=== PATIENT | female | born 1965 | race Caucasian/White ===

== ENCOUNTER 2018-09-28 19:15 | Observation (INO) | payer OTHER ==
[2018-09-28 20:03] LABS: Absolute Lymphocytes (CBC) 2.7 K/uL (0.7-4.9); Absolute Monocytes 0.6 K/uL (0.1-1.3); Absolute Neutrophil 8.4 K/uL (1.8-8.0); Basophils % 0.6 % (0-1.3); Eosinophils % 2.2 % (0-4.4); Hematocrit 38.1 % (36.0-45.0); Lymphocytes % 22.6 % (15.3-44.8); MCV 85.8 fL (80-100); MPV 9.5 fL (7.6-11.3); Monocytes % 5.2 % (3.3-12.3); RBC Red Blood Cell Count 4.44 M/uL (3.86-4.86)
--- NOTE | 2018-09-28 20:03 | RAD REPORT ---
EXAM DESCRIPTION: CT - Head Brain Wo Cont - 09/28/2018 7:55 pm CLINICAL HISTORY: NUMBNESS Drowsiness COMPARISON: No comparisons TECHNIQUE: All CT scans are performed using dose optimization technique as appropriate and may inclu de automated exposure control or mA/KV adjustment according to patient size. FINDINGS: No intracranial hemorrhage, hydrocephalus or extra-axial fluid collection.No areas of brai n edema or evidence of midline shift. The paranasal sinuses and mastoids are clear. The calvarium is intact. IMPRESSION: No acute intracranial abnormality. If there is continued clinical concern for CVA, MR i maging of the brain would be recommended.
[2018-09-28 20:05] LABS: Protime INR 1.08
--- NOTE | 2018-09-28 20:10 | RAD REPORT ---
EXAM DESCRIPTION: RAD - Chest Single View - 09/28/2018 8:01 pm CLINICAL HISTORY: MALAISE Chest pain. COMPARISON: Chest Single View dated 10/21/2017; Chest Pa And Lat (2 Views) dated 09/27/2017; Chest Pa And Lat (2 Views) dated 09/04/2017; Chest Pa And Lat (2 Views) dated 09/03/2017 FINDINGS: Portable technique limits examination quality. The lungs are mildly emphysematous but grossly clear. The heart is normal in size. No displaced fract ures. IMPRESSION: No acute intrathoracic process suspected.
[2018-09-28 20:14] LABS: BUN Blood Urea Nitrogen 15 mg/dL (7-18); Bicarbonate 28 mmol/L (21-32); Glucose Level 184 mg/dL (74-106); Sodium Level 137 mmol/L (136-145); Troponin (Emerg Dept Use Only) < 0.02 ng/mL (0.0-0.045)
--- NOTE | 2018-09-28 20:34 | EDPHYS ---
Physician Documentation [facility] Name: Smitha Ibarra Age: 53 yrs Sex: Female : 1965 Arrival Date: 09/28/2018 Time: 19:17 Bed 4 Private MD: ED Physician Ryne Hearn HPI: 09/28 20:46 This 53 yrs old Female presents to ER via Wheelchair with complaints of gs Numbness Of Face. 20:46 The patient's problem is reported as a facial droop, on left, paresthesias, in left gs upper extremity, in left side of face, l side of tongue. Onset: The symptoms/episode began/occurred acutely, yesterday, at 14:00. Duration: The episode is continuous. Context: symptoms became apparent. Associated signs and symptoms: Pertinent positives: tingling, Pertinent negatives: chest pain. Severity of symptoms: At their worst the symptoms were moderate in the emergency department the symptoms are unchanged. Patient's baseline: Neuro: alert and fully oriented, Motor: no deficits, Ambulation: walks without assistance, Speech: normal. The patient has not experienced similar symptoms in the past. 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 rr5 Historical: - Allergies: 19:34 Sudafed; fc - Home Meds: 19:34 Dilantin 100 mg Oral 4 cap daily [Active]; atorvastatin 20 mg oral tab 1 tab once daily [Active]; amlodipine 10 mg tab 1 tab once daily [Active]; Magnesium Oxide Oral daily [Active]; Januvia 50 mg oral tab 1 tabs once daily [Active]; lisinopril 40 mg Oral tab 1 tab once daily [Active]; aspirin 81 mg Oral TbEC 1 tab once daily [Active]; ProAir HFA 90 mcg/actuation inhalation HFAA 1 puff every 4-6 hours [Active]; - PMHx: 19:34 Hypertension; High Cholesterol; Seizures; Arthritis; COPD; Diabetes - NIDDM; fc - PSHx: 19:34 Tubal ligation; fc - Immunization history:: Last tetanus immunization: up to date Flu vaccine is up to date. - Social history:: Smoking status: Patient uses tobacco products, smokes one-half pack cigarettes per day, Patient uses alcohol, occasionally. Patient/guardian denies using street drugs. - Ebola Screening: : Patient negative for fever greater than or equal to 101.5 degrees Fahrenheit, and additional compatible Ebola Virus Disease symptoms Patient denies exposure to infectious person Patient denies travel to an Ebola-affected area in the 21 days before illness onset. ROS: 20:46 All other systems are negative. gs Exam: 20:46 Head/Face: Normocephalic, atraumatic. Eyes: Pupils equal round and reactive to light, gs extra-ocular motions intact. Lids and lashes normal. Conjunctiva and sclera are non-icteric and not injected. Cornea within normal limits. Periorbital areas with no swelling, redness, or edema. ENT: Nares patent. No nasal discharge, no septal abnormalities noted. Tympanic membranes are normal and external auditory canals are clear. Oropharynx with no redness, swelling, or masses, exudates, or evidence of obstruction, uvula midline. Mucous membranes moist. Neck: Trachea midline, no thyromegaly or masses palpated, and no cervical lymphadenopathy. Supple, full range of motion without nuchal rigidity, or vertebral point tenderness. No Meningismus. Chest/axilla: Normal chest wall appearance and motion. Nontender with no deformity. No lesions are appreciated. Cardiovascular: Regular rate and rhythm with a normal S1 and S2. No gallops, murmurs, or rubs. Normal PMI, no JVD. No pulse deficits. Respiratory: Lungs have equal breath sounds bilaterally, clear to auscultation and percussion. No rales, rhonchi or wheezes noted. No increased work of breathing, no retractions or nasal flaring. Abdomen/GI: Soft, non-tender, with normal bowel sounds. No distension or tympany. No guarding or rebound. No evidence of tenderness throughout. Back: No spinal tenderness. No costovertebral tenderness. Full range of motion. Skin: Warm, dry with normal turgor. Normal color with no rashes, no lesions, and no evidence of cellulitis. MS/ Extremity: Pulses equal, no cyanosis. Neurovascular intact. Full, normal range of motion. 20:46 Constitutional: The patient appears alert, awake. 20:46 Neuro: Orientation: to person, place, time \T\ situation. Cranial nerves: facial droop noted on left, with forehead spared. Cerebellar function: normal finger to nose testing, Sensation: tingling, that is moderate, of the tongue and left arm. Vital Signs: 19:15 BP 131 / 73; Pulse 99; Resp 18; Temp 98.5(O); Pulse Ox 92% on R/A; Weight 113.4 kg (R); fc Height 5 ft. 7 in. (170.18 cm) (R); Pain 0/10; 20:19 BP 134 / 61; Pulse 81; Resp 19; Pulse Ox 93% on R/A; tl2 21:05 BP 139 / 73; Pulse 72; Resp 18; Pulse Ox 97% on R/A; tl2 22:00 BP 131 / 77; Pulse 66; Resp 16; Pulse Ox 99% on R/A; rr5 22:00 BP 123 / 66; Pulse 60; Resp 17; Pulse Ox 98% on R/A; rr5 19:15 Body Mass Index 39.16 (113.40 kg, 170.18 cm) fc NIH Stroke Scale Scores: 20:46 NIHSS Score: 3 gs MDM: 19:35 Patient medically screened. gs 20:46 Differential diagnosis: CVA, TIA, paralysis, metabolic disorder, drug effects. Data gs reviewed: vital signs, nurses notes. Counseling: I had a detailed discussion with the patient and/or guardian regarding: the historical points, exam findings, and any diagnostic results supporting the discharge/admit diagnosis, lab results, radiology results, the need for further work-up and treatment in the hospital. Response to treatment: the patient's symptoms have mildly improved after treatment. 09/28 19:36 Order name: Basic Metabolic Panel; Complete Time: 20:26 09/28 19:36 Order name: CBC with Diff; Complete Time: 20:26 09/28 19:36 Order name: PT-INR; Complete Time: 20:26 09/28 19:36 Order name: Troponin (emerg Dept Use Only); Complete Time: 20:26 09/28 20:58 Order name: TSH 09/28 20:58 Order name: Urine Drug Screen 09/28 21:24 Order name: Urine Dipstick--Ancillary (enter results) ar5 09/28 21:32 Order name: CBC with Automated Diff EDMS 09/28 21:32 Order name: CBC with Automated Diff EDMS 09/28 21:32 Order name: Comprehensive Metabolic Panel EDMS 09/28 21:32 Order name: Comprehensive Metabolic Panel EDMS 09/28 21:32 Order name: Lipid Profile EDMS 09/28 21:32 Order name: Lipid Profile EDMS 09/28 21:32 Order name: Magnesium EDMS 09/28 19:36 Order name: CT Head Brain wo Cont; Complete Time: 20:26 gs 09/28 19:36 Order name: XRAY Chest (1 view); Complete Time: 20:26 gs 09/28 19:36 Order name: EKG; Complete Time: 20:11 gs 09/28 21:30 Order name: NPO EDMS 09/28 21:30 Order name: NPO EDMS 09/28 21:31 Order name: Physical Therapy Consult EDMS 09/28 21:31 Order name: Speech Therapy Consult EDMS 09/28 21:31 Order name: NPO EDMS 09/28 21:32 Order name: Echo with Doppler EDMS 09/28 21:32 Order name: Magnesium EDMS 09/28 21:32 Order name: Phosphorus EDMS 09/28 21:32 Order name: Phosphorus EDMS 09/28 21:32 Order name: Stroke Protocol EDMS 09/28 21:32 Order name: Carotid Artery Bilateral EDMS 09/28 19:36 Order name: Cardiac monitoring; Complete Time: 19:37 gs 09/28 19:36 Order name: EKG - Nurse/Tech; Complete Time: 19:37 gs 09/28 19:36 Order name: IV Saline Lock; Complete Time: 19:38 gs 09/28 19:36 Order name: Labs collected and sent; Complete Time: 19:38 gs 09/28 19:36 Order name: O2 Per Protocol; Complete Time: 19:38 gs 09/28 19:36 Order name: O2 Sat Monitoring; Complete Time: 19:39 gs 09/28 21:32 Order name: EKG Electrocardiogram EDMS Administered Medications: 21:10 Drug: Aspirin Chewable Tablet 324 mg Route: PO; rr5 23:00 Follow up: Response: No adverse reaction rr5 Disposition: 09/28/18 20:33 Hospitalization ordered by Sarbjit Corley for Inpatient Admission. Preliminary diagnosis is Cerebral infarction. - Bed requested for Telemetry/MedSurg (Inpatient). - Status is Inpatient Admission. rr5 - Condition is Stable. - Problem is new. - Symptoms have improved. UTI on Admission? No Critical care time excluding procedures: 20:46 Critical care time: Bedside Care: 10 minutes, Consultation: 10 minutes, Family gs Intervention: 10 minutes. Total time: 30 minutes NIH Stroke Scale - NIH Stroke Score Date: 09/28/2018 Time: 20:46 Total Score = 3 1a. Level of Consciousness (LOC) - 0(Alert) 1b. Level of Consciousness (LOC) (Year \T\ Age) - 0(Both) 1c. LOC Commands (Open \T\ Closes Eyes/On Line Csr) - 0(Both) 2. Best Gaze (Lateral Gaze Paresis) - 0(Normal) 3. Visual Field Loss - 0(No visual loss) 4. Facial Palsy - 2(Partial paralysis) 5a. Left Arm: Motor (10-second hold) - 0(No drift) 5b. Right Arm: Motor (10-second hold) - 0(No drift) 6a. Left Leg: Motor (5-second hold - always test supine) - 0(No drift) 6b. Right Leg: Motor (5-second hold - always test supine) - 0(No drift) 7. Limb Ataxia (finger/nose \T\ heel/andrade - test with eyes open) - 0(Absent) 8. Sensory Loss (pinprick arms/legs/face) - 1(Mild to moderate loss) 9. Best Language: Aphasia (description/naming/reading) - 0(No aphasia) 10. Dysarthria (speech clarity - read or repeat words) - 0(Normal) 11. Extinction and Inattention (visual/tactile/auditory/spatial/personal) - 0(No abnormality) Initials: Signatures: Dispatcher [employer] EDTX Shala Briceno RN RN mw Chretien, Felicia, RN RN fc Starr, Gregory, MD MD gs Roque, Raymond RN RN rr5 Corrections: (The following items were deleted from the chart) 20:49 20:33 Hospitalization Ordered by Sarbjit Corley MD for Inpatient Admission. flavia Preliminary diagnosis is Cerebral infarction. Bed requested for Telemetry/MedSurg (Inpatient). Status is Inpatient Admission. Condition is Stable. Problem is new. Symptoms have improved. UTI on Admission? No. gs 21:34 21:32 Chest Pa And Lat (2 Views) ordered. [facility] ED[facility] 23:21 20:49 09/28/2018 20:33 Hospitalization Ordered by Sarbjit Corley MD for rr5 Inpatient Admission. Preliminary diagnosis is Cerebral infarction. Bed requested for Telemetry/MedSurg (Inpatient). Status is Inpatient Admission. Condition is Stable. Problem is new. Symptoms have improved. UTI on Admission? No. mw
--- NOTE | 2018-09-28 20:34 | ER ---
Nurse's Notes [facility] Name: Smitha Ibarra Age: 53 yrs Sex: Female : 1965 Arrival Date: 09/28/2018 Time: 19:17 Bed 4 Private MD: Diagnosis: Cerebral infarction Presentation: 09/28 19:15 Presenting complaint: Patient states: that at 1400 yesterday she started to have fc slurred speech, numbness to left tongue, left side of face and left hand. States that all symptoms worsened today. Transition of care: patient was not received from another setting of care. Onset of symptoms was September 27, 2018 at 14:00. Risk Assessment: Do you want to hurt yourself or someone else? Patient reports no desire to harm self or others. Initial Sepsis Screen: Does the patient meet any 2 criteria? HR > 90 bpm. Yes Does the patient have a suspected source of infection? No. Patient's initial sepsis screen is negative. Care prior to arrival: None. 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 05/2018 rr5 Historical: - Allergies: 19:34 Sudafed; fc - Home Meds: 19:34 Dilantin 100 mg Oral 4 cap daily [Active]; atorvastatin 20 mg oral tab 1 tab once daily fc [Active]; amlodipine 10 mg tab 1 tab once daily [Active]; Magnesium Oxide Oral daily [Active]; Januvia 50 mg oral tab 1 tabs once daily [Active]; lisinopril 40 mg Oral tab 1 tab once daily [Active]; aspirin 81 mg Oral TbEC 1 tab once daily [Active]; ProAir HFA 90 mcg/actuation inhalation HFAA 1 puff every 4-6 hours [Active]; - PMHx: 19:34 Hypertension; High Cholesterol; Seizures; Arthritis; COPD; Diabetes - NIDDM; fc - PSHx: 19:34 Tubal ligation; fc - Immunization history:: Last tetanus immunization: up to date Flu vaccine is up to date. - Social history:: Smoking status: Patient uses tobacco products, smokes one-half pack cigarettes per day, Patient uses alcohol, occasionally. Patient/guardian denies using street drugs. - Ebola Screening: : Patient negative for fever greater than or equal to 101.5 degrees Fahrenheit, and additional compatible Ebola Virus Disease symptoms Patient denies exposure to infectious person Patient denies travel to an Ebola-affected area in the 21 days before illness onset. Screenin:15 Abuse screen: Denies threats or abuse. Nutritional screening: No deficits noted. fc Tuberculosis screening: No symptoms or risk factors identified. 20:00 Fall Risk Secondary diagnosis (15 points) IV access (20 points). Total Blunt Fall Scale rr5 indicates Low Risk Score (25-44 pts). Fall prevention measures have been instituted. Side Rails Up X 2 Frequent Obs/Assesments occuring Family Present and informed to notify staff if they need to leave bedside As available Patient and Family Educated on Fall Prevention Program and strategies. 22:20 Patient has been NPO before screening. The patient is alert, able to follow commands. rr5 The patient exhibits slurred or garbled speech. The patient is not exhibiting difficulty speaking. The patient does not exhibit difficulty understanding words. The patient is able to swallow own secretions with no drooling or need for suction. Patient tolerated one teaspoon of water. No drooling, immediate coughing, gurgling, or clearing of the throat was noted. The patient tolerated 90mL of water. No drooling, immediate coughing, gurgling, or clearing of the throat was noted. The patient passed the bedside swallow screening. Oral medications may be given as ordered. Contact Physician for further diet orders. Assessment: 19:30 General: Appears in no apparent distress. Behavior is calm, cooperative, appropriate rr5 for age. Pain: Denies pain. Neuro: Level of Consciousness is awake, alert, obeys commands, Oriented to person, place, time, situation. Neuro: Reports numbness in face, left arm. Cardiovascular: Capillary refill < 3 seconds Patient's skin is warm and dry. Respiratory: Airway is patent Respiratory effort is even, unlabored, Respiratory pattern is regular, symmetrical. GI: No signs and/or symptoms were reported involving the gastrointestinal system. : No signs and/or symptoms were reported regarding the genitourinary system. EENT: No signs and/or symptoms were reported regarding the EENT system. Derm: No signs and/or symptoms reported regarding the dermatologic system. Skin is intact, Skin temperature is warm. Musculoskeletal: Capillary refill < 3 seconds, Range of motion: intact in all extremities, Reports numbness in left arm. 19:30 EENT: Throat is clear with gag reflex present. rr5 20:40 Reassessment: Patient appears in no apparent distress at this time. patient is for rr5 admission patient is informed Patient denies pain at this time. 22:10 Reassessment: Patient appears in no apparent distress at this time. 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 22:20 Reassessment: positive gag reflex no coughing noted. bed side swallow done. rr5 23:14 Reassessment: Patient appears in no apparent distress at this time. Patient is alert, rr5 oriented x 3, equal unlabored respirations, skin warm/dry/pink. no complaints made. vitally stable shifted to floor. Patient denies pain at this time. Patient states feeling better. Patient states symptoms have improved. Vital Signs: 19:15 BP 131 / 73; Pulse 99; Resp 18; Temp 98.5(O); Pulse Ox 92% on R/A; Weight 113.4 kg (R); fc Height 5 ft. 7 in. (170.18 cm) (R); Pain 0/10; 20:19 BP 134 / 61; Pulse 81; Resp 19; Pulse Ox 93% on R/A; tl2 21:05 BP 139 / 73; Pulse 72; Resp 18; Pulse Ox 97% on R/A; tl2 22:00 BP 131 / 77; Pulse 66; Resp 16; Pulse Ox 99% on R/A; rr5 22:00 BP 123 / 66; Pulse 60; Resp 17; Pulse Ox 98% on R/A; rr5 19:15 Body Mass Index 39.16 (113.40 kg, 170.18 cm) NIH Stroke Scale Scores: 20:46 NIHSS Score: 3 gs ED Course: 19:15 Arm band placed on Patient placed in an exam room, on a stretcher. 19:15 Patient has correct armband on for positive identification. Placed in gown. Bed in low fc position. Call light in reach. Side rails up X2. sports announcer on. Pulse ox on. NIBP on. 19:15 No provider procedures requiring assistance completed. fc 19:17 Patient arrived in ED. 19:23 EKG done, by ED staff, reviewed by Ryne Hearn MD. 19:23 Missed attempt(s): 20 gauge in right antecubital area. Bleeding controlled, band aid aa1 applied, catheter tip intact. 19:25 Inserted saline lock: 20 gauge in left upper arm, using aseptic technique. Blood aa1 collected. 19:28 Ryne Hearn MD is Attending Physician. gs 19:30 Triage completed. fc 19:[address] nj 19:53 CT completed. Patient tolerated procedure well. Patient moved back from CT. nj 20:13 CT Head Brain wo Cont In Process Unspecified. EDMS 20:14 XRAY Chest (1 view) In Process Unspecified. EDMS 20:32 Sarbjit Corley MD is Hospitalizing Provider. gs 20:54 Marcus Diana, TACOS is Primary Nurse. rr5 22:54 Patient admitted, IV remains in place. intact. rr5 Administered Medications: 21:10 Drug: Aspirin Chewable Tablet 324 mg Route: PO; rr5 23:00 Follow up: Response: No adverse reaction rr5 Outcome: 20:33 Decision to Hospitalize by Provider. 23:00 Admitted to Tele accompanied by tech, via wheelchair, with chart, Report called to rr5 frantz 23:00 Condition: stable rr5 23:00 Instructed on the need for admit. 23:21 Patient left the ED. rr5 NIH Stroke Scale - NIH Stroke Score Date: 09/28/2018 Time: 20:46 Total Score = 3 1a. Level of Consciousness (LOC) - 0(Alert) 1b. Level of Consciousness (LOC) (Year \T\ Age) - 0(Both) 1c. LOC Commands (Open \T\ Closes Eyes/Javascript Developer) - 0(Both) 2. Best Gaze (Lateral Gaze Paresis) - 0(Normal) 3. Visual Field Loss - 0(No visual loss) 4. Facial Palsy - 2(Partial paralysis) 5a. Left Arm: Motor (10-second hold) - 0(No drift) 5b. Right Arm: Motor (10-second hold) - 0(No drift) 6a. Left Leg: Motor (5-second hold - always test supine) - 0(No drift) 6b. Right Leg: Motor (5-second hold - always test supine) - 0(No drift) 7. Limb Ataxia (finger/nose \T\ heel/andrade - test with eyes open) - 0(Absent) 8. Sensory Loss (pinprick arms/legs/face) - 1(Mild to moderate loss) 9. Best Language: Aphasia (description/naming/reading) - 0(No aphasia) 10. Dysarthria (speech clarity - read or repeat words) - 0(Normal) 11. Extinction and Inattention (visual/tactile/auditory/spatial/personal) - 0(No abnormality) Initials: Signatures: Dispatcher [employer] Humera [place] RN RN aa1 Shania Das RN RN fc Knox, Taylor, RN RN tl2 Bryan Madison Gregory, MD MD gs Roque, Raymond, RN RN rr5
[2018-09-28] MEDS ORDERED: ASPIRIN 81 MG CHEWABLE TABLET ONE (21:11)
[2018-09-28] MEDS ORDERED: ACETAMINOPHEN 500 MG TAB PO PRN (21:27)
[2018-09-28] MEDS ORDERED: ONDANSETRON 4 MG/2 ML VIAL IV PRN (21:27)
[2018-09-28 21:31] LABS: Urine Blood NEGATIVE (NEG); Urine Glucose NEGATIVE (NEG); Urine Protein NEGATIVE (NEG)
[2018-09-28 21:46] LABS: Barbiturates NEGATIVE (NEGATIVE); Benzodiazepines NEGATIVE (NEGATIVE); Cocaine NEGATIVE (NEGATIVE); METHAMPHETAM NEGATIVE (NEGATIVE); Methadone NEGATIVE (NEGATIVE); Opiates NEGATIVE (NEGATIVE); Phencyclidine NEGATIVE (NEGATIVE); THC Cannibis POSITIVE (NEGATIVE)
[2018-09-29] MEDS: NA CHLORIDE 0.9% 1,000 ML IV SCH ×2 (00:16→10:59)
[2018-09-29] MEDS: NICOTINE 14 MG/PAT TD SCH ×2 (02:17→08:45)
[2018-09-29 06:14] LABS: Absolute Lymphocytes (CBC) 2.4 K/uL (0.7-4.9); Absolute Monocytes 0.6 K/uL (0.1-1.3); Absolute Neutrophil 5.8 K/uL (1.8-8.0); Basophils % 0.4 % (0-1.3); Eosinophils % 2.9 % (0-4.4); Hematocrit 37.5 % (36.0-45.0); Lymphocytes % 26.7 % (15.3-44.8); MCH 28.6 pg (27.0-35.0); MCV 86.1 fL (80-100); MPV 9.3 fL (7.6-11.3); Monocytes % 6.5 % (3.3-12.3); RBC Red Blood Cell Count 4.36 M/uL (3.86-4.86)
[2018-09-29 06:33] LABS: ALT/SGPT 20 U/L (12-78); AST/SGOT 13 U/L (15-37); Albumin 3.3 g/dL (3.4-5.0); Alkaline Phosphatase 125 U/L (45-117); BUN Blood Urea Nitrogen 10 mg/dL (7-18); Bicarbonate 26 mmol/L (21-32); Bilirubin Total 0.2 mg/dL (0.2-1.0); Glucose Level 160 mg/dL (74-106); HDL Cholesterol 37 mg/dL (40-60); LDL Cholesterol, Calculated 109 (<130); Phosphorus 4.4 mg/dL (2.5-4.9); Potassium 4.2 mmol/L (3.5-5.1); Protein, Total 7.1 g/dL (6.4-8.2); Sodium Level 142 mmol/L (136-145)
--- NOTE | 2018-09-29 08:29 | EKG ---
Test Date: 2018-09-28 Test Time: 19:23:33 Inorganic Chemical Technician: ROBERT MEASUREMENT RESULTS: Intervals: Rate: 98 LA: 172 QRSD: 86 QT: 350 QTc: 446 [place]: P: 65 LA: 172 QRS: 10 T: 63 INTERPRETIVE STATEMENTS: Normal sinus rhythm Normal ECG Compared to ECG 10/21/2017 11:52:21 Sinus tachycardia no longer present Electronically Signed On 09-29-18 08:28:34 PIERCING ARTIST by Uvaldo Hernandez
--- NOTE | 2018-09-29 08:33 | RAD REPORT ---
EXAM DESCRIPTION: MRI - Brain W/Wo Cont - 09/28/2018 10:28 pm CLINICAL HISTORY: cva CVA/TIA symptomology COMPARISON: MRA Head Wo Cont dated 09/28/2018; Head Brain Wo Cont dated 09/28/2018 TECHNIQUE: Multi-sequence, multiplanar MR imaging of the brain was performed with contrast. FINDINGS: No intracranial hemorrhage, hydrocephalus, or extra-axial fluid collection.Mild T2 and FLA IR hyperintense lesions in the periventricular region are noted likely in minimal chronic microvascul ar ischemic changes. No edema or shift of midline structures. No intracranial mass. DWI is negative f or acute CVA. The midline structures are normally formed. Mastoid air cells and paranasal sinuses are essentially c lear. Post-contrast images show no abnormal enhancement to suggest tumor or infection. IMPRESSION: Negative for acute CVA or other acute intracranial abnormality. No pathologic post-contrast enhancement suspected.
--- NOTE | 2018-09-29 08:35 | RAD REPORT ---
EXAM DESCRIPTION: MRI - MRA Head Wo Cont - 09/28/2018 10:28 pm CLINICAL HISTORY: CVA CVA COMPARISON: Head Brain Wo Cont dated 09/28/2018 FINDINGS: 3D noncontrast [id number] MR angiography of the [place] was performed. No aneurysm, flow-limiting stenosis or vascular malformation is seen. Forward flow seen in codominant vertebral arteries. The visualized dural venous sinuses appear patent. IMPRESSION: No significant flow abnormality of the [place] is identified.
--- NOTE | 2018-09-29 08:38 | RAD REPORT ---
EXAM DESCRIPTION: MRI - MRA Neck W/Wo Cont - 09/28/2018 10:28 pm CLINICAL HISTORY: cva CVA/TIA COMPARISON: No comparisons FINDINGS: Contrast enhance 2D [id number] MR angiography of the neck vessels was performed. A left aortic arch is noted in within normal branching pattern of the great vessels. No significant common carotid artery flow abnormality. No significant internal carotid artery stenosi s. Antegrade flow seen in both vertebral arteries. IMPRESSION: No significant flow abnormality of the neck vessels is identified.
[2018-09-29] MEDS ORDERED: PHENYTOIN ER 100 MG CAP PO SCH (09:00)
[2018-09-29] MEDS ORDERED: predniSONE 10 MG TAB PO SCH (09:00)
[2018-09-29] MEDS ORDERED: CLOPIDOGREL 75 MG TABLET PO SCH (09:00)
[2018-09-29] MEDS ORDERED: ENOXAPARIN 40 MG/0.4 ML SQ SCH (09:00)
[2018-09-29] MEDS ORDERED: ASPIRIN EC 81 MG TAB PO SCH (09:00)
--- NOTE | 2018-09-29 09:39 | RAD REPORT ---
EXAM DESCRIPTION: US - CP - 09/29/2018 9:25 am CLINICAL HISTORY: CVA COMPARISON: MRA Neck W/Wo Cont dated 09/28/2018 TECHNIQUE: Real-time sonographic evaluation of both carotid systems was performed. Doppler interroga tion was performed with waveform tracing bilaterally. FINDINGS: Normal high resistance waveforms are noted in both external carotid arteries. The common c arotid arteries and internal carotid arteries show normal low resistance waveforms. Small amount of hard plaque is seen in the left internal carotid artery. Elsewhere, no significant pl aquing is seen. Peak systolic and end diastolic velocity values and the ICA/CCA ratios are in the non -hemodynamically significant range. Antegrade flow seen in both vertebral arteries. IMPRESSION: Small amount of hard plaque is seen in the left internal carotid artery. No evidence of a hemodynamically significant stenosis.
[2018-09-29] MEDS ORDERED: PANTOPRAZOLE 40MG TABLET PO ONE (10:21)
[2018-09-29] MEDS ORDERED: DEXAMETHASONE 4 MG/ML VIAL IV ONE (10:26)
--- NOTE | 2018-09-29 10:27 | P.HP ---
Certification for Inpatient Patient admitted to: Observation With expected LOS: <2 Midnights Patient will require the following post-hospital care: None Practitioner: I am a practitioner with admitting privileges, knowledge of patient current condition, hospital course, and medical plan of care. Services: Services provided to patient in accordance with Admission requirements found in Title 42 Section 412.3 of the Code of Federal Regulations Patient History Date of Service: 09/28/18 Reason for admission: generalized weakness/ left-sided facial droop/ slurred speech History of Present Illness: Patient is a 53-year-old female who presents to the emergency room with complaints of left-sided facial weakness. She has a left-sided facial droop. She has not been able to hold her liquids as she started drooling. This symptoms started suddenly. There is not really an associated weakness on the left side of her upper and lower extremity. This mainly just occurred on her face. It is not really affecting her eyes either. It is mainly the mouth. 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 Patient was admitted to the hospital for observation. Patient MRI is pending. Patient will probably need to be changed to observation status. Will wait for MRI results and if is negative then we will change her to a observation. Anticipate discharge home in the morning. If this is Dempsey's palsy, then patient may benefit from combination of antiviral and steroids at discharge. At the least, prednisone should be prescribed starting at 60 mg and a slow taper over 10 days. Allergies pseudoephedrine [From Sudafed] Allergy (Verified 09/02/17 10:57) Unknown Home Medications: PHENYTOIN ER Cap [Dilantin ER Cap*] 400 mg PO DAILY 09/02/17 Aspirin [Aspirin EC 81 MG] 81 mg PO DAILY #90 tablet. 09/05/17 Amlodipine [Norvasc*] 10 mg PO BEDTIME 10/21/17 Lovastatin 20 mg PO BEDTIME 10/21/17 Albuterol Sulfate [Proair Hfa] 1 puff IH SEECOM 09/29/18 Lisinopril [Zestril] 40 mg PO BEDTIME 09/29/18 Sitagliptin Phosphate [Januvia] 50 mg PO BID 09/29/18 - Past Medical/Surgical History Has patient received pneumonia vaccine in the past: Yes Diabetic: Yes -: arthritis -: COPD -: NIDDM -: HTN -: seizures -: tubal ligation -: tonsillectomy - Family History Mother Medical History: Heart disease, Lung disease, GI disease, Kidney disease Father Medical History: Other (see notes) Notes: anureseym - Social History Smoking Status: Current every day smoker Alcohol use: Yes CD- Drugs: No Caffeine use: Yes Place of Residence: Home Review of Systems 10-point ROS is otherwise unremarkable Physical Examination - Vital Signs Temperature: 98.2 F Blood Pressure: 118/54 Pulse: 68 Respirations: 20 Pulse Ox (%): 91 - Physical Exam General: Alert, In no apparent distress, Oriented x3 HEENT: Atraumatic, PERRLA, Mucous membr. moist/pink, Other (left sided facial droop), EOMI, Sclerae nonicteric Neck: Supple, 2+ carotid pulse no bruit, No LAD, Without JVD or thyroid abnormality Respiratory: Clear to auscultation bilaterally, Normal air movement Cardiovascular: Regular rate/rhythm, Normal S1 S2, No murmurs Gastrointestinal: Normal bowel sounds, Soft and benign, Non-distended, No tenderness Musculoskeletal: No tenderness Integumentary: No rashes Neurological: Normal gait, Normal speech, Normal strength at 5/5 x4 extr, Normal tone, Normal affect Lymphatics: No axilla or inguinal lymphadenopathy - Studies Laboratory Data (last 24 hrs) 09/28/18 19:25: PT 12.7 H, INR 1.08 09/28/18 19:25: WBC 12.1 H, Hgb 12.9, Hct 38.1, Plt Count 269 09/28/18 19:25: Sodium 137, Potassium 4.0, BUN 15, Creatinine 0.80, Glucose 184 H Assessment & Plan - Problems (Diagnosis) (1) CVA (cerebral vascular accident) Current Visit: Yes Status: Acute (2) Dempsey's palsy Current Visit: Yes Status: Acute - Plan plan: 1. Awaiting MRI results 2. Will start prednisone if MRI is negative 3. Will add antivirals as well 4. Neurology consultation 5. Supportive care 6. DC anti-platelet and statins if MRI is negative 7. GI and DVT prophylaxis Discharge Plan: Home Plan to discharge in: 24 Hours - Advance Directives Does patient have a Living Will: No Does patient have a Durable POA for Healthcare: No - Code Status/Comfort Care Code Status Assessed: Yes Code Status: Full Code Critical Care: No Time Spent Managing PTS Care (In Minutes): 50
[2018-09-29] MEDS ORDERED: VALACYCLOVIR 500 MG TAB PO SCH (14:00)
[2018-09-29] MEDS ORDERED: RIVAROXABAN 15 MG TABLET PO SCH (17:00)
--- NOTE | 2018-09-29 19:47 | CON ---
Reason For Consultation: Consultation called because of possible stroke. History Of Present Illness: Ms. Ibarra is a 53-year-old right-handed patient, who developed left facial weakness on the September 28, in the morning time. She had difficulty keeping food and liquids in. Things would run out the left corner of her mouth. She had difficulty smiling and wrink ling on her forehead. She denied any hand or leg weakness. She was admitted with possible stroke. Dr. Corley, who saw the patient; however, felt strongly that it was more likely Dempsey's palsy; however, the patient was still admitted. Brain MRI with MRA ruled out the possibility of a stroke and/or aneu rysm or other abnormalities in head and neck in the vascular territory. Carotid artery ultrasound sh owed no evidence of hemodynamically significant stenosis. Chest x-ray showed no acute cardiothoracic processes and an electrocardiogram showed normal sinus rhythm with normal study. Once the patient w as ruled out for stroke, she was started on acyclovir 4 times daily along with steroids, 60 mg predni sone to taper down over 10 days. She has not had yet very significant improvement in the left-sided facial weakness,but no worsening. Past Medical History: Positive for epilepsy, hypertension, dyslipidemia, seizures, nme-unylzhe-mngar dent diabetes mellitus, arthritis, COPD. Past Surgical History: Tubal ligation and tonsillectomy. Family History: Positive heart disease, GI, kidney, and lung disease in mother and aneurysm in fathe r. Social History: Smokes on a daily basis and drinks regularly alcohol and caffeine. No illegal drugs . Allergies: PSEUDOEPHEDRINE. Medications: At home; Dilantin 400 mg daily, aspirin 81 mg daily, Norvasc 10 mg at bedtime, lovastat in 10 mg at bedtime, albuterol 1 puff as needed daily, Zestril 40 mg at bedtime, Januvia 50 mg twice daily. Review of Systems: She denies any recent fevers, chills, nausea, vomiting, myalgias, arthralgias, headache, weight hsu e, rash, psychiatric complaints, gastrointestinal issues, genitourinary issues, or other positives on a 10-point systems review other than mentioned above. Physical Examination: Vital Signs: Blood pressure ranged from 118 to 145 systolic over 54 to 67 diastolic, pulse ranged fr om 68 to 75, respiratory rate 16 to 20, temperature 98.2, oxygen saturation 93% on room air. Weight 241 pounds, height 5 feet 7 inches. General: Ms. Ibarra is resting in bed. She is in no acute distress. HEENT: She is normocephalic, atraumatic. Sclerae are anicteric. Oropharynx is moist. Neck: Supple. Chest: Clear. Heart: Regular. Extremities: No edema, cyanosis, or clubbing. Neurological: She has a decreased wrinkling of the left forehead, decreased blink rate of the left e ye, and decreased left nasolabial fold along with the drooping on the left corner of the mouth. She has less excursion on the left face compared to the right face and smiling. Some mild hyperacusis in left ear. Denies any taste difference before or after the event. Otherwise, cranial nerves 2 throu gh 12 are intact. Motor examination, upper extremity proximally and distally 5/5, bilaterally in upp er and lower extremities. Sensory exam intact in upper and lower extremities except for mild stockin g-glove loss to light touch and temperature. Reflexes 1+ at patellae and upper extremities, 0 at the heels. Coordination intact in upper and lower extremities. Gait intact. Laboratory Studies: Complete blood count with differential now is completely normal. White blood ce ll count 9.1, hemoglobin of 12.4. INR 1.08. Chemistries unremarkable. Her glucose had ranged from 143 to 205. Alkaline phosphate is elevated to 125, AST low at 13, ALT normal at 20. TSH 2.240, trig lycerides 140, total cholesterol 174, LDL cholesterol 109, HDL cholesterol 37. Urinalysis negative. Urine drug screen is positive for tetrahydrocannabinol that is marijuana. Assessment: Ms. Ibarra is a 53-year-old patient with left-sided Dempsey palsy. She does have dyslipidem ia; hypertension; possible diabetes mellitus, untreated and uses marijuana. Plan: 1.Patient instructed on the importance of not using illegal drugs. 2.Use the acyclovir as scheduled for 10 days along with the prednisone as scheduled for 10 days. 3.Patient should be on aspirin 81 mg daily for stroke risk reduction. 4.She may be discharged home. Follow up with Dr. Solorzano in clinic in 1 month. DECLAN Voice ID: [id number] Report ID: [id number]
[2018-09-29] MEDS ORDERED: AMLODIPINE 10 MG TAB PO SCH (21:00)
[2018-09-29] MEDS ORDERED: SITAGLIPTIN PHOS 100 MG TAB PO SCH (21:00)
[2018-09-29] MEDS ORDERED: predniSONE 20 MG TAB PO SCH (21:00)
[2018-09-30] MEDS ORDERED: PANTOPRAZOLE 40MG TABLET PO SCH (06:30)
== END 2018-09-29 15:38 | disposition home or self-care (01) ==
LOC: ER 19:15 → INTOOBSV 21:27 → ERHOLD 21:27 → 4TH 23:07
PROVIDERS: ADMIT Hospitalist; ATTEND Hospitalist
DX: G51.0 Bell's palsy (principal); I10 Essential (primary) hypertension; J44.9 Chronic obstructive pulmonary disease, unspecified; F17.210 Nicotine dependence, cigarettes, uncomplicated; R56.9 Unspecified convulsions; E78.5 Hyperlipidemia, unspecified; Z79.82 Long term (current) use of aspirin
CPT/HCPCS: 36415; 70450; 70544; 70549; 70553; 71045; 80048; 80053; 80061; 80307 ×8; 81003; 82962 ×3; 83735; 84100; 84443; 84484; 85025 ×2; 85610; 93005; 93880; 99285; A9577; G0378 ×2; J1650; J7030 ×2

== ENCOUNTER 2018-12-24 17:37 | Emergency (ER) | payer OTHER ==
[2018-12-24] MEDS ORDERED: MORPHINE 4 MG/ML SYR ONE ×2 (18:30→20:49)
[2018-12-24] MEDS ORDERED: ONDANSETRON 4 MG/2 ML VIAL ONE (18:30)
[2018-12-24 19:41] LABS: Absolute Lymphocytes (CBC) 2.6 K/uL (0.7-4.9); Absolute Monocytes 1.1 K/uL (0.1-1.3); Absolute Neutrophil 14.4 K/uL (1.8-8.0); Basophils % 0.4 % (0-1.3); Eosinophils % 1.1 % (0-4.4); Hematocrit 37.6 % (36.0-45.0); MPV 9.4 fL (7.6-11.3); RBC Red Blood Cell Count 4.29 M/uL (3.86-4.86)
[2018-12-24 19:54] LABS: BUN Blood Urea Nitrogen 7 mg/dL (7-18); Bicarbonate 29 mmol/L (21-32); Glucose Level 158 mg/dL (74-106); Potassium 4.1 mmol/L (3.5-5.1); Sodium Level 138 mmol/L (136-145)
--- NOTE | 2018-12-24 22:44 | ER ---
Nurse's Notes [facility] Name: Smitha Ibarra Age: 53 yrs Sex: Female : 1965 Arrival Date: 12/24/2018 Time: 17:39 Bed 8 Private MD: Diagnosis: Contusion of lower back and pelvis-hematoma left gluteal soft tissue Presentation: 12/24 17:40 Presenting complaint: EMS states: She slipped and fell down several steps, hit on her jl7 butt and reported hitting her head, denies LOC, Swelling \T\ bruising noted to right buttocks. Care prior to arrival: None. Mechanism of Injury: Fall down steps. 17:40 Acuity: PRECIOUS 3 jl7 17:40 Method Of Arrival: EMS: [facility] 7 17:51 Transition of care: patient was not received from another setting of care. Onset of jl7 symptoms was December 24, 2018. Risk Assessment: Do you want to hurt yourself or someone else? Patient reports no desire to harm self or others. Initial Sepsis Screen: Does the patient meet any 2 criteria? No. Patient's initial sepsis screen is negative. Does the patient have a suspected source of infection? No. Patient's initial sepsis screen is negative. Triage Assessment: 17:48 General: Appears in no apparent distress. uncomfortable, Behavior is calm, cooperative, jl7 appropriate for age, Pt able to bear weight but unable to lay on back/butt due to the pain. Pain: Complains of pain in left gluteus jaspreet Pain currently is 10 out of 10 on a pain scale. Neuro: Level of Consciousness is awake, alert, obeys commands, Oriented to person, place, time, situation. Cardiovascular: Patient's skin is warm and dry. Respiratory: Airway is patent Respiratory effort is even, unlabored, Respiratory pattern is regular, symmetrical. Derm: Bruising that is bright red, dark purple, on left gluteus jaspreet. Musculoskeletal: Swelling present in left gluteus jaspreet. 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 - Post-menopause jl7 Historical: - Allergies: 17:47 Sudafed; jl7 - Home Meds: 17:47 amlodipine 10 mg tab 1 tab once daily [Active]; aspirin 81 mg Oral TbEC 1 tab once jl7 daily [Active]; atorvastatin 20 mg Oral tab 1 tab once daily [Active]; lisinopril 40 mg Oral tab 1 tab once daily [Active]; Januvia 50 mg Oral tab 1 tabs once daily [Active]; Dilantin 100 mg Oral 4 cap daily [Active]; Magnesium Oxide Oral daily [Active]; ProAir HFA 90 mcg/actuation inhalation HFAA 1 puff every 4-6 hours [Active]; - PMHx: 17:47 Arthritis; COPD; Diabetes - NIDDM; High Cholesterol; Hypertension; Seizures; jl7 - Immunization history: Last tetanus immunization: unknown. - Social history:: Smoking status: Patient uses tobacco products, smokes one-half pack cigarettes per day, smokes one pack cigarettes per day. - Ebola Screening: : No symptoms or risks identified at this time. Screenin:44 Abuse screen: Denies threats or abuse. Denies injuries from another. Tuberculosis jl7 screening: No symptoms or risk factors identified. 17:50 Nutritional screening: No deficits noted. Fall Risk None identified. jl7 Assessment: 17:50 General: See triage assessment. jl7 19:05 Reassessment: Patient appears in no apparent distress at this time. Patient and/or aa1 family updated on plan of care and expected duration. Pain level reassessed. Patient is alert, oriented x 3, equal unlabored respirations, skin warm/dry/pink. Reassessment: Pt amb to restroom with steady gait. Manager Programming notified that staff has had multiple unsuccessful attempts to obtain labs. Rasheeda with lab reports she will come to ED to attempt collection. CT pending lab results. Neuro: Moves all extremities. Full function Gait is steady. Derm: Bruising that is dark purple, on left gluteus jaspreet. Musculoskeletal: Circulation, motion, and sensation intact. Capillary refill < 3 seconds, Range of motion: intact in all extremities, Swelling present in left gluteus jaspreet. 20:30 Reassessment: Patient appears in no apparent distress at this time. Patient and/or aa1 family updated on plan of care and expected duration. Pain level reassessed. Patient is alert, oriented x 3, equal unlabored respirations, skin warm/dry/pink. Pt unable to tolerate CT due to discomfort, will medicate for pain per PA orders and pt states she will reattempt CT after medication has been administered. 20:50 Reassessment: Patient appears in no apparent distress at this time. Pt taken to [facility] at [facility] this time for 2nd attempt. 21:45 Reassessment: Patient appears in no apparent distress at this time. Patient and/or aa1 family updated on plan of care and expected duration. Pain level reassessed. Patient is alert, oriented x 3, equal unlabored respirations, skin warm/dry/pink. Awaiting CT results. 22:50 Reassessment: Patient appears in no apparent distress at this time. Patient is alert, aa1 oriented x 3, equal unlabored respirations, skin warm/dry/pink. Discussed d/c \T\ f/u instructions with pt; denies questions or concerns at this time. Amb to lobby with steady gait Patient states feeling better. Vital Signs: 17:47 BP 128 / 72; Pulse 61; Resp 16 S; Pulse Ox 98% on R/A; Weight 107.95 kg (R); Height 5 jl7 ft. 7 in. (170.18 cm) (R); Pain 10/10; 19:36 BP 95 / 54; Pulse 84; Resp 16; Temp 98.1; Pulse Ox 97% on R/A; Pain 6/10; aa1 20:35 BP 112 / 61; Pulse 81; Resp 16; Pulse Ox 95% on R/A; Pain 8/10; aa1 21:45 BP 103 / 52; Pulse 80; Resp 18; Pulse Ox 95% on R/A; aa1 22:51 BP 121 / 60; Pulse 77; Resp 16; Temp 97.9; Pulse Ox 95% on R/A; Pain 7/10; aa1 17:47 Body Mass Index 37.28 (107.95 kg, 170.18 cm) jl7 [place] Coma Score: 17:44 Eye Response: spontaneous(4). Verbal Response: oriented(5). Motor Response: obeys jl7 commands(6). Total: 15. 19:36 Eye Response: spontaneous(4). Verbal Response: oriented(5). Motor Response: obeys aa1 commands(6). Total: 15. 20:35 Eye Response: spontaneous(4). Verbal Response: oriented(5). Motor Response: obeys aa1 commands(6). Total: 15. 21:45 Eye Response: spontaneous(4). Verbal Response: oriented(5). Motor Response: obeys aa1 commands(6). Total: 15. 22:51 Eye Response: spontaneous(4). Verbal Response: oriented(5). Motor Response: obeys aa1 commands(6). Total: 15. Trauma Score (Adult): 17:44 Eye Response: spontaneous(1); Verbal Response: oriented(1); Motor Response: obeys jl7 commands(2); Systolic BP: > 89 mm Hg(4); Respiratory Rate: 10 to 29 per min(4); [place] Score: 15; Trauma Score: 12 ED Course: 17:39 Patient arrived in ED. iw 17:40 Amisha Bryant RN is Primary Nurse. jl7 17:43 Triage completed. jl7 17:44 Patient has correct armband on for positive identification. Placed in gown. Bed in low jl7 position. Call light in reach. Side rails up X2. 17:44 Patient maintains SpO2 saturation greater than 95% on room air. Thermoregulation: warm jl7 blanket given to patient. 17:47 Arm band placed on right wrist. jl7 18:08 Kemar Coy NP is PHCP. pm1 18:08 Ryne Hearn MD is Attending Physician. pm1 18:23 Radiology exam delayed due to lab results not completed at this time. (BUN/Creatinine). mw3 18:45 Inserted saline lock: 22 gauge in left forearm, using aseptic technique. jl7 19:08 Report given to TACOS Grubbs. jl7 19:18 Radiology exam delayed due to spoke with Sho and she was told that lab is on the way mw3 to the pt to do blood draws now, the ED is having trouble. 19:37 Basic Metabolic Panel Sent. aa1 19:37 CBC with Diff Sent. aa1 19:37 Creatinine for Radiology Sent. aa1 19:37 Type And Screen Sent. aa1 21:22 CT Traumagram (Head C Spine CAP W Con) In Process Unspecified. EDMS 22:50 No provider procedures requiring assistance completed. IV discontinued, intact, aa1 bleeding controlled, No redness/swelling at site. Pressure dressing applied. Administered Medications: 18:48 Drug: Zofran 4 mg Route: IVP; Site: left forearm; jl7 19:12 Follow up: Response: No adverse reaction jl7 18:50 Drug: morphine 4 mg Route: IVP; Site: left forearm; jl7 19:12 Follow up: Response: No adverse reaction; Pain is decreased jl7 20:44 Drug: morphine 4 mg Route: IVP; Site: left forearm; aa1 21:45 Follow up: Response: No adverse reaction; Pain is decreased aa1 22:58 Drug: [place] 5 mg-325 mg 1 tabs Route: PO; aa1 22:58 Follow up: Response: Medication administered at discharge. aa1 Outcome: 22:43 Discharge ordered by MD. pm1 22:50 Discharged to home ambulatory, with family. aa1 22:50 Condition: good 22:50 Discharge instructions given to patient, Instructed on discharge instructions, follow up and referral plans. medication usage, Demonstrated understanding of instructions, follow-up care, medications, Prescriptions given X 1. 22:58 Patient left the ED. aa1 Signatures: Dispatcher [employer] EDMS Humera Christensen RN RN aa1 Jane De Anda RN RN iw Kemar Coy, DRY JANITOR DRY JANITOR pm1 Amisha Bryant RN RN jl7 Nury Juan mw3
--- NOTE | 2018-12-24 22:44 | EDPHYS ---
Physician Documentation [facility] Name: Smitha Ibarra Age: 53 yrs Sex: Female : 1965 Arrival Date: 12/24/2018 Time: 17:39 Bed 8 Private MD: ED Physician Ryne Hearn HPI: 12/24 21:09 This 53 yrs old Female presents to ER via EMS with complaints of Fall Injury. pm1 21:09 Details of fall: The patient fell from an upright position, while walking. Onset: The pm1 symptoms/episode began/occurred 4 hours prior to arrival. Associated injuries: The patient sustained injury to the head, pain, left gluteus jaspreet, contusion, hematoma. Severity of symptoms: in the emergency department the symptoms are actually worse. The patient has not experienced similar symptoms in the past. The patient has not recently seen a physician. Walking down the stairs and slipped. Patient landed on her buttocks and hit her head. No LOC, neck pain, nausea or vomiting. Patient was able to get up and she crawled back upstairs. Patient's main pain complaints is her left buttocks that has bruising. 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-menopause jl7 Historical: - Allergies: 17:47 Sudafed; jl7 - Home Meds: 17:47 amlodipine 10 mg tab 1 tab once daily [Active]; aspirin 81 mg Oral TbEC 1 tab once jl7 daily [Active]; atorvastatin 20 mg Oral tab 1 tab once daily [Active]; lisinopril 40 mg Oral tab 1 tab once daily [Active]; Januvia 50 mg Oral tab 1 tabs once daily [Active]; Dilantin 100 mg Oral 4 cap daily [Active]; Magnesium Oxide Oral daily [Active]; ProAir HFA 90 mcg/actuation inhalation HFAA 1 puff every 4-6 hours [Active]; - PMHx: 17:47 Arthritis; COPD; Diabetes - NIDDM; High Cholesterol; Hypertension; Seizures; jl7 - Immunization history: Last tetanus immunization: unknown. - Social history:: Smoking status: Patient uses tobacco products, smokes one-half pack cigarettes per day, smokes one pack cigarettes per day. - Ebola Screening: : No symptoms or risks identified at this time. ROS: 21:09 Constitutional: Negative for fever, chills, and weight loss, Eyes: Negative for injury, pm1 pain, redness, and discharge, ENT: Negative for injury, pain, and discharge, Neck: Negative for injury, pain, and swelling, Cardiovascular: Negative for chest pain, palpitations, and edema, Respiratory: Negative for shortness of breath, cough, wheezing, and pleuritic chest pain, Abdomen/GI: Negative for abdominal pain, nausea, vomiting, diarrhea, and constipation, Back: Negative for injury and pain, : Negative for injury, bleeding, discharge, and swelling. 21:09 MS/extremity: Positive for ecchymosis, pain, swelling, of the left gluteus jaspreet. 21:09 Skin: Positive for ecchymosis, of the left gluteus jaspreet. 21:09 Neuro: Positive for headache, Negative for altered mental status, dizziness, loss of consciousness, numbness, seizure activity, tingling, weakness. Exam: 21:09 Constitutional: This is a well developed, well nourished patient who is awake, alert, pm1 and in no acute distress. Head/Face: Normocephalic, atraumatic. Eyes: Pupils equal round and reactive to light, extra-ocular motions intact. Lids and lashes normal. Conjunctiva and sclera are non-icteric and not injected. Cornea within normal limits. Periorbital areas with no swelling, redness, or edema. ENT: Nares patent. No nasal discharge, no septal abnormalities noted. Tympanic membranes are normal and external auditory canals are clear. Oropharynx with no redness, swelling, or masses, exudates, or evidence of obstruction, uvula midline. Mucous membranes moist. Neck: Trachea midline, no thyromegaly or masses palpated, and no cervical lymphadenopathy. Supple, full range of motion without nuchal rigidity, or vertebral point tenderness. No Meningismus. Chest/axilla: Normal chest wall appearance and motion. Nontender with no deformity. No lesions are appreciated. Cardiovascular: Regular rate and rhythm with a normal S1 and S2. No gallops, murmurs, or rubs. Normal PMI, no JVD. No pulse deficits. Respiratory: Lungs have equal breath sounds bilaterally, clear to auscultation and percussion. No rales, rhonchi or wheezes noted. No increased work of breathing, no retractions or nasal flaring. Abdomen/GI: Soft, non-tender, with normal bowel sounds. No distension or tympany. No guarding or rebound. No evidence of tenderness throughout. 21:09 Back: normal spinal alignment noted, vertebral tenderness, is appreciated at thoracic spine. 21:09 Skin: Appearance: normal except for affected area, ecchymosis, noted on the, , that are moderate, of the left gluteus jaspreet. 21:09 Neuro: Orientation: is normal, Motor: is normal, moves all fours, Sensation: is normal, no obvious gross deficits. Vital Signs: 17:47 BP 128 / 72; Pulse 61; Resp 16 S; Pulse Ox 98% on R/A; Weight 107.95 kg (R); Height 5 jl7 ft. 7 in. (170.18 cm) (R); Pain 10/10; 19:36 BP 95 / 54; Pulse 84; Resp 16; Temp 98.1; Pulse Ox 97% on R/A; Pain 6/10; aa1 20:35 BP 112 / 61; Pulse 81; Resp 16; Pulse Ox 95% on R/A; Pain 8/10; aa1 21:45 BP 103 / 52; Pulse 80; Resp 18; Pulse Ox 95% on R/A; aa1 22:51 BP 121 / 60; Pulse 77; Resp 16; Temp 97.9; Pulse Ox 95% on R/A; Pain 7/10; aa1 17:47 Body Mass Index 37.28 (107.95 kg, 170.18 cm) jl7 [place] Coma Score: 17:44 Eye Response: spontaneous(4). Verbal Response: oriented(5). Motor Response: obeys jl7 commands(6). Total: 15. 19:36 Eye Response: spontaneous(4). Verbal Response: oriented(5). Motor Response: obeys aa1 commands(6). Total: 15. 20:35 Eye Response: spontaneous(4). Verbal Response: oriented(5). Motor Response: obeys aa1 commands(6). Total: 15. 21:45 Eye Response: spontaneous(4). Verbal Response: oriented(5). Motor Response: obeys aa1 commands(6). Total: 15. 22:51 Eye Response: spontaneous(4). Verbal Response: oriented(5). Motor Response: obeys aa1 commands(6). Total: 15. Trauma Score (Adult): 17:44 Eye Response: spontaneous(1); Verbal Response: oriented(1); Motor Response: obeys jl7 commands(2); Systolic BP: > 89 mm Hg(4); Respiratory Rate: 10 to 29 per min(4); [place] Score: 15; Trauma Score: 12 MDM: 18:12 Patient medically screened. pm1 21:14 Data reviewed: vital signs. Data interpreted: Pulse oximetry: on room air is 95 %. pm1 Interpretation: normal. 22:42 Counseling: I had a detailed discussion with the patient and/or guardian regarding: the pm1 historical points, exam findings, and any diagnostic results supporting the discharge/admit diagnosis, lab results, radiology results, the need for outpatient follow up, to return to the emergency department if symptoms worsen or persist or if there are any questions or concerns that arise at home. 12/24 18:13 Order name: Basic Metabolic Panel; Complete Time: 20:06 pm1 12/24 18:13 Order name: CBC with Diff; Complete Time: 20:06 pm1 12/24 18:13 Order name: CT Traumagram (Head C Spine CAP W Con) pm1 12/24 18:13 Order name: Creatinine for Radiology; Complete Time: 20:06 pm1 12/24 18:13 Order name: Type And Screen; Complete Time: 20:30 pm1 12/24 18:13 Order name: Labs collected and sent; Complete Time: 19:32 pm1 12/24 18:13 Order name: Ice pack; Complete Time: 19:07 pm1 Administered Medications: 18:48 Drug: Zofran 4 mg Route: IVP; Site: left forearm; jl7 19:12 Follow up: Response: No adverse reaction jl7 18:50 Drug: morphine 4 mg Route: IVP; Site: left forearm; jl7 19:12 Follow up: Response: No adverse reaction; Pain is decreased jl7 20:44 Drug: morphine 4 mg Route: IVP; Site: left forearm; aa1 21:45 Follow up: Response: No adverse reaction; Pain is decreased aa1 22:58 Drug: [place] 5 mg-325 mg 1 tabs Route: PO; aa1 22:58 Follow up: Response: Medication administered at discharge. aa1 Disposition: 12/25 12:06 Co-signature as Attending Physician, Ryne Hearn MD. gs Disposition: 12/24/18 22:43 Discharged to Home. Impression: Contusion of lower back and pelvis - hematoma left gluteal soft tissue. - Condition is Stable. - Discharge Instructions: Contusion, Hematoma. - Prescriptions for Tylenol- Codeine #3 300-30 mg Oral Tablet - take 2 tablet by ORAL route every 6 hours As needed; 30 tablet. - Medication Reconciliation Form, Thank You Letter, Antibiotic Education, Prescription Opioid Use form. - Follow up: Emergency Department; When: As needed; Reason: Worsening of condition. Follow up: Private Physician; When: 2 - 3 days; Reason: Recheck today's complaints, Continuance of care, Re-evaluation by your physician. - Problem is new. - Symptoms have improved. Signatures: Dispatcher [employer] EDMS Humera Christensen RN RN aa1 Kemar Coy, JIM MASTER TAX ADVISOR pm1 Amisha Bryant RN RN jl7 Ryne Hearn MD MD Corrections: (The following items were deleted from the chart) 12/24 22:58 22:43 12/24/2018 22:43 Discharged to Home. Impression: Contusion of lower back and aa1 pelvis - hematoma left gluteal soft tissue. Condition is Stable. Discharge Instructions: Contusion. Prescriptions for Tylenol-Codeine #3 300-30 mg Oral Tablet - take 2 tablet by ORAL route every 6 hours As needed; 30 tablet. and Forms are Medication Reconciliation Form, Thank You Letter, Antibiotic Education, Prescription Opioid Use. Follow up: Emergency Department; When: As needed; Reason: Worsening of condition. Follow up: Private Physician; When: 2 - 3 days; Reason: Recheck today's complaints, Continuance of care, Re-evaluation by your physician. Problem is new. Symptoms have improved. pm1
[2018-12-24] MEDS ORDERED: HYDROCODONE/APAP 5/325 MG TAB ONE (23:04)
[2018-12-24] MEDS ORDERED: NA CHLORIDE 0.9% 1,000 ML ONE (23:57)
[2018-12-25] MEDS ORDERED: FAMOTIDINE 20 MG/2 ML VIAL IV ONE (00:11)
--- NOTE | 2018-12-25 13:18 | RAD REPORT ---
EXAM DESCRIPTION: CT - Head C Spine Cap Dalia Andres - 12/24/2018 9:22 pm CLINICAL HISTORY: Trauma. COMPARISON: None. TECHNIQUE: 1. CT scan of the brain and cervical spine without IV contrast. 2. CT scan of the chest, abdomen, and pelvis with IV contrast. This exam was performed according to our departmental dose-optimization program, which includes autom ated exposure control, adjustment of the mA and/or kV according to patient size and/or use of iterati ve reconstruction technique. FINDINGS: BRAIN: The ventricles, cisterns, and sulci are age-appropriate. No acute intracranial hemorrhage or extra-ax ial fluid collection. No midline shift or mass effect. The paranasal sinuses and mastoid air cells ar e clear. No depressed skull fracture. CERVICAL SPINE: No acute cervical fracture or prevertebral soft tissue swelling. There is straightening of the normal cervical lordosis, which may be due to cervical collar, muscle spasm, or patient positioning. Multil evel degenerative disc disease along with facet arthropathy is present. No advanced canal stenosis is seen. CHEST: The heart size is normal without pericardial effusion. No mediastinal hematoma is seen. No pulmonary contusion, pleural effusion, or pneumothorax. ABDOMEN/PELVIS: The liver, gallbladder, spleen, pancreas, adrenal glands, and kidneys are unremarkable. The pelvic or rangel are also unremarkable. No small bowel obstruction. No free fluid or free air is seen. OTHER: No aortic dissection or pseudoaneurysm is identified. No acute fracture is seen. There is a soft tiss ue contusion along the left posterior gluteal subcutaneous tissues with an approximately 9 cm hematom a. IMPRESSION: 1. Left gluteal soft tissue contusion with hematoma. 2. No acute intracranial hemorrhage or cervical fracture. 3. No evidence of solid or hollow viscus injury. 4. No acute fracture. Electronically signed by: Marquise Rodriguez MD 12/24/2018 10:37 PM PUBLIC SCHOOL TEACHER Due to temporary technical issues with the PACS/Fluency reporting system, reports are being signed by the in house radiologist as a courtesy to ensure prompt reporting. The interpreting radiologist is f ully responsible for the content of the report.
== END 2018-12-24 22:58 | disposition home or self-care (01) ==
LOC: ER 17:37
DX: S30.0XXA Contusion of lower back and pelvis, initial encounter (principal); W10.9XXA Fall (on) (from) unspecified stairs and steps, initial encounter; Y93.01 Activity, walking, marching and hiking; Y92.9 Unspecified place or not applicable; Z79.82 Long term (current) use of aspirin; Z88.8 Allergy status to other drugs, medicaments and biological substances; I10 Essential (primary) hypertension; E11.9 Type 2 diabetes mellitus without complications; E78.00 Pure hypercholesterolemia, unspecified; G40.909 Epilepsy, unspecified, not intractable, without status epilepticus; J44.9 Chronic obstructive pulmonary disease, unspecified; F17.210 Nicotine dependence, cigarettes, uncomplicated
CPT/HCPCS: 36415; 70450; 71260; 72125; 74177; 80048; 85025; 86850; 86900; 86901; 96374; 96375; 99284; J2405; J7030; Q9967

== ENCOUNTER 2018-12-24 23:24 | Observation (INO) | payer OTHER ==
--- NOTE | 2018-12-25 00:49 | ER ---
Nurse's Notes [facility] Name: Smitha Ibarar Age: 53 yrs Sex: Female : 1965 Arrival Date: 12/24/2018 Time: 23:25 Bed 17 Private MD: Diagnosis: Syncope and collapse;Fall due to bumping against object;Contusion of lower back and pelvis-LARGE HEMATOMA, 9 CM , NO ACTIVE BLEEDING Presentation: 12/24 23:45 Presenting complaint: Patient states: while in the waiting area I felt dizzy and about rr5 to fall. 23:45 Transition of care: patient was not received from another setting of care. Onset of rr5 symptoms was December 24, 2018. Risk Assessment: Do you want to hurt yourself or someone else? Patient reports no desire to harm self or others. Initial Sepsis Screen: Does the patient meet any 2 criteria? No. Patient's initial sepsis screen is negative. Does the patient have a suspected source of infection? No. Patient's initial sepsis screen is negative. Care prior to arrival: None. 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/A - Post-menopause rr5 Historical: - Allergies: 23:58 Sudafed; rr5 - Home Meds: 23:58 amlodipine 10 mg tab 1 tab once daily [Active]; aspirin 81 mg Oral TbEC 1 tab once rr5 daily [Active]; atorvastatin 20 mg Oral tab 1 tab once daily [Active]; Dilantin 100 mg Oral 4 cap daily [Active]; Januvia 50 mg Oral tab 1 tabs once daily [Active]; lisinopril 40 mg Oral tab 1 tab once daily [Active]; Magnesium Oxide Oral daily [Active]; ProAir HFA 90 mcg/actuation inhalation HFAA 1 puff every 4-6 hours [Active]; - PMHx: 23:58 Arthritis; COPD; Diabetes - NIDDM; High Cholesterol; Hypertension; Seizures; rr5 - Immunization history:: Adult Immunizations unknown. - Social history:: Smoking status: Patient uses tobacco products, smokes one-half pack cigarettes per day, Patient/guardian denies using alcohol, street drugs. - Family history:: not pertinent. - Ebola Screening: : Patient negative for fever greater than or equal to 101.5 degrees Fahrenheit, and additional compatible Ebola Virus Disease symptoms Patient denies exposure to infectious person Patient denies travel to an Ebola-affected area in the 21 days before illness onset. Screenin/04 00:00 Abuse screen: Denies threats or abuse. Denies injuries from another. Nutritional rr5 screening: No deficits noted. Tuberculosis screening: No symptoms or risk factors identified. Fall Risk IV access (20 points). Total Blunt Fall Scale indicates No Risk (0-24 pts). Assessment: 00:00 General: Appears in no apparent distress. uncomfortable, Behavior is calm, cooperative, rr5 appropriate for age. 00:00 Pain: Complains of pain in left gluteus Pain does not radiate. Pain currently is 10 out rr5 of 10 on a pain scale. Quality of pain is described as aching, Pain began gradually, Is intermittent. Neuro: Level of Consciousness is awake, alert, obeys commands, Oriented to person, place, time, situation, Appropriate for age Reports dizziness, was about to pass out.. Cardiovascular: Capillary refill < 3 seconds. Respiratory: Airway is patent Respiratory effort is even, unlabored, Respiratory pattern is regular, symmetrical. GI: No signs and/or symptoms were reported involving the gastrointestinal system. : No signs and/or symptoms were reported regarding the genitourinary system. EENT: No signs and/or symptoms were reported regarding the EENT system. Derm: Skin is intact, Skin temperature is cool. Musculoskeletal: hematoma at left buttocks. Injury Description: Bruise sustained to left buttock. 00:00 Derm: cold clammy, diaphoretic. rr5 00:30 Reassessment: Patient appears in no apparent distress at this time. Patient is alert, rr5 oriented x 3, equal unlabored respirations, skin warm/dry/pink. i feel a lot better now. Patient states feeling better. Patient states symptoms have improved. 00:50 Reassessment: Patient appears in no apparent distress at this time. Patient is alert, rr5 oriented x 3, equal unlabored respirations, skin warm/dry/pink. food given by diamond powder technician with good appetite. 01:55 Reassessment: Patient appears in no apparent distress at this time. Patient is alert, rr5 oriented x 3, equal unlabored respirations, skin warm/dry/pink. asleep on bed comfortably. Patient states feeling better. Patient states symptoms have improved. 03:00 Reassessment: Patient appears in no apparent distress at this time. Patient is alert, rr5 oriented x 3, equal unlabored respirations, skin warm/dry/pink. endorsed to telemetry unit Ida BALDERRAMA accepted the case. 03:20 Reassessment: complaint of left buttock pain. ED provider aware with order made and rr5 carried out. Vital Signs: 12/24 23:45 BP 81 / 40; Pulse 65; Resp 17; Temp 98; Pulse Ox 97% on 2 lpm NC; Weight 108.86 kg; rr5 Height 5 ft. 7 in. (170.18 cm); 12/25 00:00 BP 93 / 62; Pulse 85; Resp 17; Pulse Ox 99% ; rr5 00:15 BP 115 / 52; Pulse 73; Resp 19; Pulse Ox 98% ; rr5 00:30 BP 111 / 70; Pulse 71; Resp 17; Pulse Ox 99% ; rr5 01:00 BP 110 / 65; Pulse 72; Resp 15; Pulse Ox 100% ; rr5 01:25 BP 110 / 65; Pulse 80; Resp 16; Pulse Ox 99% ; rr5 02:25 BP 105 / 61; Pulse 76; Resp 16; Pulse Ox 100% ; rr5 03:06 BP 104 / 60; Pulse 73; Resp 15; Temp 98; Pulse Ox 98% on 2 lpm NC; rr5 03:23 BP 116 / 75; Pulse 77; Resp 17; Pulse Ox 99% 2 lpm ; rr5 12/24 23:45 Body Mass Index 37.59 (108.86 kg, 170.18 cm) rr5 ED Course: 12/24 23:25 Patient arrived in ED. am2 23:45 Neftali Crawford MD is Attending Physician. dinesh 23:45 Inserted saline lock: 20 gauge in right forearm, using aseptic technique. rr5 23:50 Patient has correct armband on for positive identification. Placed in gown. Bed in low rr5 position. Side rails up X2. monitoring manager on. Pulse ox on. NIBP on. 23:50 Arm band placed on. rr5 23:54 Triage completed. rr5 23:56 Marcus Diana RN is Primary Nurse. rr5 12/25 00:15 Inserted saline lock: 22 gauge in left upper arm, using aseptic technique. Blood rr5 collected. 00:18 XRAY Chest (1 view) In Process Unspecified. EDMS 00:45 Sarbjit Corley MD is Hospitalizing Provider. dinesh 03:04 No provider procedures requiring assistance completed. Patient admitted, IV remains in rr5 place. intact, No redness/swelling at site. Administered Medications: 12/24 23:45 Drug: NS 0.9% 1000 ml Route: IV; Rate: 1 bolus; Site: right forearm; rr5 12/25 01:15 Follow up: Response: No adverse reaction; IV Status: Completed infusion; IV Intake: rr5 1000ml 00:20 Drug: Pepcid 20 mg Route: IVP; Site: right forearm; rr5 03:10 Follow up: Response: No adverse reaction rr5 01:16 Drug: NS 0.9% 1000 ml {Note: left arm.} Route: IV; Rate: 125 ml/hr; Site: Other; rr5 03:10 Follow up: Response: No adverse reaction; IV Status: Completed infusion; Infusion rr5 continued upon admission; IV Intake: 125ml 02:05 Dru grams of (Fosphenytoin 1 grams, NS 0.9% 100 ml) {Note: left arm.} Route: IVPB; rr5 Site: Other; 02:20 Follow up: Response: No adverse reaction; IV Status: Completed infusion; IV Intake: rr5 100ml 03:23 Drug: Zofran 4 mg {Note: LEFT upper arm.} Route: IVP; Site: Other; rr5 04:30 Follow up: Response: Other; administered prior admission to telemetry rr5 03:25 Drug: fentaNYL (PF) 25 mcg {Note: left upper arm.} Route: IVP; Site: Other; rr5 03:30 Follow up: Response: Other; administered prior admission to telemetry rr5 Intake: 01:15 IV: 1000ml; Total: 1000ml. rr5 02:20 IV: 100ml; Total: 1100ml. rr5 03:10 IV: 125ml; Total: 1225ml. rr5 Outcome: 00:48 Decision to Hospitalize by Provider. dinesh 03:04 Admitted to Tele accompanied by nurse, via wheelchair, room 405, with chart, Report rr5 called to [place] 03:04 Condition: stable 03:04 Instructed on the need for admit. 03:43 Patient left the ED. rr5 Signatures: Dispatcher [employer] Neftali Manjarrez MD MD cha Moreno, Amanda am2 Roque, Raymond, RN RN rr5
--- NOTE | 2018-12-25 00:49 | EDPHYS ---
Physician Documentation [facility] Name: Smitha Ibarra Age: 53 yrs Sex: Female : 1965 Arrival Date: 12/24/2018 Time: 23:25 Bed 17 Private MD: ED Physician Neftali Crawford HPI: 12/25 00:43 This 53 yrs old Female presents to ER via Wheelchair with complaints of Near dinesh Syncope. 00:43 The patient has experienced near-syncope, almost passed out, felt dizzy, felt faint, dinesh felt generally weak. Onset: The symptoms/episode began/occurred just prior to arrival. Duration: The patient has had multiple episodes, that last 20 second(s). Context: the episode(s) was witnessed, by family. Associated injury: Left lower extremity: pain, swelling, tenderness, decreased range of motion. Associated signs and symptoms: The patient has no apparent associated signs or symptoms. Current symptoms: Currently, the patient is not experiencing any symptoms. The patient has not experienced similar symptoms in the past. 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 N/A - Post-menopause rr5 Historical: - Allergies: 23:58 Sudafed; rr5 - Home Meds: 23:58 amlodipine 10 mg tab 1 tab once daily [Active]; aspirin 81 mg Oral TbEC 1 tab once rr5 daily [Active]; atorvastatin 20 mg Oral tab 1 tab once daily [Active]; Dilantin 100 mg Oral 4 cap daily [Active]; Januvia 50 mg Oral tab 1 tabs once daily [Active]; lisinopril 40 mg Oral tab 1 tab once daily [Active]; Magnesium Oxide Oral daily [Active]; ProAir HFA 90 mcg/actuation inhalation HFAA 1 puff every 4-6 hours [Active]; - PMHx: 23:58 Arthritis; COPD; Diabetes - NIDDM; High Cholesterol; Hypertension; Seizures; rr5 - Immunization history:: Adult Immunizations unknown. - Social history:: Smoking status: Patient uses tobacco products, smokes one-half pack cigarettes per day, Patient/guardian denies using alcohol, street drugs. - Family history:: not pertinent. - Ebola Screening: : Patient negative for fever greater than or equal to 101.5 degrees Fahrenheit, and additional compatible Ebola Virus Disease symptoms Patient denies exposure to infectious person Patient denies travel to an Ebola-affected area in the 21 days before illness onset. ROS: 12/25 00:43 Constitutional: Negative for fever, chills, and weight loss, Eyes: Negative for injury, dniesh pain, redness, and discharge, ENT: Negative for injury, pain, and discharge, Neck: Negative for injury, pain, and swelling, Cardiovascular: Negative for chest pain, palpitations, and edema, Respiratory: Negative for shortness of breath, cough, wheezing, and pleuritic chest pain, Abdomen/GI: Negative for abdominal pain, nausea, vomiting, diarrhea, and constipation, Back: Negative for injury and pain, : Negative for injury, bleeding, discharge, and swelling, Skin: Negative for injury, rash, and discoloration, Neuro: Negative for headache, weakness, numbness, tingling, and seizure, Psych: Negative for depression, anxiety, suicide ideation, homicidal ideation, and hallucinations, Allergy/Immunology: Negative for hives, rash, and allergies, Endocrine: Negative for neck swelling, polydipsia, polyuria, polyphagia, and marked weight changes, Hematologic/Lymphatic: Negative for swollen nodes, abnormal bleeding, and unusual bruising. MS/extremity: Positive for decreased range of motion, ecchymosis, pain, swelling, tenderness, of the coccyx, left lower back and left gluteus jaspreet. Exam: 00:43 Constitutional: This is a well developed, well nourished patient who is awake, alert, dinesh and in no acute distress. Head/Face: Normocephalic, atraumatic. Eyes: Pupils equal round and reactive to light, extra-ocular motions intact. Lids and lashes normal. Conjunctiva and sclera are non-icteric and not injected. Cornea within normal limits. Periorbital areas with no swelling, redness, or edema. ENT: Nares patent. No nasal discharge, no septal abnormalities noted. Tympanic membranes are normal and external auditory canals are clear. Oropharynx with no redness, swelling, or masses, exudates, or evidence of obstruction, uvula midline. Mucous membranes moist. Neck: Trachea midline, no thyromegaly or masses palpated, and no cervical lymphadenopathy. Supple, full range of motion without nuchal rigidity, or vertebral point tenderness. No Meningismus. Chest/axilla: Normal chest wall appearance and motion. Nontender with no deformity. No lesions are appreciated. Cardiovascular: Regular rate and rhythm with a normal S1 and S2. No gallops, murmurs, or rubs. Normal PMI, no JVD. No pulse deficits. Respiratory: Lungs have equal breath sounds bilaterally, clear to auscultation and percussion. No rales, rhonchi or wheezes noted. No increased work of breathing, no retractions or nasal flaring. Abdomen/GI: Soft, non-tender, with normal bowel sounds. No distension or tympany. No guarding or rebound. No evidence of tenderness throughout. Back: No spinal tenderness. No costovertebral tenderness. Full range of motion. Skin: Warm, dry with normal turgor. Normal color with no rashes, no lesions, and no evidence of cellulitis. Neuro: Awake and alert, GCS 15, oriented to person, place, time, and situation. Cranial nerves II-XII grossly intact. Motor strength 5/5 in all extremities. Sensory grossly intact. Cerebellar exam normal. Normal gait. Psych: Awake, alert, with orientation to person, place and time. Behavior, mood, and affect are within normal limits. 00:43 Musculoskeletal/extremity: Extremities: noted in the coccyx, left lower back and left gluteus jaspreet: decreased ROM, ecchymosis, swelling, tenderness. Vital Signs: 12/24 23:45 BP 81 / 40; Pulse 65; Resp 17; Temp 98; Pulse Ox 97% on 2 lpm NC; Weight 108.86 kg; rr5 Height 5 ft. 7 in. (170.18 cm); 12/25 00:00 BP 93 / 62; Pulse 85; Resp 17; Pulse Ox 99% ; rr5 00:15 BP 115 / 52; Pulse 73; Resp 19; Pulse Ox 98% ; rr5 00:30 BP 111 / 70; Pulse 71; Resp 17; Pulse Ox 99% ; rr5 01:00 BP 110 / 65; Pulse 72; Resp 15; Pulse Ox 100% ; rr5 01:25 BP 110 / 65; Pulse 80; Resp 16; Pulse Ox 99% ; rr5 02:25 BP 105 / 61; Pulse 76; Resp 16; Pulse Ox 100% ; rr5 03:06 BP 104 / 60; Pulse 73; Resp 15; Temp 98; Pulse Ox 98% on 2 lpm NC; rr5 03:23 BP 116 / 75; Pulse 77; Resp 17; Pulse Ox 99% 2 lpm ; rr5 12/24 23:45 Body Mass Index 37.59 (108.86 kg, 170.18 cm) rr5 MDM: 12/24 23:45 Patient medically screened. [facility] 12/25 00:49 Data reviewed: vital signs, nurses notes, lab test result(s), EKG, radiologic studies, dinesh CT scan, plain films. 12/24 23:46 Order name: Basic Metabolic Panel; Complete Time: 01:48 [facility] 12/24 23:46 Order name: CBC with Diff; Complete Time: 01:48 [facility] 12/24 23:46 Order name: LFT's; Complete Time: 01:48 [facility] 12/24 23:46 Order name: Magnesium; Complete Time: 01:48 [facility] 12/24 23:46 Order name: NT PRO-BNP; Complete Time: 01:48 [facility] 12/24 23:46 Order name: PT-INR; Complete Time: 01:48 [facility] 12/24 23:46 Order name: Troponin (emerg Dept Use Only); Complete Time: 01:48 [facility] 12/24 23:47 Order name: Dilantin; Complete Time: 01:48 [facility] 12/24 23:47 Order name: UDS [facility] 12/24 23:47 Order name: Urine Culture [facility] 12/24 23:47 Order name: Lipase; Complete Time: 01:48 [facility] 12/24 23:47 Order name: Asprin; Complete Time: 01:48 [facility] 12/24 23:47 Order name: Tylenol Level; Complete Time: 01:48 [facility] 12/25 00:39 Order name: Type And Screen; Complete Time: 03:18 [facility] 12/24 23:46 Order name: XRAY Chest (1 view) [facility] 12/25 02:19 Order name: CBC with Automated Diff EDMS 12/25 02:19 Order name: CBC with Automated Diff EDMS 12/25 02:19 Order name: Comprehensive Metabolic Panel EDMS 12/25 02:19 Order name: Comprehensive Metabolic Panel EDMS 12/25 02:19 Order name: Lipase EDMS 12/25 02:19 Order name: Lipase EDMS 12/25 02:19 Order name: Lipid Profile EDMS 12/25 02:19 Order name: Lipid Profile EDMS 12/25 02:19 Order name: Protime (+INR) EDMS 12/25 02:19 Order name: Protime (+INR) EDMO 12/25 02:19 Order name: PTT, Activated Partial Thromb EDMO 12/25 02:19 Order name: PTT, Activated Partial Thromb EDMO 12/24 23:46 Order name: EKG; Complete Time: 23:47 [facility] 12/24 23:46 Order name: Cardiac monitoring; Complete Time: 00:54 [facility] 12/24 23:46 Order name: EKG - Nurse/Tech; Complete Time: 00:54 [facility] 12/24 23:46 Order name: IV Saline Lock; Complete Time: 00:54 [facility] 12/24 23:46 Order name: Labs collected and sent; Complete Time: 00:54 [facility] 12/24 23:46 Order name: O2 Per Protocol; Complete Time: 00:54 [facility] 12/24 23:46 Order name: O2 Sat Monitoring; Complete Time: 00:54 [facility] 12/25 02:19 Order name: CONS Pharmacy Consult EDMO 12/25 02:19 Order name: CONS Physician Consult EDMO 12/25 02:19 Order name: NPO EDMO Administered Medications: 12/24 23:45 Drug: NS 0.9% 1000 ml Route: IV; Rate: 1 bolus; Site: right forearm; rr5 12/25 01:15 Follow up: Response: No adverse reaction; IV Status: Completed infusion; IV Intake: rr5 1000ml 00:20 Drug: Pepcid 20 mg Route: IVP; Site: right forearm; rr5 03:10 Follow up: Response: No adverse reaction rr5 01:16 Drug: NS 0.9% 1000 ml {Note: left arm.} Route: IV; Rate: 125 ml/hr; Site: Other; rr5 03:10 Follow up: Response: No adverse reaction; IV Status: Completed infusion; Infusion rr5 continued upon admission; IV Intake: 125ml 02:05 Dru grams of (Fosphenytoin 1 grams, NS 0.9% 100 ml) {Note: left arm.} Route: IVPB; rr5 Site: Other; 02:20 Follow up: Response: No adverse reaction; IV Status: Completed infusion; IV Intake: rr5 100ml 03:23 Drug: Zofran 4 mg {Note: LEFT upper arm.} Route: IVP; Site: Other; rr5 04:30 Follow up: Response: Other; administered prior admission to telemetry rr5 03:25 Drug: fentaNYL (PF) 25 mcg {Note: left upper arm.} Route: IVP; Site: Other; rr5 03:30 Follow up: Response: Other; administered prior admission to telemetry rr5 Disposition: 12/25/18 00:48 Hospitalization ordered by Sarbjit Corley for Inpatient Admission. Preliminary diagnosis are Syncope and collapse, Fall due to bumping against object, Contusion of lower back and pelvis - LARGE HEMATOMA, 9 CM , NO ACTIVE BLEEDING. - Bed requested for Telemetry/MedSurg (Inpatient). - Status is Inpatient Admission. rr5 - Condition is Fair. - Problem is new. - Symptoms have improved. UTI on Admission? No Signatures: Dispatcher [employer] EDMO Neftali Crawford MD MD cha Thompson, Crockett Marcus Gallardo RN RN rr5 Corrections: (The following items were deleted from the chart) 00:57 00:40 Head C Spine CAP W Con+CT.RAD.BRZ ordered. [facility] EDMO 02:08 12/24 23:47 Head Brain Wo Cont+CT.RAD.BRZ ordered. [facility] 12/25 02:18 00:48 Hospitalization Ordered by Sarbjit Corley MD for Inpatient Admission. Preliminary mt diagnosis is Syncope and collapse; Fall due to bumping against object; Contusion of lower back and pelvis - LARGE HEMATOMA, 9 CM , NO ACTIVE BLEEDING. Bed requested for Telemetry/MedSurg (Inpatient). Status is Inpatient Admission. Condition is Fair. Problem is new. Symptoms have improved. UTI on Admission? No. dinesh 03:43 02:18 12/25/2018 00:48 Hospitalization Ordered by Sarbjit Corley MD for Inpatient rr5 Admission. Preliminary diagnosis is Syncope and collapse; Fall due to bumping against object; Contusion of lower back and pelvis - LARGE HEMATOMA, 9 CM , NO ACTIVE BLEEDING. Bed requested for Telemetry/MedSurg (Inpatient). Status is Inpatient Admission. Condition is Fair. Problem is new. Symptoms have improved. UTI on Admission? No. mt
[2018-12-25 01:23] LABS: Absolute Lymphocytes (CBC) 2.7 K/uL (0.7-4.9); Absolute Monocytes 0.8 K/uL (0.1-1.3); Absolute Neutrophil 7.7 K/uL (1.8-8.0); Basophils % 0.8 % (0-1.3); Eosinophils % 1.4 % (0-4.4); Hematocrit 34.5 % (36.0-45.0); Lymphocytes % 23.3 % (15.3-44.8); MPV 9.9 fL (7.6-11.3); RBC Red Blood Cell Count 3.94 M/uL (3.86-4.86)
[2018-12-25 01:24] LABS: Protime INR 1.13
[2018-12-25] MEDS ORDERED: NA CHLORIDE 0.9% 1,000 ML ONE (01:31)
[2018-12-25 01:39] LABS: ALT/SGPT 18 U/L (12-78); AST/SGOT 13 U/L (15-37); Albumin 3.3 g/dL (3.4-5.0); Alkaline Phosphatase 119 U/L (45-117); BUN Blood Urea Nitrogen 6 mg/dL (7-18); Bicarbonate 30 mmol/L (21-32); Bilirubin Direct 0.1 mg/dL (0-0.2); Bilirubin Total 0.3 mg/dL (0.2-1.0); Glucose Level 164 mg/dL (74-106); Lipase 94 U/L (73-393); Magnesium 1.9 mg/dL (1.8-2.4); NT PRO-BNP 5 pg/mL (<125); Phenytoin (Dilantin) Level 5.3 ug/mL (10.0-20.0); Potassium 3.9 mmol/L (3.5-5.1); Protein, Total 6.6 g/dL (6.4-8.2); Sodium Level 139 mmol/L (136-145); Troponin (Emerg Dept Use Only) < 0.02 ng/mL (0.0-0.045)
[2018-12-25] MEDS ORDERED: NA CHLORIDE 0.9% 100 ML IV ONE (02:12)
[2018-12-25] MEDS ORDERED: FOSPHENYTOIN PE 500 MG/10 ML VIAL ONE (02:13)
[2018-12-25] MEDS ORDERED: ONDANSETRON 4 MG/2 ML VIAL IV PRN (02:15)
[2018-12-25] MEDS ORDERED: ACETAMINOPHEN 500 MG TAB PO PRN (02:15)
[2018-12-25] MEDS ORDERED: MORPHINE 2 MG/ML SYR IV PRN (02:15)
[2018-12-25] MEDS: NA CHLORIDE 0.9% 1,000 ML IV SCH ×2 (03:00→09:12)
[2018-12-25] MEDS ORDERED: FENTANYL CITR 100 MCG/2 ML ONE (03:29)
[2018-12-25] MEDS ORDERED: ONDANSETRON 4 MG/2 ML VIAL ONE (03:29)
[2018-12-25 05:47] LABS: Barbiturates NEGATIVE (NEGATIVE); Benzodiazepines NEGATIVE (NEGATIVE); Cocaine NEGATIVE (NEGATIVE); METHAMPHETAM NEGATIVE (NEGATIVE); Methadone NEGATIVE (NEGATIVE); Opiates POSITIVE (NEGATIVE); Phencyclidine NEGATIVE (NEGATIVE); THC Cannibis POSITIVE (NEGATIVE)
[2018-12-25 05:53] LABS: Absolute Lymphocytes (CBC) 3.1 K/uL (0.7-4.9); Absolute Monocytes 0.7 K/uL (0.1-1.3); Absolute Neutrophil 6.3 K/uL (1.8-8.0); Eosinophils % 1.1 % (0-4.4); Hematocrit 32.3 % (36.0-45.0); MPV 9.8 fL (7.6-11.3); Monocytes % 6.5 % (3.3-12.3); RBC Red Blood Cell Count 3.69 M/uL (3.86-4.86)
[2018-12-25 05:56] LABS: Protime INR 1.11
[2018-12-25 06:07] LABS: ALT/SGPT 15 U/L (12-78); AST/SGOT 12 U/L (15-37); Alkaline Phosphatase 109 U/L (45-117); BUN Blood Urea Nitrogen 6 mg/dL (7-18); Bicarbonate 27 mmol/L (21-32); Bilirubin Total 0.2 mg/dL (0.2-1.0); Glucose Level 142 mg/dL (74-106); HDL Cholesterol 39 mg/dL (40-60); LDL Cholesterol, Calculated 59 (<130); Lipase 75 U/L (73-393); Protein, Total 6.1 g/dL (6.4-8.2); Sodium Level 139 mmol/L (136-145)
--- NOTE | 2018-12-25 07:55 | RAD REPORT ---
EXAM DESCRIPTION: Mitchell Single View12/25/2018 12:18 am CLINICAL HISTORY: Cough COMPARISON: September 2018 FINDINGS: The lungs appear clear of acute infiltrate. The heart is normal size the patient is rotat ed which results in the left hemithorax being hazy secondary to overlying soft tissue IMPRESSION: No acute abnormalities displayed
[2018-12-25] MEDS ORDERED: IPRATROPIUM BROM 0.5MG/2.5ML NEB PRN (08:42)
[2018-12-25] MEDS ORDERED: ALBUTEROL 2.5 MG/3 ML NEB SOL NEB PRN (08:42)
[2018-12-25] MEDS ORDERED: D50W 25 GM/50 ML SYRINGE IV PRN (08:44)
[2018-12-25] MEDS ORDERED: GLUCAGON 1 MG/VIAL IM PRN (08:44)
[2018-12-25] MEDS ORDERED: CODEINE 30MG/APAP 300MG TAB PO PRN (08:44)
[2018-12-25] MEDS ORDERED: SITAGLIPTIN PHOS 100 MG TAB PO SCH (09:00)
[2018-12-25] MEDS ORDERED: AMPICILLIN/SULBACT 1.5GM VIAL IVPB SCH (09:00)
[2018-12-25] MEDS ORDERED: PHENYTOIN ER 100 MG CAP PO SCH (09:00)
[2018-12-25] MEDS ORDERED: LIDOCAINE 5% PATCH TOP SCH (09:00)
[2018-12-25] MEDS ORDERED: NICOTINE 21 MG/PAT TD SCH (09:00)
[2018-12-25] MEDS ORDERED: AMPICILLIN/SULBACT 1.5 GM in NA CHLORIDE 0.9% 100 ML IVPB SCH (09:00)
--- NOTE | 2018-12-25 09:09 | EKG ---
Test Date: 2018-12-25 Test Time: 00:28:40 Rail Flaw Detector Operator: RR MEASUREMENT RESULTS: Intervals: Rate: 75 TX: 174 QRSD: 90 QT: 418 QTc: 466 [place]: P: 66 TX: 174 QRS: 18 T: 30 INTERPRETIVE STATEMENTS: Normal sinus rhythm Normal ECG Compared to ECG 09/28/2018 19:23:33 No significant changes Electronically Signed On 12-25-18 09:08:33 PROPERTY DISPOSAL OFFICER by Uvaldo Hernadnez
--- NOTE | 2018-12-25 10:43 | P.HP ---
Certification for Inpatient Patient admitted to: Inpatient With expected LOS: >2 Midnights Patient will require the following post-hospital care: None Practitioner: I am a practitioner with admitting privileges, knowledge of patient current condition, hospital course, and medical plan of care. Services: Services provided to patient in accordance with Admission requirements found in Title 42 Section 412.3 of the Code of Federal Regulations Patient History Date of Service: 12/25/18 Reason for admission: Large hematoma status post fall History of Present Illness: Patient is a 53-year-old female who fell at home. She fell around her tailbone and has suprapubic pain. She came into the ER and had a large hematoma. She was discharged from the ER for conservative care but she had a syncopal event. She was brought into the emergency room and decision was made to observe her. She has the large hematoma about 9 inches long. This is exquisitely tender. Patient be admitted with surgical consultation for evaluation. Allergies pseudoephedrine [From Sudafed] Allergy (Verified 09/02/17 10:57) Unknown Home Medications: PHENYTOIN ER Cap [Dilantin ER Cap*] 400 mg PO DAILY 09/02/17 Amlodipine [Norvasc*] 10 mg PO BEDTIME 10/21/17 Lovastatin 20 mg PO BEDTIME 10/21/17 Albuterol Sulfate [Proair Hfa] 1 puff IH SEECOM 09/29/18 Lisinopril [Zestril] 40 mg PO BEDTIME 09/29/18 Sitagliptin Phosphate [Januvia*] 100 mg PO DAILY 09/29/18 Aspirin [Aspirin EC 81 MG] 81 mg PO BEDTIME 12/25/18 - Past Medical/Surgical History Has patient received pneumonia vaccine in the past: Yes Diabetic: Yes -: arthritis -: COPD -: NIDDM -: HTN -: seizures -: hyperlipidemia -: tubal ligation -: tonsillectomy - Family History Mother Medical History: Heart disease, Lung disease, GI disease, Kidney disease Father Medical History: Other (see notes) Notes: anureseym - Social History Smoking Status: Current every day smoker Alcohol use: Yes CD- Drugs: No Caffeine use: Yes Place of Residence: Home Review of Systems 10-point ROS is otherwise unremarkable Physical Examination - Vital Signs Temperature: 97.6 F Blood Pressure: 108/56 Pulse: 69 Respirations: 18 Pulse Ox (%): 99 - Physical Exam General: Alert, In no apparent distress, Oriented x3 HEENT: Atraumatic, PERRLA, Mucous membr. moist/pink, EOMI, Sclerae nonicteric Neck: Supple, 2+ carotid pulse no bruit, No LAD, Without JVD or thyroid abnormality Respiratory: Clear to auscultation bilaterally, Normal air movement Cardiovascular: Regular rate/rhythm, Normal S1 S2, No murmurs Gastrointestinal: Normal bowel sounds, Soft and benign, Non-distended, No tenderness Musculoskeletal: No clubbing, No swelling, No tenderness Integumentary: No rashes, Tenderness/swelling, Erythema, Other (Patient large hematoma) Neurological: Normal gait, Normal speech, Normal strength at 5/5 x4 extr, Normal tone, Sensation intact, Cranial nerves 3-12 intact, Normal affect Lymphatics: No axilla or inguinal lymphadenopathy - Studies Laboratory Data (last 24 hrs) 12/25/18 00:45: PT 13.3 H, INR 1.13 12/25/18 00:45: WBC 11.4 H D, Hgb 11.3 L, Hct 34.5 L, Plt Count 292 12/25/18 00:45: Sodium 139, Potassium 3.9, BUN 6 L, Creatinine 0.69, Glucose 164 H, Magnesium 1.9, Total Bilirubin 0.3, AST 13 L, ALT 18, Alkaline Phosphatase 119 H, Lipase 94 Assessment & Plan - Problems (Diagnosis) (1) Traumatic hematoma of buttock Current Visit: Yes Status: Acute (2) Syncope Current Visit: Yes Status: Acute - Plan Plan: 1. Monitor H&H 2. Pain control 3. IV hydration 4. Monitor on telemetry 5. Monitor hemodynamics closely 6. Surgery consultation 7. Prophylactic antibiotic 8. GI and DVT prophylaxis Discharge Plan: Home Plan to discharge in: Greater than 2 days - Advance Directives Does patient have a Living Will: No Does patient have a Durable POA for Healthcare: No - Code Status/Comfort Care Code Status Assessed: Yes Code Status: Full Code Time Spent Managing PTS Care (In Minutes): 45
[2018-12-25] MEDS ORDERED: INSULIN -REGULAR HUMAN 50 UNIT/0.5 ML ML SQ SCH (11:30)
--- NOTE | 2018-12-25 13:59 | CON ---
Date of Consultation: 12/25/2018 Brief History Of Present Illness: The patient is a 53-year-old female, who fell while at [facility]. She fell around her tailbone area and had suprapubic pain. She came to the ER and had a large hematoma on her left buttock region. She was discharged from the ER for conservative care, but she h ad a syncopal event and brought to the emergency room and the decision was made to observe her. The area of tenderness is along the left buttock area. Past Medical History: Significant for arthritis, COPD, diabetes, hypertension, seizures, and hyperli pidemia. Past Surgical History: Includes tubal ligation and tonsillectomy. Allergies: TO SUDAFED. Medications: Her home medications include Dilantin, Norvasc, lovastatin, ProAir, Zestril, Januvia an d aspirin. Family History: Her mother had heart disease, lung disease, GI disease, and kidney disease. Her fat her had an aneurysm. Social History: She smokes every day. She continues to use alcohol recreationally. She denies recr eational drug use. Review of Systems: A 10-point review of systems other than HPI denies. Physical Examination: Vital Signs: At the time of my examination, her BMI is 37.6. Her blood pressure 108/56, pulse of 69 , respiratory rate 18, and temperature 97.6. General: She is awake, alert, and oriented. Psychiatric: She is appropriate and conversive. HEENT: She is normocephalic. There is no evidence of traumatic injuries to the skull. Her orophary nx is clear. Neck: Her neck is supple with no JVD. Chest: Normal expansion and excursion. Cardiovascular: Regular rate and rhythm. Pulmonary: Clear to auscultation bilaterally. Abdomen: Soft, nontender, and nondistended. Left buttock area has a large, bruised, ecchymotic yadi david in the left gluteus area. She is tender to palpation, but there is no evidence of significant w orsening of symptoms since her admission as she states that the pain is getting improved. On physica l examination, it does not violate the anus, it abuts and is up to the cleft and covers the renee lbone. Extremities: No clubbing, cyanosis, or edema. Skin: Warm and dry. Laboratory Data: Reveals a white blood cell count of 10.2, hemoglobin is 10.6, and hematocrit of 32. 3. She has had a previous hemoglobin count of 11.3. Her platelet count is normal at 257. Her PT is 13.0, INR 1.11, and PTT is 28.7. Chemistry shows a sodium 139, potassium 4.0, chloride 108, carbon dioxide 27, BUN 6, creatinine 0.6, glucose is 142. Hemoglobin A1c is 7.3. Calcium 7.7. AST is 12, ALT 15, and alkaline phosphatase is 109. Her lipase is 75. She was positive for THC, positive for o pioids as well on her toxicology screen. She had a chest x-ray performed which is officially read as no acute abnormalities displayed. She had a trauma CT on 12/24 as well which was officially read by the [facility] radiologist once again as brain, the ventricles, cisterns and sulci are age appropriat e. No acute intracranial hemorrhage or extra-axial fluid collection. No midline shift or mass effec t. The paranasal sinuses and mastoid air cells are clear. No depressed skull fracture. C-spine, no cervical fracture, paravertebral soft tissue swelling. There is straightening of the normal cervica l lordosis, which may be due to cervical collar, muscle spasm or patient positioning. Multilevel deg enerative disease along the facet arthropathy is present. No advanced canal stenosis. Chest, the he art is normal without pericardial effusion. Official impression, left gluteal soft tissue contusion with hematoma, which is approximately 9 cm in size. No acute intracranial hemorrhage or cervical fra cture. No evidence of solid or hollow viscus injury and there are no acute fractures. Assessment And Plan: This is a 53-year-old woman who comes in with a large hematoma after a fall. W ith respect to the hematoma, I recommend, 1.Holding all anticoagulation including aspirin for at least 5 days. 2.Snug fitting garments such to help reduce the hematoma. 3.Ice packs also for comfort and serial hemoglobin exams. Once stable over 12 to 24 hours, she can be discharged from a surgical standpoint. I have explained the risks, benefits and alternatives to the patient. She agrees to proceed as indic ated. Thank you for this interesting consult. OHANG/LUIS Voice ID: [id number] Report ID: [id number]
--- NOTE | 2018-12-25 14:43 | P.DS ---
Admission Date: 12/25/18 Discharge Date: 12/25/18 Primary Care Provider: Dr. Rangel Disposition: ROUTINE DISCHARGE Discharge Condition: GOOD Reason for Admission: Large hematoma status post fall Consultations: Surgery-Dr. Crenshaw Procedures: CT scan: COMPARISON: None. TECHNIQUE: 1. CT scan of the brain and cervical spine without IV contrast. 2. CT scan of the chest, abdomen, and pelvis with IV contrast. This exam was performed according to our departmental dose-optimization program , which includes automated exposure control, adjustment of the mA and/or kV according to patient size and/or use of iterative reconstruction technique. FINDINGS: BRAIN: The ventricles, cisterns, and sulci are age-appropriate. No acute intracranial hemorrhage or extra-axial fluid collection. No midline shift or mass effect. The paranasal sinuses and mastoid air cells are clear. No depressed skull fracture. CERVICAL SPINE: No acute cervical fracture or prevertebral soft tissue swelling. There is straightening of the normal cervical lordosis, which may be due to cervical collar, muscle spasm, or patient positioning. Multilevel degenerative disc disease along with facet arthropathy is present. No advanced canal stenosis is seen. CHEST: The heart size is normal without pericardial effusion. No mediastinal hematoma is seen. No pulmonary contusion, pleural effusion, or pneumothorax. ABDOMEN/PELVIS:The liver, gallbladder, spleen, pancreas, adrenal glands, and kidneys are unremarkable. The pelvic organs are also unremarkable. No small bowel obstruction. No free fluid or free air is seen. OTHER: No aortic dissection or pseudoaneurysm is identified. No acute fracture is seen. There is a soft tissue contusion along the left posterior gluteal subcutaneous tissues with an approximately 9 cm hematoma. IMPRESSION: 1. Left gluteal soft tissue contusion with hematoma. 2. No acute intracranial hemorrhage or cervical fracture. 3. No evidence of solid or hollow viscus injury. 4. No acute fracture. Medical problem List: Fall leading to left gluteal soft tissue contusion with hematoma measuring 9 cm Presyncope likely related to blood pressure medication Hypertension Seizure disorder Diabetes mellitus type 2 COPD Hyperlipidemia Obesity, BMI 37.6 Tobacco abuse Brief History of Present Illness: 53-year-old female presented to the emergency room after a fall. She is found to have a large hematoma to the buttocks. She was admitted for observation. Hospital Course: Patient had a mechanical fall. She suffered a contusion to the left gluteal region with hematoma measuring 9 cm. Patient was observed overnight. Hemoglobin remained stable. Patient was seen and evaluated by surgery. No surgical intervention required. Patient may continue with Tylenol as needed for pain. She may use a doughnut pillow to help with pain as well. Patient was able to ambulate with physical therapy. Continue with physical therapy recommendation. Fall precaution in place. Recommend no further use of nonsteroidal anti-inflammatories. She is to monitor for erythema, fever to the hematoma. Patient will be provided Tylenol #3 1 pill 3 times a day as needed for pain along with lidocaine patch to be applied to the area daily. A limited supply of medication will be provided. Patient is to monitor for fever, infection to the hematoma. Patient had presyncope related to blood pressure medication. Patient with hypertension. She is to monitor her blood pressures closely. She is to hold her blood pressure medication-lisinopril 40 mg daily and amlodipine 10 mg daily , if blood pressure less than 120 systolic. Further adjustment in medication may be required. This can be further addressed by her PCP. Patient with seizure disorder. Patient will continue with her medication. Patient with diabetes mellitus type 2. She will continue with her medication. Recommendation is to maintain blood sugars less 140 fasting and less than 200 after meals. Further adjustment can be done by her PCP. Lifestyle modification education will be provided. Patient has hyperlipidemia. She will continue with her medication. Patient with COPD. She will continue with her inhaler therapy. Recommend to follow up with pulmonology as an outpatient. Patient with tobacco abuse. Tobacco cessation addressed in detail. Vital Signs/Physical Exam: Temp Pulse Resp BP Pulse Ox 97.9 F 79 20 121/57 L 94 12/25/18 12:12/25/18 12:12/25/18 12:12/25/18 12:12/25/18 12:00 General: Alert, In no apparent distress, Oriented x3, Cooperative HEENT: Atraumatic Neck: Supple Respiratory: Clear to auscultation bilaterally, Normal air movement Cardiovascular: Normal pulses, Regular rate/rhythm Gastrointestinal: Normal bowel sounds, Soft and benign, Non-distended, No masses , No rebound, No guarding Musculoskeletal: No warmth, Tenderness (Mild tenderness to the left buttock region. Hematoma noted.) Integumentary: No erythema, No warmth, No cyanosis Neurological: Normal speech, Normal strength at 5/5 x4 extr, Normal tone, Normal affect Laboratory Data at Discharge: WBC 10.2 K/uL (4.3-10.9) 12/25/18 05:20 Hgb 10.6 g/dL (12.0-15.0) L 12/25/18 05:20 Hct 32.3 % (36.0-45.0) L 12/25/18 05:20 Plt Count 257 K/uL (152-406) 12/25/18 05:20 PT 13.0 SECONDS (9.5-12.5) H 12/25/18 05:20 INR 1.11 12/25/18 05:20 APTT 28.7 SECONDS (24.3-36.9) 12/25/18 05:20 Sodium 139 mmol/L (136-145) 12/25/18 05:20 Potassium 4.0 mmol/L (3.5-5.1) 12/25/18 05:20 BUN 6 mg/dL (7-18) L 12/25/18 05:20 Creatinine 0.60 mg/dL (0.55-1.3) 12/25/18 05:20 Glucose 142 mg/dL (74-106) H 12/25/18 05:20 Magnesium 1.9 mg/dL (1.8-2.4) 12/25/18 00:45 Total Bilirubin 0.2 mg/dL (0.2-1.0) 12/25/18 05:20 AST 12 U/L (15-37) L 12/25/18 05:20 ALT 15 U/L (12-78) 12/25/18 05:20 Alkaline Phosphatase 109 U/L (45-117) 12/25/18 05:20 Triglycerides 113 mg/dL (<150) 12/25/18 05:20 Cholesterol 121 mg/dL (<200) 12/25/18 05:20 HDL Cholesterol 39 mg/dL (40-60) L 12/25/18 05:20 Cholesterol/HDL Ratio 3.10 12/25/18 05:20 Lipase 75 U/L (73-393) 12/25/18 05:20 Home Medications: PHENYTOIN ER Cap [Dilantin ER Cap*] 400 mg PO DAILY 09/02/17 Amlodipine [Norvasc*] 10 mg PO BEDTIME 10/21/17 Lovastatin 20 mg PO BEDTIME 10/21/17 Albuterol Sulfate [Proair Hfa] 1 puff IH SEECOM 09/29/18 Lisinopril [Zestril] 40 mg PO BEDTIME 09/29/18 Sitagliptin Phosphate [Januvia*] 100 mg PO DAILY 09/29/18 Aspirin [Aspirin EC 81 MG] 81 mg PO BEDTIME 12/25/18 Codeine/APAP [Tylenol #3*] 1 tab PO TID PRN #15 tab 12/25/18 Lidocaine 5% Patch [Lidoderm 5% Patch*] 1 patch TOP DAILY #30 patch 12/25/18 New Medications: Codeine/APAP [Tylenol #3*] 1 tab PO TID PRN #15 tab PRN Reason: Pain Scale 5-7 (Moderate) Lidocaine 5% Patch [Lidoderm 5% Patch*] 1 patch TOP DAILY #30 patch Patient Discharge Instructions: 1. Recommend to follow up with her PCP within 1 week. 2. Patient had a mechanical fall. She suffered a contusion to the left gluteal region with hematoma measuring 9 cm. Patient was observed overnight. Hemoglobin remained stable. Patient was seen and evaluated by surgery. No surgical intervention required. Patient may continue with Tylenol as needed for pain. She may use a doughnut pillow to help with pain as well. Patient was able to ambulate with physical therapy. Continue with physical therapy recommendation. Fall precaution in place. Recommend no further use of nonsteroidal anti-inflammatories. She is to monitor for erythema, fever to the hematoma. Patient will be provided Tylenol #3 1 pill 3 times a day as needed for pain along with lidocaine patch to be applied to the area daily. A limited supply of medication will be provided. Patient is to monitor for fever, infection to the hematoma. 3. Patient had presyncope related to blood pressure medication. Patient with hypertension. She is to monitor her blood pressures closely. She is to hold her blood pressure medication-lisinopril 40 mg daily and amlodipine 10 mg daily, if blood pressure less than 120 systolic. Further adjustment in medication may be required. This can be further addressed by her PCP. 4. Patient with seizure disorder. Patient will continue with her medication. 5. Patient with diabetes mellitus type 2. She will continue with her medication. Recommendation is to maintain blood sugars less 140 fasting and less than 200 after meals. Further adjustment can be done by her PCP. 6. Lifestyle modification education will be provided. 7. Patient has hyperlipidemia. She will continue with her medication. 8. Patient with COPD. She will continue with her inhaler therapy. Recommend to follow up with pulmonology as an outpatient. 9. Patient with tobacco abuse. Tobacco cessation addressed in detail. Diet: ADA Activity: Fall precautions Time spent managing pt's care (in minutes): 55
[2018-12-25] MEDS ORDERED: ARFORMOTEROL TARTRATE 15 MCG/2 ML VIAL.NEB NEB SCH (20:00)
[2018-12-25] MEDS ORDERED: ASPIRIN EC 81 MG TAB PO SCH (21:00)
[2018-12-25] MEDS ORDERED: AMLODIPINE 10 MG TAB PO SCH (21:00)
[2018-12-25] MEDS ORDERED: ATORVASTATIN 10 MG TAB PO SCH (21:00)
[2018-12-25] MEDS ORDERED: HOME MED 1 EA UNK (Lisinopril [Zestril] 40 MG) PO SCH (21:00)
== END 2018-12-25 15:29 | disposition home or self-care (01) ==
LOC: ER 23:24 → INTOOBSV 12-25 02:31 → ERHOLD 12-25 02:31 → 4TH 12-25 03:04
PROVIDERS: ADMIT Hospitalist; ATTEND Hospitalist
DX: S30.0XXA Contusion of lower back and pelvis, initial encounter (principal); R55 Syncope and collapse; I10 Essential (primary) hypertension; E78.5 Hyperlipidemia, unspecified; E11.9 Type 2 diabetes mellitus without complications; E66.9 Obesity, unspecified; Z68.37 Body mass index [BMI] 37.0-37.9, adult; G40.909 Epilepsy, unspecified, not intractable, without status epilepticus; J44.9 Chronic obstructive pulmonary disease, unspecified; W01.0XXA Fall on same level from slipping, tripping and stumbling without subsequent striking against object, initial encounter; Y92.009 Unspecified place in unspecified non-institutional (private) residence as the place of occurrence of the external cause; F17.210 Nicotine dependence, cigarettes, uncomplicated
CPT/HCPCS: 93005; 87088; 85025 ×3; 87086; 80048 ×2; 36415 ×2; 86900 ×2; 83735; 86850 ×2; 80329 ×2; 85610 ×2; 80061; 86901 ×2; 82962 ×2; 80076; 80307 ×8; 85730; 80185; 83036; 84484; 83690 ×2; 80053; 83880; 70450; 72125; 71260; 74177; 71045; 97163; 99285; Q9967; J3010; Q2009; J2270; J7030 ×3; J0295; J2405 ×2; G0378 ×2

== ENCOUNTER 2019-02-20 14:44 | Emergency (ER) | payer OTHER ==
[2019-02-20] MEDS ORDERED: MORPHINE 4 MG/ML SYR ONE ×2 (15:29→18:08)
[2019-02-20] MEDS ORDERED: NA CHLORIDE 0.9% 1,000 ML ONE (15:29)
[2019-02-20] MEDS ORDERED: ONDANSETRON 4 MG/2 ML VIAL ONE (15:29)
[2019-02-20 15:31] LABS: Absolute Monocytes 0.8 K/uL (0.1-1.3); Absolute Neutrophil 8.4 K/uL (1.8-8.0); Eosinophils % 1.8 % (0-4.4); Hematocrit 41.7 % (36.0-45.0); Lymphocytes % 23.7 % (15.3-44.8); Monocytes % 6.1 % (3.3-12.3); RBC Red Blood Cell Count 4.87 M/uL (3.86-4.86)
[2019-02-20 16:20] LABS: ALT/SGPT 20 U/L (12-78); AST/SGOT 11 U/L (15-37); Alkaline Phosphatase 142 U/L (45-117); BUN Blood Urea Nitrogen 8 mg/dL (7-18); Bicarbonate 27 mmol/L (21-32); Bilirubin Direct < 0.1 mg/dL (0-0.2); Bilirubin Total 0.2 mg/dL (0.2-1.0); Glucose Level 127 mg/dL (74-106); Lipase 100 U/L (73-393); Potassium 3.9 mmol/L (3.5-5.1); Protein, Total 8.3 g/dL (6.4-8.2); Sodium Level 138 mmol/L (136-145)
[2019-02-20 17:00] LABS: Urine Blood NEGATIVE (NEG); Urine Glucose NEGATIVE (NEG); Urine Protein NEGATIVE (NEG)
--- NOTE | 2019-02-20 17:16 | RAD REPORT ---
EXAM DESCRIPTION: CT - Abdomen Pelvis W Contrast - 02/20/2019 4:51 pm CLINICAL HISTORY: Abdominal pain . COMPARISON: December 2018 TECHNIQUE: Computed axial tomography of the abdomen pelvis was obtained. 100 cc Isovue-300 was admin istered intravenously. Oral contrast was not requested which limits evaluation of bowel. All CT scans are performed using dose optimization technique as appropriate and may include automated exposure control or mA/KV adjustment according to patient size. FINDINGS: The liver, spleen, pancreas, and adrenals appear unremarkable. 1 millimeter nonobstructing right renal calculus. Left kidney is unremarkable There is no evidence of diverticulitis. 3.2 centimeter left ovarian cyst without significant free fluid IMPRESSION: 3.2 centimeter left ovarian cyst without significant free fluid A 1 millimeter nonobstructing right renal calculus
--- NOTE | 2019-02-20 17:59 | RAD REPORT ---
EXAM DESCRIPTION: US - Transvaginal Study Probe - 02/20/2019 5:44 pm CLINICAL HISTORY: Pelvic pain COMPARISON: February 20, 2019 cat scan FINDINGS: The uterus measures 9 x 5 x 6cm. A fibroid is not seen. The endometrial stripe measures 18 millimeters. The ovaries are normal in size and echotexture. A 3 centimeter left ovarian cyst. Blood flow is prese nt to the left ovary. No significant free fluid is seen. IMPRESSION: 3 centimeter left ovarian cyst without significant free fluid
[2019-02-20] MEDS ORDERED: KETOROLAC 30 MG/ML INJ ONE (18:08)
--- NOTE | 2019-02-20 18:19 | ER ---
Nurse's Notes [facility] Name: Smitha Ibarra Age: 54 yrs Sex: Female : 1965 Arrival Date: 02/20/2019 Time: 14:45 Bed 14 Private MD: Cherri Erazo Diagnosis: Other ovarian cysts;Lower abdominal pain, unspecified Presentation: 02/20 14:50 Presenting complaint: Patient states: since 8 am this morning my stomach started tw2 hurting like a menstrual cramp and it radiates through to my back and radiates steady. Transition of care: patient was not received from another setting of care. Onset of symptoms was February 20, 2019. Risk Assessment: Do you want to hurt yourself or someone else? Patient reports no desire to harm self or others. Initial Sepsis Screen: Does the patient meet any 2 criteria? No. Patient's initial sepsis screen is negative. Does the patient have a suspected source of infection? No. Patient's initial sepsis screen is negative. Care prior to arrival: None. 14:50 Method Of Arrival: Ambulatory tw2 14:50 Acuity: PRECIOUS 2 tw2 Triage Assessment: 14:51 General: Appears uncomfortable, obese, Behavior is appropriate for age, Smells of tw2 cigarette smoke. Pain: Complains of pain in abdomen Pain radiates to back. GI: Reports lower abdominal pain, upper abdominal pain, nausea, Patient currently denies diarrhea, vomiting. 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/2019 tw2 Historical: - Allergies: 14:53 Sudafed; tw2 - Home Meds: 14:53 ProAir HFA 90 mcg/actuation inhalation HFAA 1 puff every 4-6 hours [Active]; Januvia 50 tw2 mg Oral tab 1 tabs once daily [Active]; Dilantin 100 mg Oral 4 cap daily [Active]; lisinopril 40 mg Oral tab 1 tab once daily [Active]; atorvastatin 20 mg Oral tab 1 tab once daily [Active]; Magnesium Oxide Oral daily [Active]; amlodipine 10 mg tab 1 tab once daily [Active]; aspirin 81 mg Oral TbEC 1 tab once daily [Active]; - PMHx: 14:53 COPD; High Cholesterol; Hypertension; Arthritis; Seizures; Diabetes - NIDDM; tw2 - Immunization history:: Adult Immunizations. - Social history:: Smoking status: Patient uses tobacco products, smokes one pack cigarettes per day. - Ebola Screening: : Patient denies travel to an Ebola-affected area in the 21 days before illness onset. Screenin:55 Abuse screen: Denies threats or abuse. Nutritional screening: No deficits noted. rb1 Tuberculosis screening: No symptoms or risk factors identified. Fall Risk None identified. Assessment: 14:55 General: Appears uncomfortable, Behavior is calm, cooperative, Denies fever. Pain: rb1 Complains of pain in left lower quadrant Pain radiates to left flank Pain currently is 10 out of 10 on a pain scale. Quality of pain is described as Feels like menstrual cramps, but more intense. Pain began 0800 this morning. Neuro: Level of Consciousness is awake, alert, obeys commands, Oriented to person, place, time, situation. Cardiovascular: Capillary refill < 3 seconds is brisk in bilateral fingers. Respiratory: Airway is patent Respiratory effort is even, unlabored, Respiratory pattern is regular, symmetrical. : No signs and/or symptoms were reported regarding the genitourinary system. Derm: Skin is dry, Skin is normal, Skin temperature is warm. 14:55 GI: Bowel sounds present X 4 quads. Abd is soft Abdomen is tender to palpation in left rb1 lower quadrant. 15:40 Reassessment: Patient appears in no apparent distress at this time. Patient and/or rb1 family updated on plan of care and expected duration. Pain level reassessed. Patient is alert, oriented x 3, equal unlabored respirations, skin warm/dry/pink. 16:41 Reassessment: Pt. went to CT. rb1 17:00 Reassessment: Patient appears in no apparent distress at this time. No changes from rb1 previously documented assessment. 18:00 Reassessment: Patient appears in no apparent distress at this time. Patient and/or rb1 family updated on plan of care and expected duration. Pain level reassessed. Patient is alert, oriented x 3, equal unlabored respirations, skin warm/dry/pink. 18:47 Reassessment: Patient appears in no apparent distress at this time. Patient and/or rb1 family updated on plan of care and expected duration. Pain level reassessed. Patient states feeling better. Vital Signs: 14:52 BP 162 / 75; Pulse 81; Resp 19; Temp 96.7(TE); Pulse Ox 95% on R/A; Weight 108.86 kg tw2 (R); Height 5 ft. 7 in. (170.18 cm) (R); Pain 10/10; 15:50 BP 135 / 72; Pulse 71; Resp 17; Pulse Ox 95% on R/A; Pain 8/10; rb1 17:00 BP 133 / 66; Pulse 75; Resp 17; Pulse Ox 95% on R/A; rb1 18:05 BP 154 / 91; Pulse 85; Resp 18; Pulse Ox 93% on R/A; Pain 10/10; mh5 14:52 Body Mass Index 37.59 (108.86 kg, 170.18 cm) tw2 ED Course: 14:45 Patient arrived in ED. mr 14:45 Cherri Erazo MD is Private Physician. mr 14:51 Triage completed. tw2 14:51 Arm band placed on. tw2 14:53 Patient placed in an exam room. tw2 14:55 Patient has correct armband on for positive identification. Placed in gown. Bed in low rb1 position. Call light in reach. Side rails up X 1. Pulse ox on. NIBP on. Warm blanket given. 14:58 Joycelyn Avelar, RN is Primary Nurse. rb1 15:12 Jaylen Holt PA is PHCP. jmm 15:12 Ryne Hearn MD is Attending Physician. jmm 15:57 Initial lab(s) drawn, by ri, sent to lab. Inserted saline lock: 20 gauge in left upper mh5 arm, using aseptic technique. Blood collected. 16:51 CT Abd/Pelvis - W/Contrast In Process Unspecified. EDMS 17:45 US Transvaginal Study (Probe) In Process Unspecified. EDMS 18:18 Cherri Erazo MD is Referral Physician. jmm 18:48 No provider procedures requiring assistance completed. IV discontinued, intact, rb1 bleeding controlled, No redness/swelling at site. Pressure dressing applied. Administered Medications: 15:21 Drug: Zofran 4 mg Route: IVP; Site: left antecubital; rb1 15:38 Follow up: Response: No adverse reaction; Nausea is decreased rb1 15:21 Drug: NS 0.9% 1000 ml Route: IV; Rate: 1 bolus; Site: left antecubital; rb1 16:50 Follow up: IV Status: Completed infusion rb1 15:22 Drug: morphine 4 mg Route: IVP; Site: left antecubital; rb1 15:38 Follow up: Response: No adverse reaction; Pain is decreased rb1 17:57 Drug: morphine 4 mg Route: IVP; Site: left antecubital; rb1 18:11 Follow up: Response: No adverse reaction; Pain is decreased rb1 17:57 Drug: Ketorolac 30 mg Route: IVP; Site: left antecubital; rb1 18:11 Follow up: Response: No adverse reaction; Pain is decreased rb1 Outcome: 18:18 Discharge ordered by . chuck 18:48 Discharged to home ambulatory. rb1 18:48 Condition: stable 18:48 Discharge instructions given to patient, Instructed on discharge instructions, follow up and referral plans. medication usage, Demonstrated understanding of instructions, follow-up care, medications, Prescriptions given X 1. 18:49 Patient left the ED. rb1 Signatures: Dispatcher [employer] EDMS Jaylen Holt PA PA jmm Rivera, Mary mr Joycelyn Avelar, RN RN rb1 Sabi Sepulveda RN RN [facility] Kathryn Santos [facility]
--- NOTE | 2019-02-20 18:20 | EDPHYS ---
Physician Documentation [facility] Name: Smitha Ibarra Age: 54 yrs Sex: Female : 1965 Arrival Date: 02/20/2019 Time: 14:45 Bed 14 Private MD: Cherri Erazo ED Physician Ryne Hearn HPI: 02/20 15:28 This 54 yrs old Female presents to ER via Ambulatory with complaints of jmm Abdominal Pain, Back Pain. 15:28 The patient presents with abdominal pain in the left lower quadrant. Onset: The jmm symptoms/episode began/occurred gradually, at 08:00. The symptoms radiate to left back, the left flank. Associated signs and symptoms: Pertinent negatives: nausea and vomiting, diarrhea, fever. This is a 54 year old female with a history of htn, copd, dm that presents to the ED with complaints of left flank pain, left lower abdominal pain gradually worsening since 0800. Patient describes the pain as cramping. . [employer]: 14:52 LMP 01/21/2019 tw2 Historical: - Allergies: 14:53 Sudafed; tw2 - Home Meds: 14:53 ProAir HFA 90 mcg/actuation inhalation HFAA 1 puff every 4-6 hours [Active]; Januvia 50 tw2 mg Oral tab 1 tabs once daily [Active]; Dilantin 100 mg Oral 4 cap daily [Active]; lisinopril 40 mg Oral tab 1 tab once daily [Active]; atorvastatin 20 mg Oral tab 1 tab once daily [Active]; Magnesium Oxide Oral daily [Active]; amlodipine 10 mg tab 1 tab once daily [Active]; aspirin 81 mg Oral TbEC 1 tab once daily [Active]; - PMHx: 14:53 COPD; High Cholesterol; Hypertension; Arthritis; Seizures; Diabetes - NIDDM; tw2 - Immunization history:: Adult Immunizations. - Social history:: Smoking status: Patient uses tobacco products, smokes one pack cigarettes per day. - Ebola Screening: : Patient denies travel to an Ebola-affected area in the 21 days before illness onset. ROS: 15:28 Constitutional: Negative for fever, chills, and weight loss, Cardiovascular: Negative jmm for chest pain, palpitations, and edema, Respiratory: Negative for shortness of breath, cough, wheezing, and pleuritic chest pain. 15:28 Abdomen/GI: Positive for abdominal pain. 15:28 Back: Positive for flank pain, on the left. 15:28 All other systems are negative. Exam: 15:28 Head/Face: atraumatic. Eyes: EOMI, no conjunctival erythema appreciated ENT: Moist jmm Mucus Membranes Neck: Trachea midline, Supple Chest/axilla: Normal chest wall appearance and motion. Cardiovascular: Regular rate and rhythm. No edema appreciated Respiratory: Normal respirations, no respiratory distress appreciated 15:28 Constitutional: The patient appears alert, awake, uncomfortable. 15:28 Abdomen/GI: Inspection: abdomen appears normal, Bowel sounds: normal, Palpation: soft, moderate abdominal tenderness, in the suprapubic area and left lower quadrant. 15:28 Back: CVA tenderness, that is moderate, is noted on the left. 15:28 Musculoskeletal/extremity: ROM: intact in all extremities. 15:28 Skin: Appearance: Color: normal in color. 15:28 Neuro: Orientation: is normal, Mentation: is normal, Memory: is normal. 15:28 Psych: Behavior/mood is pleasant, cooperative. Vital Signs: 14:52 BP 162 / 75; Pulse 81; Resp 19; Temp 96.7(TE); Pulse Ox 95% on R/A; Weight 108.86 kg tw2 (R); Height 5 ft. 7 in. (170.18 cm) (R); Pain 10/10; 15:50 BP 135 / 72; Pulse 71; Resp 17; Pulse Ox 95% on R/A; Pain 8/10; rb1 17:00 BP 133 / 66; Pulse 75; Resp 17; Pulse Ox 95% on R/A; rb1 18:05 BP 154 / 91; Pulse 85; Resp 18; Pulse Ox 93% on R/A; Pain 10/10; mh5 14:52 Body Mass Index 37.59 (108.86 kg, 170.18 cm) tw2 MDM: 15:19 Patient medically screened. chuck 18:17 Data reviewed: vital signs, nurses notes. Counseling: I had a detailed discussion with chuck the patient and/or guardian regarding: the historical points, exam findings, and any diagnostic results supporting the discharge/admit diagnosis, lab results, radiology results, the need for outpatient follow up, to return to the emergency department if symptoms worsen or persist or if there are any questions or concerns that arise at home. ED course: Imaging studies are negative for an acute process. Patient is advised to follow up with PCP tomorrow for reevaluation and otherwise given strict return precautions. Pain is currently relieved in the ED. . 02/20 15:19 Order name: Basic Metabolic Panel; Complete Time: 16:31 [facility] 02/20 15:19 Order name: CBC with Diff; Complete Time: 16:17 [facility] 02/20 15:19 Order name: Creatinine for Radiology; Complete Time: 16:41 [facility] 02/20 15:19 Order name: Hepatic Function; Complete Time: 16:31 [facility] 02/20 15:19 Order name: Lipase; Complete Time: 16:31 [facility] 02/20 16:47 Order name: Urine Dipstick--Ancillary (enter results); Complete Time: 17:00 02/20 16:17 Order name: CT Abd/Pelvis - W/Contrast; Complete Time: 17:17 [facility] 02/20 16:47 Order name: Urine --Ancillary (enter results); Complete Time: 17:00 02/20 17:18 Order name: US Transvaginal Study (Probe); Complete Time: 18:06 [facility] 02/20 15:19 Order name: IV Saline Lock; Complete Time: 15:22 [facility] 02/20 15:19 Order name: Labs collected and sent; Complete Time: 15:22 [facility] 02/20 15:20 Order name: Urine Dipstick-Ancillary (obtain specimen); Complete Time: 20:00 [facility] 02/20 15:20 Order name: Urine Test (obtain specimen); Complete Time: 20:00 [facility] Administered Medications: 15:21 Drug: Zofran 4 mg Route: IVP; Site: left antecubital; rb1 15:38 Follow up: Response: No adverse reaction; Nausea is decreased rb1 15:21 Drug: NS 0.9% 1000 ml Route: IV; Rate: 1 bolus; Site: left antecubital; rb1 16:50 Follow up: IV Status: Completed infusion rb1 15:22 Drug: morphine 4 mg Route: IVP; Site: left antecubital; rb1 15:38 Follow up: Response: No adverse reaction; Pain is decreased rb1 17:57 Drug: morphine 4 mg Route: IVP; Site: left antecubital; rb1 18:11 Follow up: Response: No adverse reaction; Pain is decreased rb1 17:57 Drug: Ketorolac 30 mg Route: IVP; Site: left antecubital; rb1 18:11 Follow up: Response: No adverse reaction; Pain is decreased rb1 Disposition: 21:49 Co-signature as Attending Physician, Ryne Hearn MD. Disposition: 02/20/19 18:18 Discharged to Home. Impression: Other ovarian cysts, Lower abdominal pain, unspecified. - Condition is Stable. - Discharge Instructions: Abdominal Pain, Adult, Ovarian Cyst. - Prescriptions for Tylenol- Codeine #3 300-30 mg Oral Tablet - take 1 tablet by ORAL route every 6 hours As needed; 12 tablet. - Medication Reconciliation Form, Thank You Letter, Antibiotic Education, Prescription Opioid Use form. - Follow up: Cherri Erazo MD; When: 1 - 2 days; Reason: Recheck today's complaints, Continuance of care, Re-evaluation by your physician. Signatures: Dispatcher [employer] EDMS Jaylen Holt PA PA jmm Barber, Rebecca, RN RN rb1 Sabi Sepulveda RN RN 2 Ryne Hearn MD MD Corrections: (The following items were deleted from the chart) 18:49 18:18 02/20/2019 18:18 Discharged to Home. Impression: Other ovarian cysts; Lower rb1 abdominal pain, unspecified. Condition is Stable. Forms are Medication Reconciliation Form, Thank You Letter, Antibiotic Education, Prescription Opioid Use. Follow up: Cherri Erazo; When: 1 - 2 days; Reason: Recheck today's complaints, Continuance of care, Re-evaluation by your physician. chuck
== END 2019-02-20 18:49 | disposition home or self-care (01) ==
LOC: ER 14:44
DX: N83.299 Other ovarian cyst, unspecified side (principal); F17.210 Nicotine dependence, cigarettes, uncomplicated; I10 Essential (primary) hypertension; E11.9 Type 2 diabetes mellitus without complications; G40.909 Epilepsy, unspecified, not intractable, without status epilepticus; E78.00 Pure hypercholesterolemia, unspecified; J44.9 Chronic obstructive pulmonary disease, unspecified; Z79.82 Long term (current) use of aspirin; Z88.8 Allergy status to other drugs, medicaments and biological substances
CPT/HCPCS: 85025; 80048; 36415; 81025; 80076; 81003; 83690; 74177; 76830; Q9967; J7030; J2405

== ENCOUNTER 2019-02-21 05:24 | Emergency (ER) | payer OTHER ==
[2019-02-21 06:09] LABS: Absolute Lymphocytes (CBC) 1.4 K/uL (0.7-4.9); Absolute Monocytes 0.4 K/uL (0.1-1.3); Absolute Neutrophil 6.9 K/uL (1.8-8.0); Basophils % 0.7 % (0-1.3); Eosinophils % 1.4 % (0-4.4); Hematocrit 40.8 % (36.0-45.0); Lymphocytes % 16.1 % (15.3-44.8); MPV 9.1 fL (7.6-11.3); Monocytes % 4.6 % (3.3-12.3)
[2019-02-21 06:29] LABS: ALT/SGPT 15 U/L (12-78); AST/SGOT 12 U/L (15-37); Albumin 3.7 g/dL (3.4-5.0); Alkaline Phosphatase 132 U/L (45-117); BUN Blood Urea Nitrogen 7 mg/dL (7-18); Bicarbonate 25 mmol/L (21-32); Bilirubin Direct 0.1 mg/dL (0-0.2); Bilirubin Total 0.5 mg/dL (0.2-1.0); Glucose Level 177 mg/dL (74-106); Lipase 71 U/L (73-393); Potassium 4.1 mmol/L (3.5-5.1); Sodium Level 138 mmol/L (136-145)
[2019-02-21] MEDS ORDERED: KETOROLAC 30 MG/ML INJ ONE (06:33)
[2019-02-21] MEDS ORDERED: ALBUTEROL 2.5 MG/3 ML NEB SOL ONE (06:33)
--- NOTE | 2019-02-21 07:55 | RAD REPORT ---
EXAM DESCRIPTION: US - Transvaginal Study Probe - 02/21/2019 7:27 am CLINICAL HISTORY: Pelvic pain, possible torsion COMPARISON: Pelvic ultrasound February 20 TECHNIQUE: Endovaginal sonography was performed. FINDINGS: No change to the uterus since prior day study. The approximately 3 centimeter left ovarian cyst is still present. No hemorrhagic change or new finding. Doppler evaluation shows blood flow wit hin the ovarian stroma draped along the margin of this dominant cyst. No adnexal mass. No new or enla rging free fluid collection. Right ovary and right adnexa of remain unremarkable. Normal blood flow s een in the right ovarian stroma. IMPRESSION: No change to the 3 centimeter left ovarian cyst since prior day study. Blood flow is identifiable in the ovarian stroma on the left.
--- NOTE | 2019-02-21 07:57 | ER ---
Nurse's Notes [facility] Name: Smitha Ibarra Age: 54 yrs Sex: Female : 1965 Arrival Date: 02/21/2019 Time: 05:25 Bed 5 Private MD: Diagnosis: Lower abdominal pain, unspecified Presentation: 02/21 05:34 Presenting complaint: Patient states: she was here yesterday and diagnosed with a bb kidney stone and an ovarian cyst and she is unable to take the pain she was up all night unable to sleep the medication she was sent home with is not helping. Transition of care: patient was not received from another setting of care. Onset of symptoms was February 20, 2019. Risk Assessment: Do you want to hurt yourself or someone else? Patient reports no desire to harm self or others. Initial Sepsis Screen: Does the patient meet any 2 criteria? No. Patient's initial sepsis screen is negative. Does the patient have a suspected source of infection? No. Patient's initial sepsis screen is negative. Care prior to arrival: None. 05:34 Method Of Arrival: Ambulatory bb 05:34 Acuity: PRECIOUS 3 bb [employer]: 05:37 LMP 01/29/2019 bb Historical: - Allergies: 05:37 Sudafed; bb - Home Meds: 05:37 amlodipine 10 mg tab 1 tab once daily [Active]; aspirin 81 mg Oral TbEC 1 tab once bb daily [Active]; atorvastatin 20 mg Oral tab 1 tab once daily [Active]; Dilantin 100 mg Oral 4 cap daily [Active]; Januvia 50 mg Oral tab 1 tabs once daily [Active]; lisinopril 40 mg Oral tab 1 tab once daily [Active]; Magnesium Oxide Oral daily [Active]; ProAir HFA 90 mcg/actuation inhalation HFAA 1 puff every 4-6 hours [Active]; - PMHx: 05:37 Arthritis; COPD; Diabetes - NIDDM; High Cholesterol; Hypertension; Seizures; bb - Immunization history:: Adult Immunizations up to date. - Social history:: Smoking status: Patient uses tobacco products, smokes one pack cigarettes per day. - Ebola Screening: : No symptoms or risks identified at this time. Screenin:50 Abuse screen: Denies threats or abuse. Nutritional screening: No deficits noted. tl2 Tuberculosis screening: No symptoms or risk factors identified. Fall Risk None identified. Assessment: 05:51 General: Appears in no apparent distress. uncomfortable, Behavior is anxious, restless. tl2 General: Pt was seen here 12 hours ago and diagnosed with kidney stone. Pain: Complains of pain in abdomen. Neuro: Level of Consciousness is awake, alert, obeys commands, Oriented to person, place, time, situation. Cardiovascular: Denies chest pain. Respiratory: Airway is patent Respiratory effort is even, unlabored, Respiratory pattern is regular, symmetrical. GI: Abdomen is non-distended, Reports lower abdominal pain, nausea. : No signs and/or symptoms were reported regarding the genitourinary system. Derm: Skin is pink, warm \T\ dry. 07:25 General: Appears in no apparent distress. uncomfortable, Behavior is calm, cooperative, hj appropriate for age. Pain: Complains of pain in left lower quadrant and abdomen. Neuro: Level of Consciousness is awake, alert, obeys commands, Oriented to person, place, time, situation, Appropriate for age. Cardiovascular: Denies chest pain. Respiratory: Airway is patent Respiratory effort is even, unlabored, Respiratory pattern is regular, symmetrical. GI: Bowel sounds present X 4 quads. Abd is soft and non tender. GI: Abdomen is non-distended, Bowel sounds present X 4 quads. Abd is soft and non tender Reports lower abdominal pain. : No signs and/or symptoms were reported regarding the genitourinary system. EENT: No signs and/or symptoms were reported regarding the EENT system. Derm: Skin is intact, Skin is pink, warm \T\ dry. Musculoskeletal: No signs and/or symptoms reported regarding the musculoskeletal system. Vital Signs: 05:34 BP 182 / 84; Pulse 94; Resp 22; Temp 97.6; Pulse Ox 96% ; Weight 99.79 kg; Height 5 ft. tl2 8 in. (172.72 cm); Pain 10/10; 06:15 BP 166 / 60; Pulse 89; Resp 20; Pulse Ox 96% on R/A; tl2 06:47 BP 175 / 70; Pulse 78; Resp 20; Pulse Ox 100% on Nebulizer Mask; tl2 07:26 BP 165 / 72; Pulse 75; Resp 18; Temp 97.5(TE); Pulse Ox 96% on R/A; hj 07:42 BP 145 / 65; Pulse 70; Resp 18; Temp 97.6(TE); Pulse Ox 96% on R/A; hj 08:33 BP 168 / 72; Pulse 72; Resp 18; Pulse Ox 98% on R/A; hj 05:34 Body Mass Index 33.45 (99.79 kg, 172.72 cm) tl2 ED Course: 05:25 Patient arrived in ED. ds1 05:34 Patient has correct armband on for positive identification. Bed in low position. Call tl2 light in reach. Side rails up X 1. 05:37 Triage completed. bb 05:37 Arm band placed on Patient placed in an exam room, on a stretcher, on pulse oximetry. bb 05:50 Inserted saline lock: 22 gauge in right hand, using aseptic technique. Blood collected. tl2 06:00 Iliana [facility]C [facility]. snw 06:00 Jorge Scott MD is Attending Physician. snw 07:10 Hill Merida, RN is Primary Nurse. hj 07:27 US Transvaginal Study (Probe) In Process Unspecified. EDMS 08:32 No provider procedures requiring assistance completed. IV discontinued, intact, hj bleeding controlled, No redness/swelling at site. Pressure dressing applied. Administered Medications: 06:24 Drug: TORadol - Ketorolac 15 mg Route: IVP; Site: right hand; tl2 07:11 Follow up: Response: No adverse reaction hj 06:25 Drug: Albuterol 2.5 mg Route: Inhalation; tl2 Outcome: 07:56 Discharge ordered by . snw 08:32 Discharged to home ambulatory. hj 08:32 Condition: stable 08:32 Discharge instructions given to patient, Instructed on discharge instructions, follow up and referral plans. medication usage, Demonstrated understanding of instructions, follow-up care, medications, Prescriptions given X 1. 08:36 Patient left the ED. hj Signatures: Dispatcher [employer] EDMS Iliana Cruz FNP-C LOG CLERK-CsnChantal Mariscal ds1 Suni Chapin RN RN bb Hill Merida RN RN hj Knox, Taylor, RN RN tl2 Corrections: (The following items were deleted from the chart) 05:52 05:34 BP 182 / 84; Pulse 94bpm; Resp 22bpm; Pulse Ox 96%; Temp 97.6F; tl2 tl2 07:43 07:26 BP 165 / 72; Pulse 75bpm; Resp 18bpm; Pulse Ox 100% RA; Temp 97.5F Temporal; hj hj
--- NOTE | 2019-02-21 07:57 | EDPHYS ---
Physician Documentation [facility] Name: Smitha Ibarra Age: 54 yrs Sex: Female : 1965 Arrival Date: 02/21/2019 Time: 05:25 Bed 5 Private MD: ED Physician Jorge Scott HPI: 02/21 06:24 This 54 yrs old Female presents to ER via Ambulatory with complaints of snw Abdominal Pain. 06:24 The patient presents with abdominal pain in the left lower quadrant. Onset: The snw symptoms/episode began/occurred gradually, and became worse last night. The symptoms do not radiate. Associated signs and symptoms: none. The symptoms are described as constant, steady. Severity of pain: At its worst the pain was moderate severe. It is unknown whether or not the patient has had similar symptoms in the past. The patient has been recently seen by a physician: with similar presenting complaints, The patient has been recently seen at the [facility] Emergency Department, for similar complaints labs were performed, an ultrasound was performed, CT scan was performed, was given IV fluids, was given a prescription for pain medications. 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 bb Historical: - Allergies: 05:37 Sudafed; bb - Home Meds: 05:37 amlodipine 10 mg tab 1 tab once daily [Active]; aspirin 81 mg Oral TbEC 1 tab once bb daily [Active]; atorvastatin 20 mg Oral tab 1 tab once daily [Active]; Dilantin 100 mg Oral 4 cap daily [Active]; Januvia 50 mg Oral tab 1 tabs once daily [Active]; lisinopril 40 mg Oral tab 1 tab once daily [Active]; Magnesium Oxide Oral daily [Active]; ProAir HFA 90 mcg/actuation inhalation HFAA 1 puff every 4-6 hours [Active]; - PMHx: 05:37 Arthritis; COPD; Diabetes - NIDDM; High Cholesterol; Hypertension; Seizures; bb - Immunization history:: Adult Immunizations up to date. - Social history:: Smoking status: Patient uses tobacco products, smokes one pack cigarettes per day. - Ebola Screening: : No symptoms or risks identified at this time. ROS: 06:27 Constitutional: Negative for fever, chills, and weight loss, Eyes: Negative for injury, snw pain, redness, and discharge, ENT: Negative for injury, pain, and discharge, Neck: Negative for injury, pain, and swelling, Cardiovascular: Negative for chest pain, palpitations, and edema, Respiratory: Negative for shortness of breath, cough, wheezing, and pleuritic chest pain, Back: Negative for injury and pain, : Negative for injury, bleeding, discharge, and swelling, MS/Extremity: Negative for injury and deformity, Skin: Negative for injury, rash, and discoloration, Neuro: Negative for headache, weakness, numbness, tingling, and seizure. 06:27 Abdomen/GI: Positive for abdominal pain, of the left lower quadrant. Exam: 06:27 Constitutional: This is a well developed, well nourished patient who is awake, alert, snw and in no acute distress. Head/Face: Normocephalic, atraumatic. Eyes: Pupils equal round and reactive to light, extra-ocular motions intact. Lids and lashes normal. Conjunctiva and sclera are non-icteric and not injected. Cornea within normal limits. Periorbital areas with no swelling, redness, or edema. ENT: Nares patent. No nasal discharge, no septal abnormalities noted. Tympanic membranes are normal and external auditory canals are clear. Oropharynx with no redness, swelling, or masses, exudates, or evidence of obstruction, uvula midline. Mucous membranes moist. Neck: Trachea midline, no thyromegaly or masses palpated, and no cervical lymphadenopathy. Supple, full range of motion without nuchal rigidity, or vertebral point tenderness. No Meningismus. Chest/axilla: Normal chest wall appearance and motion. Nontender with no deformity. No lesions are appreciated. Cardiovascular: Regular rate and rhythm with a normal S1 and S2. No gallops, murmurs, or rubs. Normal PMI, no JVD. No pulse deficits. Respiratory: Lungs have equal breath sounds bilaterally, scattered wheezing. No rales, rhonchi but wheezes noted. No increased work of breathing, no retractions or nasal flaring. Back: No spinal tenderness. No costovertebral tenderness. Full range of motion. Skin: Warm, dry with normal turgor. Normal color with no rashes, no lesions, and no evidence of cellulitis. MS/ Extremity: Pulses equal, no cyanosis. Neurovascular intact. Full, normal range of motion. Neuro: Awake and alert, GCS 15, oriented to person, place, time, and situation. Cranial nerves II-XII grossly intact. Motor strength 5/5 in all extremities. Sensory grossly intact. Cerebellar exam normal. Normal gait. Psych: Awake, alert, with orientation to person, place and time. Behavior, mood, and affect are within normal limits. 06:27 Abdomen/GI: Inspection: obese Bowel sounds: normal, Palpation: moderate abdominal tenderness, in the left lower quadrant. Vital Signs: 05:34 BP 182 / 84; Pulse 94; Resp 22; Temp 97.6; Pulse Ox 96% ; Weight 99.79 kg; Height 5 ft. tl2 8 in. (172.72 cm); Pain 10/10; 06:15 BP 166 / 60; Pulse 89; Resp 20; Pulse Ox 96% on R/A; tl2 06:47 BP 175 / 70; Pulse 78; Resp 20; Pulse Ox 100% on Nebulizer Mask; tl2 07:26 BP 165 / 72; Pulse 75; Resp 18; Temp 97.5(TE); Pulse Ox 96% on R/A; hj 07:42 BP 145 / 65; Pulse 70; Resp 18; Temp 97.6(TE); Pulse Ox 96% on R/A; hj 08:33 BP 168 / 72; Pulse 72; Resp 18; Pulse Ox 98% on R/A; hj 05:34 Body Mass Index 33.45 (99.79 kg, 172.72 cm) tl2 MDM: 06:00 Patient medically screened. snw 07:57 Data reviewed: vital signs, nurses notes. Data interpreted: Pulse oximetry: on room air snw is 96 %. Interpretation: acceptable, Plan: will initiate a nebulizer treatment. Counseling: I had a detailed discussion with the patient and/or guardian regarding: the historical points, exam findings, and any diagnostic results supporting the discharge/admit diagnosis, the presence of at least one elevated blood pressure reading (>120/80) during this emergency department visit, lab results, radiology results, the need for outpatient follow up, to return to the emergency department if symptoms worsen or persist or if there are any questions or concerns that arise at home. Special discussion: Based on the patient's Hx, exam, and Dx evaluation, there is no indication for emergent surgery or inpatient Tx. It is understood by the patient/guardian that if the Sx's persist or worsen they need to return immediately for re-evaluation. Based on the history and exam findings, there is no indication for further emergent testing or inpatient evaluation. I discussed with the patient/guardian the need to see the primary care provider for further evaluation of the symptoms. 02/21 05:29 Order name: Basic Metabolic Panel; Complete Time: 06:31 tw4 02/21 05:29 Order name: CBC with Diff; Complete Time: 06:11 tw4 02/21 05:29 Order name: Creatinine for Radiology; Complete Time: 06:31 tw4 02/21 05:29 Order name: Hepatic Function; Complete Time: 06:31 tw4 02/21 05:29 Order name: Lipase; Complete Time: 06:31 tw4 02/21 06:06 Order name: US Transvaginal Study (Probe); Complete Time: 07:58 snw 02/21 05:29 Order name: IV Saline Lock; Complete Time: 05:52 tw4 02/21 05:29 Order name: Labs collected and sent; Complete Time: 05:52 tw4 Administered Medications: 06:24 Drug: TORadol - Ketorolac 15 mg Route: IVP; Site: right hand; tl2 07:11 Follow up: Response: No adverse reaction hj 06:25 Drug: Albuterol 2.5 mg Route: Inhalation; tl2 Disposition: 02/21/19 07:56 Discharged to Home. Impression: Lower abdominal pain, unspecified. - Condition is Stable. - Discharge Instructions: Abdominal Pain, Adult, Hypertension. - Prescriptions for Mobic 7.5 mg Oral Tablet - take 1 tablet by ORAL route once daily take with food; 20 tablet. - Medication Reconciliation Form, Thank You Letter, Antibiotic Education, Prescription Opioid Use form. - Follow up: Private Physician; When: 1 - 2 days; Reason: Recheck today's complaints, Continuance of care, Re-evaluation by your physician. Follow up: Emergency Department; When: As needed; Reason: Worsening of condition. Signatures: Dispatcher [employer] EDMS Iliana Cruz FNP-C TECHNICAL SOLUTIONS CONSULTANT-Csnw Suni Chapin RN RN Hill Fung RN RN hj Knox, Taylor, RN RN tl2 Jorge Scott MD MD tw4 Corrections: (The following items were deleted from the chart) 06:30 06:27 Constitutional: This is a well developed, well nourished patient who is awake, snw alert, and in no acute distress. Head/Face: Normocephalic, atraumatic. Eyes: Pupils equal round and reactive to light, extra-ocular motions intact. Lids and lashes normal. Conjunctiva and sclera are non-icteric and not injected. Cornea within normal limits. Periorbital areas with no swelling, redness, or edema. ENT: Nares patent. No nasal discharge, no septal abnormalities noted. Tympanic membranes are normal and external auditory canals are clear. Oropharynx with no redness, swelling, or masses, exudates, or evidence of obstruction, uvula midline. Mucous membranes moist. Neck: Trachea midline, no thyromegaly or masses palpated, and no cervical lymphadenopathy. Supple, full range of motion without nuchal rigidity, or vertebral point tenderness. No Meningismus. Chest/axilla: Normal chest wall appearance and motion. Nontender with no deformity. No lesions are appreciated. Cardiovascular: Regular rate and rhythm with a normal S1 and S2. No gallops, murmurs, or rubs. Normal PMI, no JVD. No pulse deficits. Respiratory: Lungs have equal breath sounds bilaterally, clear to auscultation and percussion. No rales, rhonchi or wheezes noted. No increased work of breathing, no retractions or nasal flaring. Back: No spinal tenderness. No costovertebral tenderness. Full range of motion. Skin: Warm, dry with normal turgor. Normal color with no rashes, no lesions, and no evidence of cellulitis. MS/ Extremity: Pulses equal, no cyanosis. Neurovascular intact. Full, normal range of motion. Neuro: Awake and alert, GCS 15, oriented to person, place, time, and situation. Cranial nerves II-XII grossly intact. Motor strength 5/5 in all extremities. Sensory grossly intact. Cerebellar exam normal. Normal gait. Psych: Awake, alert, with orientation to person, place and time. Behavior, mood, and affect are within normal limits. snw 08:36 07:56 02/21/2019 07:56 Discharged to Home. Impression: Lower abdominal pain, hj unspecified. Condition is Stable. Forms are Medication Reconciliation Form, Thank You Letter, Antibiotic Education, Prescription Opioid Use. Follow up: Private Physician; When: 1 - 2 days; Reason: Recheck today's complaints, Continuance of care, Re-evaluation by your physician. Follow up: Emergency Department; When: As needed; Reason: Worsening of condition. snagustin
== END 2019-02-21 08:36 | disposition home or self-care (01) ==
LOC: ER 05:24
DX: R10.32 Left lower quadrant pain (principal); I10 Essential (primary) hypertension; E11.9 Type 2 diabetes mellitus without complications; G40.909 Epilepsy, unspecified, not intractable, without status epilepticus; E78.00 Pure hypercholesterolemia, unspecified; J44.9 Chronic obstructive pulmonary disease, unspecified; F17.210 Nicotine dependence, cigarettes, uncomplicated; Z79.82 Long term (current) use of aspirin; Z88.8 Allergy status to other drugs, medicaments and biological substances
CPT/HCPCS: 36415; 76830; 80048; 80076; 83690; 85025; 96374; 99284

== ENCOUNTER 2019-02-22 06:28 | Emergency (ER) | payer OTHER ==
[2019-02-22] MEDS ORDERED: KETOROLAC 30 MG/ML INJ ONE (06:51)
[2019-02-22] MEDS ORDERED: HYDROCODONE/APAP 10/325 TAB ONE (07:28)
[2019-02-22 08:12] LABS: Absolute Lymphocytes (CBC) 1.3 K/uL (0.7-4.9); Absolute Monocytes 0.4 K/uL (0.1-1.3); Absolute Neutrophil 9.8 K/uL (1.8-8.0); Basophils % 0.3 % (0-1.3); Eosinophils % 0.4 % (0-4.4); Hematocrit 43.8 % (36.0-45.0); Lymphocytes % 11.3 % (15.3-44.8); Monocytes % 3.6 % (3.3-12.3); RBC Red Blood Cell Count 5.13 M/uL (3.86-4.86)
[2019-02-22 08:34] LABS: BUN Blood Urea Nitrogen 8 mg/dL (7-18); Bicarbonate 25 mmol/L (21-32); Glucose Level 175 mg/dL (74-106); Potassium 3.7 mmol/L (3.5-5.1); Sodium Level 137 mmol/L (136-145)
[2019-02-22] MEDS ORDERED: MORPHINE 4 MG/ML SYR ONE (08:40)
[2019-02-22] MEDS ORDERED: NA CHLORIDE 0.9% 1,000 ML ONE (08:40)
[2019-02-22] MEDS ORDERED: ONDANSETRON 4 MG/2 ML VIAL ONE ×2 (08:40→09:59)
--- NOTE | 2019-02-22 10:37 | RAD REPORT ---
EXAM DESCRIPTION: CTAbdomen Pelvis W Contrast - 02/22/2019 10:23 am CLINICAL HISTORY: Abdominal pain. ABD PAIN COMPARISON: Abdomen Pelvis W Contrast dated 02/20/2019; Transvaginal Study Probe dated 02/21/2019 TECHNIQUE: Biphasic CT imaging of the abdomen and pelvis was performed with 100 ml non-ionic IV cont rast. All CT scans are performed using dose optimization technique as appropriate and may include automated exposure control or mA/KV adjustment according to patient size. FINDINGS: The lung bases are clear. The liver, spleen, pancreas, adrenal glands and kidneys are within normal limits. Tiny 2 mm nonobstru cting inferior right renal calculus. No bowel obstruction, free air, free fluid or abscess. The appendix is normal. No evidence of signi ficant lymphadenopathy. Moderate lumbar degenerative changes. IMPRESSION: No acute intra-abdominal or pelvic finding. Small nonobstructing right renal calculus.
--- NOTE | 2019-02-22 10:54 | ER ---
Nurse's Notes [facility] Name: Smitha Ibarra Age: 54 yrs Sex: Female : 1965 Arrival Date: 02/22/2019 Time: 06:29 Bed 15 Private MD: Diagnosis: Lower abdominal pain, unspecified Presentation: 02/22 06:20 Presenting complaint: EMS states: Reports pt has had left flank pain in the past three ea days, reports pt has been seen at the ED for the past three days and was prescribed Tylenol #3 and Meloxicam. Pt reports she has not had any pain relief. Transition of care: patient was not received from another setting of care. Onset of symptoms was February 22, 2019. Risk Assessment: Do you want to hurt yourself or someone else? Patient reports no desire to harm self or others. Initial Sepsis Screen: Does the patient meet any 2 criteria? No. Patient's initial sepsis screen is negative. Does the patient have a suspected source of infection? No. Patient's initial sepsis screen is negative. Care prior to arrival: None. 06:20 Method Of Arrival: EMS: [facility] ea 06:20 Acuity: PRECIOUS 3 ea Triage Assessment: 06:20 General: Appears uncomfortable, Behavior is restless. Pain: Complains of pain in left ea lower quadrant. Neuro: Level of Consciousness is awake, alert, obeys commands, Oriented to person, place, time, situation. Cardiovascular: Patient's skin is warm and dry. Respiratory: Airway is patent Respiratory effort is even, unlabored, Respiratory pattern is regular, symmetrical. GI: Abdomen is obese, Reports lower abdominal pain, upper abdominal pain. Derm: Skin is pink, warm \T\ dry. 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 - Hysterectomy ea Historical: - Allergies: 06:34 Sudafed; ea - Home Meds: 06:34 amlodipine 10 mg tab 1 tab once daily [Active]; aspirin 81 mg Oral TbEC 1 tab once ea daily [Active]; atorvastatin 20 mg Oral tab 1 tab once daily [Active]; Dilantin 100 mg Oral 4 cap daily [Active]; Januvia 50 mg Oral tab 1 tabs once daily [Active]; lisinopril 40 mg Oral tab 1 tab once daily [Active]; Magnesium Oxide Oral daily [Active]; ProAir HFA 90 mcg/actuation inhalation HFAA 1 puff every 4-6 hours [Active]; - PMHx: 06:34 Seizures; Hypertension; High Cholesterol; Diabetes - NIDDM; COPD; Arthritis; ea - Immunization history:: Adult Immunizations up to date. - Social history:: Smoking status: Patient/guardian denies using tobacco. - Ebola Screening: : No symptoms or risks identified at this time. Screenin:36 Abuse screen: Denies threats or abuse. Nutritional screening: No deficits noted. ea Tuberculosis screening: No symptoms or risk factors identified. Fall Risk None identified. Assessment: 07:00 Reassessment: RECD REPORT FROM ALTAGRACIA BALDERRAMA. 54YO WF P/W ABDOMINAL PAIN, ALL CURRENT ORDERS bp COMPLETED, DISPO PENDING. 07:00 GI: Bowel sounds present X 4 quads. Abd is soft X 4 quads. bp 08:00 Reassessment: IVF INFUSING, PT DRINKING PO CONTRAST. bp 08:57 Reassessment: PT COMPLETED PO CONTRAST, CT NOTIFIED. bp 10:00 Reassessment: CT PENDING, PT C/O NAUSEA. MED ORDERED AND GIVEN. bp 10:13 Reassessment: PT TO CT WITH LASER BEAM CUTTER. bp 11:10 Reassessment: PT D/C HOME VIA W/C WITH FAMILY, DX WITH UNSPECIFIC LOWER ABDOMINAL PAIN. bp Vital Signs: 06:35 BP 181 / 74; Pulse 103; Resp 20; Temp 97.7; Pulse Ox 99% on R/A; Weight 108.86 kg; ea Height 5 ft. 7 in. (170.18 cm); Pain 10/10; 07:30 BP 164 / 77; Pulse 88; Resp 18; Pulse Ox 96% ; bp 08:30 BP 154 / 66; Pulse 69; Resp 16; Temp 97.9; Pulse Ox 98% ; bp 10:00 BP 152 / 64; Pulse 66; Resp 18; Temp 97.9; Pulse Ox 95% ; bp 06:35 Body Mass Index 37.59 (108.86 kg, 170.18 cm) ea ED Course: 06:29 Patient arrived in ED. bb 06:29 [facility] Colin [facility]C [facility] kb 06:29 Neftali Crawford MD is Attending Physician. kb 06:32 Triage completed. ea 06:36 Patient has correct armband on for positive identification. Bed in low position. Call ea light in reach. Side rails up X2. 06:36 Arm band placed on right wrist. Patient placed in an exam room, on a stretcher, on ea pulse oximetry. 07:11 Reji Marquez, RN is Primary Nurse. bp 07:12 No provider procedures requiring assistance completed. Patient did not have IV access bp during this emergency room visit. 07:30 Inserted saline lock: 22 gauge in right wrist, using aseptic technique. bp 10:22 CT completed. Patient tolerated procedure well. Patient moved back from CT. ls3 10:23 CT Abd/Pelvis - W/Contrast In Process Unspecified. EDMS 11:09 IV discontinued, intact, bleeding controlled, No redness/swelling at site. Pressure bp dressing applied. Administered Medications: 06:34 CANCELLED (Physician Discretion): TORadol 30 mg IVP once kb 06:42 Drug: TORadol 60 mg Route: IM; Site: left gluteus; ea 07:00 Follow up: Response: Pain is unchanged, physician notified bp 07:17 Drug: Seale 10 mg-325 mg 1 tabs Route: PO; bp 08:22 Follow up: Response: Pain is unchanged, physician notified bp 08:25 Drug: NS 0.9% 1000 ml Route: IV; Rate: 1000 ml; Site: right wrist; bp 11:09 Follow up: IV Status: Completed infusion; IV Intake: 1000ml bp 08:25 Drug: morphine 4 mg Route: IVP; Site: right wrist; bp 11:09 Follow up: Response: Pain is decreased bp 08:25 Drug: Zofran 4 mg Route: IVP; Site: right wrist; bp 11:09 Follow up: Response: Nausea is decreased bp 10:12 Drug: Zofran 4 mg Route: IVP; Site: right wrist; bp 11:08 Follow up: Response: Nausea is decreased bp Intake: 11:09 IV: 1000ml; Total: 1000ml. bp Outcome: 10:53 Discharge ordered by MD. kb 11:10 Discharged to home via wheelchair, with family. bp 11:10 Condition: stable 11:10 Discharge instructions given to patient, Instructed on discharge instructions, follow up and referral plans. Demonstrated understanding of instructions, follow-up care. 11:11 Patient left the ED. bp Signatures: Dispatcher [employer] EDMS Juanita Colin, REFRIGERATION SUPERVISOR-C REFRIGERATION SUPERVISOR-Ckb Suni Chapin, RN RN bb Altagracia Avalos, RN RN Reji Malone, RN RN Cody Gill ls3
--- NOTE | 2019-02-22 10:54 | EDPHYS ---
Physician Documentation [facility] Name: Smitha Ibarra Age: 54 yrs Sex: Female : 1965 Arrival Date: 02/22/2019 Time: 06:29 Bed 15 Private MD: ED Physician Neftali Crawford HPI: 02/22 06:35 This 54 yrs old Female presents to ER via EMS with complaints of Abdominal kb Pain. 06:35 The patient presents with abdominal pain in the left lower quadrant. Onset: The kb symptoms/episode began/occurred 3 day(s) ago. The symptoms do not radiate. Associated signs and symptoms: none. The symptoms are described as constant. Modifying factors: The symptoms are alleviated by nothing, the symptoms are aggravated by nothing. Severity of pain: At its worst the pain was moderate in the emergency department the pain is unchanged. The patient has not experienced similar symptoms in the past. The patient has been recently seen at the [facility] Emergency Department, yesterday, for similar complaints labs were performed, an ultrasound was performed, was given a prescription for pain medications. Pt reports LLQ pain that started 3 days ago. This is the third time pt has come to the ER for same complaint. On 02/20/19, pt had labs, CT and US. Pt had repeat labs and US on 02/21/19. Finding of 3cm left ovarian cyst found at both visits. Pt reports she has a follow up with her MEDICAL PARASITOLOGIST tomorrow, but wants something else for pain. Pt has been given prescriptions for mobic and tylenol #3 for pain control. . 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 - Hysterectomy ea Historical: - Allergies: 06:34 Sudafed; ea - Home Meds: 06:34 amlodipine 10 mg tab 1 tab once daily [Active]; aspirin 81 mg Oral TbEC 1 tab once ea daily [Active]; atorvastatin 20 mg Oral tab 1 tab once daily [Active]; Dilantin 100 mg Oral 4 cap daily [Active]; Januvia 50 mg Oral tab 1 tabs once daily [Active]; lisinopril 40 mg Oral tab 1 tab once daily [Active]; Magnesium Oxide Oral daily [Active]; ProAir HFA 90 mcg/actuation inhalation HFAA 1 puff every 4-6 hours [Active]; - PMHx: 06:34 Seizures; Hypertension; High Cholesterol; Diabetes - NIDDM; COPD; Arthritis; ea - Immunization history:: Adult Immunizations up to date. - Social history:: Smoking status: Patient/guardian denies using tobacco. - Ebola Screening: : No symptoms or risks identified at this time. ROS: 06:34 Constitutional: Negative for fever, chills, and weight loss, Neck: Negative for injury, kb pain, and swelling, Cardiovascular: Negative for chest pain, palpitations, and edema, Respiratory: Negative for shortness of breath, cough, wheezing, and pleuritic chest pain, Back: Negative for injury and pain, MS/Extremity: Negative for injury and deformity, Skin: Negative for injury, rash, and discoloration, Neuro: Negative for headache, weakness, numbness, tingling, and seizure. 06:34 Abdomen/GI: Positive for abdominal pain, Negative for nausea, vomiting, and diarrhea, constipation, abdominal cramps, abdominal distension, anorexia. Exam: 06:34 Constitutional: This is a well developed, well nourished patient who is awake, alert, kb and in no acute distress. Head/Face: Normocephalic, atraumatic. Chest/axilla: Normal chest wall appearance and motion. Nontender with no deformity. No lesions are appreciated. Cardiovascular: Regular rate and rhythm with a normal S1 and S2. No gallops, murmurs, or rubs. Normal PMI, no JVD. No pulse deficits. Back: No spinal tenderness. No costovertebral tenderness. Full range of motion. Skin: Warm, dry with normal turgor. Normal color with no rashes, no lesions, and no evidence of cellulitis. MS/ Extremity: Pulses equal, no cyanosis. Neurovascular intact. Full, normal range of motion. Neuro: Awake and alert, GCS 15, oriented to person, place, time, and situation. Cranial nerves II-XII grossly intact. Motor strength 5/5 in all extremities. Sensory grossly intact. Cerebellar exam normal. Normal gait. 06:34 Abdomen/GI: Inspection: obese Bowel sounds: normal, in all quadrants, Palpation: soft, in all quadrants, moderate abdominal tenderness, in the left lower quadrant. 06:42 Respiratory: the patient does not display signs of respiratory distress, Respirations: kb normal, Breath sounds: wheezing: expiratory that is mild, is scattered, pt smokes cigarettes and has history of COPD. Pt has no respiratory complaints. Vital Signs: 06:35 BP 181 / 74; Pulse 103; Resp 20; Temp 97.7; Pulse Ox 99% on R/A; Weight 108.86 kg; ea Height 5 ft. 7 in. (170.18 cm); Pain 10/10; 07:30 BP 164 / 77; Pulse 88; Resp 18; Pulse Ox 96% ; bp 08:30 BP 154 / 66; Pulse 69; Resp 16; Temp 97.9; Pulse Ox 98% ; bp 10:00 BP 152 / 64; Pulse 66; Resp 18; Temp 97.9; Pulse Ox 95% ; bp 06:35 Body Mass Index 37.59 (108.86 kg, 170.18 cm) ea MDM: 06:29 Patient medically screened. kb 06:34 Data reviewed: vital signs, nurses notes. kb 06:42 Data interpreted: Pulse oximetry: on room air is 99 %. Interpretation: normal. kb 10:52 Counseling: I had a detailed discussion with the patient and/or guardian regarding: the kb historical points, exam findings, and any diagnostic results supporting the discharge/admit diagnosis, lab results, radiology results, the need for outpatient follow up, a family practitioner, to return to the emergency department if symptoms worsen or persist or if there are any questions or concerns that arise at home. ED course: CT does not show previous ovarian cyst. No acute findings on CT. Will discharge home for pt to keep follow up appt tomorrow. 02/22 07:17 Order name: Basic Metabolic Panel; Complete Time: 08:42 kb 02/22 07:17 Order name: CBC with Diff; Complete Time: 08:14 kb 02/22 08:15 Order name: CT Abd/Pelvis - W/Contrast; Complete Time: 10:51 kb 02/22 07:17 Order name: IV Saline Lock; Complete Time: 07:44 kb 02/22 07:17 Order name: Labs collected and sent; Complete Time: 07:44 kb Administered Medications: 06:34 CANCELLED (Physician Discretion): TORadol 30 mg IVP once kb 06:42 Drug: TORadol 60 mg Route: IM; Site: left gluteus; ea 07:00 Follow up: Response: Pain is unchanged, physician notified bp 07:17 Drug: [place] 10 mg-325 mg 1 tabs Route: PO; bp 08:22 Follow up: Response: Pain is unchanged, physician notified bp 08:25 Drug: NS 0.9% 1000 ml Route: IV; Rate: 1000 ml; Site: right wrist; bp 11:09 Follow up: IV Status: Completed infusion; IV Intake: 1000ml bp 08:25 Drug: morphine 4 mg Route: IVP; Site: right wrist; bp 11:09 Follow up: Response: Pain is decreased bp 08:25 Drug: Zofran 4 mg Route: IVP; Site: right wrist; bp 11:09 Follow up: Response: Nausea is decreased bp 10:12 Drug: Zofran 4 mg Route: IVP; Site: right wrist; bp 11:08 Follow up: Response: Nausea is decreased bp Disposition: 14:46 Co-signature as Attending Physician, Neftali Crawford MD I agree with the assessment and dinesh plan of care. Disposition: 02/22/19 10:53 Discharged to Home. Impression: Lower abdominal pain, unspecified. - Condition is Stable. - Discharge Instructions: Abdominal Pain, Adult, [id number], Ovarian Cyst, [id number]. - Medication Reconciliation Form, Thank You Letter, Antibiotic Education, Prescription Opioid Use form. - Follow up: Emergency Department; When: As needed; Reason: Worsening of condition. Follow up: Private Physician; When: 2 - 3 days; Reason: Recheck today's complaints, Continuance of care, Re-evaluation by your physician. Signatures: Dispatcher [employer] EDKY Juanita Colin, EGN TIRADO-Neftali Carpenter MD MD cha Antunez, Elena, Reji Lee RN, ea, RN RN bp Corrections: (The following items were deleted from the chart) 06:34 06:30 TORadol 30 mg IVP once ordered. kb kb 06:42 06:34 Constitutional: This is a well developed, well nourished patient who is awake, kb alert, and in no acute distress. Head/Face: Normocephalic, atraumatic. Chest/axilla: Normal chest wall appearance and motion. Nontender with no deformity. No lesions are appreciated. Cardiovascular: Regular rate and rhythm with a normal S1 and S2. No gallops, murmurs, or rubs. Normal PMI, no JVD. No pulse deficits. Respiratory: Lungs have equal breath sounds bilaterally, clear to auscultation and percussion. No rales, rhonchi or wheezes noted. No increased work of breathing, no retractions or nasal flaring. Back: No spinal tenderness. No costovertebral tenderness. Full range of motion. Skin: Warm, dry with normal turgor. Normal color with no rashes, no lesions, and no evidence of cellulitis. MS/ Extremity: Pulses equal, no cyanosis. Neurovascular intact. Full, normal range of motion. Neuro: Awake and alert, GCS 15, oriented to person, place, time, and situation. Cranial nerves II-XII grossly intact. Motor strength 5/5 in all extremities. Sensory grossly intact. Cerebellar exam normal. Normal gait. kb 10:21 07:05 Counseling: I had a detailed discussion with the patient and/or guardian kb regarding: the historical points, exam findings, and any diagnostic results supporting the discharge/admit diagnosis, the need for outpatient follow up, an OB/Gyne specialist, to return to the emergency department if symptoms worsen or persist or if there are any questions or concerns that arise at home, kb 11:11 10:53 02/22/2019 10:53 Discharged to Home. Impression: Lower abdominal pain, bp unspecified. Condition is Stable. Forms are Medication Reconciliation Form, Thank You Letter, Antibiotic Education, Prescription Opioid Use. Follow up: Emergency Department; When: As needed; Reason: Worsening of condition. Follow up: Private Physician; When: 2 - 3 days; Reason: Recheck today's complaints, Continuance of care, Re-evaluation by your physician. kb
== END 2019-02-22 11:11 | disposition home or self-care (01) ==
LOC: ER 06:28
DX: R10.32 Left lower quadrant pain (principal); I10 Essential (primary) hypertension; E11.9 Type 2 diabetes mellitus without complications; J44.9 Chronic obstructive pulmonary disease, unspecified; E78.00 Pure hypercholesterolemia, unspecified
CPT/HCPCS: 96361; 85025; 80048; 36415; 74177; 96375; 96372; 96374; 99284; Q9967; J7030; J2405 ×2

== ENCOUNTER 2019-02-25 21:20 | Emergency (ER) | payer OTHER ==
[2019-02-25 21:47] LABS: Absolute Lymphocytes (CBC) 2.9 K/uL (0.7-4.9); Absolute Monocytes 0.9 K/uL (0.1-1.3); Absolute Neutrophil 8.7 K/uL (1.8-8.0); Basophils % 0.8 % (0-1.3); Eosinophils % 1.2 % (0-4.4); Hematocrit 41.4 % (36.0-45.0); Lymphocytes % 22.6 % (15.3-44.8); MPV 8.9 fL (7.6-11.3); Monocytes % 6.9 % (3.3-12.3); RBC Red Blood Cell Count 4.83 M/uL (3.86-4.86)
[2019-02-25] MEDS ORDERED: HYDROCODONE/APAP 5/325 MG TAB ONE (21:54)
[2019-02-25] MEDS ORDERED: KETOROLAC 30 MG/ML INJ ONE (21:55)
[2019-02-25 22:03] LABS: Albumin 3.7 g/dL (3.4-5.0); Bilirubin Total 0.3 mg/dL (0.2-1.0); Potassium 3.4 mmol/L (3.5-5.1); Protein, Total 7.4 g/dL (6.4-8.2)
--- NOTE | 2019-02-25 22:25 | ER ---
Nurse's Notes [facility] Name: Smitha Ibarra Age: 54 yrs Sex: Female : 1965 Arrival Date: 02/25/2019 Time: 21:21 Bed 19 Private MD: Cherri Erazo Diagnosis: Abnormal uterine and vaginal bleeding, unspecified Presentation: 02/25 21:20 Presenting complaint: EMS states: "vaginal cyst ruptured and bled on Tuesday was seen cc3 in the clinic, then moderate amount of bleeding on and Tuesday, on Tuesday it stopped bleeding but today evening started again to bleed heavily". Transition of care: patient was not received from another setting of care. Onset of symptoms was February 25, 2019. Risk Assessment: Do you want to hurt yourself or someone else? Patient reports no desire to harm self or others. Initial Sepsis Screen: Does the patient meet any 2 criteria? No. Patient's initial sepsis screen is negative. Does the patient have a suspected source of infection? No. Patient's initial sepsis screen is negative. Care prior to arrival: None. 21:20 Method Of Arrival: EMS: [facility] cc3 21:20 Acuity: PRECIOUS 3 cc3 Triage Assessment: 21:20 General: Appears in no apparent distress. uncomfortable, Behavior is cooperative, cc3 appropriate for age. Pain: Complains of pain in lower back, vagina Pain currently is 10 out of 10 on a pain scale. Quality of pain is described as aching. EENT: No signs and/or symptoms were reported regarding the EENT system. Neuro: Level of Consciousness is awake, alert, obeys commands, Oriented to person, place, time, situation, Appropriate for age. Cardiovascular: Denies chest pain, Patient's skin is warm and dry. Respiratory: Airway is patent Respiratory effort is even, unlabored, Respiratory pattern is regular, symmetrical. GI: Abdomen is round obese. : Reports vaginal bleeding that is heavy flow currently no active bleeding. Derm: Skin is intact, is healthy with good turgor, Skin is pink, warm \\T\\ dry. Musculoskeletal: Circulation, motion, and sensation intact. Range of motion: intact in all extremities. 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 cc3 Historical: - Allergies: 21:20 Sudafed; cc3 - Home Meds: 21:20 amlodipine 10 mg tab 1 tab once daily [Active]; aspirin 81 mg Oral TbEC 1 tab once cc3 daily [Active]; atorvastatin 20 mg Oral tab 1 tab once daily [Active]; Dilantin 100 mg Oral 4 cap daily [Active]; Januvia 50 mg Oral tab 1 tabs once daily [Active]; lisinopril 40 mg Oral tab 1 tab once daily [Active]; Magnesium Oxide Oral daily [Active]; ProAir HFA 90 mcg/actuation inhalation HFAA 1 puff every 4-6 hours [Active]; - PMHx: 21:20 Arthritis; COPD; Diabetes - NIDDM; High Cholesterol; Hypertension; Seizures; cc3 - PSHx: 21:20 None; cc3 - Immunization history:: Adult Immunizations up to date. - Social history:: Smoking status: Patient uses tobacco products, smokes one pack cigarettes per day. - Ebola Screening: : No symptoms or risks identified at this time. Screenin:20 Abuse screen: Denies threats or abuse. Denies injuries from another. Nutritional cc3 screening: No deficits noted. Tuberculosis screening: No symptoms or risk factors identified. Fall Risk Ambulatory Aid- None/Bed Rest/Nurse Assist (0 pts). Gait- Normal/Bed Rest/Wheelchair (0 pts) Mental Status- Oriented to own ability (0 pts). Assessment: 21:20 General: see triage assessment. cc3 22:15 Reassessment: Patient appears in no apparent distress at this time. Patient and/or cc3 family updated on plan of care and expected duration. Pain level reassessed. Patient is alert, oriented x 3, equal unlabored respirations, skin warm/dry/pink. 23:30 Reassessment: Patient appears in no apparent distress at this time. Patient and/or cc3 family updated on plan of care and expected duration. Pain level reassessed. Patient is alert, oriented x 3, equal unlabored respirations, skin warm/dry/pink. JIM Coy discharged the patient home, no prescription given. IV cannula removed and patient left ER vitally stable by wheelchair escorted by me to her daughter's car waiting outside. Patient denies pain at this time. Patient states feeling better. Patient states symptoms have improved. Vital Signs: 21:20 BP 115 / 59; Pulse 107; Resp 20 S; Temp 98.2(O); Pulse Ox 94% on 2 lpm NC; Weight cc3 108.86 kg (R); Height 5 ft. 7 in. (170.18 cm) (R); Pain 10/10; 22:30 BP 112 / 43; Pulse 77; Resp 18 S; Pulse Ox 94% on 2 lpm NC; cc3 23:00 BP 107 / 57; Pulse 86; Resp 19 S; Pulse Ox 95% on 2 lpm NC; cc3 23:10 BP 107 / 60; Pulse 83; Resp 18 S; Pulse Ox 95% on 2 lpm NC; cc3 21:20 Body Mass Index 37.59 (108.86 kg, 170.18 cm) cc3 21:20 room air saturation is 91% cc3 ED Course: 21:20 Arm band placed on right wrist. cc3 21:20 Patient has correct armband on for positive identification. Placed in gown. Bed in low cc3 position. Call light in reach. Side rails up X 1. quality assurance monitor on. Pulse ox on. NIBP on. 21:21 Patient arrived in ED. am2 21:21 Cherri Erazo MD is Private Physician. am2 21:23 Keamr Coy NP is PHCP. pm1 21:23 Rey Martin MD is Attending Physician. pm1 21:24 Savita Roth is Primary Nurse. cc3 21:30 Inserted saline lock: 18 gauge in right forearm, using aseptic technique. Blood cc3 collected. inserted by TACOS Frias. 21:31 Triage completed. cc3 23:30 No provider procedures requiring assistance completed. IV discontinued, intact, cc3 bleeding controlled, No redness/swelling at site. Pressure dressing applied. Administered Medications: 21:45 Drug: [place] 5 mg-325 mg 1 tabs Route: PO; cc3 22:15 Follow up: Response: No adverse reaction; Pain is decreased cc3 21:46 Drug: TORadol 30 mg Route: IVP; Site: right forearm; cc3 22:15 Follow up: Response: No adverse reaction; Pain is decreased cc3 Outcome: 22:25 Discharge ordered by . pm1 23:30 Discharged to home via wheelchair. cc3 23:30 Condition: stable 23:30 Discharge instructions given to patient, Instructed on discharge instructions, follow up and referral plans. Demonstrated understanding of instructions, follow-up care. 23:37 Patient left the ED. cc3 Signatures: Kemar Coy NP TOLL BOOTH OPERATOR pm1 July Beal am2 Savita Roth cc3 Corrections: (The following items were deleted from the chart) 21:49 21:20 BP 115 / 59; Pulse 107bpm; Resp 20bpm; Spontaneous; Pulse Ox 94% 2 lpm Nasal cc3 Cannula; 108.86 kg Reported; Height 5 ft. 7 in. Reported; BMI: 37.5; room air saturation is 91%; cc3 21:50 21:20 Pain: Denies pain. cc3 cc3 21:50 21:20 : Reports vaginal bleeding that is heavy flow currently the bleeding stopped cc3cc3
--- NOTE | 2019-02-25 22:25 | EDPHYS ---
Physician Documentation [facility] Name: Smitha Ibarra Age: 54 yrs Sex: Female : 1965 Arrival Date: 02/25/2019 Time: 21:21 Bed 19 Private MD: Cherri Erazo ED Physician Rey Martin HPI: 02/25 22:05 This 54 yrs old Female presents to ER via EMS with complaints of Vaginal pm1 Bleeding. 22:05 The patient presents with vaginal bleeding that is light. Onset: The symptoms/episode pm1 began/occurred 4 day(s) ago, and improved. Modifying factors: The symptoms are alleviated by nothing, the symptoms are aggravated by nothing. Associated signs and symptoms: Pertinent negatives: dysuria, fever. Severity of symptoms: in the emergency department the symptoms have improved. The patient has not experienced similar symptoms in the past. The patient has been recently seen at the [facility], for similar complaints labs were performed, an ultrasound was performed, CT scan was performed, Patient seen here in the ER on 3 previous visits since 02/20 with complaints of abdominal pain. Diagnosed with ovarian cyst. Patient presenting today with vaginal bleeding that started on Tuesday, resolved on Tuesday then started again today. Patient believes that vaginal bleeding attributed to ovarian cyst.. 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 cc3 Historical: - Allergies: 21:20 Sudafed; cc3 - Home Meds: 21:20 amlodipine 10 mg tab 1 tab once daily [Active]; aspirin 81 mg Oral TbEC 1 tab once cc3 daily [Active]; atorvastatin 20 mg Oral tab 1 tab once daily [Active]; Dilantin 100 mg Oral 4 cap daily [Active]; Januvia 50 mg Oral tab 1 tabs once daily [Active]; lisinopril 40 mg Oral tab 1 tab once daily [Active]; Magnesium Oxide Oral daily [Active]; ProAir HFA 90 mcg/actuation inhalation HFAA 1 puff every 4-6 hours [Active]; - PMHx: 21:20 Arthritis; COPD; Diabetes - NIDDM; High Cholesterol; Hypertension; Seizures; cc3 - PSHx: 21:20 None; cc3 - Immunization history:: Adult Immunizations up to date. - Social history:: Smoking status: Patient uses tobacco products, smokes one pack cigarettes per day. - Ebola Screening: : No symptoms or risks identified at this time. ROS: 22:05 Positive for vaginal bleeding, Negative for urinary symptoms. pm1 22:05 Constitutional: Negative for fever, chills, and weight loss, Eyes: Negative for injury, pain, redness, and discharge, ENT: Negative for injury, pain, and discharge, Neck: Negative for injury, pain, and swelling, Cardiovascular: Negative for chest pain, palpitations, and edema, Respiratory: Negative for shortness of breath, cough, wheezing, and pleuritic chest pain. 22:05 Back: Negative for injury and pain, MS/Extremity: Negative for injury and deformity, Skin: Negative for injury, rash, and discoloration, Neuro: Negative for headache, weakness, numbness, tingling, and seizure. 22:05 Abdomen/GI: Positive for abdominal pain, of the left lower quadrant, Negative for nausea, vomiting, and diarrhea. Exam: 22:05 Constitutional: This is a well developed, well nourished patient who is awake, alert, pm1 and in no acute distress. Head/Face: Normocephalic, atraumatic. Eyes: Pupils equal round and reactive to light, extra-ocular motions intact. Lids and lashes normal. Conjunctiva and sclera are non-icteric and not injected. Cornea within normal limits. Periorbital areas with no swelling, redness, or edema. ENT: Nares patent. No nasal discharge, no septal abnormalities noted. Tympanic membranes are normal and external auditory canals are clear. Oropharynx with no redness, swelling, or masses, exudates, or evidence of obstruction, uvula midline. Mucous membranes moist. Neck: Trachea midline, no thyromegaly or masses palpated, and no cervical lymphadenopathy. Supple, full range of motion without nuchal rigidity, or vertebral point tenderness. No Meningismus. Chest/axilla: Normal chest wall appearance and motion. Nontender with no deformity. No lesions are appreciated. Cardiovascular: Regular rate and rhythm with a normal S1 and S2. No gallops, murmurs, or rubs. Normal PMI, no JVD. No pulse deficits. Respiratory: Lungs have equal breath sounds bilaterally, clear to auscultation and percussion. No rales, rhonchi or wheezes noted. No increased work of breathing, no retractions or nasal flaring. Abdomen/GI: Soft, non-tender, with normal bowel sounds. No distension or tympany. No guarding or rebound. No evidence of tenderness throughout. Back: No spinal tenderness. No costovertebral tenderness. Full range of motion. Skin: Warm, dry with normal turgor. Normal color with no rashes, no lesions, and no evidence of cellulitis. MS/ Extremity: Pulses equal, no cyanosis. Neurovascular intact. Full, normal range of motion. 22:05 Neuro: Orientation: is normal, Motor: is normal, moves all fours, Sensation: is normal, no obvious gross deficits. Vital Signs: 21:20 BP 115 / 59; Pulse 107; Resp 20 S; Temp 98.2(O); Pulse Ox 94% on 2 lpm NC; Weight cc3 108.86 kg (R); Height 5 ft. 7 in. (170.18 cm) (R); Pain 10/10; 22:30 BP 112 / 43; Pulse 77; Resp 18 S; Pulse Ox 94% on 2 lpm NC; cc3 23:00 BP 107 / 57; Pulse 86; Resp 19 S; Pulse Ox 95% on 2 lpm NC; cc3 23:10 BP 107 / 60; Pulse 83; Resp 18 S; Pulse Ox 95% on 2 lpm NC; cc3 21:20 Body Mass Index 37.59 (108.86 kg, 170.18 cm) cc3 21:20 room air saturation is 91% cc3 MDM: 21:29 Patient medically screened. pm1 22:23 Data reviewed: vital signs. Counseling: I had a detailed discussion with the patient pm1 and/or guardian regarding: the historical points, exam findings, and any diagnostic results supporting the discharge/admit diagnosis, lab results, the need for outpatient follow up, to return to the emergency department if symptoms worsen or persist or if there are any questions or concerns that arise at home. 02/25 21:31 Order name: CBC with Diff pm1 02/25 21:31 Order name: CMP pm1 02/25 21:55 Order name: CBC with Automated Diff; Complete Time: 22:17 EDMS 02/25 22:03 Order name: Comprehensive Metabolic Panel; Complete Time: 22:17 EDMS 02/25 21:31 Order name: IV Saline Lock; Complete Time: 21:39 pm1 Administered Medications: 21:45 Drug: [place] 5 mg-325 mg 1 tabs Route: PO; cc3 22:15 Follow up: Response: No adverse reaction; Pain is decreased cc3 21:46 Drug: TORadol 30 mg Route: IVP; Site: right forearm; cc3 22:15 Follow up: Response: No adverse reaction; Pain is decreased cc3 Disposition: 02/26 02:15 Co-signature as Attending Physician, Rey Martin MD. rn Disposition: 02/25/19 22:25 Discharged to Home. Impression: Abnormal uterine and vaginal bleeding, unspecified. - Condition is Stable. - Discharge Instructions: Abnormal Uterine Bleeding. - Medication Reconciliation Form, Thank You Letter, Antibiotic Education, Prescription Opioid Use form. - Follow up: Emergency Department; When: As needed; Reason: Worsening of condition. Follow up: Private Physician; When: 2 - 3 days; Reason: Recheck today's complaints, Continuance of care, Re-evaluation by your physician. - Problem is new. - Symptoms have improved. Signatures: Dispatcher [employer] EDMS Rey Mratin MD MD rn Kemar Coy, CELL OPERATION SUPERVISOR CELL OPERATION SUPERVISOR pm1 Savita Roth cc3 Corrections: (The following items were deleted from the chart) 02/25 23:37 22:25 02/25/2019 22:25 Discharged to Home. Impression: Abnormal uterine and vaginal cc3 bleeding, unspecified. Condition is Stable. Forms are Medication Reconciliation Form, Thank You Letter, Antibiotic Education, Prescription Opioid Use. Follow up: Emergency Department; When: As needed; Reason: Worsening of condition. Follow up: Private Physician; When: 2 - 3 days; Reason: Recheck today's complaints, Continuance of care, Re-evaluation by your physician. Problem is new. Symptoms have improved. pm1
== END 2019-02-25 23:37 | disposition home or self-care (01) ==
LOC: ER 21:20
DX: N93.9 Abnormal uterine and vaginal bleeding, unspecified (principal); E11.9 Type 2 diabetes mellitus without complications; I10 Essential (primary) hypertension; J44.9 Chronic obstructive pulmonary disease, unspecified; F17.210 Nicotine dependence, cigarettes, uncomplicated; E78.00 Pure hypercholesterolemia, unspecified
CPT/HCPCS: 36415; 80053; 85025; 96374; 99284

== ENCOUNTER 2019-05-07 04:12 | Emergency (ER) | payer OTHER ==
[2019-05-07] MEDS ORDERED: MORPHINE 4 MG/ML SYR ONE (05:10)
[2019-05-07 05:24] LABS: Absolute Lymphocytes (CBC) 1.7 K/uL (0.7-4.9); Basophils % 0.6 % (0-1.3); Eosinophils % 1.8 % (0-4.4); Hematocrit 40.2 % (36.0-45.0); Lymphocytes % 15.5 % (15.3-44.8); MPV 9.4 fL (7.6-11.3); Monocytes % 4.1 % (3.3-12.3); RBC Red Blood Cell Count 4.74 M/uL (3.86-4.86)
[2019-05-07 05:44] LABS: Albumin 3.8 g/dL (3.4-5.0); Bilirubin Total 0.3 mg/dL (0.2-1.0); Potassium 3.6 mmol/L (3.5-5.1); Protein, Total 7.7 g/dL (6.4-8.2)
[2019-05-07 05:53] LABS: Urine Blood TRACE (NEG); Urine Glucose TRACE (NEG); Urine Protein NEGATIVE (NEG)
--- NOTE | 2019-05-07 06:29 | EDPHYS ---
Physician Documentation [facility] Name: Smitha Ibarra Age: 54 yrs Sex: Female : 1965 Arrival Date: 05/07/2019 Time: 04:13 Bed 13 Private MD: ED Physician Rudolph Jung HPI: 05/07 04:52 This 54 yrs old Female presents to ER via Ambulatory with complaints of ps1 Ovarian Pain. 04:52 patient has a history of ovarian cysts. States she was evaluated in February for same. ps1 States that she is having excruciating LLQ abdominal pain that started at 6 pm. Thinks that it is the same source of pain. Pt of Dr. Olivares. No fever. Hx of T3 pain meds per [employer]. . Historical: - Allergies: 04:22 Sudafed; aa1 - Home Meds: 04:22 amlodipine 10 mg tab 1 tab once daily [Active]; aspirin 81 mg Oral TbEC 1 tab once aa1 daily [Active]; atorvastatin 20 mg Oral tab 1 tab once daily [Active]; Dilantin 100 mg Oral 4 cap daily [Active]; Januvia 50 mg Oral tab 1 tabs once daily [Active]; lisinopril 40 mg Oral tab 1 tab once daily [Active]; Magnesium Oxide Oral daily [Active]; ProAir HFA 90 mcg/actuation inhalation HFAA 1 puff every 4-6 hours [Active]; - PMHx: 04:22 Arthritis; COPD; Diabetes - NIDDM; High Cholesterol; Hypertension; Seizures; aa1 - PSHx: 04:22 None; aa1 - Immunization history:: Adult Immunizations unknown. - Social history:: Smoking status: Patient uses tobacco products, smokes one pack cigarettes per day. - Ebola Screening: : No symptoms or risks identified at this time. ROS: 04:52 Constitutional: Negative for fever, chills, and weight loss, Eyes: Negative for injury, ps1 pain, redness, and discharge, Cardiovascular: Negative for chest pain, palpitations, and edema, Respiratory: Negative for shortness of breath, cough, wheezing, and pleuritic chest pain, MS/Extremity: Negative for injury and deformity, Skin: Negative for injury, rash, and discoloration, Neuro: Negative for headache, weakness, numbness, tingling, and seizure. 04:52 Abdomen/GI: Positive for abdominal pain, adenexal pain. Exam: 04:52 Constitutional: This is a well developed, well nourished patient who is awake, alert, ps1 and in no acute distress. Head/Face: Normocephalic, atraumatic. Cardiovascular: Regular rate and rhythm. No gallops, murmurs, or rubs. Normal PMI, no JVD. No pulse deficits. Respiratory: Lungs have equal breath sounds bilaterally, clear to auscultation and percussion. No rales, rhonchi or wheezes noted. No increased work of breathing, no retractions or nasal flaring. Skin: Warm, dry with normal turgor. Normal color with no rashes, no lesions, and no evidence of cellulitis. MS/ Extremity: Pulses equal, no cyanosis. Neurovascular intact. Full, normal range of motion. Neuro: Awake and alert, GCS 15, oriented to person, place, time, and situation. Cranial nerves II-XII grossly intact. Sensory grossly intact. 04:52 Abdomen/GI: Inspection: abdomen appears normal, Palpation: moderate abdominal tenderness, in the left lower quadrant. Vital Signs: 04:22 BP 173 / 83; Pulse 90; Resp 20; Temp 97.0; Pulse Ox 97% on R/A; Weight 108.86 kg; aa1 Height 5 ft. 7 in. (170.18 cm); Pain 10/10; 05:33 BP 149 / 73; Pulse 89; Resp 20; Pulse Ox 98% on R/A; jb4 06:40 BP 135 / 81; Pulse 88; Resp 16; Pulse Ox 99% on R/A; jb4 04:22 Body Mass Index 37.59 (108.86 kg, 170.18 cm) aa1 MDM: 04:51 Patient medically screened. ps1 06:29 Data reviewed: vital signs, nurses notes, lab test result(s), radiologic studies, CT ps1 scan, and as a result, I will discharge patient. Counseling: I had a detailed discussion with the patient and/or guardian regarding: the historical points, exam findings, and any diagnostic results supporting the discharge/admit diagnosis, lab results, radiology results, the need for outpatient follow up, to return to the emergency department if symptoms worsen or persist or if there are any questions or concerns that arise at home. 05/07 04:50 Order name: CBC with Diff; Complete Time: 05:56 ps1 05/07 04:50 Order name: CMP; Complete Time: 05:56 ps1 05/07 04:50 Order name: CT Abd/Pelvis - IV Contrast Only ps1 05/07 04:50 Order name: Urine Dipstick-Ancillary (obtain specimen); Complete Time: 05:47 ps1 05/07 05:42 Order name: Urine Dipstick--Ancillary (enter results) mt Administered Medications: 05:00 Drug: morphine 4 mg Route: IVP; Site: left wrist; jb4 05:30 Follow up: Response: No adverse reaction; Pain is decreased jb4 Disposition: 05/07/19 06:28 Discharged to Home. Impression: Abdominal and pelvic pain. - Condition is Stable. - Discharge Instructions: Abdominal Pain, Adult. - Prescriptions for Anaprox DS 550 mg Oral Tablet - take 1 tablet by ORAL route every 12 hours As needed; 20 tablet. Ultram 50 mg Oral Tablet - take 1 tablet by ORAL route every 6 hours As needed; 12 tablet. - Medication Reconciliation Form, Thank You Letter, Antibiotic Education, Prescription Opioid Use form. - Follow up: Kody Olivares MD; When: 48 Hours; Reason: Further diagnostic work-up, Recheck today's complaints, Re-evaluation by your physician. - Problem is an ongoing problem. - Symptoms are unchanged. Signatures: Dispatcher [employer] EDMS Humera Felder RN RN aa1 Jose Enrique Hughes RN RN jb4 Rudolph Jung MD MD ps1 Corrections: (The following items were deleted from the chart) 06:47 06:28 05/07/2019 06:28 Discharged to Home. Impression: Abdominal and pelvic pain. jb4 Condition is Stable. Forms are Medication Reconciliation Form, Thank You Letter, Antibiotic Education, Prescription Opioid Use. Follow up: Kody Olivares; When: 48 Hours; Reason: Further diagnostic work-up, Recheck today's complaints, Re-evaluation by your physician. Problem is an ongoing problem. Symptoms are unchanged. ps1
--- NOTE | 2019-05-07 06:29 | ER ---
Nurse's Notes [facility] Name: Smitha Ibarra Age: 54 yrs Sex: Female : 1965 Arrival Date: 05/07/2019 Time: 04:13 Bed 13 Private MD: Diagnosis: Abdominal and pelvic pain Presentation: 05/07 04:20 Presenting complaint: Patient states: LLQ pain since 1800 last. States, "I have ovarian aa1 cysts and this is the same pain. Hopefully they can just give me a shot for pain and send me home so I can sleep.". Transition of care: patient was not received from another setting of care. Onset of symptoms was May 06, 2019 at 18:00. Risk Assessment: Do you want to hurt yourself or someone else? Patient reports no desire to harm self or others. Initial Sepsis Screen: Does the patient meet any 2 criteria? No. Patient's initial sepsis screen is negative. Does the patient have a suspected source of infection? Yes: Acute abdominal pain. Care prior to arrival: None. 04:20 Method Of Arrival: Ambulatory aa1 04:20 Acuity: PRECIOUS 3 aa1 Triage Assessment: 04:22 General: Appears in no apparent distress. uncomfortable, Behavior is cooperative, aa1 appropriate for age, restless. Historical: - Allergies: 04:22 Sudafed; aa1 - Home Meds: 04:22 amlodipine 10 mg tab 1 tab once daily [Active]; aspirin 81 mg Oral TbEC 1 tab once aa1 daily [Active]; atorvastatin 20 mg Oral tab 1 tab once daily [Active]; Dilantin 100 mg Oral 4 cap daily [Active]; Januvia 50 mg Oral tab 1 tabs once daily [Active]; lisinopril 40 mg Oral tab 1 tab once daily [Active]; Magnesium Oxide Oral daily [Active]; ProAir HFA 90 mcg/actuation inhalation HFAA 1 puff every 4-6 hours [Active]; - PMHx: 04:22 Arthritis; COPD; Diabetes - NIDDM; High Cholesterol; Hypertension; Seizures; aa1 - PSHx: 04:22 None; aa1 - Immunization history:: Adult Immunizations unknown. - Social history:: Smoking status: Patient uses tobacco products, smokes one pack cigarettes per day. - Ebola Screening: : No symptoms or risks identified at this time. Screenin:43 Abuse screen: Denies threats or abuse. Nutritional screening: No deficits noted. jb4 Tuberculosis screening: No symptoms or risk factors identified. Fall Risk None identified. Assessment: 04:43 General: Appears in no apparent distress. uncomfortable, Behavior is calm, cooperative, jb4 appropriate for age, Pt reports taking 2g of Tylenol at 0200 for pain.. Pain: Complains of pain in left lower quadrant Pain does not radiate. Pain currently is 10 out of 10 on a pain scale. Quality of pain is described as stabbing, Pain began 1 day ago. Neuro: Level of Consciousness is awake, alert, obeys commands, Oriented to person, place, time, situation. Cardiovascular: Patient's skin is warm and dry. Respiratory: Airway is patent Respiratory effort is even, unlabored, Respiratory pattern is regular, symmetrical. GI: No signs and/or symptoms were reported involving the gastrointestinal system. : No signs and/or symptoms were reported regarding the genitourinary system. EENT: No signs and/or symptoms were reported regarding the EENT system. Derm: Skin is intact, Skin is pink, warm \\T\\ dry. Musculoskeletal: Circulation, motion, and sensation intact. Range of motion: intact in all extremities. 05:45 Reassessment: Patient appears in no apparent distress at this time. Patient and/or jb4 family updated on plan of care and expected duration. Pain level reassessed. Patient is alert, oriented x 3, equal unlabored respirations, skin warm/dry/pink. Patient states feeling better. 06:40 Reassessment: Patient appears in no apparent distress at this time. Patient and/or jb4 family updated on plan of care and expected duration. Pain level reassessed. Patient is alert, oriented x 3, equal unlabored respirations, skin warm/dry/pink. Pt discharged to lobby to wait for her ride. Patient states feeling better. Vital Signs: 04:22 BP 173 / 83; Pulse 90; Resp 20; Temp 97.0; Pulse Ox 97% on R/A; Weight 108.86 kg; aa1 Height 5 ft. 7 in. (170.18 cm); Pain 10/10; 05:33 BP 149 / 73; Pulse 89; Resp 20; Pulse Ox 98% on R/A; jb4 06:40 BP 135 / 81; Pulse 88; Resp 16; Pulse Ox 99% on R/A; jb4 04:22 Body Mass Index 37.59 (108.86 kg, 170.18 cm) aa1 ED Course: 04:13 Patient arrived in ED. ds1 04:21 Triage completed. aa1 04:22 Arm band placed on right wrist. aa1 04:27 Rudolph Jung MD is Attending Physician. ps1 04:30 Jose Enrique Hughes, RN is Primary Nurse. jb4 04:43 Patient has correct armband on for positive identification. Bed in low position. Call jb4 light in reach. Side rails up X 1. Pulse ox on. NIBP on. 04:45 Inserted saline lock: 20 gauge in left forearm, using aseptic technique. Blood oe collected. 05:03 CMP Sent. jb4 05:03 CBC with Diff Sent. jb4 05:21 Radiology exam delayed due to lab results not completed at this time. (BUN/Creatinine). kw1 06:09 CT Abd/Pelvis - IV Contrast Only In Process Unspecified. EDMS 06:27 Kody Olivares MD is Referral Physician. ps1 06:40 No provider procedures requiring assistance completed. IV discontinued, intact, jb4 bleeding controlled, No redness/swelling at site. Pressure dressing applied. Administered Medications: 05:00 Drug: morphine 4 mg Route: IVP; Site: left wrist; jb4 05:30 Follow up: Response: No adverse reaction; Pain is decreased jb4 Outcome: 06:28 Discharge ordered by . ps1 06:40 Discharged to home ambulatory. jb4 06:40 Condition: stable 06:40 Discharge instructions given to patient, Instructed on discharge instructions, follow up and referral plans. medication usage, Demonstrated understanding of instructions, follow-up care, medications, Prescriptions given X 2. 06:47 Patient left the ED. jb4 Signatures: Dispatcher [employer] EDMS Humera Felder RN RN aa1 Chantal Hoyos ds1 Jose Enrique Hughes RN RN jb4 Michelet Melendez oe Rudolph Jung MD MD ps1 Dinorah Pryor kw1
--- NOTE | 2019-05-07 10:12 | RAD REPORT ---
EXAM DESCRIPTION: Abdomen Pelvis W Contrast CLINICAL HISTORY: LLQ abd pain, hx of ovarian cyst COMPARISON: None. TECHNIQUE: CT ABDOMEN PELVIS WITH IV CONTRAST on 05/07/2019 4:50 AM CDT This exam was performed according to our departmental dose-optimization program, which includes autom ated exposure control, adjustment of the mA and/or kV according to patient size and/or use of iterati ve reconstruction technique. FINDINGS: There is minimal bibasilar airspace disease gallbladder is normal in appearance. Abdomen: The liver is normal in appearance. There is no biliary dilatation. The pancreas and spleen a re normal in appearance. The adrenal glands and kidneys are unremarkable. Abdominal aorta is normal in course and caliber without aneurysm. There is no free air. There is no r etroperitoneal adenopathy. Pelvis: There is no bowel obstruction. Urinary bladder is unremarkable. There is no free fluid. Uteru s is normal in size. Appendix is normal. Skeleton: There are no acute osseous findings. No suspicious bony lesions. IMPRESSION: Possible developing bibasilar pneumonia. Otherwise no definite acute inflammatory proces s. No renal or ureteral calculi Electronically signed by: Ezequiel Rowell MD 05/07/2019 6:21 AM CDT Due to temporary technical issues with the PACS/Fluency reporting system, reports are being signed by the in house radiologist as a courtesy to ensure prompt reporting. The interpreting radiologist is f ully responsible for the content of the report.
== END 2019-05-07 06:47 | disposition home or self-care (01) ==
LOC: ER 04:12
DX: R10.2 Pelvic and perineal pain (principal); I10 Essential (primary) hypertension; E78.00 Pure hypercholesterolemia, unspecified; E11.9 Type 2 diabetes mellitus without complications; J44.9 Chronic obstructive pulmonary disease, unspecified; F17.210 Nicotine dependence, cigarettes, uncomplicated; G40.909 Epilepsy, unspecified, not intractable, without status epilepticus; Z79.82 Long term (current) use of aspirin; Z88.8 Allergy status to other drugs, medicaments and biological substances
CPT/HCPCS: 85025; 36415; 81003; 80053; 74177; 96374; 99284; Q9967

== ENCOUNTER 2019-12-17 12:34 | Emergency (ER) | payer OTHER ==
--- OUTSIDE RECORDS SUMMARY | 2019-12-17 12:36 | XMS REPORT | Summary of Care ---
:1965 Author Organization [facility] - [facility] Address [address] [place] [address] Care Team Providers Name Role Phone Cherri Erazo Primary Care Provider Reason for Referral Radiology Services (Routine) Status Reason Specialty Diagnoses / Referred By Referred To Procedures Contact Contact Closed Diagnostic Diagnoses Screening for breast cancer Z12.31 (ICD-10-CM) - Screening for breast cancer Vazquez, Jazmine, Radiology Procedures BI SCREENING MAMMOGRAM BILATERAL CHG SCREENING MAMMOGRAPHY BI 2-VIEW BREAST INC CAD [id number] - BI SCREENING MAMMOGRAM BILATERAL [id number] - CHG SCREENING MAMMOGRAPHY BI 2-VIEW BREAST INC CAD [address] [place] [phone] Radiology Services (Routine) Status Reason Specialty Diagnoses / Referred By Referred To Procedures Contact Contact Closed Diagnostic Diagnoses Screening for breast cancer Z12.31 (ICD-10-CM) - Screening for breast cancer Vazquez, Jazmine, Radiology Procedures BI SCREENING MAMMOGRAM BILATERAL CHG SCREENING MAMMOGRAPHY BI 2-VIEW BREAST INC CAD [id number] - BI SCREENING MAMMOGRAM BILATERAL [id number] - CHG SCREENING MAMMOGRAPHY BI 2-VIEW BREAST INC CAD [address] [place] [address] Reason for Visit Radiology Services (Routine) Status Reason Specialty Diagnoses / Referred By Referred To Procedures Contact Contact Closed Diagnostic Diagnoses Screening for breast cancer Z12.31 (ICD-10-CM) - Screening for breast cancer Vazquez, Jazmine, Radiology Procedures BI SCREENING MAMMOGRAM BILATERAL CHG SCREENING MAMMOGRAPHY BI 2-VIEW BREAST INC CAD [id number] - BI SCREENING MAMMOGRAM BILATERAL 79407 - CHG SCREENING MAMMOGRAPHY BI 2-VIEW BREAST INC CAD [address] [place] [address] Encounter Details Date Type Department Care Team Description 05/17/2019 Hospital Encounter [facility] Jazmine Geiger MD Arrived [facility] [address] [place] [address] [address] [place] JOAQUIN Nicole [phone] Allergies Active Allergy Reactions Severity Noted Date Comments Pseudoephedrine Hcl Unknown - See comments 05/10/2019 documented as of this encounter (statuses as of 05/18/2019) Medications Medication Sig Dispensed Refills Start Date End Date Status lisinopril 40 mg Take 40 mg by 2 02/23/2019 Active tablet mouth daily. JANUVIA 100 mg tablet Take 100 mg by 2 02/11/2019 Active mouth daily. amLODIPine 10 mg Take 1 tablet 2 02/11/2019 Active tablet by mouth daily. diclofenac 50 mg EC Take 1 tablet 2 02/11/2019 Active tablet by mouth daily. aspirin 81 mg EC Take 81 mg by 0 Active tablet mouth. albuterol (PROVENTIL Inhale. 0 Active HFA) 90 mcg/actuation inhaler PROAIR HFA 90 INHALE 2 PUFFS 2 05/06/2019 Active mcg/actuation inhaler BY MOUTH NEEDED FOR SOB/WHEEZING EVERY 4-6 HRS phenytoin ER 300 mg ER Take 300 mg by 0 Active capsule mouth. atorvastatin 20 mg Take 20 mg by 0 Active tablet mouth at bedtime. Magnesium Oxide 500 mg Take by mouth. 0 Active Cap docusate 100 mg Take 1 capsule 60 capsule 2 05/13/2019 Active capsuleIndications: by mouth 2 Ovarian torsion (two) times daily as needed for Constipation. acetaminophen 325 mg Take 2 tablets 60 tablet 2 05/13/2019 05/12/2020 Active tabletIndications: by mouth every Ovarian torsion 6 (six) hours as needed for Pain (scale 1-3). HYDROcodone-acetaminop Take 1 tablet 30 tablet 0 05/13/2019 Active hen 5-325 mg by mouth every tabletIndications: 4 (four) hours Ovarian torsion as needed for Pain (scale 7-10). documented as of this encounter (statuses as of 05/18/2019) Active Problems Problem Noted Date Tobacco use 05/11/2019 Asthma 05/11/2019 Chronic hypertension 05/11/2019 Obesity (BMI 30-39.9) 05/10/2019 Ovarian torsion 05/10/2019 Torsion of left ovary and ovarian pedicle 05/10/2019 Overview: Added automatically from request for surgery [id number] documented as of this encounter (statuses as of 05/18/2019) Social History Tobacco Use Types Packs/Day Years Used Date Smoker, Current Status Unknown Smokeless Tobacco: Never Used Alcohol Use Drinks/Week oz/Week Comments Not Currently Sex Assigned at Date Recorded Not on file Job Start Date Occupation Industry Not on file Not on file Not on file Travel History Travel Start Travel End No recent travel history available. documented as of this encounter Last Filed Vital Signs Not on filedocumented in this encounter Plan of Treatment Date Type Specialty Care Team Description 05/25/2019 Office Visit Obstetrics & Gynecology Jazmine Vazquez MD [address] [place] [phone] Health Maintenance Due Date Last Done Comments HEPATITIS C (HCV) SCREEN 1965 PNEUMOCOCCAL 0-64 YEARS COMBINED SERIES (1 of 1 - 1971 PPSV23) DTaP,Tdap,and Td Vaccines (1 - Tdap) 01/06/1984 MAMMOGRAM 2005 COLONOSCOPY 2015 Zoster Recombinant Vaccine (SHINGRIX) (1 of 2) 2015 INFLUENZA VACCINE 06/24/2019 PAP SMEAR 05/10/2022 05/10/2019 documented as of this encounter Procedures Procedure Name Priority Date/Time Associated Comments Diagnosis BI SCREENING Routine 05/17/2019 1:17 PM Screening for Results for this MAMMOGRAM BILATERAL CDT breast cancer procedure are in the results section. CONSENT/REFUSAL FOR Routine 05/17/2019 12:45 PM DIAGNOSIS AND CDT TREATMENT ASSIGNMENT OF Routine 05/17/2019 12:44 PM BENEFITS CDT documented in this encounter Results BI SCREENING MAMMOGRAM BILATERAL (05/17/2019 1:17 PM CDT) Specimen Narrative Performed At Examination: PACS BI SCREENING MAMMOGRAM BILATERAL History: Patient is 54 year old and is seen for:Screening for breast cancer. No relevant family history has been documented for this patient. No relevant hormone history has been documented for this patient. Surgical history includes oophorectomy. No relevant medical history has been documented for this patient. Computer-aided detection (CAD) utilized. Comparisons : None available Findings: The breasts have scattered areas of fibroglandular density. Left There is a 6 mm equal density, round mass with obscured margins seen in the upper outer quadrant of the left breast in the middle depth, 8.9 cm from the nipple. Right There are round calcifications seen in the right breast. Impression: Small lesion in upper outer LEFT breast, appears benign but ultrasound study requested since we dont have any prior study available for . Recommendation: Ultrasound - Left Annual mammographic follow-up - Right BI-RADS Category: Left: 0 - Incomplete: Needs Additional Imaging Evaluation Right: 2 - Benign Overall: 0 - Incomplete: Needs Additional Imaging Evaluation Performing Organization Address City/State/Zipcode Phone Number PACS documented in this encounter Visit Diagnoses Diagnosis Screening for breast cancer Breast screening, unspecified documented in this encounter Insurance Payer Benefit Plan / Subscriber ID Effective Phone Address Type Group Dates [facility] [id number] 2017-Prese Medicare Adv HEALTHCARE - HEALTHCARE DUAL nt HMO MANAGED COMPLETE HMO MEDICARE [employer] [place] xxxxxxxxx 2018-Prese Medicaid HEALTHCARE COMM PLUS nt PLAN - MANAGED MEDICAID documented as of this encounter
--- OUTSIDE RECORDS SUMMARY | 2019-12-17 12:36 | XMS REPORT | Summary of Care ---
:1965 [address] [facility] Address [address] [place] [address] Care Team Providers Name Role Phone Cherri Erazo Primary Care Provider Reason for Referral Radiology Services (Routine) Status Reason Specialty Diagnoses / Referred By Referred To Procedures Contact Contact New Request Diagnostic Diagnoses Mammogram abnormal Jazmine Vazquez, Radiology Procedures BI ULTRASOUND BREAST COMPLETE LEFT [address] [place] [phone] Reason for Visit Reason Comments Orders Abnormal Mammogram Encounter Details Date Type Department Care Team Description 05/17/2019 Telephone [facility] Jazmine Vazquez MD Orders (Abnormal Healthcare- [address] Mammogram) [address] [place] [address] [address] [phone] [place], [place] [phone] [phone] Allergies Active Allergy Reactions Severity Noted Date Comments Pseudoephedrine Hcl Unknown - See comments 05/10/2019 documented as of this encounter (statuses as of 05/17/2019) Medications Medication Sig Dispensed Refills Start Date [...] torsion as needed for Pain (scale 7-10). HYDROcodone-acetaminop Take 1 tablet 20 tablet 0 05/17/2019 Active hen 5-325 mg by mouth every tabletIndications: 6 (six) hours Encounter for as needed for postoperative wound Pain (scale check 7-10). documented as of this encounter (statuses as of 05/17/2019) Active Problems Problem Noted Date Tobacco use 05/11/2019 Asthma 05/11/2019 Chronic hypertension 05/11/2019 Obesity (BMI 30-39.9) 05/10/2019 Ovarian torsion 05/10/2019 Torsion of left ovary and ovarian pedicle 05/10/2019 Overview: Added automatically from request for surgery [id number] documented as of this encounter (statuses as of 05/17/2019) Social History Tobacco Use Types Packs/Day Years [...] Visit Obstetrics & Gynecology Jazmine Vazquez MD [address] [place] [phone] Name Type Priority Associated Diagnoses Order Schedule BI ULTRASOUND BREAST IMAGING Routine Mammogram abnormal Expected: 2018, COMPLETE LEFT Expires: 05/17/2020 Health Maintenance Due Date Last Done Comments HEPATITIS C (HCV) SCREEN 1965 PNEUMOCOCCAL 0-64 YEARS COMBINED SERIES (1 of 1 - 1971 PPSV23) DTaP,Tdap,and Td Vaccines (1 - Tdap) 01/06/1984 MAMMOGRAM 2005 COLONOSCOPY 2015 Zoster Recombinant Vaccine (SHINGRIX) (1 of 2) 2015 INFLUENZA VACCINE 06/24/2019 PAP SMEAR 05/10/2022 05/10/2019 documented as of this encounter Results Not on filedocumented in this encounter Visit Diagnoses Diagnosis Mammogram abnormal - Primary Abnormal mammogram, unspecified documented in this encounter Insurance Payer Benefit Plan / Subscriber ID Effective Phone Address Type Group Dates [facility] [id number] 2017-Prese Medicare Adv HEALTHCARE - HEALTHCARE DUAL nt HMO MANAGED COMPLETE HMO MEDICARE [facility] [place] [facility] xxxxxxxxx 2018-Prese Medicaid HEALTHCARE COMM PLUS nt PLAN - MANAGED MEDICAID documented as of this encounter
--- OUTSIDE RECORDS SUMMARY | 2019-12-17 12:36 | XMS REPORT | Summary of Care ---
:1965 Author Organization [facility] - [facility] Address [address] [place] [address] Care Team Providers Name Role Phone Castro Cherri Shade Primary Care Provider Reason for Visit Reason Comments New Medication Encounter Details Date Type Department Care Team Description 05/17/2019 Case Management [facility] Women's Tamela Pan MD New Medication Healthcare- [address], [facility] [address] [facility] [address] [place] [address] [place] [address] [phone] Allergies Active Allergy Reactions Severity Noted Date [...] Overview: Added automatically from request for surgery [id number] documented as of this encounter (statuses as [...] Signs Not on filedocumented in this encounter Progress Notes Tamela Pan MD - 05/17/2019 4:[address] Jazmine Vazquez to give this patient a refill on her [place]. Tamela Pan MD 05/17/2019 4:20 PM documented in this encounter Plan of Treatment Date Type Specialty Care Team Description 05/25/2019 Office Visit Obstetrics & Gynecology Jazmine Vazquez MD [address] [place] [phone] Health Maintenance Due Date Last Done Comments [...] filedocumented in this encounter Visit Diagnoses Diagnosis Encounter for postoperative wound check - Primary Other specified aftercare following surgery documented in this encounter Insurance Payer Benefit Plan / Subscriber ID Effective Phone Address Type Group Dates [facility] [id number] 2017-Prese Medicare Adv HEALTHCARE - HEALTHCARE DUAL nt HMO MANAGED COMPLETE HMO MEDICARE [employer] [place] xxxxxxxxx 2018-Prese Medicaid HEALTHCARE COMM PLUS nt PLAN - MANAGED MEDICAID documented as of this encounter
--- OUTSIDE RECORDS SUMMARY | 2019-12-17 12:36 | XMS REPORT | Summary of Care ---
:1965 Author Organization [facility] - [facility] Address [address] [place] [address] Care Team Providers Name Role Phone Castro Cherri L Primary Care Provider Reason for Visit Reason Comments Hospital F/U Encounter Details Date Type Department Care Team Description 05/17/2019 Office Visit [facility] Women's Vazquez, Jazmine, Post- operative state (Primary Dx); Healthcare- Corey PISANO Encounter for postoperative wound check [address], [address] [facility] [address] [place] [phone] Allergies Active Allergy Reactions Severity Noted Date [...] Overview: Added automatically from request for surgery [id number] documented as of this encounter (statuses as [...] of this encounter Last Filed Vital Signs Vital Sign Reading Time Taken Comments Blood Pressure 157/77 05/17/2019 1:59 PM CDT Pulse 86 05/17/2019 1:59 PM CDT Temperature 36.4 C (97.5 F) 05/17/2019 1:59 PM CDT Respiratory Rate 18 05/17/2019 1:59 PM CDT Oxygen Saturation - - Inhaled Oxygen Concentration - - Weight 109.8 kg (242 lb) 05/17/2019 1:59 PM CDT Height 170.2 cm (5' 7") 05/17/2019 1:59 PM CDT Body Mass Index 37.9 05/17/2019 1:59 PM CDT documented in this encounter Progress Notes Jazmine Vazquez MD - 05/17/2019 2:00 PM CDT Chief complaint: Chief Complaint Patient presents with Hospital F/U HPI Smitha Ibarra is a 54 year old female who is status 1 week s/p laparoscopic LSO due to suspected left ovarian torsion. Her post operative course was complicated with a left trochar site hematoma with surrounding abdominal ecchymosis. She presents today for a wound check. Patient notes no fever, chills, and is ambulating without difficulty. She notes good pain control with her pain meds, but is running out of her prescription, so has been taking sparingly now. 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 Patient reports that she is adhering to her diabetic diet and has not smoked cigarettes for oneweek. Histories OB History Para Term AB Living 6 4 4 2 1 SAB TAB Ectopic Multiple Live Births 1 # Outcome Date GA Lbr Santo/2nd Weight Sex Delivery Anes PTL Lv 6 Term 01/22/87 F VAGINAL 5 Term 03/14/85 F VAGINAL 4 Term 12/19/82 F VAGINAL 3 Term 06/03/80 F VAGINAL RHONDA 2 AB 1 AB Past Medical History: Diagnosis Date Asthma Chronic hypertension 05/11/2019 Depression Diabetes mellitus Seizures No family history on file. No family status information on file. Past Surgical History: Procedure Laterality Date LAPAROSCOPIC SALPINGO-OOPHORECTOMY Left 05/11/2019 Surgeon: Jazmine Vazquez MD; Location: [facility] TUBAL LIGATION Social History Socioeconomic History Marital status: Spouse name: Not on file Number of children: Not on file Years of education: Not on file Highest education level: Not on file Occupational History Not on file Social Needs Financial resource strain: Not on file Food insecurity: Worry: Not on file Inability: Not on file Transportation needs: Medical: Not on file Non-medical: Not on file Tobacco Use Smoking status: Smoker, Current Status Unknown Smokeless tobacco: Never Used Substance and Sexual Activity Alcohol use: Not Currently Drug use: Not Currently Sexual activity: Not Currently Lifestyle Physical activity: Days per week: Not on file Minutes per session: Not on file Stress: Not on file Relationships Social connections: Talks on phone: Not on file Gets together: Not on file Attends buddhist service: Not on file Active member of club or organization: Not on file Attends meetings of clubs or organizations: Not on file Relationship status: Not on file Intimate partner violence: Fear of current or ex partner: Not on file Emotionally abused: Not on file Physically abused: Not on file Forced sexual activity: Not on file Other Topics Concern Not on file Social History Narrative Denies domestic abuse or violence in the home Spiritism Preference: none Social History Substance and Sexual Activity Sexual Activity Not Currently Labs No new labs Radiology No new radiology. Allergies Smitha is allergic to sudafed [pseudoephedrine hcl]. Medications Smitha has a current medication list which includes the following prescription (s): hydrocodone-acetaminophen, acetaminophen, docusate, hydrocodone- acetaminophen, albuterol, amlodipine, aspirin, atorvastatin, diclofenac, januvia , lisinopril, magnesium oxide, phenytoin er, and proair hfa. Review of Systems Constitutional: Negative. HENT: Negative. Eyes: Negative. Respiratory: Negative. Breasts: Negative. Cardiovascular: Negative. Gastrointestinal: Negative. Except tenderness at the left trochar site. Genitourinary: Negative. Musculoskeletal: Negative. Skin: Negative. Neurological: Negative. Psychiatric/Behavioral: Negative. Endocrine: Endocrine negative BP (!) 157/77 (BP Location: Right arm, Patient Position: Sitting, BP CUFF SIZE: Adult Medium) | Pulse 86 | Temp 36.4 C (97.5 F) (Oral) | Resp 18 | Ht 5 ' 7" (1.702 m) | Wt 242 lb (109.8 kg) | BMI 37.90 kg/m Pregravid BMI: Could not be calculated Physical Exam Abdominal: Abdomen is soft, moderately tender over left upper trochar incision site. Ecchymosis extends across her abdomen. Incision sites are without exudate and are healing well. Assessment/Plan Encounter for postoperative wound check (primary encounter diagnosis) Comment: Post operative course complicated with left trochar site hematoma and surrounding ecchymosis. Plan: Continue to monitor incision. May move to warm packs to assist with healing as the week progresses. -Will refill Supply #20 with no refills Return to clinic in 1 week or prn. This visit did not involve counseling and coordination that comprised more than 50% of the visit time. Jazmine Vazquez MD documented in this encounter Plan of Treatment Date Type Specialty Care Team Description 05/25/2019 Office Visit Obstetrics & Gynecology Jazmine Vazquez MD [address] [place] [phone] Health Maintenance Due Date Last Done [...] filedocumented in this encounter Visit Diagnoses Diagnosis Post-operative state - Primary Other postprocedural status Encounter for postoperative wound check Other specified aftercare following surgery documented in this encounter Insurance Payer Benefit Plan / Subscriber ID Effective Phone Address Type Group Dates [facility] [id number] 2017-Prese Medicare Adv HEALTHCARE - HEALTHCARE DUAL nt HMO MANAGED COMPLETE HMO MEDICARE [facility] STAR xxxxxxxxx 2018-Prese Medicaid HEALTHCARE COMM PLUS nt PLAN - MANAGED MEDICAID documented as of this encounter
--- OUTSIDE RECORDS SUMMARY | 2019-12-17 12:36 | XMS REPORT | Summary of Care ---
:1965 Author Organization [facility] - [facility] Address [address] [place] [address] Care Team Providers Name Role Phone Castro Cherri L Primary Care Provider Reason for Visit Reason Comments Hospital F/U Encounter Details Date Type Department Care Team Description 05/17/2019 Office Visit [facility] Women's Vazquez, Jazmine, Post- operative state (Primary Dx); Healthcare- Corey PISANO Encounter for postoperative wound check [address], [address] [facility] [address] [place] [phone] Allergies Active Allergy Reactions Severity Noted Date [...] Overview: Added automatically from request for surgery [id number] documented as of this encounter (statuses as [...] Left 05/11/2019 Surgeon: Jazmine Vazquez MD; Location: [facility] TUBAL LIGATION Social History Socioeconomic History Marital [...] file Gets together: Not on file Attends quaker service: Not on file Active member of [...] domestic abuse or violence in the home Judaism Preference: none Social History Substance and Sexual [...] healing as the week progresses. -Will refill [place] #20 with no refills Return to clinic in 1 week or prn. This visit did not involve counseling and coordination that comprised more than 50% of the visit time. Jazmine Vazquez MD documented in this encounter Plan of Treatment Date Type Specialty Care Team Description 05/25/2019 Office Visit Obstetrics & Gynecology Jazmine Vazquez MD [address] [place] [phone] Health Maintenance Due Date Last Done [...] ID Effective Phone Address Type Group Dates [facility] [id number] 2017-Prese Medicare Adv HEALTHCARE - HEALTHCARE DUAL nt HMO MANAGED COMPLETE HMO MEDICARE [facility] ST[facility] xxxxxxxxx 2018-Prese Medicaid HEALTHCARE COMM PLUS nt PLAN - MANAGED MEDICAID documented as of this encounter
--- OUTSIDE RECORDS SUMMARY | 2019-12-17 12:37 | XMS REPORT | Summary of Care ---
:1965 Author Organization [facility] - [facility] Address [address] [place] [address] Care Team Providers Name Role Phone Carlosdwayne Cherri Shade Primary Care Provider Reason for Visit Reason Comments Wound Check Encounter Details Date Type Department Care Team Description 05/23/2019 Nurse Visit [facility] Jazmine Vazquez MD [address] [place] [address] Non-healing surgical Healthcare- [place] Nurse, Rylie [facility] wound, subsequent [address], encounter (Primary [address] Dx) [place] [address] Allergies Active Allergy Reactions Severity Noted Date Comments Pseudoephedrine Hcl Unknown - See comments 05/10/2019 documented as of this encounter (statuses as of 05/24/2019) Medications Medication Sig Dispensed Refills Start Date [...] as of this encounter (statuses as of 05/24/2019) Active Problems Problem Noted Date Tobacco use 05/11/2019 Asthma 05/11/2019 Chronic hypertension 05/11/2019 Obesity (BMI 30-39.9) 05/10/2019 Ovarian torsion 05/10/2019 Torsion of left ovary and ovarian pedicle 05/10/2019 Overview: Added automatically from request for surgery [id number] documented as of this encounter (statuses as of 05/24/2019) Social History Tobacco Use Types Packs/Day Years [...] Sign Reading Time Taken Comments Blood Pressure 122/64 05/23/2019 11:06 AM CDT Pulse 81 05/23/2019 11:06 AM CDT Temperature 37.1 C (98.7 F) 05/23/2019 11:06 AM CDT Respiratory Rate 20 05/23/2019 11:06 AM CDT Oxygen Saturation - - Inhaled Oxygen Concentration - - Weight 109.6 kg (241 lb 9.6 oz) 05/23/2019 11:06 AM CDT Height - - Body Mass Index 37.84 05/17/2019 1:59 PM CDT documented in this encounter Progress Notes Padmini Minaya RN - 05/23/2019 2:00 PM CDTPt here for wound check. She states that wound was oozing blood starting at 6pm last night. She was told to go to ER but patient did not. She decided to follow up here instead. Otherwise patient feels okay. States that she covered abdominal wound with "pads" and has soaked through 2 since last pm. Pt noted to have active oozing of BRB from laparoscopy wound of left side. When standing or with movement, wound bleeds. Pt given sterile 4x4 to cover and instructed to apply pressure. Will send to ER for evaluation. Attempted to contact Dr. Vazquez to see if she preferred patient follow-up in [place] or [place]. Unable to reach physician at this time. Pt willing to go to ER in [place] if able tosecure a ride from family member. She came to clinic on public transportation bus..... Pt unable to get a ride to [place]. Left for [place] ER. Report given to ER nurse. documented in this encounter Plan of Treatment Date Type Specialty Care Team Description 05/24/2019 Office Visit Obstetrics & Gynecology Jazmine Vazquez MD [address] [place] [phone] 05/25/2019 Office Visit Obstetrics & Gynecology Jazmine Vazquez MD [address] [place] [phone] 06/04/2019 Appointment Radiology Jazmine Vazquez MD [address] [place] [phone] 06/07/2019 Office Visit Surgery Brenda Luis MD [address] [facility] [address] [place] [address] [phone] Health Maintenance Due Date Last Done Comments HEPATITIS C (HCV) SCREEN 1965 PNEUMOCOCCAL 0-64 YEARS COMBINED SERIES (1 of 1 - 1971 PPSV23) DTaP,Tdap,and Td Vaccines (1 - Tdap) 01/06/1984 COLONOSCOPY 2015 Zoster Recombinant Vaccine (SHINGRIX) (1 of 2) 2015 INFLUENZA VACCINE 06/24/2019 MAMMOGRAM 05/17/2020 05/17/2019 PAP SMEAR 05/10/2022 05/10/2019 documented as of this encounter Results Not on filedocumented in this encounter Visit Diagnoses Diagnosis Non-healing surgical wound, subsequent encounter - Primary documented in this encounter Insurance Payer Benefit Plan / Subscriber ID Effective Phone Address Type Group [facility] [id number] 2017-Prese Medicare Adv HEALTHCARE - HEALTHCARE DUAL nt HMO MANAGED COMPLETE HMO MEDICARE [facility] xxxxxxxxx 2018-Prese Medicaid HEALTHCARE COMM PLUS nt PLAN - MANAGED MEDICAID documented as of this encounter
--- OUTSIDE RECORDS SUMMARY | 2019-12-17 12:37 | XMS REPORT | Summary of Care ---
:1965 Author Organization [facility] Address [address] [place] [id number] Care Team Providers Name Role Phone Cherri Erazo Primary Care Provider Reason for Visit Reason Comments POST-OP Auth/Cert Status Reason Specialty Diagnoses / Referred By Referred To Procedures Contact Contact Emergency Medicine Diagnoses BLEEDING FROM INCISIN,SENT BY DR [facility] [address] [place] [address] JOAQUIN Alvarez [phone] Encounter Details Date Type Department Care Team Description 05/24/2019 Office Visit [facility] Women's Jazmine Vazquez, Postoperative hematoma Healthcare- Corey PISANO of subcutaneous tissue [address], [address] [place] [address] following [address] [place], [place] [address] procedure (Primary Dx) [phone] Allergies Active Allergy Reactions Severity Noted [...] Overview: Added automatically from request for surgery [id number] documented as of this encounter (statuses as [...] Sign Reading Time Taken Comments Blood Pressure 157/76 05/24/2019 1:15 PM CDT Pulse 81 05/24/2019 1:14 PM CDT Temperature 36.4 C (97.5 F) 05/24/2019 1:14 PM CDT Respiratory Rate 16 05/24/2019 1:14 PM CDT Oxygen Saturation - - Inhaled Oxygen Concentration - - Weight 109.3 kg (241 lb) 05/24/2019 1:14 PM CDT Height 170.2 cm (5' 7") 05/24/2019 1:14 PM CDT Body Mass Index 37.75 05/24/2019 1:14 PM CDT documented in this encounter Progress Notes Jazmine Vazquez MD - 05/24/2019 1:00 PM CDT Chief complaint: Chief Complaint Patient presents with POST-OP HPI Smitha Ibarra is a 54 year old female who presents for f/u of a laparoscopic LSO 2 weeks ago for a suspected right ovarian torsion and pelvic pain. Her post operative course has been complicated with a left trochar site hematoma with surrounding ecchymosis. Patient noted 2 days ago dark thickfluid extruding from the left trochar site followed by a bright red bloody fluid. She was seen in the ED. Bleeding had significantly slowed, and there was no sign of infection. CT revealed a 6.7 cm hematoma in the left lower Abdomen, a 2x1cm hematoma in the right abdomen, as well as a 2mm, non-obstructing renal stone in the right kidney. Currently, she notes minimal serosanguinous fluid from the site, but she does have to cover the area. She denies f/c. Her pain has begun to decrease. The pain shehad before surgery in the left lower quadrant has resolved. She is not taking her diabetic meds presently and is not monitoring her BG. Note also that she has had a recent mammogram with a 6mm nodule in the left outer breast that needs to be evaluated with US. Patient is aware. Histories OB History Para Term AB Living [...] Left 05/11/2019 Surgeon: Jazmine Vazquez MD; Location: [facility] TUBAL LIGATION Social History Socioeconomic History Marital [...] file Gets together: Not on file Attends nondenominational service: Not on file Active member of [...] domestic abuse or violence in the home Gnosticism Preference: none Social History Substance and Sexual Activity Sexual Activity Not Currently Labs No new labs Radiology I have reviewed the patient's radiology. CT from the ED Allergies Smitha is allergic to sudafed [pseudoephedrine hcl]. Medications Smitha has a current medication list which includes the following prescription (s): hydrocodone-acetaminophen, acetaminophen, docusate, hydrocodone- acetaminophen, albuterol, amlodipine, aspirin, atorvastatin, diclofenac, januvia , lisinopril, magnesium oxide, phenytoin er, and proair hfa. Review of Systems Constitutional: Negative. HENT: Negative. Eyes: Negative. Respiratory: Negative. Breasts: Negative. Cardiovascular: Negative. Gastrointestinal: Negative. Genitourinary: Negative. Musculoskeletal: Negative. Skin: Negative. Neurological: Negative. Psychiatric/Behavioral: Negative. Endocrine: Endocrine negative BP (!) 157/76 | Pulse 81 | Temp 36.4 C (97.5 F) (Oral) | Resp 16 | Ht 5 ' 7" (1.702 m) | Wt 241 lb (109.3 kg) | BMI 37.75 kg/m Pregravid BMI: Could not be calculated Physical Exam Abdominal: No tenderness present. There is no guarding. Superficial 5x5 cm hematoma palpated at the trochar site. Skin incision is slightly open, small amount of serosanginous fluid expressed. No erythema or odor. Minimal tenderness. Ecchymosis across abdomen significantly improved. Other trochar sites healing well, without erythema or exudate. Assessment/Plan Post-operative state (primary encounter diagnosis) Comment: Post operative hematoma continues to resolve and patient pain much improved. Plan: Continue to evaluate. Patient to call for any fever, chills, redness, odor , or changes in the incision. Also, she understands to continue her diabetes care so that the incision will heal optimally. Return to clinic in 1 week. This visit did not involve counseling and coordination that comprised more than 50% of the visit time. Jazmine Vazquez MD documented in this encounter Plan of Treatment Date Type Specialty Care Team Description 06/01/2019 Office Visit Obstetrics & Gynecology Jazmine Vazquez MD [address] [place] [phone] 06/04/2019 Appointment Radiology Jazmine Vazquez MD [address] [place] [phone] 06/07/2019 Office Visit Surgery Brenda Luis MD [address] [facility] [address] [place] [address] [phone] Health Maintenance Due Date Last Done Comments [...] filedocumented in this encounter Visit Diagnoses Diagnosis Postoperative hematoma of subcutaneous tissue following non-dermatologic procedure - Primary documented in this encounter Insurance Payer Benefit Plan / Subscriber ID Effective Phone Address Type Group [facility] [id number] 2017-Prese Medicare Adv HEALTHCARE - HEALTHCARE DUAL nt HMO MANAGED COMPLETE HMO MEDICARE [employer] [place] [employer] xxxxxxxxx 2018-Prese Medicaid HEALTHCARE COMM PLUS nt PLAN - MANAGED MEDICAID documented as of this encounter
--- OUTSIDE RECORDS SUMMARY | 2019-12-17 12:37 | XMS REPORT | Summary of Care ---
:1965 Author Organization [facility] Address [address] [place] [address] Care Team Providers Name Role Phone Cherri Erazo Primary Care Provider Reason for Referral MRI/CAT Scan (STAT) Status Reason Specialty Diagnoses / Referred By Referred To Procedures Contact Contact New Request Diagnostic Diagnoses Lower abdominal pain Drerandi Farideh Radiology Procedures CT ABDOMEN PELVIS W CONTRAST G, BREAKER HAND [address] [address] MRI/CAT Scan (STAT) Status Reason Specialty Diagnoses / Referred By Referred To Procedures Contact Contact New Request Diagnostic Diagnoses Lower abdominal pain Drerandi, Farideh Radiology Procedures CT ABDOMEN PELVIS W CONTRAST G, BREAKER HAND [address] [address] Reason for Visit Reason Comments Wound Check s/p surgery 2 weeks ago Auth/Cert Status Reason Specialty Diagnoses / Referred By Referred To Procedures Contact Contact Emergency Medicine Diagnoses BLEEDING FROM INCISIN,SENT BY DR Youngblood Emergency Dept [address] [place] [address] [place] [address] Encounter Details Date Type Department Care Team Description 05/23/2019 Emergency ADC-Emergency Farideh Ramos G, Hematoma of abdominal wall, sequela (Primary Dx); Department BREAKER HAND Lower abdominal pain; [address] [place] [address] Dr Adrianna COOK ILSA Postoperative hematoma of skin following non-dermatologic procedure [place], [place] [id number] [place] [address] [place], [place] [id number] Allergies Active Allergy Reactions Severity Noted Date Comments Pseudoephedrine Hcl Unknown - See comments 05/10/2019 documented as of this encounter (statuses as of 05/23/2019) Medications Medication Sig Dispensed Refills Start Date [...] as of this encounter (statuses as of 05/23/2019) Active Problems Problem Noted Date Tobacco use 05/11/2019 Asthma 05/11/2019 Chronic hypertension 05/11/2019 Obesity (BMI 30-39.9) 05/10/2019 Ovarian torsion 05/10/2019 Torsion of left ovary and ovarian pedicle 05/10/2019 Overview: Added automatically from request for surgery [id number] documented as of this encounter (statuses as of 05/23/2019) Social History Tobacco Use Types Packs/Day Years [...] Sign Reading Time Taken Comments Blood Pressure 147/75 05/23/2019 2:30 PM CDT Pulse 69 05/23/2019 2:30 PM CDT Temperature 36.8 C (98.3 F) 05/23/2019 11:20 AM CDT Respiratory Rate 18 05/23/2019 2:30 PM CDT Oxygen Saturation 96% 05/23/2019 2:30 PM CDT Inhaled Oxygen Concentration - - Weight 100.2 kg (221 lb) 05/23/2019 11:20 AM CDT Height 170.2 cm (5' 7") 05/23/2019 11:20 AM CDT Body Mass Index 34.61 05/23/2019 11:20 AM CDT documented in this encounter Discharge Instructions Farideh Marin NP - 05/23/2019Diagnosis: Post operative hematoma Follow up in clinic tomorrow with Dr Vazquez documented in this encounter Plan of Treatment Date Type Specialty Care Team Description 05/24/2019 Office Visit Obstetrics & Gynecology Jazmine Vazquez MD [address] [place] [phone] 05/25/2019 Office Visit Obstetrics & Gynecology Jazmine Vazquez MD [address] [place] [address] 06/04/2019 Appointment Radiology Jazmine Vazquez MD [address] [place] [phone] 06/07/2019 Office Visit Surgery Brenda Luis MD [address] [facility] [address] [place] [address] [phone] Health Maintenance Due Date Last Done Comments HEPATITIS C (HCV) SCREEN 1965 PNEUMOCOCCAL 0-64 YEARS COMBINED SERIES (1 of 1 - 1971 PPSV23) DTaP,Tdap,and Td Vaccines (1 - Tdap) 01/06/1984 COLONOSCOPY 2015 Zoster Recombinant Vaccine (SHINGRIX) (1 of 2) 2015 INFLUENZA VACCINE 06/24/2019 MAMMOGRAM 05/17/2020 05/17/2019 PAP SMEAR 05/10/2022 05/10/2019 documented as of this encounter Procedures Procedure Name Priority Date/Time Associated Comments Diagnosis CT ABDOMEN PELVIS W STAT 05/23/2019 1:35 Lower abdominal Results for this CONTRAST PM CDT pain procedure are in the results section. COMP. METABOLIC PANEL STAT 05/23/2019 12:13 Lower abdominal Results for this (14662) PM CDT pain procedure are in the results section. CBC WITH DIFFERENTIAL STAT 05/23/2019 12:12 Lower abdominal Results for this PM CDT pain procedure are in the results section. CBC WITH DIFF STAT 05/23/2019 12:12 Lower abdominal Results for this PM CDT pain procedure are in the results section. NOTICE OF PRIVACY Routine 05/23/2019 11:10 PRACTICES AM CDT documented in this encounter Results CT ABDOMEN PELVIS W CONTRAST (05/23/2019 1:35 PM CDT) Specimen Narrative Performed At CT Abdomen and Pelvis with intravenous contrast. PACS/VR/DOSE CLINICAL HISTORY: Acute generalized Abdominal pain. TECHNIQUE: Multidetector helical CT acquisition were obtained with intravenous injection Omnipaque 350 nonionic contrast medium. Sagittal and coronal reformations were generated. FINDINGS: Lower lungs: Minimal congestion/fibrosis noted in the posterior right lower lung. No pleural effusion or pericardial effusion. A small 4 mm nodule in lingula segment on image #21/series #2. Liver, Gallbladder and Spleen: Liver is enlarged, 19.8 cm in length and spleen measures approximately 10.7 x 3.3 cm. No enhancing lesions are seen in the liver or in the spleen. No calcified gallstones. Biliary ducts and the pancreatic duct appeared to be of normal size. Peritoneum:No free air or free fluid. No lymphadenopathy. Pancreas and Adrenals:Unremarkable pancreas and adrenal glands. Kidneys and Ureters: 2 mm stone in the lower pole of the right kidney. No hydroureter or hydronephrosis. No enhancing kidney lesions. Vessels: Mild atherosclerosis. No abdominal aortic aneurysm. Retroperitoneum: No abnormal fluid or lymphadenopathy. Bowel:Mild sigmoid diverticulosis without any acute changes of diverticulitis. No signs of acute appendicitis. Bladder and Reproductive Organs:Unremarkable. Bones:Mild bilateral hip joint arthritis and degenerative changes in the lumbar spines. Soft tissues: Diffuse congestion of left lower anterior abdominal wall with a irregular shaped 6.7 cm size collection with heterogeneous attenuation, consistent with hematoma. CONCLUSION: 1. Diffuse congestion of the abdominal wall fat in lower abdomen with a irregular shaped 6.7 cm size left lower anterior abdominal wall hematoma slightly below the level of umbilicus. 2. Small area of subcutaneous congestion noted in the right anterolateral abdominal wall, less than 2 x 1 cm size. 3. Diverticulosis of the sigmoid colon without any acute changes. 4. 2 mm nonobstructing stone in the lower pole of the right kidney. 5. Hepatomegaly without any focal liver lesions. 6. Congestion and/or minimal fibrosis in the right lower lung. No pneumonia or pleural effusion. Note: Above report is self-edited and computer generated errors may be overlooked. Therefore, if you notice an error, I request you to bring it to my attention KRISTINE. Procedure Note [facility], Radiant Results Inft User - 05/23/2019 1:[address] Abdomen and Pelvis with intravenous contrast. CLINICAL HISTORY: Acute generalized Abdominal pain. TECHNIQUE: Multidetector helical CT acquisition were obtained with intravenous injection Omnipaque 350 nonionic contrast medium. Sagittal and coronal reformations were generated. FINDINGS: Lower lungs: Minimal congestion/fibrosis noted in the posterior right lower lung. No pleural effusion or pericardial effusion. A small 4 mm nodule in lingula segment on image #21/series #2. Liver, Gallbladder and Spleen: Liver is enlarged, 19.8 cm in length and spleen measures approximately 10.7 x 3.3 cm. No enhancing lesions are seen in the liver or in the spleen. No calcified gallstones. Biliary ducts and the pancreatic duct appeared to be of normal size. Peritoneum: No free air or free fluid. No lymphadenopathy. Pancreas and Adrenals: Unremarkable pancreas and adrenal glands. Kidneys and Ureters: 2 mm stone in the lower pole of the right kidney. No hydroureter or hydronephrosis. No enhancing kidney lesions. Vessels: Mild atherosclerosis. No abdominal aortic aneurysm. Retroperitoneum: No abnormal fluid or lymphadenopathy. Bowel: Mild sigmoid diverticulosis without any acute changes of diverticulitis. No signs of acute appendicitis. Bladder and Reproductive Organs: Unremarkable. Bones: Mild bilateral hip joint arthritis and degenerative changes in the lumbar spines. Soft tissues: Diffuse congestion of left lower anterior abdominal wall with a irregular shaped 6.7 cm size collection with heterogeneous attenuation, consistent with hematoma. CONCLUSION: 1. Diffuse congestion of the abdominal wall fat in lower abdomen with a irregular shaped 6.7 cm size left lower anterior abdominal wall hematoma slightly below the level of umbilicus. 2. Small area of subcutaneous congestion noted in the right anterolateral abdominal wall, less than 2 x 1 cm size. 3. Diverticulosis of the sigmoid colon without any acute changes. 4. 2 mm nonobstructing stone in the lower pole of the right kidney. 5. Hepatomegaly without any focal liver lesions. 6. Congestion and/or minimal fibrosis in the right lower lung. No pneumonia or pleural effusion. Note: Above report is self-edited and computer generated errors may be overlooked. Therefore, if you notice an error, I request you to bring it to my attention KRISTINE. Performing Organization Address City/State/Zipcode Phone Number PACS/VR/DOSE COMP. METABOLIC PANEL (15511) (05/23/2019 12:13 PM CDT) NA 143 135 - 145 mmol/L [facility] K 4.5 3.5 - 5.0 mmol/L [facility] CL 107 98 - 108 mmol/L [facility] CO2 TOTAL 28 23 - 31 mmol/L [facility] AGAP 8 2 - 16 [facility] BUN 14 7 - 23 mg/dL [facility] GLUCOSE 103 70 - 110 mg/dL [facility] CREATININE 0.62 0.50 - 1.04 [facility] mg/dL HOSPITAL [facility] TOTAL BILI 0.4 0.1 - 1.1 mg/dL [facility] CALCIUM 9.5 8.6 - 10.6 mg/dL [facility] T PROTEIN 7.3 6.3 - 8.2 g/dL [facility] ALBUMIN 4.3 3.5 - 5.0 g/dL [facility] ALK PHOS 101 34 - 122 U/L [facility] ALT(SGPT) 24 9 - 51 U/L [facility] AST(SGOT) 28 13 - 40 U/L [facility] eGFR Calculation 100.3 mL/min/1.73m2 [facility] (Non-) [facility] eGFR Calculation 121.6 mL/min/1.73m2 [facility] () [facility] Specimen Blood - VENOUS Narrative Performed At Association of Glomerular Filtration Rate (GFR) [facility] and Staging of Kidney Disease* + + +- + | GFR (mL/min/1.73 m2)| With Kidney Damage|Without Kidney Damage + + +- + |>90| Stage one| Normal + + +- + |60-89|S tage two| Decreased GFR + + +- + |30-59|S tage three| Stage three + + +- + |15-29|S tage four | Stage four + + +- + |<15 (or dialysis)|Stage five | Stage five + + +- + *Each stage assumes the associated GFR level has been in effect for at least three months.Stages 1 to 5, with or without kidney disease, indicate chronic kidney disease. Notes: Determination of stages one and two (with eGFR >59mL/min/1.73 m2) requires estimation of kidney damage for at least three months as defined by structural or functional abnormalities of the kidney, manifested by either: Pathological abnormalities or Markers of kidney damage (including abnormalities in the composition of the blood or urine or abnormalities in imaging tests). Performing Organization Address City/State/Zipcode Phone Number [facility] CLIA: [id number], [address] [place] [address] CBC WITH DIFFERENTIAL (05/23/2019 12:12 PM CDT) WBC 8.85 4.30 - 11.10 [facility] 10*3/L [facility] RBC 3.76 (L) 3.93 - 5.25 [facility] 10*6/L [facility] HGB 11.0 (L) 11.6 - 15.0 [facility] g/dL [facility] HCT 33.6 (L) 35.7 - 45.2 % [facility] MCV 89.4 80.6 - 95.5 fL [facility] MCH 29.3 25.9 - 32.8 pg [facility] MCHC 32.7 31.6 - 35.1 [facility] g/dL [facility] RDW-SD 56.9 (H) 39.0 - 49.9 fL [facility] RDW-CV 17.4 (H) 12.0 - 15.5 % [facility] PLT 343 166 - 358 [facility] 10*3/L [facility] MPV 10.0 9.5 - 12.9 fL [facility] NRBC/100 WBC 0.0 0.0 - 10.0 /100 [facility] WBCs [facility] NRBC x10^3 <0.01 10*3/L [facility] GRAN MAT (NEUT) % 64.2 % [facility] IMM GRAN % 0.30 % [facility] LYMPH % 26.1 % [facility] MONO % 5.8 % [facility] EOS % 3.3 % [facility] BASO % 0.3 % [facility] GRAN MAT x10^3(ANC) 5.68 1.88 - 7.09 [facility] 10*3/uL [facility] IMM GRAN x10^3 0.03 0.00 - 0.06 [facility] 10*3/uL [facility] LYMPH x10^3 2.31 1.32 - 3.29 [facility] 10*3/uL [facility] MONO x10^3 0.51 0.33 - 0.92 [facility] 10*3/uL [facility] EOS x10^3 0.29 0.03 - 0.39 [facility] 10*3/uL [facility] BASO x10^3 0.03 0.01 - 0.07 [facility] 10*3/uL [facility] Specimen Blood - VENOUS Performing Organization Address City/State/Zipcode Phone Number [facility] CLIA: [id number], [address] [place] [address] documented in this encounter Visit Diagnoses Diagnosis Hematoma of abdominal wall, sequela - Primary Lower abdominal pain Abdominal pain, other specified site Postoperative hematoma of skin following non-dermatologic procedure documented in this encounter Administered Medications Medication Order MAR Action Action Date Dose Rate Site iohexol (OMNIPAQUE 350 BULK-150 Given 05/23/2019 1:15 PM CDT 106 mL mL) injection 120 mL 120 mL, Intravenous, ONCE, 1 dose, 05/23/19 at 1315, Routine documented in this encounter Insurance Payer Benefit Plan / Subscriber ID Effective Phone Address Type Group [facility] [id number] 2017-Prese Medicare Adv HEALTHCARE - HEALTHCARE DUAL nt HMO MANAGED COMPLETE HMO MEDICARE [place] [place] xxxxxxxxx 2018-Prese Medicaid HEALTHCARE COMM PLUS nt PLAN - MANAGED MEDICAID documented as of this encounter
--- OUTSIDE RECORDS SUMMARY | 2019-12-17 12:37 | XMS REPORT | Summary of Care ---
:1965 Author Organization [facility] Address [address] [place] [address] Care Team Providers Name Role Phone CarlosdwayneCherri Shade Primary Care Provider Reason for Visit Reason Comments POST-OP black drainage from incision site Encounter Details Date Type Department Care Team Description 05/22/2019 Nurse Triage [facility] Kandice Issa RN POST-OP ([address] drainage from [place] incision site) [place] [phone] Allergies Active Allergy Reactions Severity Noted Date [...] Overview: Added automatically from request for surgery [id number] documented as of this encounter (statuses as [...] Obstetrics & Gynecology Jazmine Vazquez MD [address] [place] [phone] 05/25/2019 Office Visit Obstetrics & Gynecology Jazmine Vazquez MD [address] [place] [phone] 06/04/2019 Appointment Radiology Jazmine Vazquez MD [address] [place] [phone] 06/07/2019 Office Visit Surgery Brenda Luis MD [address] [facility] [address] [place] [address] [phone] Health Maintenance Due Date Last Done Comments HEPATITIS C (HCV) SCREEN 1965 PNEUMOCOCCAL 0-64 YEARS COMBINED SERIES (1 of 1 - 1971 PPSV23) DTaP,Tdap,and Td Vaccines (1 - Tdap) 01/06/1984 COLONOSCOPY 2015 Zoster Recombinant Vaccine (SHINGRIX) (1 of 2) 2015 INFLUENZA VACCINE 06/24/2019 MAMMOGRAM 05/17/2020 05/17/2019 PAP SMEAR 05/10/2022 05/10/2019 documented as of this encounter Results Not on filedocumented in this encounter Insurance Payer Benefit Plan / Subscriber ID Effective Phone Address Type Group [facility] [id number] 2017-Prese Medicare Adv HEALTHCARE - HEALTHCARE DUAL nt HMO MANAGED COMPLETE HMO MEDICARE [facility] STAR xxxxxxxxx 2018-Prese Medicaid HEALTHCARE COMM PLUS nt PLAN - MANAGED MEDICAID documented as of this encounter
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
--- OUTSIDE RECORDS SUMMARY | 2019-12-17 12:38 | XMS REPORT | Summary of Care ---
:1965 Author Organization [facility] Address [address] [place] [address] Care Team Providers Name Role Phone Cherri Erazo Primary Care Provider Reason for Referral Radiology Services (Routine) Status Reason Specialty Diagnoses / Referred By Referred To Procedures Contact Contact Closed Diagnostic Diagnoses Left knee pain, unspecified chronicity CastroEricen Radiology Procedures XR KNEE <3 VW LEFT L [address] [place] [address] Radiology Services (Routine) Status Reason Specialty Diagnoses / Referred By Referred To Procedures Contact Contact Closed Diagnostic Diagnoses Left knee pain, unspecified chronicity Milldwayne, Cherri Radiology Procedures XR KNEE <3 VW LEFT L [address] [place] [address] Reason for Visit Radiology Services (Routine) Status Reason Specialty Diagnoses / Referred By Referred To Procedures Contact Contact Closed Diagnostic Diagnoses Left knee pain, unspecified chronicity Castro, Cherri Radiology Procedures XR KNEE <3 VW LEFT L [address] [place] [address] Encounter Details Date Type Department Care Team Description 06/12/2019 Hospital Encounter [facility] Radiology Arrived [place] [facility] [address] [place] [address] [place] [address] [place] [phone] Allergies Active Allergy Reactions Severity Noted Date Comments Pseudoephedrine Hcl Unknown - See comments 05/10/2019 documented as of this encounter (statuses as of 06/13/2019) Medications Medication Sig Dispensed Refills Start Date [...] as of this encounter (statuses as of 06/13/2019) Active Problems Problem Noted Date Tobacco use 05/11/2019 Asthma 05/11/2019 Chronic hypertension 05/11/2019 Obesity (BMI 30-39.9) 05/10/2019 Ovarian torsion 05/10/2019 Torsion of left ovary and ovarian pedicle 05/10/2019 Overview: Added automatically from request for surgery [id number] documented as of this encounter (statuses as of 06/13/2019) Social History Tobacco Use Types Packs/Day Years [...] Treatment Date Type Specialty Care Team Description 06/29/2019 Office Visit Obstetrics & Gynecology Jazmine Vazquez MD [address] [place] [phone] Health Maintenance Due Date Last Done Comments HEPATITIS C (HCV) SCREEN 1965 PNEUMOCOCCAL 0-64 YEARS COMBINED SERIES (1 of 1 - 1971 PPSV23) DTaP,Tdap,and Td Vaccines (1 - Tdap) 01/06/1984 COLONOSCOPY 2015 Zoster Recombinant Vaccine (SHINGRIX) (1 of 2) 2015 INFLUENZA VACCINE (#1) 2019 MAMMOGRAM 05/17/2020 05/17/2019 PAP SMEAR 05/10/2022 05/10/2019 documented as of this encounter Procedures Procedure Name Priority Date/Time Associated Diagnosis Comments XR KNEE <3 VW LEFT Routine 06/12/2019 10:54 AM Left knee pain, Results for this CDT unspecified procedure are in chronicity the results section. documented in this encounter Results XR KNEE <3 VW LEFT (06/12/2019 10:54 AM CDT) Specimen Narrative Performed At HISTORY:Pain. PACS/VR/DOSE FINDINGS: AP and lateral views of left knee showed no acute fracture or dislocation. Moderate knee joint effusion noted. Degenerative arthritis are seen in all 3 compartments of the knee joint in the form of small osteophytes along the articular edges of all the bones and slightly narrowed medial knee joint space. Prominent enthesophytes noted along the upper and lower surfaces of the patella at the attachment of the quadriceps/patellar tendons. CONCLUSIONS: Mild tricompartment degenerative arthritis of left knee with moderate joint effusion. Procedure Note [facility], Radiant Results Inft User - 06/12/2019 11:04 AM CDT HISTORY: Pain. FINDINGS: AP and lateral views of left knee showed no acute fracture or dislocation. Moderate knee joint effusion noted. Degenerative arthritis are seen in all 3 compartments of the knee joint in the form of small osteophytes along the articular edges of all the bones and slightly narrowed medial knee joint space. Prominent enthesophytes noted along the upper and lower surfaces of the patella at the attachment of the quadriceps/patellar tendons. CONCLUSIONS: Mild tricompartment degenerative arthritis of left knee with moderate joint effusion. Performing Organization Address City/State/Zipcode Phone Number PACS/VR/DOSE documented in this encounter Visit Diagnoses Diagnosis Left knee pain, unspecified chronicity documented in this encounter Insurance Payer Benefit Plan / Subscriber ID Effective Phone Address Type Group [facility] [id number] [facility] Adv HEALTHCARE - HEALTHCARE DUAL nt HMO MANAGED COMPLETE HMO MEDICARE [place] [employer] [place] xxxxxxxxx 2018-Prese Medicaid HEALTHCARE COMM PLUS nt PLAN - MANAGED MEDICAID documented as of this encounter
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
--- OUTSIDE RECORDS SUMMARY | 2019-12-17 12:38 | XMS REPORT | Summary of Care ---
:1965 Author Organization [facility] - Health Address [address] [place] [address] Care Team Providers Name Role Phone Cherri Erazo Shade Primary Care Provider Encounter Details Date Type Department Care Team Description 06/12/2019 Orders Only [facility] Doctor Unassigned, No 301 [facility] [place] [address] [address] [place] [address] Allergies Active Allergy Reactions Severity Noted Date Comments Pseudoephedrine Hcl Unknown - See comments 05/10/2019 documented as of this encounter (statuses as of 06/12/2019) Medications Medication Sig Dispensed Refills Start Date [...] as of this encounter (statuses as of 06/12/2019) Active Problems Problem Noted Date Tobacco use 05/11/2019 Asthma 05/11/2019 Chronic hypertension 05/11/2019 Obesity (BMI 30-39.9) 05/10/2019 Ovarian torsion 05/10/2019 Torsion of left ovary and ovarian pedicle 05/10/2019 Overview: Added automatically from request for surgery [id number] documented as of this encounter (statuses as of 06/12/2019) Social History Tobacco Use Types Packs/Day Years [...] Treatment Date Type Specialty Care Team Description 06/12/2019 Appointment Radiology Jazmine Vazquez MD [address] [place] [phone] 06/29/2019 Office Visit Obstetrics & Gynecology Jazmine Vazquez MD [address] [place] [phone] Health Maintenance Due Date Last Done Comments [...] Procedure Name Priority Date/Time Associated Diagnosis Comments ASSIGNMENT OF BENEFITS Routine 06/12/2019 9:45 AM CDT documented in this encounter Results Not on filedocumented in this encounter Insurance Payer Benefit Plan / Subscriber ID Effective Phone Address Type Group Dates [facility] [id number] 2017-Prese Medicare Adv HEALTHCARE - HEALTHCARE DUAL nt HMO MANAGED COMPLETE HMO MEDICARE [facility] [place] xxxxxxxxx 2018-Prese Medicaid HEALTHCARE COMM PLUS nt PLAN - MANAGED MEDICAID documented as of this encounter
--- OUTSIDE RECORDS SUMMARY | 2019-12-17 12:39 | XMS REPORT | Summary of Care ---
:1965 Author Organization [facility] [employer] Address [address] [place] [address] Care Team Providers Name Role Phone Julito Mena MD Primary Care Provider Reason for Visit Reason Comments LAB Encounter Details Date Type Department Care Team Description 07/09/2019 Non Licensed [facility] Jul[facility] Mena MD [address] [place] [address] [address] [place] [address] Bronchitis, not specified as acute or chronic; Professional Office 2, Adc Lab Moderate persistent asthma without complication; Building Phlebotomy Puncture wound of right hand, foreign body presence unspecified, initial encounter; Lab Nonintractable epilepsy with status epilepticus, unspecified epilepsy type; Professional Office Osteoarthritis of left knee, unspecified osteoarthritis type; Building Screening examination for poliomyelitis; [address] [place] [address] Tobacco abuse; , [address] Need for vaccination; [place], [place] Special screening for malignant neoplasms, colon [phone] Allergies Active Allergy Reactions Severity Noted Date Comments Pseudoephedrine Hcl Unknown - See comments 05/10/2019 documented as of this encounter (statuses as of 07/09/2019) Medications Medication Sig Dispensed Refills Start Date End Date Status lisinopril 40 mg Take 40 mg by 2 02/23/2019 Active tablet mouth daily. JANUVIA 100 mg tablet Take 100 mg by 2 02/11/2019 Active mouth daily. amLODIPine 10 mg Take 1 tablet by 2 02/11/2019 Active tablet mouth daily. diclofenac 50 mg EC Take 1 tablet by 2 02/11/2019 Active tablet mouth daily. aspirin 81 mg EC Take 81 mg by 0 Active tablet mouth. atorvastatin 20 mg Take 20 mg by 0 Active tablet mouth at bedtime. Magnesium Oxide 500 Take by mouth. 0 Active mg Cap docusate 100 mg Take 1 capsule 60 capsule 2 05/13/2019 Active capsuleIndications: by mouth 2 (two) Ovarian torsion times daily as needed for Constipation. acetaminophen 325 mg Take 2 tablets 60 tablet 2 05/13/2019 05/12/2020 Active tabletIndications: by mouth every 6 Ovarian torsion (six) hours as needed for Pain (scale 1-3). HYDROcodone-acetamino Take 1 tablet by 30 tablet 0 05/13/2019 Active phen 5-325 mg mouth every 4 tabletIndications: (four) hours as Ovarian torsion needed for Pain (scale 7-10). HYDROcodone-acetamino Take 1 tablet by 20 tablet 0 05/17/2019 Active phen 5-325 mg mouth every 6 tabletIndications: (six) hours as Encounter for needed for Pain postoperative wound (scale 7-10). check ipratropium-albuterol Inhale 3 mL 1 Box 5 07/09/2019 Active 0.5 mg-3 mg(2.5 mg every 6 (six) base)/3 mL nebulizer hours as needed solutionIndications: for Wheezing or Bronchitis, Moderate Bronchospasm. persistent asthma without complication doxycycline 100 mg Take 1 tablet by 20 tablet 0 07/09/2019 07/19/2019 Active tabletIndications: mouth 2 (two) Bronchitis, Moderate times daily for persistent asthma 10 days. without complication prednisoLONE 5 mg Take 1 tablet by 5 tablet 0 07/09/2019 07/14/2019 Active tabletIndications: mouth daily for Bronchitis, Moderate 5 days. persistent asthma without complication albuterol (PROAIR INHALE 2 PUFFS 8.5 g 3 07/09/2019 Active HFA) 90 mcg/actuation BY MOUTH inhalerIndications: NEEDED FOR Bronchitis, Moderate SOB/WHEEZING persistent asthma EVERY 4-6 HRS without complication phenytoin ER 300 mg Take 1 capsule 90 capsule 0 07/09/2019 Active ER by mouth daily. capsuleIndications: Seizure disorder documented as of this encounter (statuses as of 07/09/2019) Active Problems Problem Noted Date Bronchitis 07/09/2019 Puncture wound of right hand without foreign body, initial encounter 2018 Encounter for screening colonoscopy 07/09/2019 Need for 23-polyvalent pneumococcal polysaccharide vaccine 07/09/2019 Primary osteoarthritis of left knee 07/09/2019 Seizure disorder 07/09/2019 Tobacco use 05/11/2019 Asthma 05/11/2019 Chronic hypertension 05/11/2019 Obesity (BMI 30-39.9) 05/10/2019 Ovarian torsion 05/10/2019 Torsion of left ovary and ovarian pedicle 05/10/2019 Overview: Added automatically from request for surgery [id number] documented as of this encounter (statuses as of 07/09/2019) Immunizations Name Administration Dates Next Due Pneumococcal Polysaccharide, PPSV23 (PNEUMOVAX) 07/09/2019 Tdap 07/09/2019 documented as of this encounter Social History Tobacco Use Types Packs/Day Years [...] Treatment Date Type Specialty Care Team Description 07/23/2019 Office Visit Family Medicine Julito Mena MD [address] [place] [address] [address] [phone] 07/03/2020 Office Visit Obstetrics & Gynecology Jazmine Vazquez MD [address] [place] [phone] Health Maintenance Due Date Last Done [...] filedocumented in this encounter Visit Diagnoses Diagnosis Bronchitis, not specified as acute or chronic Moderate persistent asthma without complication Unspecified asthma Puncture wound of right hand, foreign body presence unspecified, initial encounter Nonintractable epilepsy with status epilepticus, unspecified epilepsy type Osteoarthritis of left knee, unspecified osteoarthritis type Screening examination for poliomyelitis Tobacco abuse Tobacco use disorder Need for vaccination Need for prophylactic vaccination and inoculation against unspecified single disease Special screening for malignant neoplasms, colon documented in this encounter Insurance Payer Benefit Plan / Subscriber ID Effective Phone Address Type Group Dates [facility] [id number] 2017-[facility] Medicare Adv HEALTHCARE - HEALTHCARE DUAL nt HMO MANAGED COMPLETE O MEDICARE [employer] [place] xxxxxxxxx 2018-[facility] Medicaid HEALTHCARE COMM PLUS nt PLAN - MANAGED MEDICAID documented as of this encounter
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
--- OUTSIDE RECORDS SUMMARY | 2019-12-17 12:39 | XMS REPORT | Summary of Care ---
:1965 Author Organization [facility] - Health Address [address] [place] [address] Care Team Providers Name Role Phone Cherri Erazo Shade Primary Care Provider Encounter Details Date Type Department Care Team Description 06/29/2019 Orders Only [facility] Doctor Unassigned, No 301 [facility] [place] [address] [address] [place] [address] Allergies Active Allergy Reactions Severity Noted Date [...] Overview: Added automatically from request for surgery [id number] documented as of this encounter (statuses as [...] Office Visit Family Medicine Julito Mena MD [address] [place] [address] Dr [address] [place] [address] [phone] Health Maintenance Due Date Last Done Comments [...] Procedure Name Priority Date/Time Associated Diagnosis Comments NOTICE OF BILLING Routine 06/29/2019 10:03 AM CDT [facility] MEDICARE PATIENTS documented in this encounter Results Not on filedocumented in this encounter Insurance Payer Benefit Plan / Subscriber ID Effective Phone Address Type Group Dates [facility] [id number] 2017-Prese Medicare Adv HEALTHCARE - HEALTHCARE DUAL nt HMO MANAGED COMPLETE HMO MEDICARE [place] [employer] [place] xxxxxxxxx 2018-Prese Medicaid HEALTHCARE COMM PLUS nt PLAN - MANAGED MEDICAID documented as of this encounter
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
--- OUTSIDE RECORDS SUMMARY | 2019-12-17 12:39 | XMS REPORT | Summary of Care ---
:1965 Author Organization [facility] Address [address] [place] [id number] Care Team Providers Name Role Phone Cherri Erazo Primary Care Provider Reason for Visit Radiology Services (Routine) Status Reason Specialty Diagnoses / Referred By Referred To Procedures Contact Contact New Request Diagnostic Diagnoses Mammogram abnormal R92.8 (ICD-10-CM) - Mammogram abnormal Jazmine Vazquez, Radiology Procedures BI ULTRASOUND BREAST LIMITED LEFT BI ULTRASOUND BREAST COMPLETE LEFT CHG US BREAST UNI REAL TIME WITH IMAGE COMPLETE [id number] - BI ULTRASOUND BREAST COMPLETE LEFT [id number] - CHG US BREAST UNI REAL TIME WITH IMAGE COMPLETE [address] [place] [phone] Encounter Details Date Type Department Care Team Description 06/12/2019 Hospital Encounter Critical access hospital Jazmine Vazquez MD Arrived [facility] [address] [place] [address] [address] [facility] [place] [phone] Allergies Active Allergy Reactions Severity Noted Date [...] Overview: Added automatically from request for surgery [id number] documented as of this encounter (statuses as [...] Visit Obstetrics & Gynecology Jazmine Vazquez MD [address] [place] [phone] Health Maintenance Due Date Last Done [...] Name Priority Date/Time Associated Comments Diagnosis BI ULTRASOUND BREAST Routine 06/12/2019 10:44 AM Mammogram abnormal Results for this LIMITED LEFT CDT procedure are in the results section. documented in this encounter Results BI ULTRASOUND BREAST LIMITED LEFT (06/12/2019 10:44 AM CDT) Specimen Narrative Performed At Examination: PACS BI ULTRASOUND BREAST LIMITED LEFT History: Patient is 54 year old and is seen for:Abnormal screening mammogram.No relevant hormone history has been documented for this patient. Surgical history includes oophorectomy. No relevant medical history has been documented for this patient. Comparisons: 05/17/2019 BI SCREENING MAMMOGRAM BILATERAL HISTORY:Abnormal mammogram. Rule out mass in the left breast. TECHNIQUE: Upper-outer quadrant of the left breast was evaluated in radial/antiradial/sagittal/coronal planes both by the technologist and by me. Female technologist was present in the room during all imaging evaluations. FINDINGS: Dense fibroglandular breast tissue is detected throughout. A bilobed shaped approximately 3 mm size lesion suspected at 3:00 with benign sonographic features. CONCLUSIONS: No worrisome solid masses detected. Annual bilateral mammography evaluation is appropriate. ACR classification: Category II. Recommendation: Annual mammographic follow-up - Left Annual mammographic follow-up - Bilateral BI-RADS Category: Left 2 - Benign Performing Organization Address City/State/Zipcode Phone Number PACS documented in this encounter Visit Diagnoses Diagnosis Mammogram abnormal Abnormal mammogram, unspecified documented in this encounter Insurance Payer Benefit Plan / Subscriber ID Effective Phone Address Type Group [facility] [id number] 2017-[facility] Medicare Adv HEALTHCARE - HEALTHCARE DUAL nt HMO MANAGED COMPLETE HMO MEDICARE [employer] [place] [employer] xxxxxxxxx 2018-[employer] Medicaid HEALTHCARE COMM PLUS nt PLAN - MANAGED MEDICAID documented as of this encounter
--- OUTSIDE RECORDS SUMMARY | 2019-12-17 12:40 | XMS REPORT | Summary of Care ---
:1965 Author Organization [facility] Address [address] [place] [id number] Care Team Providers Name Role Phone Julito Mena MD Primary Care Provider Reason for Referral (Routine) Status Reason Specialty Diagnoses / Referred By Referred To Procedures Contact Contact New Request Physical Therapy Diagnoses Primary osteoarthritis of left knee Rajesh, Procedures CONSULT/REFERRAL PHYSICAL THERAPY MD Julito [address] [place] [address] Dr [address] [place] [address] (Routine) Status Reason Specialty Diagnoses / Referred By Referred To Procedures Contact Contact New Request Endoscopy Diagnoses Encounter for screening colonoscopy Julito Mena, Procedures COLONOSCOPY,SCREENING Preferred Location: [facility] PISANO [address] [place] [address] Dr [address] [place] [address] Reason for Visit Reason Comments New Patient Knee Pain left 8/10 Shortness of Breath Congestion Cough Encounter Details Date Type Department Care Team Description 07/09/2019 Office Visit [facility] Julito Mena, Bronchitis (Primary Dx); Pediatric and Adult Moderate persistent asthma without complication; Primary Care- [address] [place] [address] Puncture wound of right hand without foreign body, initial encounter; [facility]y [address] Seizure disorder; [address] [place] [address] , [place] [address] Primary osteoarthritis of left knee; [address] Need for hepatitis C screening test; [place] Tobacco use; [id number] Need for Tdap vaccination; [phone] Need for 23-polyvalent pneumococcal polysaccharide vaccine; Encounter for screening colonoscopy Allergies Active Allergy Reactions Severity Noted Date Comments Pseudoephedrine Hcl Unknown - See comments 05/10/2019 documented as of this encounter (statuses as of 07/09/2019) Medications Medication Sig Dispensed Refills Start Date End Date Status lisinopril 40 mg Take 40 mg by 2 02/23/2019 Active tablet mouth daily. JANUVIA 100 mg Take 100 mg by 2 02/11/2019 Active tablet mouth daily. amLODIPine 10 mg Take 1 tablet 2 02/11/2019 Active tablet by mouth daily. diclofenac 50 mg EC Take 1 tablet 2 02/11/2019 Active tablet by mouth daily. aspirin 81 mg EC Take 81 mg by 0 Active tablet mouth. atorvastatin 20 mg Take 20 mg by 0 Active tablet mouth at bedtime. Magnesium Oxide 500 Take by 0 Active mg Cap mouth. docusate 100 mg Take 1 capsule 60 capsule 2 05/13/2019 Active capsuleIndications: by mouth 2 Ovarian torsion (two) times daily as needed for Constipation. acetaminophen 325 Take 2 tablets 60 tablet 2 05/13/2019 Active mg by mouth every 0 tabletIndications: 6 (six) hours Ovarian torsion as needed for Pain (scale 1-3). HYDROcodone-acetami Take 1 tablet 30 tablet 0 05/13/2019 Active nophen 5-325 mg by mouth every tabletIndications: 4 (four) hours Ovarian torsion as needed for Pain (scale 7-10). HYDROcodone-acetami Take 1 tablet 20 tablet 0 05/17/2019 Active nophen 5-325 mg by mouth every tabletIndications: 6 (six) hours Encounter for as needed for postoperative wound Pain (scale check 7-10). ipratropium-albuter Inhale 3 mL 1 Box 5 07/09/2019 Active ol 0.5 mg-3 mg(2.5 every 6 (six) mg base)/3 mL hours as nebulizer needed for solutionIndications Wheezing or : Bronchitis, Bronchospasm. Moderate persistent asthma without complication doxycycline 100 mg Take 1 tablet 20 tablet 0 07/09/2019 Active tabletIndications: by mouth 2 9 Bronchitis, (two) times Moderate persistent daily for 10 asthma without days. complication prednisoLONE 5 mg Take 1 tablet 5 tablet 0 07/09/2019 Active tabletIndications: by mouth daily 9 Bronchitis, for 5 days. Moderate persistent asthma without complication albuterol (PROAIR INHALE 2 PUFFS 8.5 g 3 07/09/2019 Active HFA) 90 BY MOUTH mcg/actuation NEEDED FOR inhalerIndications: SOB/WHEEZING Bronchitis, EVERY 4-6 HRS Moderate persistent asthma without complication phenytoin ER 300 mg Take 1 capsule 90 capsule 0 07/09/2019 Active ER by mouth capsuleIndications: daily. Seizure disorder albuterol Inhale. 0 Discontinued (PROVENTIL HFA) 90 9 mcg/actuation inhaler PROAIR HFA 90 INHALE 2 PUFFS 2 05/06/2019 Discontinued mcg/actuation BY MOUTH 9 inhaler NEEDED FOR SOB/WHEEZING EVERY 4-6 HRS phenytoin ER 300 mg Take 300 mg by 0 Discontinued ER capsule mouth. 9 Hospital, Clinic, or Other Ordered Dose Route Frequency Start Date End Date Status Facility Administered Medication ipratropium-albuterol 3 mL Inhale ONCE 07/09/2019 07/09/2019 Ended (DUONEB) 0.5 mg-3 mg(2.5 mg base)/3 mL nebulizer solution 3 mLIndications: Bronchitis, Moderate persistent asthma without complication documented as of this encounter (statuses as [...] Overview: Added automatically from request for surgery [id number] documented as of this encounter (statuses as [...] Sign Reading Time Taken Comments Blood Pressure 135/69 07/09/2019 9:46 AM CDT Pulse 61 07/09/2019 9:46 AM CDT Temperature 36.6 C (97.9 F) 07/09/2019 9:46 AM CDT Respiratory Rate 18 07/09/2019 9:46 AM CDT Oxygen Saturation 96% 07/09/2019 9:46 AM CDT Inhaled Oxygen Concentration - - Weight 104.8 kg (231 lb 1.6 oz) 07/09/2019 9:46 AM CDT Height 172.5 cm (5' 7.91") 07/09/2019 9:46 AM CDT Body Mass Index 35.23 07/09/2019 9:46 AM CDT documented in this encounter Patient Instructions Patient InstructionsEdJulito silver MD - 07/09/2019 9:30 AM CDT Prevention Guidelines, Women Ages 50 to 64 Screening tests and vaccines are an important part of managing your health. A screening test is doneto find possible disorders or diseases in people who don' t have any symptoms. The goal is to find a disease early so lifestyle changes can be made and you can be watched more closely to reduce the riskof disease, or to detect it early enough to treat it most effectively. Screening tests are not considered diagnostic, but are used to determine if more testing is needed. Health counseling is essential, too. Below are guidelines for these, for women ages 50 to 64. Talk with your healthcare provider to make sure youre up to date on what you need. Screening Who needs it How often Type 2 diabetes or prediabetes All women beginning at age 45 and women without symptoms at any age who are overweight or obese and have 1 or more additional risk factors for diabetes. At least every 3 years Type 2 diabetes or prediabetes All women diagnosed with gestational diabetes Lifelong testing every 3 years Type 2 diabetes All women with prediabetes Every year Alcohol misuse All women in this age group At routine exams Blood pressure All women in this age group Yearly checkup if your blood pressure is normal Normal blood pressure is less than 120/80 mm Hg If your blood pressure reading is higher than normal, follow the advice of your healthcare provider Breast cancer All women at average risk in this age group Yearly mammogram should be done until age 54. At age 55, switch to mammograms every other year or choose to continue yearly mammograms. All women should be familiar with the potential benefits and risks of breast cancer screening with mammograms. Cervical cancer All women in this age group, except women who have had a complete hysterectomy Pap test every 3 years or Pap test with human papillomavirus (HPV) test every 5 years Chlamydia Women at increased risk for infection At routine exams Colorectal cancer All women in this age group Flexible sigmoidoscopy every 5 years, or colonoscopy every 10 years, or double-contrast barium enema every 5 years; yearly fecal occult blood test or fecalimmunochemical test; or a stool DNA test as often as your health care provider advises; talk with your health care provider about which tests are best for you Depression All women in this age group At routine exams Gonorrhea Sexually active women at increased risk for infection At routine exams Hepatitis C Anyone at increased risk; 1 time for those born between 1945 and 1964 At routine exams High cholesterol or triglycerides All women in this age group who are at risk for coronary artery disease At least every 5 years HIV All women At routine exams Lung cancer Adults age 55 to 80 who have smoked Yearly screening in smokers with 30 pack-year history of smoking or who quit within 15 years Obesity All women in this age group At routine exams Osteoporosis Women who are postmenopausal Ask your healthcare provider Syphilis Women at increased risk for infection talk with your healthcare provider At routine exams Tuberculosis Women at increased risk for infection talk with your healthcare provider Ask your healthcare provider Vision All women in this age group Ask your healthcare provider Vaccine Who needs it How often Chickenpox (varicella) All women in this age group who have no record of this infection or vaccine 2doses; the second dose should be given at least 4 weeks after the first dose Hepatitis A Women at increased risk for infection talk with your healthcare provider 2 doses given at least 6 months apart Hepatitis B Women at increased risk for infection talk with your healthcare provider 3 doses over 6 months; second dose should be given 1 month after the first dose; the third dose should be given at least 2 months after the second dose and at least 4 months after the first dose Haemophilus influenzaeType B (HIB) Women at increased risk for infection talk with your healthcare provider 1 to 3 doses Influenza (flu) All women in this age group Once a year Measles, mumps, rubella (MMR) Women in this age group through their late 50s who have no record of these infections or vaccines 1 dose Meningococcal Women at increased risk for infection talk with your healthcare provider 1 or moredoses Pneumococcal conjugate vaccine (PCV13) and pneumococcal polysaccharide vaccine ( PPSV23) Women at increased risk for infection talk with your healthcare provider PCV13: 1 dose ages 19 to 65 (protects against 13 types of pneumococcal bacteria) PPSV23: 1 to 2 doses through age 64, or 1 dose at 65 or older (protects against 23 types of pneumococcal bacteria) Tetanus/diphtheria/pertussis (Td/Tdap) booster All women in this age group Td every 10 years, or a one-time dose of Tdap instead of a Td booster after age 18 , then Td every 10 years Zoster All women ages 60 and older 1 dose Counseling Who needs it How often BRCA gene mutation testing for breast and ovarian cancer susceptibility Women with increased risk for having gene mutation When your risk is known Breast cancer and chemoprevention Women at high risk for breast cancer When your risk is known Diet and exercise Women who are overweight or obese When diagnosed, and then at routine exams Sexually transmitted infection prevention Women at increased risk for infection talk with your healthcare provider At routine exams Use of daily aspirin Women ages 55 and up in this age group who are at risk for cardiovascular health problems such as stroke When your risk is known Use of tobacco and the health effects it can cause All women in this age group Every exam 1American Cancer Society Date Last Reviewed: 11/18/201519993188-6991 [employer]. [address] [place] [address]. All rights reserved. This information is not intended as a substitute for professional medical care. Always follow your healthcare professional's instructions. documented in this encounter Progress Notes Julito Mena MD - 07/09/2019 9:30 AM CDT Cc: Chief Complaint Patient presents with New Patient Knee Pain left 8/10 Shortness of Breath Congestion Cough Smitha Ibarra is a 54 year old female with PMHx Asthma, Depression, HTN, DM-II , Seizure present to clinic to establish care. Today, patient reports she has been coughing up greenish phlegm for the last two week. She experiences SOB with cough. Denies fainting Patient smokes 1PPD for the 30 yrs. She cut down on smoking about 2 months ago.Patient notes that she does not currently smoke since her cough started. She requests medication refills for her seizure Denies F/C/N/V chest pain or SOB. Allergies Smitha is allergic to sudafed [pseudoephedrine hcl]. Medications Outpatient Medications Prior to Visit Medication Sig Dispense Refill HYDROcodone-acetaminophen 5-325 mg tablet Take 1 tablet by mouth every 6 ( six) hours as needed for Pain (scale 7-10). 20 tablet 0 acetaminophen 325 mg tablet Take 2 tablets by mouth every 6 (six) hours as needed for Pain (scale 1-3). 60 tablet 2 docusate 100 mg capsule Take 1 capsule by mouth 2 (two) times daily as needed for Constipation. 60 capsule 2 HYDROcodone-acetaminophen 5-325 mg tablet Take 1 tablet by mouth every 4 ( four) hours as needed for Pain (scale 7-10). 30 tablet 0 albuterol (PROVENTIL HFA) 90 mcg/actuation inhaler Inhale. amLODIPine 10 mg tablet Take 1 tablet by mouth daily. 2 aspirin 81 mg EC tablet Take 81 mg by mouth. atorvastatin 20 mg tablet Take 20 mg by mouth at bedtime. diclofenac 50 mg EC tablet Take 1 tablet by mouth daily. 2 JANUVIA 100 mg tablet Take 100 mg by mouth daily. 2 lisinopril 40 mg tablet Take 40 mg by mouth daily. 2 Magnesium Oxide 500 mg Cap Take by mouth. phenytoin ER 300 mg ER capsule Take 300 mg by mouth. PROAIR HFA 90 mcg/actuation inhaler INHALE 2 PUFFS BY MOUTH NEEDED FOR SOB/WHEEZING EVERY 4-6HRS 2 No facility-administered medications prior to visit. Histories Past Medical History: Diagnosis Date Asthma Chronic hypertension 05/11/2019 Depression Diabetes mellitus Seizures Past Surgical History: Procedure Laterality Date LAPAROSCOPIC SALPINGO-OOPHORECTOMY Left 05/11/2019 Surgeon: Jazmine Vazquez MD; Location: [facility] TUBAL LIGATION Social History Socioeconomic History Marital [...] file Gets together: Not on file Attends lutheran service: Not on file Active member of [...] domestic abuse or violence in the home Confucianist Preference: none No family history on file. Review of Systems Constitutional: Negative for chills and fever. HENT: Negative for trouble swallowing. Eyes: Negative for visual disturbance. Respiratory: Positive for shortness of breath and wheezing. Negative for chest tightness. Cardiovascular: Negative for chest pain and palpitations. Gastrointestinal: Negative for blood in stool and constipation. Musculoskeletal: Positive for gait problem. Negative for arthralgias. Skin: Negative for rash. Neurological: Negative for syncope and weakness. Psychiatric/Behavioral: Negative for agitation and decreased concentration. Hematological: Negative for cold intolerance and heat intolerance. Endocrine: Negative for cold intolerance and heat intolerance. Vital Signs BP 135/69 (BP Location: Left arm, Patient Position: Sitting, BP CUFF SIZE: Adult Large) | Pulse 61| Temp 36.6 C (97.9 F) (Temporal Artery) | Resp 18 | Ht 67.91" (172.5 cm) | Wt 104.8 kg (231 lb 1.6 oz) | SpO2 96% | BMI 35.23 kg/m Physical Exam Constitutional: She is oriented to person, place, and time. No distress. HENT: Head: Normocephalic and atraumatic. Eyes: Pupils are equal, round, and reactive to light. EOM are normal. Neck: Normal range of motion. Neck supple. Cardiovascular: Normal rate and regular rhythm. Pulmonary/Chest: Effort normal. She has wheezes. She has rales. Abdominal: She exhibits distension. Central obesity Musculoskeletal: She exhibits tenderness. Left Knee: tenderness on palpation, no swelling Neurological: She is alert and oriented to person, place, and time. Skin: Skin is warm. Capillary refill takes less than 2 seconds. Right Hand: puncture wounds noted, in healing process Psychiatric: She has a normal mood and affect. Assessment/Plan Bronchitis - Complication by hx asthma and chronic smoking - ipratropium-albuterol (DUONEB) 0.5 mg-3 mg(2.5 mg base)/3 mL nebulizer solution 3 mL - ipratropium-albuterol 0.5 mg-3 mg(2.5 mg base)/3 mL nebulizer solution; Inhale 3 mL every 6 (six) hours as needed for Wheezing or Bronchospasm. Dispense: 1 Box; Refill: 5 - doxycycline 100 mg tablet; Take 1 tablet by mouth 2 (two) times daily for 10 days. Dispense: 20 tablet; Refill: 0 - prednisoLONE 5 mg tablet; Take 1 tablet by mouth daily for 5 days. Dispense: 5 tablet; Refill: 0 - albuterol (PROAIR HFA) 90 mcg/actuation inhaler; INHALE 2 PUFFS BY MOUTH NEEDED FOR SOB/WHEEZING EVERY 4-6 HRS Dispense: 8.5 g; Refill: 3 Moderate persistent asthma without complication - Complicated by recent URI - s/p breathing treatment in clinic - ipratropium-albuterol 0.5 mg-3 mg(2.5 mg base)/3 mL nebulizer solution; Inhale 3 mL every 6 (six) hours as needed for Wheezing or Bronchospasm. Dispense: 1 Box; Refill: 5 - doxycycline 100 mg tablet; Take 1 tablet by mouth 2 (two) times daily for 10 days. Dispense: 20 tablet; Refill: 0 - prednisoLONE 5 mg tablet; Take 1 tablet by mouth daily for 5 days. Dispense: 5 tablet; Refill: 0 - albuterol (PROAIR HFA) 90 mcg/actuation inhaler; INHALE 2 PUFFS BY MOUTH NEEDED FOR SOB/WHEEZING EVERY 4-6 HRS Dispense: 8.5 g; Refill: 3 Puncture wound of right hand without foreign body, initial encounter - Stable, healing in progress - TDAP administered Seizure disorder - Stable - Refilled: phenytoin ER 300 mg ER capsule; Take 1 capsule by mouth daily. Dispense: 90 capsule; Refill: 0 Hx Primary osteoarthritis of left knee - Stable. - Xray left knee reviewed - Continue concervative pain management - CONSULT/REFERRAL PHYSICAL THERAPY Health Maintenance/Preventive Care - Need for hepatitis C screening test: HCV ANTIBODY/HCV BY PCR - Hx Tobacco use: patient education completed. Benefit of smoking cessation reinforced - Need for Tdap vaccination: TDAP VACCINE, >11 YRS, IM - Need for 23-polyvalent pneumococcal polysaccharide vaccine: PNEUMOCOCCAL VACCINE, 23-VALENT (PNEUMOVAX) - Encounter for screening colonoscopy: COLONOSCOPY,SCREENING Preferred Location : [place] Follow-up: 2 weeks Preventive Care: Medication reconciliation, patient education and anticipatory guidance completed. All questions and concerns addressed. >50% of visit was for counseling and coordination of care with patient as documented under plans above. Total visit time 44 Minutes. Julito Mena MD 07/09/2019 4:55 PM documented in this encounter Plan of Treatment Date Type Specialty Care Team Description 07/23/2019 Office Visit Family Medicine Julito Mena MD [address] [place] [address] [address] 07/03/2020 Office Visit Obstetrics & Gynecology Jazmine Vazquez MD [address] [place] [phone] Name Type Priority Associated Diagnoses Date/Time HCV BY PCR LAB Routine Need for hepatitis C screening test 07/09/2019 11: 31 AM CDT Name Type Priority Associated Diagnoses Order Schedule COLONOSCOPY,SCREENING PROCEDURES Routine Encounter for screening Ordered: 07/09/2019 Preferred Location: colonoscopy [facility] Due Date Last Done Comments HEPATITIS C (HCV) SCREEN 1965 PNEUMOCOCCAL 0-64 YEARS COMBINED SERIES (1 of 1 - 1971 PPSV23) DTaP,Tdap,and Td Vaccines (1 - Tdap) 01/06/1984 COLONOSCOPY 2015 Zoster Recombinant Vaccine (SHINGRIX) (1 of 2) 2015 INFLUENZA VACCINE (#1) 2019 MAMMOGRAM 05/17/2020 05/17/2019 PAP SMEAR 05/10/2022 05/10/2019 documented as of this encounter Procedures Procedure Name Priority Date/Time Associated Diagnosis Comments HCV ANTIBODY Routine 07/09/2019 11:31 Need for hepatitis C Results for this AM CDT screening test procedure are in the results section. TDAP VACCINE, >11 Routine 07/09/2019 10:47 Need for Tdap YRS, IM AM CDT vaccination Puncture wound of right hand without foreign body, initial encounter PNEUMOCOCCAL Routine 07/09/2019 10:47 Need for 23-polyvalent VACCINE, 23-VALENT AM CDT pneumococcal (PNEUMOVAX) polysaccharide vaccine documented in this encounter Results HCV ANTIBODY (07/09/2019 11:31 AM CDT) HCV Ab NEGATIVE [facility] HCV Semi-Quantitative 0.01 [facility] Specimen Blood Performing Organization Address City/State/Zipcode Phone Number [facility] CLIA: [id number], [address] [place] [phone] [facility] documented in this encounter Visit Diagnoses Diagnosis Bronchitis - Primary Bronchitis, not specified as acute or chronic Moderate persistent asthma without complication Unspecified asthma Puncture wound of right hand without foreign body, initial encounter Seizure disorder Unspecified epilepsy without mention of intractable epilepsy Primary osteoarthritis of left knee Primary localized osteoarthrosis, lower leg Need for hepatitis C screening test Special screening examination for other specified viral diseases Tobacco use Tobacco use disorder Need for Tdap vaccination Need for prophylactic vaccination with combined gujwperyas-xlgzebd-zwbbfzipz ( DTP) vaccine Need for 23-polyvalent pneumococcal polysaccharide vaccine Encounter for screening colonoscopy Special screening for malignant neoplasms, colon documented in this encounter Administered Medications Medication Order MAR Action Action Date Dose Rate Site ipratropium-albuterol (DUONEB) 0.5 Given 07/09/2019 11:11 AM CDT 3 mL mg-3 mg(2.5 mg base)/3 mL nebulizer solution 3 mL 3 mL, Inhalation, ONCE, 1 dose, 07/09/19 at 1145, Routine documented in this encounter Insurance Payer Benefit Plan / Subscriber ID Effective Phone Address Type Group Dates [facility] [id number] 2017-Prese Medicare Adv HEALTHCARE - HEALTHCARE DUAL nt HMO MANAGED COMPLETE O MEDICARE [place] xxxxxxxxx 2018-Prese Medicaid HEALTHCARE COMM PLUS nt PLAN - MANAGED MEDICAID documented as of this encounter
--- OUTSIDE RECORDS SUMMARY | 2019-12-17 12:40 | XMS REPORT | Summary of Care ---
:1965 Author Organization [facility] - Health Address [address] [place] [address] Care Team Providers Name Role Phone Julito Mena MD Primary Care Provider Encounter Details Date Type Department Care Team Description 07/09/2019 Orders Only [facility] Doctor Unassigned, No [address] [facility] [place] [address] [address] [place] [address] Allergies Active Allergy Reactions Severity Noted Date Comments Pseudoephedrine Hcl Unknown - See comments 05/10/2019 documented as of this encounter (statuses as of 07/12/2019) Medications Medication Sig Dispensed Refills Start Date [...] as of this encounter (statuses as of 07/12/2019) Active Problems Problem Noted Date Bronchitis 07/09/2019 [...] Overview: Added automatically from request for surgery [id number] documented as of this encounter (statuses as of 07/12/2019) Immunizations Name Administration Dates Next Due Pneumococcal [...] Treatment Date Type Specialty Care Team Description 07/19/2019 Ancillary Visit Physical Therapy Pedro Hurd MD [facility] [place] [address] Anabela Osei, PT [address] [place] [address] 07/23/2019 Office Visit Family Medicine Julito Mena MD [address] [place] [address] Dr Fry [address] [place] [address] [phone] 07/03/2020 Office Visit Obstetrics & Gynecology Jazmine Vazquez MD [address] [place] [phone] Health Maintenance Due Date Last Done Comments COLONOSCOPY 2015 Zoster Recombinant Vaccine (SHINGRIX) (1 of 2) 2015 INFLUENZA VACCINE (#1) 2019 MAMMOGRAM 05/17/2020 05/17/2019 PAP SMEAR 05/10/2022 05/10/2019 DTaP,Tdap,and Td Vaccines (2 - Td) 07/09/2029 07/09/2019 HEPATITIS C (HCV) SCREEN Completed 07/09/2019 PNEUMOCOCCAL 0-64 YEARS COMBINED SERIES Completed 07/09/2019 documented as of this encounter Procedures Procedure Name Priority Date/Time Associated Diagnosis Comments AGREEMENTS AUTHORIZATIONS Routine 07/09/2019 12:01 AM AND IRREVOCABLE CDT ASSIGNMENTS (FORM 2000) documented in this encounter Results Not on filedocumented in this encounter Insurance Payer Benefit Plan / Subscriber ID Effective Phone Address Type Group [facility] [id number] 2017-Prese Medicare Adv HEALTHCARE - HEALTHCARE DUAL nt HMO MANAGED COMPLETE O MEDICARE [place] xxxxxxxxx 2018-Prese Medicaid HEALTHCARE COMM PLUS nt PLAN - MANAGED MEDICAID documented as of this encounter
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
--- OUTSIDE RECORDS SUMMARY | 2019-12-17 12:41 | XMS REPORT | Summary of Care ---
:1965 Author Organization [facility] Address [address] [place] [id number] Care Team Providers Name Role Phone Julito Mena MD Primary Care Provider Reason for Referral MRI/CAT Scan (STAT) Status Reason Specialty Diagnoses / Referred By Referred To Procedures Contact Contact New Request Diagnostic Diagnoses Flank pain Linda Perez Radiology Procedures CT ABDOMEN PELVIS WO CONTRAST J, DO [address] [place] [address] Reason for Visit Reason Comments Flank Pain right Auth/Cert Status Reason Specialty Diagnoses / Referred By Referred To Procedures Contact Contact [facility] [address] [place] [address] [place] [address] Encounter Details Date Type Department Care Team Description 11/26/2019 Emergency [facility] Linda Perez, Flank pain (Primary Department DO Dx) [address] [place] [address] [place] [address] [place], [place] [id number] Allergies Active Allergy Reactions Severity Noted Date Comments Pseudoephedrine Hcl Unknown - See comments 05/10/2019 documented as of this encounter (statuses as of 11/26/2019) Medications Medication Sig Dispensed Refills Start Date [...] for postoperative wound Pain (scale check 7-10). ipratropium-albuterol Inhale 3 mL 1 Box 5 07/09/2019 Active 0.5 mg-3 mg(2.5 mg every 6 (six) base)/3 mL nebulizer hours as needed solutionIndications: for Wheezing or Bronchitis, Moderate Bronchospasm. persistent asthma without complication albuterol (PROAIR HFA) INHALE 2 PUFFS 8.5 g 3 07/09/2019 Active 90 mcg/actuation BY MOUTH inhalerIndications: NEEDED FOR Bronchitis, Moderate SOB/WHEEZING persistent asthma EVERY 4-6 HRS without complication phenytoin ER 300 mg ER Take 1 capsule 90 capsule 0 07/09/2019 Active capsuleIndications: by mouth daily. Seizure disorder cyclobenzaprine 10 mg Take 1 tablet 12 tablet 0 11/26/2019 Active tabletIndications: by mouth 3 Flank pain (three) times daily as needed for Muscle Spasms. acetaminophen-codeine Take 1 tablet 30 tablet 0 11/26/2019 Active (TYLENOL-CODEINE #3) by mouth every 300-30 mg 4 (four) hours tabletIndications: as needed for Flank pain Pain (scale 1-3). documented as of this encounter (statuses as of 11/26/2019) Active Problems Problem Noted Date Bronchitis 07/09/2019 [...] Overview: Added automatically from request for surgery [id number] documented as of this encounter (statuses as of 11/26/2019) Immunizations Name Administration Dates Next Due Pneumococcal [...] Sign Reading Time Taken Comments Blood Pressure 146/81 11/26/2019 12:30 PM DISTRIBUTION SALES REPRESENTATIVE Pulse 67 11/26/2019 12:30 PM DISTRIBUTION SALES REPRESENTATIVE Temperature 36.4 C (97.6 F) 11/26/2019 9:33 AM DISTRIBUTION SALES REPRESENTATIVE Respiratory Rate 18 11/26/2019 12:30 PM DISTRIBUTION SALES REPRESENTATIVE Oxygen Saturation 95% 11/26/2019 12:30 PM DISTRIBUTION SALES REPRESENTATIVE Inhaled Oxygen Concentration - - Weight 97.5 kg (215 lb) 11/26/2019 9:33 AM DISTRIBUTION SALES REPRESENTATIVE Height 170.2 cm (5' 7") 11/26/2019 9:33 AM DISTRIBUTION SALES REPRESENTATIVE Body Mass Index 33.67 11/26/2019 9:33 AM DISTRIBUTION SALES REPRESENTATIVE documented in this encounter Discharge Instructions Linda Paul DO - 11/26/2019DIAGNOSIS 1. Back Pain NO LIFE-THREATENING FINDINGS ON TODAY'S EXAM. PROCEDURES IN THE ER TODAY: Blood work Urine test CT abdomen/pelvis MEDICATIONS ADMINISTERED IN THE ER TODAY: Morphine Valium Toradol Zofran YOUR PRESCRIPTIONS AND [id number] MEDICATION RECOMMENDATIONS: Flexeril by mouth every 8 hours as needed for muscle pain. Do not drive while taking this medication. Tylenol with codeine by mouth every 4 hours as needed for pain. Do not drive while taking this medication. You may use over the counter anti-inflammatories such as Advil or Motrin three times a day with foodas needed for pain. You may use warm compresses, icy hot/yessica bruner and massage for your pain. SPECIAL CARE INSTRUCTIONS: None FOLLOW-UP RECOMMENDATIONS: RECOMMEND FOLLOW-UP WITH A PRIMARY CARE PROVIDER OR SPECIALIST IN 2-5 DAYS, ESPECIALLY IF NO IMPROVEMENT IN SYMPTOMS. TO FOLLOW-UP WITHIN THE [facility], TRY THESE OPTIONS (CLINIC APPOINTMENTS AVAILABLE ON ARKI-PA-AYER BASIS): 1. SCHEDULE AN APPOINTMENT ONLINE AT [email or web address] 2. OR CALL THE [facility] AT OR 3. OR CALL YOUR [facility] PHYSICIAN'S OFFICE DIRECTLY IF YOU ARE ALREADY AN ESTABLISHED [facility] PATIENT. OR, YOU MAY FOLLOW-UP WITH A PROVIDER OF YOUR CHOICE, SUCH : 1. A PHYSICIAN OF YOUR CHOICE 2. [facility], . LOCATIONS IN [facility] 3. [facility], [address] [place] [address]; RETURN TO ER FOR WORSENING OF SYMPTOMS. AttachmentsThe following attachments cannot be sent through Care Everywhere.Back Pain (Acute or Chronic) ([place])documented in this encounter Plan of Treatment Date Type Specialty Care Team Description 07/03/2020 Office Visit Obstetrics & Gynecology Jazmine Vazquez MD [address] [place] [phone] Health Maintenance Due Date Last Done Comments COLONOSCOPY 2015 Zoster Recombinant Vaccine (SHINGRIX) (1 of 2) 2015 INFLUENZA VACCINE (#1) 2019 Breast Cancer Screening (MAMMOGRAM) 05/17/2020 05/17/2019 PAP SMEAR 05/10/2022 05/10/2019 DTaP,Tdap,and Td Vaccines (2 - Td) 07/09/2029 07/09/2019 HEPATITIS C (HCV) SCREEN Completed 07/09/2019 PNEUMOCOCCAL 0-64 YEARS COMBINED SERIES Completed 07/09/2019 documented as of this encounter Procedures Procedure Name Priority Date/Time Associated Comments Diagnosis CT ABDOMEN PELVIS WO STAT 11/26/2019 10:44 Flank pain Results for this CONTRAST AM DISTRIBUTION SALES REPRESENTATIVE procedure are in the results section. CBC WITH DIFFERENTIAL STAT 11/26/2019 9:50 Flank pain Results for this AM DISTRIBUTION SALES REPRESENTATIVE procedure are in the results section. URINALYSIS STAT 11/26/2019 9:50 Flank pain Results for this AM DISTRIBUTION SALES REPRESENTATIVE procedure are in the results section. CBC WITH DIFFERENTIAL Routine 11/26/2019 9:50 Flank pain Results for this AM DISTRIBUTION SALES REPRESENTATIVE procedure are in the results section. COMP. METABOLIC PANEL STAT 11/26/2019 9:50 Flank pain Results for this (31173) AM DISTRIBUTION SALES REPRESENTATIVE procedure are in the results section. LIPASE STAT 11/26/2019 9:50 Flank pain Results for this AM DISTRIBUTION SALES REPRESENTATIVE procedure are in the results section. NOTICE OF PRIVACY Routine 11/26/2019 9:23 PRACTICES AM DISTRIBUTION SALES REPRESENTATIVE documented in this encounter Results CT ABDOMEN PELVIS WO CONTRAST (11/26/2019 10:44 AM DISTRIBUTION SALES REPRESENTATIVE) Specimen Impressions Performed At PACS/VR/DOSE 1. No hydronephrosis. No obstructive urolithiasis. 2. Bilateral nonobstructing renal calculi. 3. Small well-defined ovoid lesion in the region of the pancreatic tail is stable since comparison study from April 2019. Nonspecific and differential considerations include an intrapancreatic accessory spleen or a small neuroendocrine tumor. 4. Chronic bronchial wall thickening with subtle tree-in-bud opacities in the periphery of the right lobe. Transplant opacities are nonspecific and may be seen with atypical endobronchial infection. Preliminary Report Dictated by Resident: Arnaldo Domingo I, Ashley Johnson MD., have reviewed this study and agree with the above report. Narrative Performed At EXAM: CT ABDOMEN/PELVIS WITHOUT CONTRAST PACS/VR/DOSE HISTORY: 54 years-old Female presenting with Flank pain, stone disease suspected COMPARISON: 05/23/2019 DOSE: 462 mGycm TECHNIQUE AND FINDINGS: Contiguous axial imaging from the level of the lung bases through the pubic symphysis was performed without the administration of intravenous contrast with patient in prone position per renal stone protocol. Coronal and sagittal reconstructions were obtained. Auto mA and/or iterative reconstructions were used to reduce radiation dose. FINDINGS: LOWER THORAX: Mild atelectatic changes in the right middle lobe and lingula. Chronic colonic wall thickening is noted bilaterally. Some subtle tree-in-bud opacities are present in the periphery of the right lobe. Small lymph nodes suggested adjacent to vessels on series 4 image 1 and 2. Hilar calcifications bilaterally likely related to a very small calcified nodes. No cardiomegaly. LIVER: No focal hepatic lesions. GALLBLADDER AND BILIARY TREE: No biliary ductal dilation. No gallbladder wall thickening. Gallbladder largely collapsed. SPLEEN: No splenomegaly. See below "pancreas" regarding possible accessory spleen PANCREAS: Small 0.5 cm cm nodular structure within the pancreatic tail (series 4 image 40) was mildly hyperenhancing to have pancreatic parenchyma on comparison CT examination from April 2019. Considerations include either a small intrahepatic radicles accessory spleen or small neuroendocrine tumor. No pancreatic ductal dilatation. ADRENAL GLANDS: No adrenal nodules. KIDNEYS: Few nonobstructing bilateral renal calculi, for example, right 2 mm (4:56) and 3 mm (4:64). No hydronephrosis or masses. PERITONEUM AND RETROPERITONEUM: No free air or fluid. LYMPH NODES: No lymphadenopathy. GI TRACT: No dilation or wall thickening. Normal appendix. PELVIS/BLADDER: The urinary bladder and uterus are unremarkable. No adnexal mass. Left ovary not definitely identified. VESSELS: Mild scattered aortoiliac atherosclerotic calcifications. BONES AND SOFT TISSUES: Multilevel degenerative changes of the thoracolumbar spine. No suspicious lytic or sclerotic bony lesions. Procedure Note [facility], Radiant Results Inft User - 11/26/2019 12:44 PM DISTRIBUTION SALES REPRESENTATIVE EXAM: CT ABDOMEN/PELVIS WITHOUT CONTRAST HISTORY: 54 years-old Female presenting with Flank pain, stone disease suspected COMPARISON: 05/23/2019 DOSE: 462 mGycm TECHNIQUE AND FINDINGS: Contiguous axial imaging from the level of the lung bases through the pubic symphysis was performed without the administration of intravenous contrast with patient in prone position per renal stone protocol. Coronal and sagittal reconstructions were obtained. Auto mA and/or iterative reconstructions were used to reduce radiation dose. FINDINGS: LOWER THORAX: Mild atelectatic changes in the right middle lobe and lingula. Chronic colonic wall thickening is noted bilaterally. Some subtle tree-in-bud opacities are present in the periphery of the right lobe. Small lymph nodes suggested adjacent to vessels on series 4 image 1 and 2. Hilar calcifications bilaterally likely related to a very small calcified nodes. No cardiomegaly. LIVER: No focal hepatic lesions. GALLBLADDER AND BILIARY TREE: No biliary ductal dilation. No gallbladder wall thickening. Gallbladder largely collapsed. SPLEEN: No splenomegaly. See below "pancreas" regarding possible accessory spleen PANCREAS: Small 0.5 cm cm nodular structure within the pancreatic tail (series 4 image 40) was mildly hyperenhancing to have pancreatic parenchyma on comparison CT examination from April 2019. Considerations include either a small intrahepatic radicles accessory spleen or small neuroendocrine tumor. No pancreatic ductal dilatation. ADRENAL GLANDS: No adrenal nodules. KIDNEYS: Few nonobstructing bilateral renal calculi, for example, right 2 mm (4:56) and 3 mm (4:64). No hydronephrosis or masses. PERITONEUM AND RETROPERITONEUM: No free air or fluid. LYMPH NODES: No lymphadenopathy. GI TRACT: No dilation or wall thickening. Normal appendix. PELVIS/BLADDER: The urinary bladder and uterus are unremarkable. No adnexal mass. Left ovary not definitely identified. VESSELS: Mild scattered aortoiliac atherosclerotic calcifications. BONES AND SOFT TISSUES: Multilevel degenerative changes of the thoracolumbar spine. No suspicious lytic or sclerotic bony lesions. IMPRESSION 1. No hydronephrosis. No obstructive urolithiasis. 2. Bilateral nonobstructing renal calculi. 3. Small well-defined ovoid lesion in the region of the pancreatic tail is stable since comparison study from April 2019. Nonspecific and differential considerations include an intrapancreatic accessory spleen or a small neuroendocrine tumor. 4. Chronic bronchial wall thickening with subtle tree-in-bud opacities in the periphery of the right lobe. Transplant opacities are nonspecific and may be seen with atypical endobronchial infection. Preliminary Report Dictated by Resident: Arnaldo Domingo I, Ashley Johnson MD., have reviewed this study and agree with the above report. Performing Organization Address City/State/Zipcode Phone Number PACS/VR/DOSE CBC WITH DIFFERENTIAL (11/26/2019 9:50 AM DISTRIBUTION SALES REPRESENTATIVE) WBC 11.19 (H) 4.30 - 11.10 [facility] 10*3/L [facility] RBC 4.55 3.93 - 5.25 [facility] 10*6/L [facility] HGB 13.7 11.6 - 15.0 [facility] g/dL [facility] HCT 42.7 35.7 - 45.2 % [facility] MCV 93.8 80.6 - 95.5 fL [facility] MCH 30.1 25.9 - 32.8 pg [facility] MCHC 32.1 31.6 - 35.1 [facility] g/dL [facility] RDW-SD 46.9 39.0 - 49.9 fL [facility] RDW-CV 13.7 12.0 - 15.5 % [facility] PLT 297 166 - 358 [facility] 10*3/L [facility] MPV 10.5 9.5 - 12.9 fL [facility] NRBC/100 WBC 0.0 0.0 - 10.0 /100 [facility] WBCs [facility] NRBC x10^3 <0.01 10*3/L [facility] GRAN MAT (NEUT) % 68.5 % [facility] IMM GRAN % 0.40 % [facility] LYMPH % 23.0 % [facility] MONO % 5.5 % [facility] EOS % 2.1 % [facility] BASO % 0.5 % [facility] GRAN MAT x10^3(ANC) 7.67 (H) 1.88 - 7.09 [facility] 10*3/uL [facility] IMM GRAN x10^3 0.04 0.00 - 0.06 [facility] 10*3/uL [facility] LYMPH x10^3 2.57 1.32 - 3.29 [facility] 10*3/uL [facility] MONO x10^3 0.61 0.33 - 0.92 [facility] 10*3/uL [facility] EOS x10^3 0.24 0.03 - 0.39 [facility] 10*3/uL [facility] BASO x10^3 0.06 0.01 - 0.07 [facility] 10*3/uL [facility] Specimen Blood - VENOUS Performing Organization Address City/State/Zipcode Phone Number [facility] CLIA: [id number], [address] [place] [address] Urinalysis (11/26/2019 9:50 AM DISTRIBUTION SALES REPRESENTATIVE) APPEARANCE Hazy (A) Clear [facility] COLOR Yellow Yellow [facility] PH 7.0 4.8 - 8.0 [facility] SP GRAVITY 1.016 1.003 - 1.030 [facility] GLU U QUAL Normal Normal [facility] BLOOD Negative Negative [facility] KETONES Negative Negative [facility] PROTEIN Negative Negative [facility] UROBILIN Normal Normal [facility] BILIRUBIN Negative Negative [facility] NITRITE Negative Negative [facility] LEUK OLGA Negative Negative [facility] RBC/HPF 2 0 - 3 HPF [facility] WBC/HPF <1 0 - 5 HPF [facility] BACTERIA Few (A) Negative [facility] SQ EPITH 3 HPF [facility] Specimen Urine - URINE, CLEAN CATCH Performing Organization Address City/[facility] Cent[facility] Phone Number [facility] CLIA: [id number], [address] [place] [address] Lipase, Serum (11/26/2019 9:50 AM DISTRIBUTION SALES REPRESENTATIVE) Pathologist [facility] LIPASE 51 0 - 220 U/L [facility] Specimen Blood - VENOUS Performing Organization Address City/[facility] Centercodc Phone Number [facility] CLIA: [id number], [address] [place] [address] Complete Metabolic Panel (11/26/2019 9:50 AM DISTRIBUTION SALES REPRESENTATIVE) [facility] Signature NA 140 135 - 145 [facility] mmol/L [facility] K 4.6 3.5 - 5.0 [facility] mmol/L [facility] CL 103 98 - 108 mmol/L [facility] CO2 TOTAL 33 (H) 23 - 31 mmol/L [facility] AGAP 4 2 - 16 [facility] BUN 14 7 - 23 mg/dL [facility] GLUCOSE 143 (H) 70 - 110 mg/dL [facility] CREATININE 0.52 0.50 - 1.04 [facility] mg/dL [facility] TOTAL BILI 0.3 0.1 - 1.1 mg/dL [facility] CALCIUM 9.9 8.6 - 10.6 [facility] mg/[facility]ORATORY T PROTEIN 8.0 6.3 - 8.2 g/dL [facility] ALBUMIN 4.7 3.5 - 5.0 g/dL [facility] ALK PHOS 101 34 - 122 U/L [facility] ALTv 28 5 - 35 U/L [facility] AST(SGOT) 31 13 - 40 U/L [facility] eGFR Calculation 122.9 mL/min/1.73m2 [facility] Finnish) eGFR Calculation 148.9 mL/min/1.73m2 [facility] () [facility] Specimen Blood - VENOUS Narrative Performed At Association of Glomerular Filtration Rate (GFR) [facility] and Staging of Kidney Disease* + + +- + | GFR (mL/min/1.73 m2) | With Kidney Damage | Without Kidney Damage + + +- + | >90 | Stage one | Normal + + +- + | 60-89 | Stage two | Decreased GFR + + +- + | 30-59 | Stage three | Stage three + + +- + | 15-29 | Stage four | Stage four + + +- + | <15 (or dialysis) | Stage five | Stage five + + +- + *Each stage assumes the associated GFR level has been in effect for at least three months. Stages 1 to 5, with or without kidney [...] tests). Performing Organization Address City/State/Zipcode Phone Number [facility] CLIA: [id number], [address] [place] [address] documented in this encounter Visit Diagnoses Diagnosis Flank pain - Primary Abdominal pain, unspecified site documented in this encounter Administered Medications Medication Order MAR Action Action Date Dose Rate Site diazePAM (VALIUM) injection 5 mg Given 11/26/2019 1:30 PM DISTRIBUTION SALES REPRESENTATIVE 5 mg 5 mg, Slow IV Push, ONCE, 1 dose, Tue11/26/19 at 1330, STAT ketorolac (TORADOL) injection 30 mg Given 11/26/2019 12:22 PM DISTRIBUTION SALES REPRESENTATIVE 30 mg 30 mg, Slow IV Push, ONCE, 1 dose, Tue11/26/19 at 1230, KRISTINE, human geography faculty member approving Restricted medication: LINDA PERZE morpHINE injection 4 mg Given 11/26/2019 10:08 AM DISTRIBUTION SALES REPRESENTATIVE 4 mg 4 mg, Slow IV Push, ONCE, 1 dose, Tue11/26/19 at 1100, STAT morpHINE injection 4 mg Given 11/26/2019 11:57 AM DISTRIBUTION SALES REPRESENTATIVE 4 mg 4 mg, Slow IV Push, ONCE, 1 dose, Tue11/26/19 at 1300, STAT ondansetron (ZOFRAN (PF)) injection 4 mg Given 11/26/2019 10:07 AM DISTRIBUTION SALES REPRESENTATIVE 4 mg 4 mg, Slow IV Push, ONCE, 1 dose, Tue11/26/19 at 1100, KRISTINE documented in this encounter Insurance Payer Benefit Plan / Subscriber ID Effective Phone Address Type Group [facility] [id number] 2017-Prese Medicare Adv HEALTHCARE HEALTHCARE DUAL nt PPO MEDICARE COMPLETE CHOICE ADVANTAGE [facility] STAR xxxxxxxxx 2018-Prese Medicaid HEALTHCARE COMM PLUS nt PLAN - MANAGED MEDICAID documented as of this encounter
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
--- OUTSIDE RECORDS SUMMARY | 2019-12-17 12:41 | XMS REPORT | Summary of Care ---
:1965 Author Organization [facility] - Health Address [address] [place] [address] Care Team Providers Name Role Phone Julito Mena MD Primary Care Provider Encounter Details Date Type Department Care Team Description 11/26/2019 Orders Only [facility] Doctor Unassigned, No [address] [facility] [place] [address] [address] [place] [address] Allergies Active Allergy Reactions Severity Noted Date [...] Bronchospasm. 

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
[2019-12-17] MEDS ORDERED: DIAZEPAM 5 MG TABLET ONE (13:48)
[2019-12-17] MEDS ORDERED: ONDANSETRON 4 MG (ODT) TAB ONE (13:49)
[2019-12-17] MEDS ORDERED: MORPHINE 4 MG/ML SYR ONE (13:49)
--- NOTE | 2019-12-17 14:10 | RAD REPORT ---
EXAM DESCRIPTION: RAD - Lumbar Spine 3 Views - 12/17/2019 2:02 pm CLINICAL HISTORY: Back pain FINDINGS: Four lumbar vertebra No fracture or dislocation Moderate disc space narrowing L4-S1 Mild spondylosis involves remainder lumbar spine. Osteoarthritis involves the facet joints of lower l umbar spine
--- NOTE | 2019-12-17 14:26 | EDPHYS ---
Physician Documentation [facility] Name: Smitha Ibarra Age: 54 yrs Sex: Female : 1965 Arrival Date: 12/17/2019 Time: 12:35 Bed 16 Private MD: ED Physician Sarbjit Nichols HPI: 12/17 14:19 This 54 yrs old Female presents to ER via Wheelchair with complaints of Flank ma2 Pain, Back Pain. 14:19 The pain does not radiate. Onset: The symptoms/episode began/occurred gradually, 1 ma2 week(s) ago. Associated signs and symptoms: Pertinent negatives: dysuria, hematuria, nausea. Severity of pain: At its worst the pain was moderate in the emergency department the pain is unchanged. The patient has experienced similar episodes in the past. Historical: - Allergies: 12:51 Sudafed; hb - Home Meds: 13:54 amlodipine 10 mg tab 1 tab once daily [Active]; aspirin 81 mg Oral TbEC 1 tab once bp daily [Active]; atorvastatin 20 mg Oral tab 1 tab once daily [Active]; Dilantin 100 mg Oral 4 cap daily [Active]; Januvia 50 mg Oral tab 1 tabs once daily [Active]; lisinopril 40 mg Oral tab 1 tab once daily [Active]; ProAir HFA 90 mcg/actuation inhalation HFAA 1 puff every 4-6 hours [Active]; Magnesium Oxide Oral daily [Active]; - PMHx: 13:54 Arthritis; COPD; Diabetes - NIDDM; High Cholesterol; Hypertension; Seizures; bp - Immunization history:: Adult Immunizations up to date. - Coronavirus screen:: The patient has NOT traveled to [place] in the past 14 days. The patient has NOT had contact with known/suspected case of Coronavirus? Proceed with normal triage procedures. - Social history:: Patient/guardian denies using alcohol, street drugs, The patient lives with family, Smoking status: Patient reports the use of cigarette tobacco products, smokes one-half pack cigarettes per day. - Family history:: not pertinent. - Ebola Screening: : No symptoms or risks identified at this time. ROS: 14:19 Constitutional: Negative for fever, chills, and weight loss. ma2 14:19 All other systems are negative. Exam: 14:19 Constitutional: This is a well developed, well nourished patient who is awake, alert, ma2 and in no acute distress. Chest/axilla: Normal chest wall appearance and motion. Nontender with no deformity. No lesions are appreciated. Cardiovascular: Regular rate and rhythm with a normal S1 and S2. No gallops, murmurs, or rubs. Normal PMI, no JVD. No pulse deficits. Respiratory: Lungs have equal breath sounds bilaterally, clear to auscultation and percussion. No rales, rhonchi or wheezes noted. No increased work of breathing, no retractions or nasal flaring. Abdomen/GI: Soft, non-tender, with normal bowel sounds. No distension or tympany. No guarding or rebound. No evidence of tenderness throughout. Back: No spinal tenderness. No costovertebral tenderness. Full range of motion. MS/ Extremity: Pulses equal, no cyanosis. Neurovascular intact. Full, normal range of motion. Neuro: Awake and alert, GCS 15, oriented to person, place, time, and situation. Cranial nerves II-XII grossly intact. Motor strength 5/5 in all extremities. Sensory grossly intact. Cerebellar exam normal. Normal gait. Vital Signs: 12:51 BP 147 / 96; Pulse 89; Resp 16; Temp 98.1; Pulse Ox 100% on R/A; Weight 92.99 kg; hb Height 5 ft. 7 in. (170.18 cm); Pain 10/10; 14:30 BP 148 / 89; Pulse 79; Resp 17; Pulse Ox 100% ; bp 15:29 BP 138 / 85; Pulse 81; Resp 16; Temp 98; Pulse Ox 99% ; bp 12:51 Body Mass Index 32.11 (92.99 kg, 170.18 cm) hb MDM: 13:10 Patient medically screened. ma2 14:19 Differential diagnosis: low back pain. Data reviewed: vital signs, nurses notes. ma2 Counseling: I had a detailed discussion with the patient and/or guardian regarding: the historical points, exam findings, and any diagnostic results supporting the discharge/admit diagnosis, the presence of at least one elevated blood pressure reading (>120/80) during this emergency department visit, the need for outpatient follow up. Response to treatment: the patient's symptoms have markedly improved after treatment. 12/17 13:36 Order name: Lumbar Spine (3 Views) XRAY ma2 Administered Medications: 13:45 Drug: morphine 4 mg Route: IM; Site: right gluteus; bp 15:33 Follow up: Response: Pain is decreased bp 13:45 Drug: Zofran 4 mg Route: PO; bp 15:33 Follow up: Response: No adverse reaction bp 13:45 Drug: Valium 5 mg Route: PO; bp 15:33 Follow up: Response: No adverse reaction bp Disposition: 12/17/19 14:21 Discharged to Home. Impression: Low back pain. - Condition is Stable. - Discharge Instructions: Back Pain, Adult. - Prescriptions for Tylenol- Codeine #3 300-30 mg Oral Tablet - take 2 tablet by ORAL route every 6 hours As needed; 30 tablet. Valium 10 mg Oral Tablet - take 1 tablet by ORAL route every 8 hours As needed; 20 tablet. Medrol (Kwame) 4 mg Oral Tablets, Dose Pack - take 1 tablet by ORAL route as directed - follow package instructions; 1 packet. - Medication Reconciliation Form, Thank You Letter, Antibiotic Education, Prescription Opioid Use form. - Follow up: Private Physician; When: Tomorrow; Reason: If symptoms return, Continuance of care. Signatures: Dispatcher [employer] EDAditi Fernandez RN RN Reji Cabral RN RN bp Sarbjit Nichols MD MD ma2 Corrections: (The following items were deleted from the chart) 15:34 14:21 12/17/2019 14:21 Discharged to Home. Impression: Low back pain. Condition is bp Stable. Prescriptions for Tylenol-Codeine #3 300-30 mg Oral Tablet - take 2 tablet by ORAL route every 6 hours As needed; 30 tablet, Valium 10 mg Oral Tablet - take 1 tablet by ORAL route every 8 hours As needed; 20 tablet, Medrol (Kwame) 4 mg Oral Tablets, Dose Pack - take 1 tablet by ORAL route as directed - follow package instructions; 1 packet. and Forms are Medication Reconciliation Form, Thank You Letter, Antibiotic Education, Prescription Opioid Use. Follow up: Private Physician; When: Tomorrow; Reason: If symptoms return, Continuance of care. ma2
--- NOTE | 2019-12-17 14:26 | ER ---
Nurse's Notes [facility] Name: Smitha Ibarra Age: 54 yrs Sex: Female : 1965 Arrival Date: 12/17/2019 Time: 12:35 Bed 16 Private MD: Diagnosis: Low back pain Presentation: 12/17 12:49 Presenting complaint: Severe right low back pain that radiates to right leg and right hb leg numbness + tingling after picking up box 30 mins ago. Transition of care: patient was not received from another setting of care. Onset of symptoms was December 17, 2019. Risk Assessment: Do you want to hurt yourself or someone else? Patient reports no desire to harm self or others. Care prior to arrival: None. 12:49 Method Of Arrival: Wheelchair 12:49 Acuity: PRECIOUS 3 hb 12:50 Initial Sepsis Screen: Does the patient meet any 2 criteria? No. Patient's initial bp sepsis screen is negative. Does the patient have a suspected source of infection? No. Patient's initial sepsis screen is negative. Triage Assessment: 12:50 General: Appears in no apparent distress. comfortable, Behavior is cooperative, bp appropriate for age, agitated, anxious. Pain: Complains of pain in right lower back, right gluteus jaspreet and right leg. EENT: No deficits noted. Neuro: No deficits noted. Cardiovascular: No deficits noted. Respiratory: No deficits noted. GI: No signs and/or symptoms were reported involving the gastrointestinal system. : No signs and/or symptoms were reported regarding the genitourinary system. Derm: No deficits noted. Musculoskeletal: Circulation, motion, and sensation intact. Range of motion: intact in all extremities. Historical: - Allergies: 12:51 Sudafed; hb - Home Meds: 13:54 amlodipine 10 mg tab 1 tab once daily [Active]; aspirin 81 mg Oral TbEC 1 tab once bp daily [Active]; atorvastatin 20 mg Oral tab 1 tab once daily [Active]; Dilantin 100 mg Oral 4 cap daily [Active]; Januvia 50 mg Oral tab 1 tabs once daily [Active]; lisinopril 40 mg Oral tab 1 tab once daily [Active]; ProAir HFA 90 mcg/actuation inhalation HFAA 1 puff every 4-6 hours [Active]; Magnesium Oxide Oral daily [Active]; - PMHx: 13:54 Arthritis; COPD; Diabetes - NIDDM; High Cholesterol; Hypertension; Seizures; bp - Immunization history:: Adult Immunizations up to date. - Coronavirus screen:: The patient has NOT traveled to [place] in the past 14 days. The patient has NOT had contact with known/suspected case of Coronavirus? Proceed with normal triage procedures. - Social history:: Patient/guardian denies using alcohol, street drugs, The patient lives with family, Smoking status: Patient reports the use of cigarette tobacco products, smokes one-half pack cigarettes per day. - Family history:: not pertinent. - Ebola Screening: : No symptoms or risks identified at this time. Screenin:52 Abuse screen: Denies threats or abuse. Denies injuries from another. Nutritional bp screening: No deficits noted. Tuberculosis screening: No symptoms or risk factors identified. Fall Risk None identified. Assessment: 12:50 General: SEE TRIAGE NOTE. Pain: Complains of pain in right leg and buttocks and right bp gluteus jaspreet and right lower back. Neuro: Level of Consciousness is awake, alert, obeys commands, Oriented to person, place, time, situation, Appropriate for age Moves all extremities. Full function. 13:50 Reassessment: PT TO RADIOLOGY WITH GREEN MEAT PACKER. bp 14:18 Reassessment: PT RETURNED FROM CT. ALL CURRENT ORDERS COMPLETED. bp 15:29 Reassessment: PT D/C HOME VIA W/C WITH FAMILY, DX WITH BACK PAIN. bp Vital Signs: 12:51 BP 147 / 96; Pulse 89; Resp 16; Temp 98.1; Pulse Ox 100% on R/A; Weight 92.99 kg; hb Height 5 ft. 7 in. (170.18 cm); Pain 10/10; 14:30 BP 148 / 89; Pulse 79; Resp 17; Pulse Ox 100% ; bp 15:29 BP 138 / 85; Pulse 81; Resp 16; Temp 98; Pulse Ox 99% ; bp 12:51 Body Mass Index 32.11 (92.99 kg, 170.18 cm) hb ED Course: 12:35 Patient arrived in ED. rg4 12:50 Triage completed. hb 12:51 Arm band placed on. hb 13:10 Sarbjit Nichols MD is Attending Physician. ma2 13:16 Reji Marquez, RN is Primary Nurse. bp 13:52 Patient has correct armband on for positive identification. Bed in low position. Call bp light in reach. Side rails up X2. Adult w/ patient. 14:20 Lumbar Spine (3 Views) XRAY In Process Unspecified. EDMS 14:30 No provider procedures requiring assistance completed. Patient did not have IV access bp during this emergency room visit. Administered Medications: 13:45 Drug: morphine 4 mg Route: IM; Site: right gluteus; bp 15:33 Follow up: Response: Pain is decreased bp 13:45 Drug: Zofran 4 mg Route: PO; bp 15:33 Follow up: Response: No adverse reaction bp 13:45 Drug: Valium 5 mg Route: PO; bp 15:33 Follow up: Response: No adverse reaction bp Outcome: 14:21 Discharge ordered by MD. johnson 14:30 Discharged to home via wheelchair, with family. bp 14:30 Condition: stable 14:30 Discharge instructions given to patient, Instructed on discharge instructions, follow up and referral plans. medication usage, Demonstrated understanding of instructions, follow-up care, medications, Prescriptions given X 3. 15:34 Patient left the ED. bp Signatures: Dispatcher [employer] EDMS Aditi Thompson RN RN hb Garcia, Rubi rg4 Reji Marquez, RN RN bp Sarbjit Nichols MD MD ma2 Corrections: (The following items were deleted from the chart) 12:55 12:49 Presenting complaint: Severe right low back pain that radiates to right leg after hb picking up box 30 mins ago. hb
[2019-12-17 17:02] VITALS: BP 138/85; TEMP 98; O2SAT 99
== END 2019-12-17 15:34 | disposition home or self-care (01) ==
LOC: ER 12:34
DX: M54.5 Low back pain (principal); F17.210 Nicotine dependence, cigarettes, uncomplicated; I10 Essential (primary) hypertension; E11.9 Type 2 diabetes mellitus without complications; E78.00 Pure hypercholesterolemia, unspecified; J44.9 Chronic obstructive pulmonary disease, unspecified; Z79.4 Long term (current) use of insulin; Z79.82 Long term (current) use of aspirin; Z88.8 Allergy status to other drugs, medicaments and biological substances
CPT/HCPCS: 72100; 96372; 99283

== ENCOUNTER 2020-07-08 10:12 | Emergency (ER) | payer OTHER ==
--- OUTSIDE RECORDS SUMMARY | 2020-07-08 10:34 | XMS REPORT | Summary of Care ---
:1965 Author Organization 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 Visit [facility] Trung Mena MD [address] [place] [address] [address] [place] [address] Essential hypertension; Professional Office 2, Adc Lab Diabetes mellitus type II, non insulin d ependent; Building Phlebotomy Mixed hy perlipidemia Lab Professional Office Building [address] [place] [address] , [address] [place] [address] Allergies Active Allergy Reactions Severity Noted Date Comments Pseudoephedrine Hcl Unknown - See comments 05/10/2019 documented as of this encounter (statuses as of 07/03/2020) Medications Medication Sig Dispensed Refills Start Date End Date Status Magnesium Oxide 500 mg Take by mouth. 0 Active Cap docusate 100 mg Take 1 capsule 60 capsule 2 05/13/2019 Active capsuleIndications: by mouth 2 (two) Ovarian torsion times daily as needed for Constipation. Fluticasone-Salmeterol Inhale 1 Puff. 0 Active 100-50 mcg/dose inhalation disk metFORMIN 1,000 mg Take 1,000 mg by 0 Active tablet mouth. umeclidinium 62.5 Inhale 62.5 mcg. 0 Active mcg/actuation DsDv diclofenac 50 mg Take 1 tablet by 60 tablet 1 02/11/2020 Active tabletIndications: mouth 3 (three) Lumbar radiculopathy, times daily as Lumbosacral needed for Pain spondylosis without (scale 4-6). myelopathy ipratropium-albuteroL Inhale 3 mL 1 Box 5 07/03/2020 Active 0.5 mg-3 mg(2.5 mg every 6 (six) base)/3 mL nebulizer hours as needed solutionIndications: for Wheezing or Bronchitis, Moderate Bronchospasm. persistent asthma without complication albuterol (PROAIR HFA) INHALE 2 PUFFS 8.5 g 3 07/03/2020 Active 90 mcg/actuation BY MOUTH inhalerIndications: NEEDED FOR Bronchitis, Moderate SOB/WHEEZING persistent asthma EVERY 4-6 HRS without complication lisinopriL 40 mg Take 1 tablet by 90 tablet 1 07/03/2020 Active tabletIndications: mouth daily. Essential hypertension SITagliptin (JANUVIA) Take 1 tablet by 90 tablet 1 07/03/2020 Active 100 mg mouth daily. tabletIndications: Diabetes mellitus type II, non insulin dependent atorvastatin 20 mg Take 1 tablet by 90 tablet 1 07/03/2020 Active tabletIndications: mouth at Mixed hyperlipidemia bedtime. amLODIPine 10 mg Take 1 tablet by 90 tablet 1 07/03/2020 Active tabletIndications: mouth daily. Essential hypertension aspirin 81 mg EC Take 1 tablet by 90 tablet 1 07/03/2020 Active tabletIndications: mouth daily. Essential hypertension, Diabetes mellitus type II, non insulin dependent diclofenac 50 mg EC Take 1 tablet by 30 tablet 0 07/03/2020 Active tabletIndications: mouth daily. Chronic left shoulder pain omeprazole 20 mg Take 1 capsule 90 capsule 0 07/03/2020 Active capsuleIndications: by mouth daily. Gastroesophageal reflux disease without esophagitis tiZANidine 2 mg Take 1 tablet by 30 tablet 1 07/03/2020 Active tabletIndications: mouth every 8 Chronic left shoulder (eight) hours as pain needed (muscle spasms). phenytoin ER 200 mg ER Take 2 capsules 180 capsule 3 0 Active capsuleIndications: by mouth daily. Seizure disorder Diclofenac Sodium Apply to 100 g 1 07/03/2020 A ctive (VOLTAREN) 1 % area(s) 4 (four) gelIndications: times daily. Chronic left shoulder Apply 4 g qid pain nicotine 7 mg/24 hr Apply 1 Patch to 14 Patch 0 07/03/2020 Active patchIndications: area(s) every 24 Cigarette nicotine (twenty-four) dependence without hours. Apply complication 21mg patch daily x 6 weeks; then apply 14mg patch daily x 2 weeks; then apply 7mg patch daily x 2 weeks; stop Smoking on initiation of therapy. nicotine 21 mg/24 hr Apply 1 Patch to 42 Patch 0 07/03/2020 Active patchIndications: area(s) every 24 Cigarette nicotine (twenty-four) dependence without hours. Apply complication 21mg patch daily x 6 weeks; then apply 14mg patch daily x 2 weeks; then apply 7mg patch daily x 2 weeks; stop Smoking on initiation of therapy. nicotine 14 mg/24 hr Apply 1 Patch to 14 Patch 0 07/03/2020 Active patchIndications: area(s) every 24 Cigarette nicotine (twenty-four) dependence without hours. Apply complication 21mg patch daily x 6 weeks; then apply 14mg patch daily x 2 weeks; then apply 7mg patch daily x 2 weeks; stop Smoking on initiation of therapy. documented as of this encounter (statuses as of 07/03/2020) Active Problems Problem Noted Date Diabetes mellitus type II, non insulin dependent 07/03 Mixed hyperlipidemia 07/03/2020 Gastroesophageal reflux disease without esophagitis Chronic left shoulder pain 07/03/2020 Cataract of left eye, unspecified cataract type 2019 S/P right cataract extraction 07/03/2020 Cigarette nicotine dependence without complication 07/2020 Bronchitis 07/09/2019 Puncture wound of right hand without foreign body, ini tial encounter 07/09/2019 Encounter for screening colonoscopy 07/09/2019 Need for 23-polyvalent pneumococcal polysaccharide vac cine 07/09/2019 Primary osteoarthritis of left knee 07/09/2019 Seizure disorder 07/09/2019 Tobacco use 05/11/2019 Asthma 05/11/2019 Essential hypertension 05/11/2019 Obesity (BMI 30-39.9) 05/10/2019 Ovarian torsion 05/10/2019 Torsion of left ovary and ovarian pedicle 05/10/2019 Overview: Added automatically from request for valente young [id number] Localized enlarged lymph nodes 11/23/2017 Lung mass 11/23/2017 Other nonspecific abnormal finding of lung field 11/23 Overview: Added automatically from request for surgery [id number] Last Assessment & Plan: RLL consolidation seen on 10/21/[address] Refractory to multiple rounds of antibiotics. 11/24/[address] biopsy negative for met astatic carcinoma. BAL significant for Haemophilus parainfluenza and moderate Actinomyces naeslundii. Appears to have resolved on today's CXR. We would like to continue follow up with repeat CT chest in March 2018. She was given the option to have this done locally through her local sight mounter and bring imaging with her in March 2018. documented as of this encounter (statuses as of 07/03/2020) Immunizations Name Administration Dates Next Due Pneumococcal Polysaccharide, PPSV23 (PNEUMOVAX) 07/09/2019 TDAP 07/09/2019 documented as of this encounter Social History Tobacco Use Types Packs/Day Years Used Date Current Every Day Smoker Smokeless Tobacco: Never Used Alcohol Use Drinks/Week oz/Week Comments Not Currently Sex Assigned at Date Recorded Not on file COVID-19 Exposure Response Date Recorded In the last month, have you been in contact with No / Unsure 07/03/2020 1:46 PM CDT someone who was confirmed or suspected to have Coronavirus / COVID-19? documented as of this encounter Last Filed Vital Signs Not on filedocumented in this encounter Nursing Notes Padmini Juarez - 07/03/2020 4:15 PM CDT Venipuncture collection performed by clean technique on the left anticubitus. Total of 1 attempts were made. Slight pressure and a bandage/dressing were applied to the site(s). The patient experienced no complications. The following specimens were processed according to instructions and sent to [facility] laboratories per lab order on 07/03/20: LT BLUE SST 1 RED LAV 2 PPT DK GREEN (LiHep) DK GREEN (SodH) DAVISON DK BLUE (K2) DK BLUE (S) ACD Blood Culture NIPT/NTD documented in this encounter Plan of Treatment Date Type Specialty Care Team Description 10/02/2020 Office Visit Family Medicine Julito Mena MD [address] [place] [address] Dr [address] [place] [address] 15 [phone] Health Maintenance Due Date Last Done Comments LDL-C 1975 URINE MICROALBUMIN 1975 COLON CANCER SCREENING ANNUAL 2015 FIT/FOBT COLON CANCER SCREENING FIT DNA EVERY 2015 3 YEARS COLON CANCER SCREENING SIGMOIDOSCOPY 2015 EVERY 5 YEARS COLONOSCOPY 2015 Colorectal Cancer Screening 2015 Zoster Recombinant Vaccine (SHINGRIX) 2015 (1 of 2) HgA1C 11/10/2019 05/10/2019 LUNG CANCER SCREEN: Recommended for 01/06/2020 age 55-80 with 30 + pack year history Breast Cancer Screening (MAMMOGRAM) 05/17/2020 05/17/2019 INFLUENZA VACCINE (#1) 2020 CREATININE (SERUM) 11/26/2020 11/26/2019, 05/23/2019, 05/10/2019 Depression Screening 12/30/2020 12/31/2019 EYE EXAM 04/22/2021 04/22/2020 FOOT EXAM 07/03/2021 07/03/2020 PAP SMEAR 05/10/2022 05/10/2019 DTaP,Tdap,and Td Vaccines (2 - Td) 07/09/2029 07/09/2019 HEPATITIS C (HCV) SCREEN Completed 07/09/2019 PNEUMOCOCCAL 0-64 YEARS COMBINED Completed 07/09/2019 SERIES documented as of this encounter Results Not on filedocumented in this encounter Visit Diagnoses Diagnosis Essential hypertension Unspecified essential hypertension Diabetes mellitus type II, non insulin d ependent Type II or unspecified type diabetes annie litus without mention of complication, not stated as uncontrolled Mixed hyperlipidemia documented in this encounter Insurance Payer Benefit Plan / Subscriber ID Effective Dates Phone Addre ss Type Group [facility] [id number] 2018-Present Medicaid COMM PLAN - PLUS MANAGED MEDICAID documented as of this encounter
--- OUTSIDE RECORDS SUMMARY | 2020-07-08 10:34 | XMS REPORT | Summary of Care ---
:1965 Author Organization [facility] - Health Address [address] [place] [address] Care Team Providers Name Role Phone Julito Mena MD Primary Care Provider Encounter Details Date Type Department Care Team Description 07/03/2020 Orders Only [facility] Doctor Unassigned, No [address] [facility] [place] [address] [address] [place] [address] Allergies Active Allergy Reactions Severity Noted Date Comments Pseudoephedrine Hcl Unknown - See comments 05/10/2019 documented as of this encounter (statuses as of 07/03/2020) Medications Medication Sig Dispensed Refills Start Date End Date Status lisinopril 40 mg tablet Take 40 mg by 2 02/23/2019 Active mouth daily. JANUVIA 100 mg tablet Take 100 mg by 2 02/11/2019 Active mouth daily. amLODIPine 10 mg tablet Take 1 tablet 2 02/11/2019 Active by mouth daily. diclofenac 50 mg EC Take 1 tablet 2 02/11/2019 Active tablet by mouth daily. aspirin 81 mg EC tablet Take 81 mg by 0 Active mouth. atorvastatin 20 mg tablet Take 20 mg by 0 Active mouth at bedtime. Magnesium Oxide 500 mg Take by 0 Active Cap mouth. docusate 100 mg Take 1 capsule 60 capsule 2 05/13/2019 Active capsuleIndications: by mouth 2 Ovarian torsion (two) times daily as needed for Constipation. HYDROcodone-acetaminophen Take 1 tablet 30 tablet 0 05/13/2019 Active 5-325 mg by mouth every tabletIndications: 4 (four) hours Ovarian torsion as needed for Pain (scale 7-10). HYDROcodone-acetaminophen Take 1 tablet 20 tablet 0 05/17/2019 Active 5-325 mg by mouth every tabletIndications: 6 (six) hours Encounter for as needed for postoperative wound check Pain (scale 7-10). ipratropium-albuterol 0.5 Inhale 3 mL 1 Box 5 07/09/2019 Active mg-3 mg(2.5 mg base)/3 mL every 6 (six) nebulizer hours as solutionIndications: needed for Bronchitis, Moderate Wheezing or persistent asthma without Bronchospasm. complication albuterol (PROAIR HFA) 90 INHALE 2 PUFFS 8.5 g 3 9 Active mcg/actuation BY MOUTH inhalerIndications: NEEDED FOR Bronchitis, Moderate SOB/WHEEZING persistent asthma without EVERY 4-6 HRS complication phenytoin ER 300 mg ER Take 1 capsule 90 capsule 0 07/09/2019 Active capsuleIndications: by mouth Seizure disorder daily. cyclobenzaprine 10 mg Take 1 tablet 12 tablet 0 11/26/2019 Active tabletIndications: Flank by mouth 3 pain (three) times daily as needed for Muscle Spasms. acetaminophen-codeine Take 1 tablet 30 tablet 0 11/26/2019 Active (TYLENOL-CODEINE #3) by mouth every 300-30 mg 4 (four) hours tabletIndications: Flank as needed for pain Pain (scale 1-3). diazePAM 10 mg tablet TAKE 1 TABLET 0 12/17/2019 Active BY MOUTH EVERY 8 HOURS NEEDED Fluticasone-Salmeterol Inhale 1 Puff. 0 Active 100-50 mcg/dose inhalation disk metFORMIN 1,000 mg tablet Take 1,000 mg 0 Active by mouth. methylPREDNISolone 4 mg TAKE 0 12/17/2019 Active tablets DIRECTED ON BACK OF PILL PACKAGE omeprazole 20 mg capsule Take 20 mg by 0 11/26/2019 Active mouth daily. umeclidinium 62.5 Inhale 62.5 0 Active mcg/actuation DsDv mcg. diclofenac 50 mg Take 1 tablet 60 tablet 1 02/11/2020 Active tabletIndications: Lumbar by mouth 3 radiculopathy, (three) times Lumbosacral spondylosis daily as without myelopathy needed for Pain (scale 4-6). documented as of this encounter (statuses as of 07/03/2020) Active Problems Problem Noted Date Bronchitis 07/09/2019 [...] Overview: Added automatically from request for valente hector [id number] Localized enlarged lymph nodes 11/23/2017 Lung mass 11/23/2017 Other nonspecific abnormal finding of lung field 11/23 Overview: Added automatically from request for surgery [id number] Last Assessment & Plan: RLL consolidation seen [...] have this done locally through her local outreach liaison and bring imaging with her in March [...] filedocumented in this encounter Plan of Treatment Health Maintenance Due Date Last Done Comments EYE EXAM 1975 LDL-C 1975 URINE MICROALBUMIN 1975 FOOT EXAM 1983 COLON CANCER SCREENING ANNUAL 2015 FIT/FOBT COLON [...] 11/26/2019, 05/23/2019, 05/10/2019 Depression Screening 12/30/2020 12/31/2019 PAP SMEAR 05/10/2022 05/10/2019 DTaP,Tdap,and Td Vaccines (2 - Td) 07/09/2029 07/09/2019 HEPATITIS C (HCV) SCREEN Completed 07/09/2019 PNEUMOCOCCAL 0-64 YEARS COMBINED Completed 07/09/2019 SERIES documented as of this encounter Procedures Procedure Name Priority Date/Time Associated Diagnosis Comme nts ASSIGNMENT OF BENEFITS Routine 07/03/2020 1:49 PM CDT documented in this encounter Results Not on filedocumented in this encounter Insurance Payer Benefit Plan / Subscriber ID Effective Dates Phone Addre ss Type Group [facility] [id number] 2018-Present Medicaid COMM PLAN - PLUS MANAGED MEDICAID documented as of this encounter
[2020-07-08] MEDS ORDERED: ONDANSETRON 4 MG/2 ML VIAL ONE (11:10)
[2020-07-08] MEDS ORDERED: MORPHINE 4 MG/ML SYR ONE (11:10)
[2020-07-08] MEDS ORDERED: dexAMETHasone 10 MG/ML VIAL ONE (11:10)
[2020-07-08] MEDS ORDERED: DIAZEPAM 5 MG TABLET ONE (11:10)
[2020-07-08] MEDS ORDERED: NA CHLORIDE 0.9% 1,000 ML ONE (11:11)
[2020-07-08] MEDS ORDERED: KETOROLAC 30 MG/ML INJ ONE (11:11)
[2020-07-08 11:29] LABS: Absolute Lymphocytes (CBC) 2.3 K/uL (0.7-4.9); Basophils % 0.8 % (0-1.3); Hematocrit 40.5 % (36.0-45.0); Lymphocytes % 27.5 % (15.3-44.8); MPV 9.5 fL (7.6-11.3); RBC Red Blood Cell Count 4.32 M/uL (3.86-4.86)
[2020-07-08 11:46] LABS: Bilirubin Total 0.6 mg/dL (0.2-1.0); Potassium 3.4 mmol/L (3.5-5.1); Protein, Total 7.3 g/dL (6.4-8.2)
--- NOTE | 2020-07-08 12:00 | ER ---
Nurse's Notes [facility] Name: Smitha Ibarra Age: 55 yrs Sex: Female : 1965 Arrival Date: 07/08/2020 Time: 10:14 Bed 15 Private MD: Diagnosis: Pain in left shoulder;Radiculopathy, cervical region;Tobacco abuse counseling;Tobacco use;Chronic obstructive pulmonary disease, unspecified;Hypokalemia Presentation: 07/08 10:23 Chief complaint: Patient states: Left shoulder pain for over 1 month, chronic. Saw PCP ll1 last week. See's a specialist 07/18/20. Coronavirus screen: Client denies travel out of the [place] in the last 14 days. At this time, the client does not indicate any symptoms associated with coronavirus-19. Ebola Screen: Patient denies travel to an Ebola-affected area in the 21 days before illness onset. Initial Sepsis Screen: Does the patient meet any 2 criteria? RR > 20 per min. Risk Assessment: Do you want to hurt yourself or someone else? Patient reports no desire to harm self or others. Onset of symptoms was June 07, 2020. 10:23 Method Of Arrival: Ambulatory ll1 10:23 Acuity: PRECIOUS 4 ll1 Historical: - Allergies: 10:25 Sudafed; ll1 - PMHx: 10:25 Arthritis; High Cholesterol; Hypertension; Diabetes - NIDDM; COPD; Seizures; ll1 - PSHx: 10:25 Hysterectomy; ll1 - Immunization history:: Flu vaccine is up to date. - Social history:: Smoking status: Patient reports the use of cigarette tobacco products, smokes one-half pack cigarettes per day, Patient uses alcohol, only on a social basis. Patient/guardian denies using IV drugs. - Family history:: not pertinent. Screenin:34 Abuse screen: Denies threats or abuse. Denies injuries from another. Nutritional jl7 screening: No deficits noted. Tuberculosis screening: No symptoms or risk factors identified. Fall Risk IV access (20 points). Total Blunt Fall Scale indicates No Risk (0-24 pts). Assessment: 10:45 General: Appears in no apparent distress. uncomfortable, Behavior is cooperative, jl7 anxious, crying. Pain: Complains of pain in left shoulder Pain currently is 10 out of 10 on a pain scale. Pain began years ago. Is continuous. Neuro: Level of Consciousness is awake, alert, obeys commands, Oriented to person, place, time, situation. Cardiovascular: Patient's skin is warm and dry. Respiratory: Airway is patent Respiratory effort is even, unlabored, Respiratory pattern is regular, symmetrical. Derm: Skin is pink, warm \T\ dry. Musculoskeletal: Range of motion: intact in all extremities. 12:00 Reassessment: Patient appears in no apparent distress at this time. Patient and/or jl7 family updated on plan of care and expected duration. Pain level reassessed. Patient is alert, oriented x 3, equal unlabored respirations, skin warm/dry/pink. Patient states symptoms have improved. Vital Signs: 10:23 BP 140 / 73; Pulse 95; Resp 20; Temp 97.0; Pulse Ox 98% ; Pain 10/10; ll1 11:00 BP 141 / 68; Pulse 88; Resp 15; Pulse Ox 96% ; Pain 10/10; jl7 12:00 BP 133 / 83; Pulse 85; Resp 16; Pulse Ox 100% ; jl7 ED Course: 10:14 Patient arrived in ED. as 10:25 Triage completed. ll1 10:25 Arm band placed on Patient placed in an exam room, on a stretcher. ll1 10:30 Neftali Crawford MD is Attending Physician. dinesh 10:34 Amisha Bryant, TACOS is Primary Nurse. jl7 11:34 Patient has correct armband on for positive identification. Placed in gown. Bed in low jl7 position. Call light in reach. Side rails up X 1. Pulse ox on. NIBP on. Warm blanket given. 11:34 Initial lab(s) drawn, by wv, sent to lab. Inserted saline lock: 20 gauge in right jl7 antecubital area, using aseptic technique. Blood collected. 11:45 EKG done, by ED staff, reviewed by Neftali Crawford MD. em1 12:00 Nilesh Gan MD is Referral Physician. dinesh 12:06 Shoulder Left (2 View) XRAY In Process Unspecified. EDMS 12:06 C Spine Ap/Lat XRAY In Process Unspecified. EDMS 12:12 No provider procedures requiring assistance completed. IV discontinued, intact, jl7 bleeding controlled, No redness/swelling at site. Pressure dressing applied. Administered Medications: 10:15 Drug: Valium 5 mg Route: PO; jl7 12:11 Follow up: Response: No adverse reaction; Pain is decreased jl7 10:18 Drug: Zofran (Ondansetron) 4 mg Route: IVP; Site: right antecubital; jl7 12:10 Follow up: Response: No adverse reaction jl7 10:20 Drug: NS 0.9% 1000 ml Route: IV; Rate: 1 bolus; Site: right antecubital; jl7 12:11 Follow up: Response: No adverse reaction; IV Status: Completed infusion jl7 10:20 Drug: Decadron - Dexamethasone 10 mg Route: IVP; Site: right antecubital; jl7 12:11 Follow up: Response: No adverse reaction; Pain is decreased jl7 10:21 Drug: TORadol 30 mg Route: IVP; Site: right antecubital; jl7 12:11 Follow up: Response: No adverse reaction; Pain is decreased jl7 11:32 Drug: morphine 4 mg Route: IVP; Site: right antecubital; jl7 11:50 Follow up: Response: Pain is decreased jl7 12:10 Follow up: Response: No adverse reaction jl7 Outcome: 12:00 Discharge ordered by MD. montiel 12:12 Discharged to home ambulatory. jl7 12:12 Condition: stable 12:12 Discharge instructions given to patient, Instructed on discharge instructions, follow up and referral plans. medication usage, Demonstrated understanding of instructions, follow-up care, medications, Prescriptions given X 4. 12:16 Patient left the ED. jl7 Signatures: Dispatcher [employer] EDME Neftali Crawford MD MD cha Martinez, Amelia as Martinez, Eric em1 Amisha Bryant RN RN jl7 Tommy Powell RN RN ll1
--- NOTE | 2020-07-08 12:00 | EDPHYS ---
Physician Documentation [facility] Name: Smitha Ibarra Age: 55 yrs Sex: Female : 1965 Arrival Date: 07/08/2020 Time: 10:14 Bed 15 Private MD: Neftali Gonzalez HPI: 07/08 10:53 This 55 yrs old Female presents to ER via Ambulatory with complaints of dinesh Shoulder Pain. 10:53 The patient or guardian complains of decreased range of motion, pain. left shoulder, dinesh left trapezius and left sternocleidomastoid. Context: The problem was sustained at an unknown site. Onset: The symptoms/episode began/occurred 3 day(s) ago. Modifying factors: the symptoms are alleviated by nothing. remaining still, The symptoms are aggravated by movement, rotation of arm. Associated signs and symptoms: The patient has no apparent associated signs or symptoms. Severity of symptoms: At their worst the symptoms were moderate, severe. Treatment prior to arrival includes: no previous treatment. The patient has experienced similar episodes in the past, a few times. Historical: - Allergies: 10:25 Sudafed; ll1 - PMHx: 10:25 Arthritis; High Cholesterol; Hypertension; Diabetes - NIDDM; COPD; Seizures; ll1 - PSHx: 10:25 Hysterectomy; ll1 - Immunization history:: Flu vaccine is up to date. - Social history:: Smoking status: Patient reports the use of cigarette tobacco products, smokes one-half pack cigarettes per day, Patient uses alcohol, only on a social basis. Patient/guardian denies using IV drugs. - Family history:: not pertinent. ROS: 10:53 Constitutional: Negative for fever, chills, and weight loss, Eyes: Negative for injury, dinesh pain, redness, and discharge, ENT: Negative for injury, pain, and discharge, Neck: Negative for injury, pain, and swelling, Cardiovascular: Negative for chest pain, palpitations, and edema, Respiratory: Negative for shortness of breath, cough, wheezing, and pleuritic chest pain, Abdomen/GI: Negative for abdominal pain, nausea, vomiting, diarrhea, and constipation, Back: Negative for injury and pain, : Negative for injury, bleeding, discharge, and swelling, Skin: Negative for injury, rash, and discoloration, Neuro: Negative for headache, weakness, numbness, tingling, and seizure, Psych: Negative for depression, anxiety, suicide ideation, homicidal ideation, and hallucinations, Allergy/Immunology: Negative for hives, rash, and allergies, Endocrine: Negative for neck swelling, polydipsia, polyuria, polyphagia, and marked weight changes, Hematologic/Lymphatic: Negative for swollen nodes, abnormal bleeding, and unusual bruising. 10:53 MS/extremity: Positive for decreased range of motion, pain, tenderness, of the anterior aspect of left shoulder and posterior aspect of left shoulder. Exam: 10:53 Constitutional: This is a well developed, well nourished patient who is awake, alert, dinesh and in no acute distress. Head/Face: Normocephalic, atraumatic. Eyes: Pupils equal round and reactive to light, extra-ocular motions intact. Lids and lashes normal. Conjunctiva and sclera are non-icteric and not injected. Cornea within normal limits. Periorbital areas with no swelling, redness, or edema. ENT: Nares patent. No nasal discharge, no septal abnormalities noted. Tympanic membranes are normal and external auditory canals are clear. Oropharynx with no redness, swelling, or masses, exudates, or evidence of obstruction, uvula midline. Mucous membranes moist. Neck: Trachea midline, no thyromegaly or masses palpated, and no cervical lymphadenopathy. Supple, full range of motion without nuchal rigidity, or vertebral point tenderness. No Meningismus. Chest/axilla: Normal chest wall appearance and motion. Nontender with no deformity. No lesions are appreciated. Cardiovascular: Regular rate and rhythm with a normal S1 and S2. No gallops, murmurs, or rubs. Normal PMI, no JVD. No pulse deficits. Respiratory: Lungs have equal breath sounds bilaterally, clear to auscultation and percussion. No rales, rhonchi or wheezes noted. No increased work of breathing, no retractions or nasal flaring. Abdomen/GI: Soft, non-tender, with normal bowel sounds. No distension or tympany. No guarding or rebound. No evidence of tenderness throughout. Back: No spinal tenderness. No costovertebral tenderness. Full range of motion. Skin: Warm, dry with normal turgor. Normal color with no rashes, no lesions, and no evidence of cellulitis. Neuro: Awake and alert, GCS 15, oriented to person, place, time, and situation. Cranial nerves II-XII grossly intact. Motor strength 5/5 in all extremities. Sensory grossly intact. Cerebellar exam normal. Normal gait. Psych: Awake, alert, with orientation to person, place and time. Behavior, mood, and affect are within normal limits. 10:53 Musculoskeletal/extremity: Extremities: grossly normal except: noted in the anterior aspect of left shoulder and posterior aspect of left shoulder: decreased ROM, pain, tenderness, DVT Exam: No signs of deep vein thrombosis. no pain, no swelling, no tenderness, negative Homans' sign noted on exam, no appreciated bluish discoloration, no erythema, no increased warmth. 11:59 ECG was reviewed by the Attending Physician. [facility] Vital Signs: 10:23 BP 140 / 73; Pulse 95; Resp 20; Temp 97.0; Pulse Ox 98% ; Pain 10/10; ll1 11:00 BP 141 / 68; Pulse 88; Resp 15; Pulse Ox 96% ; Pain 10/10; jl7 12:00 BP 133 / 83; Pulse 85; Resp 16; Pulse Ox 100% ; jl7 MDM: 10:30 Patient medically screened. dinesh 10:56 Differential diagnosis: Anterior dislocation with fracture, Anterior dislocation dinesh without fracture, DJD, tendonitis. Data reviewed: vital signs, nurses notes. Data interpreted: drop hammer setter up: rate is 95 beats/min, rhythm is regular, Pulse oximetry: on room air is 98 %. Test interpretation: by ED physician or midlevel provider: ECG, plain radiologic studies. Counseling: I had a detailed discussion with the patient and/or guardian regarding: the historical points, exam findings, and any diagnostic results supporting the discharge/admit diagnosis, lab results, radiology results, the need for outpatient follow up, for definitive care, a orthopedic surgeon. 10:57 Medication response: Zofran partially relieved the patient's nausea. [facility] 07/08 10:52 Order name: CBC with Diff; Complete Time: 11:57 [facility] 07/08 10:52 Order name: Comprehensive Metabolic Panel; Complete Time: 11:57 [facility] 07/08 10:52 Order name: Shoulder Left (2 View) XRAY [facility] 07/08 10:52 Order name: Sed Rate; Complete Time: 11:57 [facility] 07/08 10:52 Order name: C Spine Ap/Lat XRAY [facility] 07/08 10:52 Order name: EKG; Complete Time: 10:52 [facility] 07/08 10:52 Order name: EKG - Nurse/Tech; Complete Time: 11:45 [facility] 07/08 10:52 Order name: Sling; Complete Time: 12:10 [facility] 07/08 11:59 Order name: PO challenge: juice x 1; Complete Time: 12:10 [facility] EC:59 Rate is 82 beats/min. Rhythm is regular. QRS [place] is Normal. MA interval is normal. QRS dinesh interval is normal. QT interval is normal. No Q waves. T waves are Normal. No ST changes noted. Clinical impression: Normal ECG and No evidence of ischemia. Interpreted by me. Reviewed by me. Administered Medications: 10:15 Drug: Valium 5 mg Route: PO; jl7 12:11 Follow up: Response: No adverse reaction; Pain is decreased jl7 10:18 Drug: Zofran (Ondansetron) 4 mg Route: IVP; Site: right antecubital; jl7 12:10 Follow up: Response: No adverse reaction jl7 10:20 Drug: NS 0.9% 1000 ml Route: IV; Rate: 1 bolus; Site: right antecubital; jl7 12:11 Follow up: Response: No adverse reaction; IV Status: Completed infusion jl7 10:20 Drug: Decadron - Dexamethasone 10 mg Route: IVP; Site: right antecubital; jl7 12:11 Follow up: Response: No adverse reaction; Pain is decreased jl7 10:21 Drug: TORadol 30 mg Route: IVP; Site: right antecubital; jl7 12:11 Follow up: Response: No adverse reaction; Pain is decreased jl7 11:32 Drug: morphine 4 mg Route: IVP; Site: right antecubital; jl7 11:50 Follow up: Response: Pain is decreased jl7 12:10 Follow up: Response: No adverse reaction jl7 Disposition: 07/08/20 12:00 Discharged to Home. Impression: Pain in left shoulder, Radiculopathy, cervical region, Tobacco abuse counseling, Tobacco use, Chronic obstructive pulmonary disease, unspecified, Hypokalemia. - Condition is Stable. - Discharge Instructions: Cervical Radiculopathy, Chronic Bronchitis, Potassium Content of Foods, Musculoskeletal Pain, Shoulder Pain, Steps to Quit Smoking, Smoking Hazards, Cryotherapy, [id number]-Imps, Shoulder Pain, [id number]-Deku, Aspirin and Your Heart, Cryotherapy, Cervical Radiculopathy, [id number], Radicular Pain. - Prescriptions for Tylenol- Codeine #3 300-30 mg Oral Tablet - take 2 tablets by ORAL route every 6 hours As needed; 26 tablet. Valium 2 mg Oral Tablet - take 1 tablet by ORAL route every 8 hours As needed; 20 tablet. Medrol (Kwame) 4 mg Oral Tablets, Dose Pack - take 1 tablet by ORAL route as directed - follow package instructions; 1 packet. Motrin IB 200 mg Oral Tablet - take 2 tablet by ORAL route every 6 hours As needed as needed with food; 30 tablet. - Medication Reconciliation Form, Thank You Letter, Antibiotic Education, Prescription Opioid Use form. - Follow up: Private Physician; When: 2 - 3 days; Reason: Recheck today's complaints, Continuance of care, Re-evaluation by your physician. Follow up: Dr. Nilesh Gan; When: 2 - 3 days; Reason: Recheck today's complaints, Continuance of care, Re-evaluation by your physician. - Problem is new. - Symptoms have improved. Signatures: Dispatcher [employer] EDNeftali Melo MD MD cha Leal, Jahala, RN RN jl7 Tommy Powell RN RN ll1 Corrections: (The following items were deleted from the chart) 12:16 12:00 07/08/2020 12:00 Discharged to Home. Impression: Pain in left shoulder; jl7 Radiculopathy, cervical region; Tobacco abuse counseling; Tobacco use; Chronic obstructive pulmonary disease, unspecified; Hypokalemia. Condition is Stable. Discharge Instructions: Cervical Radiculopathy, Chronic Bronchitis, Musculoskeletal Pain, Shoulder Pain, Steps to Quit Smoking, Smoking Hazards, Shoulder Pain, [id number], Cervical Radiculopathy, [id number], Radicular Pain. Prescriptions for Tylenol-Codeine #3 300-30 mg Oral Tablet - take 2 tablets by ORAL route every 6 hours As needed; 26 tablet, Valium 2 mg Oral Tablet - take 1 tablet by ORAL route every 8 hours As needed; 20 tablet, Medrol (Kwame) 4 mg Oral Tablets, Dose Pack - take 1 tablet by ORAL route as directed - follow package instructions; 1 packet, Motrin IB 200 mg Oral Tablet - take 2 tablet by ORAL route every 6 hours As needed as needed with food; 30 tablet. and Forms are Medication Reconciliation Form, Thank You Letter, Antibiotic Education, Prescription Opioid Use. Follow up: Private Physician; When: 2 - 3 days; Reason: Recheck today's complaints, Continuance of care, Re-evaluation by your physician. Follow up: Dr. Nilesh Gan; When: 2 - 3 days; Reason: Recheck today's complaints, Continuance of care, Re-evaluation by your physician. Problem is new. Symptoms have improved. dinesh
--- NOTE | 2020-07-08 12:22 | RAD REPORT ---
EXAM DESCRIPTION: RAD - C Spine Ap/Lat - 07/08/2020 12:05 pm CLINICAL HISTORY: Neck pain FINDINGS: The bones are osteoporotic Suboptimal evaluation the dens on the open-mouth odontoid view Posterior elements of C7 are not included in the field of view and are not evaluated. No gross fracture or dislocation visualized. Moderate spondylosis involves the cervical spine. If this exam was performed for trauma to the neck then a CT cervical spine would be recommended for b gee evaluation.
[2020-07-08 12:23] VITALS: TEMP 97
--- NOTE | 2020-07-08 12:23 | RAD REPORT ---
EXAM DESCRIPTION: RAD - Shoulder Left 2 View - 07/08/2020 12:05 pm CLINICAL HISTORY: Left shoulder pain FINDINGS: No fracture or dislocation is seen. Moderate osteoarthritis involves the AC joint consisting of osteophytes and joint space narrowing. The bones are osteoporotic. Osteoarthritis involves the glenohumeral joint
[2020-07-08 12:25] VITALS: BP 133/83; O2SAT 100
--- NOTE | 2020-07-09 05:52 | EKG ---
Test Date: 2020-07-08 Test Time: 11:40:25 Promotional Marketing Analyst: KYLE MEASUREMENT RESULTS: Intervals: Rate: 82 [place]: 148 QRSD: 88 QT: 406 QTc: 474 [place]: P: -5 [place]: 148 QRS: 13 T: 58 INTERPRETIVE STATEMENTS: Normal sinus rhythm Normal ECG Compared to ECG 12/25/2018 00:28:40 No significant changes Electronically Signed On 07-09-20 05:50:14 CDT by Boone Yang
== END 2020-07-08 12:16 | disposition home or self-care (01) ==
LOC: ER 10:12
DX: M54.12 Radiculopathy, cervical region (principal); E87.6 Hypokalemia; J44.9 Chronic obstructive pulmonary disease, unspecified; Z71.6 Tobacco abuse counseling; Z72.0 Tobacco use; I10 Essential (primary) hypertension; Z88.8 Allergy status to other drugs, medicaments and biological substances
CPT/HCPCS: 96361; 93005; 85025; 36415; 85652; 80053; 72040; 73030; 96375; 96374; 99284; J1100; J7030; J2405

== ENCOUNTER 2020-11-18 12:26 | Observation (INO) | payer OTHER ==
[2020-11-18] MEDS ORDERED: FENTANYL CITR 100 MCG/2 ML ONE (14:11)
[2020-11-18 14:31] LABS: Absolute Lymphocytes (CBC) 2.1 K/uL (0.7-4.9); Basophils % 0.5 % (0-1.3); Hematocrit 43.6 % (36.0-45.0); Lymphocytes % 22.5 % (15.3-44.8); MPV 8.5 fL (7.6-11.3); RBC Red Blood Cell Count 4.64 M/uL (3.86-4.86)
[2020-11-18 14:34] LABS: Protime INR 1.02
--- NOTE | 2020-11-18 14:45 | RAD REPORT ---
EXAM DESCRIPTION: [place] Single View11/18/2020 2:20 pm CLINICAL HISTORY: Cough COMPARISON: 2018 FINDINGS: The lungs appear clear of acute infiltrate. The heart is normal size IMPRESSION: No acute abnormalities displayed
[2020-11-18 15:00] LABS: ALT/SGPT 33 U/L (12-78); AST/SGOT 18 U/L (15-37); Albumin 3.3 g/dL (3.4-5.0); Alkaline Phosphatase 158 U/L (45-117); BUN Blood Urea Nitrogen 9 mg/dL (7-18); Bicarbonate 32 mmol/L (21-32); Bilirubin Direct < 0.1 mg/dL (0-0.2); Bilirubin Total 0.2 mg/dL (0.2-1.0); Glucose Level 88 mg/dL (74-106); Magnesium 2.1 mg/dL (1.8-2.4); NT PRO-BNP 15 pg/mL (<125); Potassium 3.8 mmol/L (3.5-5.1); Protein, Total 7.7 g/dL (6.4-8.2); Sodium Level 139 mmol/L (136-145); Troponin (Emerg Dept Use Only) < 0.02 ng/mL (0.0-0.045)
[2020-11-18 15:36] LABS: SARS-COV-2 RT PCR NEGATIVE (NEGATIVE)
--- NOTE | 2020-11-18 16:12 | RAD REPORT ---
EXAM DESCRIPTION: CT - Chest Abdomen Pelvis W Cont - 11/18/2020 3:47 pm CLINICAL HISTORY: Chest and abdominal pain status post fall COMPARISON: 2018 TECHNIQUE: Computed axial tomography of the chest, abdomen and pelvis was obtained. 100 cc Isovue-30 0 was administered intravenously. Oral contrast was not requested. This limits evaluation of bowel. All CT scans are performed using dose optimization technique as appropriate and may include automated exposure control or mA/KV adjustment according to patient size. FINDINGS: Small left pleural effusion A pulmonary contusion is not seen. A mediastinal hematoma is not present. The visualized portions of the thyroid gland appear enlarged The liver, spleen, pancreas, adrenals and kidneys do not demonstrate a traumatic injury. A 1 millimet er nonobstructing right renal calculus The bladder appears grossly normal. Rectum is mildly distended with stool. No evidence diverticulitis IMPRESSION: Small left pleural effusion. 1 millimeter nonobstructing right renal calculus
[2020-11-18] MEDS ORDERED: METHYLPREDNISOLONE 40 MG INJ ONE (16:34)
--- NOTE | 2020-11-18 17:04 | EDPHYS ---
Physician Documentation [facility] Name: Smitha Ibarra Age: 55 yrs Sex: Female : 1965 Arrival Date: 11/18/2020 Time: 12:34 Bed 24 Private MD: ED Physician Neftali Crawford HPI: 11/18 13:00 This 55 yrs old Female presents to ER via EMS with complaints of Breathing cp Difficulty. Historical: - Allergies: 12:38 Sudafed; vg1 - Home Meds: 12:38 Dilantin 100 mg Oral 4 cap daily [Active]; vg1 - PMHx: 12:38 Arthritis; COPD; Diabetes - NIDDM; Hypertension; High Cholesterol; Seizures; vg1 - Immunization history:: Adult Immunizations up to date, Flu vaccine is not up to date. - Social history:: Smoking status: Patient reports the use of cigarette tobacco products, smokes one-half pack cigarettes per day. ROS: 13:05 Constitutional: Negative for fever. cp 13:05 Eyes: Negative for injury, pain, redness, and discharge. cp 13:05 Cardiovascular: Positive for chest pain. 13:05 Respiratory: Positive for cough, shortness of breath, at rest. 13:05 Abdomen/GI: Negative for abdominal pain, nausea, vomiting, and diarrhea. 13:05 Neuro: Negative for altered mental status, headache, weakness. 13:05 All other systems are negative. Exam: 13:10 Constitutional: The patient appears in no acute distress, alert, awake, cp non-diaphoretic, non-toxic, well developed, well nourished, obese. 13:10 Head/Face: Normocephalic, atraumatic. cp 13:10 Eyes: Periorbital structures: appear normal, Conjunctiva: normal, no exudate, no injection, Sclera: no appreciated abnormality, Lids and lashes: appear normal, bilaterally. 13:10 ENT: External ear(s): are unremarkable, Nose: is normal, Mouth: Lips: moist, Oral mucosa: moist, Posterior pharynx: Airway: no evidence of obstruction, patent. 13:10 Chest/axilla: Inspection: normal, Palpation: crepitus, is not appreciated, tenderness, that is moderate, of the below left breast. 13:10 Cardiovascular: Rate: normal, Rhythm: regular, Edema: is not appreciated, JVD: is not appreciated. 13:10 Respiratory: the patient does not display signs of respiratory distress, Respirations: labored breathing, that is mild, shallow respirations, that is mild, Breath sounds: bronchial sounds, that are mild, are heard diffusely. 13:10 Abdomen/GI: Inspection: abdomen appears normal, Palpation: abdomen is soft and non-tender, in all quadrants. 13:10 Back: vertebral tenderness, is not appreciated. 13:10 Neuro: Orientation: to person, place \T\ time. Mentation: is normal, Motor: moves all fours, strength is normal. 11/19 11:08 ECG was reviewed by the Attending Physician. cp Vital Signs: 11/18 12:35 BP 164 / 75; Pulse 93; Resp 22; Temp 98.2; Pulse Ox 93% on 3 lpm NC; Weight 83.91 kg; vg1 Height 5 ft. 7 in. (170.18 cm); Pain 10/10; 14:00 BP 168 / 84; Pulse 95; Resp 18; Pulse Ox 93% on R/A; vg1 16:00 BP 148 / 83; Pulse 84; Resp 20; Pulse Ox 94% on R/A; vg1 17:00 BP 149 / 89; Pulse 109; Resp 20; Pulse Ox 90% on R/A; vg1 12:35 Body Mass Index 28.97 (83.91 kg, 170.18 cm) vg1 MDM: 12:51 Patient medically screened. [facility] 16:50 Data reviewed: vital signs, nurses notes, lab test result(s), EKG, radiologic studies, cp and as a result, I will admit patient. 11/18 13:34 Order name: Basic Metabolic Panel; Complete Time: 15:04 11/18 13:34 Order name: CBC with Diff; Complete Time: 15:04 11/18 13:34 Order name: LFT's; Complete Time: 15:04 11/18 15:05 Interpretation: Normal except: ALK 158; ALB 3.3; GLOB 4.4; A/G 0.8. 11/18 13:34 Order name: Magnesium; Complete Time: 15:04 11/18 13:34 Order name: NT PRO-BNP; Complete Time: 15:04 11/18 16:48 Interpretation: Reviewed. 11/18 13:34 Order name: PT-INR; Complete Time: 15:04 cp 11/18 13:34 Order name: Troponin (emerg Dept Use Only); Complete Time: 15:04 11/18 15:37 Order name: COVID-19/FLU A+B; Complete Time: 15:45 EDMS 11/18 21:18 Order name: Troponin I EDOR 11/19 06:25 Order name: Basic Metabolic Panel EDOR 11/19 06:25 Order name: Troponin I EDOR 11/19 06:25 Order name: Lipid Profile EDOR 11/18 13:05 Order name: EKG; Complete Time: 13:05 cp 11/18 13:05 Order name: EKG - Nurse/Tech; Complete Time: 13:10 11/18 13:34 Order name: XRAY Chest (1 view); Complete Time: 15:04 cp 11/18 13:34 Order name: Cardiac monitoring; Complete Time: 13:37 11/18 13:34 Order name: IV Saline Lock; Complete Time: 14:25 11/18 13:34 Order name: Labs collected and sent; Complete Time: 14:25 cp 11/18 13:34 Order name: O2 Per Protocol; Complete Time: 13:37 cp 11/18 13:34 Order name: O2 Sat Monitoring; Complete Time: 13:37 11/18 15:09 Order name: CT Chest, Abdomen, Pelvis - W/Contrast; Complete Time: 16:16 cp 11/19 06:41 Order name: CBC with Automated Diff EDMS 11/19 08:38 Order name: CBC Smear Scan EDMS EC/27 11:08 Rate is 65 beats/min. Rhythm is regular. SD interval is normal. QRS interval is normal. cp QT interval is normal. T waves are Inverted in leads aVL, aVR. Interpreted by me. Reviewed by me. Administered Medications: 11/18 14:35 Drug: fentaNYL (PF) 25 mcg {Note: rass0.} Route: IVP; Site: right antecubital; vg1 16:03 Follow up: Response: No adverse reaction; Pain is decreased vg1 16:37 Drug: SOLU-Medrol 80 mg Route: IVP; Site: right antecubital; vg1 17:41 Follow up: Response: No adverse reaction vg1 16:38 Not Given (Medication unavailable.): Albuterol HFA Inhaler 2 puffs Inhalation once vg1 17:40 Drug: Aspirin Chewable Tablet 324 mg Route: PO; vg1 Disposition: 11/20 05:41 Co-signature as Attending Physician, Neftali Crawford MD I agree with the assessment and dinesh plan of care. Disposition: 11/18/20 17:02 Hospitalization ordered by Sarbjit Corley for Observation. Preliminary diagnosis are Chest pain, unspecified, Pleural effusion, not elsewhere classified - left, Dyspnea. - Bed requested for [facility] ER HOLD. - Status is Observation. iw - Condition is Stable. - Problem is new. - Symptoms have improved. Signatures: Dispatcher [employer] EDMS Margarita Singh Corey, MD MD cha Williams, Irene, RN RN iw Neftali Garcia PA PA cp Garcia, Victoria RN RN vg1 Corrections: (The following items were deleted from the chart) 11/18 14:37 13:36 Influenza Screen (A \T\ B)+BA.LAB.BRZ ordered. EDMS EDMS 14:39 13:36 CORONAVIRUS+MR.LAB.BRZ ordered. EDMS EDMS 18:33 17:02 Hospitalization Ordered by Sarbjit Corley MD for Observation. Preliminary bd diagnosis is Chest pain, unspecified; Pleural effusion, not elsewhere classified - left; Dyspnea. Bed requested for Telemetry/MedSurg (observation). Status is Observation. Condition is Stable. Problem is new. Symptoms have improved. cp 11/19 12:30 11/18 18:33 11/18/2020 17:02 Hospitalization Ordered by Sarbjit Corley MD for iw Observation. Preliminary diagnosis is Chest pain, unspecified; Pleural effusion, not elsewhere classified - left; Dyspnea. Bed requested for [facility] ER HOLD. Status is Observation. Condition is Stable. Problem is new. Symptoms have improved. bd
--- NOTE | 2020-11-18 17:04 | ER ---
Nurse's Notes [facility] Name: Smitha Ibarra Age: 55 yrs Sex: Female : 1965 Arrival Date: 11/18/2020 Time: 12:34 Bed 24 Private MD: Diagnosis: Chest pain, unspecified;Pleural effusion, not elsewhere classified-left;Dyspnea Presentation: 11/18 12:35 Chief complaint: EMS states: Patient fell about five days ago and is having left sided vg1 rib pain and having difficulty breathing. Coronavirus screen: Client denies travel out of the [place] in the last 14 days. Ebola Screen: Patient negative for fever greater than or equal to 101.5 degrees Fahrenheit, and additional compatible Ebola Virus Disease symptoms. Initial Sepsis Screen: Does the patient meet any 2 criteria? No. Patient's initial sepsis screen is negative. Does the patient have a suspected source of infection? No. Patient's initial sepsis screen is negative. Risk Assessment: Do you want to hurt yourself or someone else? Patient reports no desire to harm self or others. Onset of symptoms was November 13, 2020. 12:35 Method Of Arrival: EMS: [facility] vg1 12:35 Acuity: PRECIOUS 3 vg1 Triage Assessment: 12:40 Respiratory: Onset: The symptoms/episode began/occurred the patient has moderate vg1 shortness of breath. Historical: - Allergies: 12:38 Sudafed; vg1 - Home Meds: 12:38 Dilantin 100 mg Oral 4 cap daily [Active]; vg1 - PMHx: 12:38 Arthritis; COPD; Diabetes - NIDDM; Hypertension; High Cholesterol; Seizures; vg1 - Immunization history:: Adult Immunizations up to date, Flu vaccine is not up to date. - Social history:: Smoking status: Patient reports the use of cigarette tobacco products, smokes one-half pack cigarettes per day. Screenin:40 Abuse screen: Denies threats or abuse. Nutritional screening: No deficits noted. vg1 Tuberculosis screening: No symptoms or risk factors identified. Fall Risk Fall in past 12 months (25 points). No secondary diagnosis (0 pts). IV access (20 points). Ambulatory Aid- None/Bed Rest/Nurse Assist (0 pts). Gait- Normal/Bed Rest/Wheelchair (0 pts) Mental Status- Oriented to own ability (0 pts). Total Blunt Fall Scale indicates High Risk Score (45 or more points). Fall prevention measures have been instituted. Side Rails Up X 2 Placed Close to Nursing Station. Assessment: 12:25 General: Appears in no apparent distress. uncomfortable, Behavior is calm, cooperative. vg1 Pain: Complains of pain in left side of ribs Pain currently is 10 out of 10 on a pain scale. Quality of pain is described as sharp. Neuro: Level of Consciousness is awake, alert, obeys commands, Oriented to person, place, time, situation. Respiratory: Airway is patent Respiratory effort is even, labored, Respiratory pattern is regular, symmetrical, Breath sounds with wheezes bilaterally. Respiratory: Reports cough that is productive, labored breathing. GI: No signs and/or symptoms were reported involving the gastrointestinal system. : No signs and/or symptoms were reported regarding the genitourinary system. EENT: No signs and/or symptoms were reported regarding the EENT system. Derm: Skin is intact, is healthy with good turgor. Musculoskeletal: Circulation, motion, and sensation intact. 13:34 Reassessment: Patient's O2 is at 93% w/o NC; states is not feeling any SOB. Provider vg1 notified. 14:40 Reassessment: Patient appears in no apparent distress at this time. Patient and/or vg1 family updated on plan of care and expected duration. Pain level reassessed. Patient is alert, oriented x 3, equal unlabored respirations, skin warm/dry/pink. 16:38 Reassessment: Patient appears in no apparent distress at this time. Patient and/or vg1 family updated on plan of care and expected duration. Pain level reassessed. Patient is alert, oriented x 3, equal unlabored respirations, skin warm/dry/pink. Patient states is hungry. Notified provider. 16:40 Cardiovascular: Rhythm is sinus rhythm. vg1 17:42 Reassessment: Patient appears in no apparent distress at this time. Patient and/or vg1 family updated on plan of care and expected duration. Pain level reassessed. Patient is alert, oriented x 3, equal unlabored respirations, skin warm/dry/pink. Patient states pain is back. Rated pain 10/10. Provider notified. Vital Signs: 12:35 BP 164 / 75; Pulse 93; Resp 22; Temp 98.2; Pulse Ox 93% on 3 lpm NC; Weight 83.91 kg; vg1 Height 5 ft. 7 in. (170.18 cm); Pain 10/10; 14:00 BP 168 / 84; Pulse 95; Resp 18; Pulse Ox 93% on R/A; vg1 16:00 BP 148 / 83; Pulse 84; Resp 20; Pulse Ox 94% on R/A; vg1 17:00 BP 149 / 89; Pulse 109; Resp 20; Pulse Ox 90% on R/A; vg1 12:35 Body Mass Index 28.97 (83.91 kg, 170.18 cm) vg1 ED Course: 12:34 Patient arrived in ED. vg1 12:37 Triage completed. vg1 12:40 Arm band placed on. vg1 12:41 Patient has correct armband on for positive identification. Bed in low position. Call vg1 light in reach. Side rails up X2. 12:50 Neftali Garcia PA is PHCP. cp 12:50 Neftali Crawford MD is Attending Physician. cp 13:10 Keyanna Branham, RN is Primary Nurse. vg1 14:15 COVID swab sent to lab. vg1 14:20 XRAY Chest (1 view) In Process Unspecified. EDMS 14:20 Initial lab(s) drawn, by il, sent to lab. Inserted saline lock: 20 gauge in right dh3 antecubital area, using aseptic technique. Blood collected. 15:47 CT Chest, Abdomen, Pelvis - W/Contrast In Process Unspecified. EDMS 17:01 Sarbjit Corley MD is Hospitalizing Provider. cp 23:53 Primary Nurse role handed off by Keyanna Branham, RN sg 23:53 Marco Ho, RN is Primary Nurse. sg 11/19 07:44 Jane De Anda, RN is Primary Nurse. iw Administered Medications: 11/18 14:35 Drug: fentaNYL (PF) 25 mcg {Note: rass0.} Route: IVP; Site: right antecubital; vg1 16:03 Follow up: Response: No adverse reaction; Pain is decreased vg1 16:37 Drug: SOLU-Medrol 80 mg Route: IVP; Site: right antecubital; vg1 17:41 Follow up: Response: No adverse reaction vg1 16:38 Not Given (Medication unavailable.): Albuterol HFA Inhaler 2 puffs Inhalation once vg1 17:40 Drug: Aspirin Chewable Tablet 324 mg Route: PO; vg1 Outcome: 17:02 Decision to Hospitalize by Provider. jean 11/19 12:30 Patient left the ED. iw Signatures: Dispatcher [employer] EDMS Marco Ho RN Jane Martinez RN RN Neftali Garcia PA PA cp [facility] Keyanna Branham RN RN vg1
[2020-11-18] MEDS ORDERED: IPRATROPIUM BROM 0.5MG/2.5ML NEB PRN (17:24)
[2020-11-18] MEDS ORDERED: ALPRAZOLAM 0.25 MG TABLET PO PRN (17:24)
[2020-11-18] MEDS ORDERED: ALBUTEROL 2.5 MG/3 ML NEB SOL NEB PRN (17:24)
[2020-11-18] MEDS ORDERED: ACETAMINOPHEN 500 MG TAB PO PRN (17:24)
[2020-11-18] MEDS ORDERED: MORPHINE 4 MG/ML SYR IV PRN (17:24)
[2020-11-18] MEDS ORDERED: ASPIRIN 81 MG CHEWABLE TABLET ONE (17:35)
[2020-11-18] MEDS: PIPER/TAZO/NS 3.375gm 3.375 GM/100 ML BAG IVPB SCH (18:00)
[2020-11-18] MEDS ORDERED: METHYLPREDNISOLONE 125 MG INJ IV SCH (18:00)
[2020-11-18] MEDS ORDERED: PIPER/TAZO/NS 3.375gm 3.375 GM/100 ML BAG ONE (18:56)
[2020-11-18 19:25] VITALS: BMI 29.0
[2020-11-18] MEDS: METOPROLOL TAR 25 MG TAB PO SCH (21:00)
[2020-11-18] MEDS ORDERED: METOPROLOL TAR 25 MG TAB ONE (21:27)
[2020-11-19] MEDS: PIPER/TAZO/NS 3.375gm 3.375 GM/100 ML BAG IVPB SCH ×2 (01:47→08:00)
[2020-11-19] MEDS ORDERED: HYDROCORTISONE SUC 100 MG INJ ONE (01:59)
[2020-11-19] MEDS ORDERED: PIPER/TAZO/NS 3.375gm 3.375 GM/100 ML BAG ONE ×2 (01:59→08:28)
[2020-11-19] MEDS ORDERED: METHYLPREDNISOLONE 125 MG INJ ONE ×2 (02:00→07:09)
[2020-11-19] MEDS ORDERED: ACETAMINOPHEN 500 MG TAB ONE (03:59)
[2020-11-19] MEDS: METHYLPREDNISOLONE 125 MG INJ IV SCH ×2 (06:00)
[2020-11-19 06:25] LABS: BUN Blood Urea Nitrogen 14 mg/dL (7-18); Bicarbonate 31 mmol/L (21-32); Glucose Level 154 mg/dL (74-106); HDL Cholesterol 80 mg/dL (40-60); LDL Cholesterol, Calculated 156 (<130); Potassium 4.7 mmol/L (3.5-5.1); Sodium Level 139 mmol/L (136-145); Troponin I < 0.02 ng/mL (0.0-0.045)
--- NOTE | 2020-11-19 06:29 | EKG ---
Test Date: 2020-11-18 Test Time: 13:09:20 Personal Fitness Manager: NAVJOT MEASUREMENT RESULTS: Intervals: Rate: 88 HI: 160 QRSD: 80 QT: 374 QTc: 452 [place]: P: 67 HI: 160 QRS: 21 T: 72 INTERPRETIVE STATEMENTS: Normal sinus rhythm Normal ECG Compared to ECG 07/08/2020 11:40:25 No significant changes Electronically Signed On 11-19-20 06:27:10 SWAT TEAM MEMBER by Boone Yang
[2020-11-19 06:31] LABS: Absolute Lymphocytes (CBC) 1.2 K/uL (0.7-4.9); Basophils % 0.3 % (0-1.3); Hematocrit 42.2 % (36.0-45.0); Lymphocytes % 11.3 % (15.3-44.8); MPV 8.9 fL (7.6-11.3); RBC Red Blood Cell Count 4.51 M/uL (3.86-4.86)
[2020-11-19] MEDS ORDERED: METOPROLOL TAR 25 MG TAB ONE (08:27)
[2020-11-19] MEDS ORDERED: ASPIRIN 81 MG CHEWABLE TABLET ONE (08:27)
[2020-11-19] MEDS ORDERED: ENOXAPARIN 40 MG/0.4 ML SQ ONE (08:28)
[2020-11-19] MEDS: METOPROLOL TAR 25 MG TAB PO SCH (08:30)
[2020-11-19 08:31] VITALS: BP 154/89
[2020-11-19 08:33] VITALS: TEMP 97.8
[2020-11-19 08:38] LABS: Blood Morphology Comment NOT SEEN (NOT SEEN); Platelet Estimate ADEQ; White Blood Cell Scan OK (OK)
[2020-11-19] MEDS ORDERED: ENOXAPARIN 40 MG/0.4 ML SQ SCH (09:00)
[2020-11-19] MEDS ORDERED: ASPIRIN EC 81 MG TAB PO SCH (09:00)
[2020-11-19] MEDS ORDERED: INFLUENZA VACCINE (for 3y+) 0.5 ML DOSE IMVAC ONE (10:00)
[2020-11-19 11:50] VITALS: O2SAT 93
--- NOTE | 2020-11-19 12:40 | EKG ---
Test Date: 2020-11-19 Test Time: 11:00:48 Dry Can Tender: SEE MEASUREMENT RESULTS: Intervals: Rate: 65 ME: 170 QRSD: 92 QT: 436 QTc: 453 [place]: P: 64 ME: 170 QRS: 48 T: 68 INTERPRETIVE STATEMENTS: Normal sinus rhythm Septal infarct, age undetermined Abnormal ECG Compared to ECG 11/18/2020 13:09:20 Myocardial infarct finding now present Electronically Signed On 11-19-20 12:39:36 GLOBAL PROCESS OWNER by Boone Yang
--- NOTE | 2020-11-19 13:03 | ECHO ---
HEIGHT: 5 ft 7 in WEIGHT: 185 lb 0 oz DATE OF STUDY: 11/19/[address]: Sarbjit Corley MD 2-DIMENSIONAL: YES M.MODE: YES DOPPLER: YES COLOR FLOW: YES TDS: PORTABLE: DEFINITY: BUBBLE STUDY: DIAGNOSIS: CHEST PAIN CARDIAC HISTORY: CATHERIZATION: NO SURGERY: NO PROSTHETIC VALVE: NO PACEMAKER: NO MEASUREMENTS (cm) DIASTOLIC (NORMALS) SYSTOLIC (NORMALS) IVSd 1.2 (0.6-1.2) LA Diam 3.7 (1.9-4.0) LVEF 75% LVIDd 4.6 (3.5-5.7) LVIDs 2.5 (2.0-3.5) %FS 44% LVPWd 1.2 (0.6-1.2) Ao Diam 3.1 (2.0-3.7) 2 DIMENSIONAL ASSESSMENT: RIGHT ATRIUM: NORMAL LEFT ATRIUM: NORMAL RIGHT VENTRICLE: NORMAL LEFT VENTRICLE: NORMAL TRICUSPID VALVE: NORMAL MITRAL VALVE: NORMAL PULMONIC VALVE: NORMAL AORTIC VALVE: NORMAL PERICARDIAL EFFUSION: NONE AORTIC ROOT: NORMAL LEFT VENTRICULAR WALL MOTION: NORMAL DOPPLER/COLOR FLOW: NORMAL COMMENTS: NORMAL 2-DIMENSIONAL ECHOCARDIOGRAM WITH DOPPLER. NO WALL MOTION ABNORMALITY. NO EFFUSION. TECHNOLOGIST: TAMIKO GEE
--- NOTE | 2020-11-25 23:10 | P.HP ---
Certification for Inpatient Patient admitted to: Observation With expected LOS: <2 Midnights Patient will require the following post-hospital care: None Practitioner: I am a practitioner with admitting privileges, knowledge of patient current condition, hospital course, and medical plan of care. Services: Services provided to patient in accordance with Admission requirements found in Title 42 Section 412.3 of the Code of Federal Regulations Patient History Date of Service: 11/18/20 Reason for admission: Chest pain rule out acute coronary syndrome History of Present Illness: Patient is a 55-year-old Female who came into the hospital with chest discomfort. Pain was mainly in the sternal region. Patient has some shortness of breath associated with it. Patient was admitted to the hospital for further evaluation. Patient denies any Nausea, vomiting, or lightheadedness. She is scheduled to see a local professional programmer analyst. Patient will be admitted for further evaluation. Allergies pseudoephedrine [From Sudafed] Allergy (Verified 09/02/17 10:57) Unknown Home Medications: PHENYTOIN ER Cap [Dilantin ER Cap*] 400 mg PO DAILY 09/02/17 Amlodipine [Norvasc*] 10 mg PO BEDTIME 10/21/17 Lovastatin 20 mg PO BEDTIME 10/21/17 Albuterol Sulfate [Proair Hfa] 1 puff IH SEECOM 09/29/18 Lisinopril [Zestril] 40 mg PO BEDTIME 09/29/18 Sitagliptin Phosphate [Januvia*] 100 mg PO DAILY 09/29/18 Aspirin [Aspirin EC 81 MG] 81 mg PO BEDTIME 12/25/18 Codeine/APAP [Tylenol #3*] 1 tab PO TID PRN #15 tab 12/25/18 Lidocaine 4% Patch [Lidoderm 5% Patch*] 1 patch TOP DAILY #30 patch 12/25/18 ALPRAZolam [Xanax*] 0.25 mg PO TID PRN #30 tab 11/19/20 Albuterol Neb [Proventil 0.083% Neb Soln] 2.5 mg NEB Q6HP PRN #60 amp 11/19/20 Methylprednisolone [Medrol dosepack] 4 mg PO DIRECTED #1 elias 11/19/20 Metoprolol Tartrate [Lopressor*] 25 mg PO BID #60 tab 11/19/20 - Past Medical/Surgical History Has patient received pneumonia vaccine in the past: No Diabetic: No -: arthritis -: COPD -: NIDDM -: HTN -: seizures -: hyperlipidemia -: tubal ligation -: tonsillectomy - Family History Mother Medical History: Heart disease, Lung disease, GI disease, Kidney disease Father Medical History: Other (see notes) Notes: anureseym - Social History Smoking Status: Current every day smoker Review of Systems 10-point ROS is otherwise unremarkable Physical Examination - Vital Signs Temperature: 97.8 F Blood Pressure: 154/89 Pulse: 77 Respirations: 18 Pulse Ox (%): 95 - Physical Exam General: Alert, In no apparent distress, Oriented x3 HEENT: Atraumatic, PERRLA, Mucous membr. moist/pink, EOMI, Sclerae nonicteric Neck: Supple, 2+ carotid pulse no bruit, No LAD, Without JVD or thyroid abnormality Respiratory: Clear to auscultation bilaterally, Normal air movement Cardiovascular: Regular rate/rhythm, Normal S1 S2, No murmurs Gastrointestinal: Normal bowel sounds, Soft and benign, Non-distended, No tenderness Musculoskeletal: No clubbing, No swelling, No tenderness Integumentary: No rashes Neurological: Normal gait, Normal speech, Normal strength at 5/5 x4 extr, Normal tone, Sensation intact, Cranial nerves 3-12 intact, Normal affect Lymphatics: No axilla or inguinal lymphadenopathy Assessment & Plan - Problems (Diagnosis) (1) Chest pain, rule out acute myocardial infarction Status: Acute (2) Dempsey's palsy Status: Acute (3) COPD (chronic obstructive pulmonary disease) Status: Acute Qualifiers: (4) CVA (cerebral vascular accident) Status: Acute (5) Diabetes Status: Chronic Qualifiers: (6) Seizure disorder Status: Chronic (7) Tobacco abuse Status: Chronic (8) MONA (obstructive sleep apnea) Status: Suspected - Plan Plan: - Serial troponins and EKG - Cardiology consultation - Echocardiogram - Anti-platelet therapy, anti coagulation, beta-cherelle, statin, and O2 as needed - IV morphine for pain - Nitro p.r.n. Discharge Plan: Home Plan to discharge in: 24 Hours - Advance Directives Does patient have a Living Will: No Does patient have a Durable POA for Healthcare: No - Code Status/Comfort Care Code Status Assessed: Yes Code Status: Full Code Critical Care: No Time Spent Managing PTS Care (In Minutes): 45
--- NOTE | 2020-11-25 23:11 | P.DS ---
Discharge Date: 11/19/20 Disposition: ROUTINE DISCHARGE Discharge Condition: GOOD Reason for Admission: Chest pain rule out acute coronary syndrome - Problems (1) Chest pain, rule out acute myocardial infarction Status: Acute (2) Dempsey's palsy Status: Acute (3) COPD (chronic obstructive pulmonary disease) Status: Acute Qualifiers: (4) CVA (cerebral vascular accident) Status: Acute (5) Diabetes Status: Chronic Qualifiers: (6) Seizure disorder Status: Chronic (7) Tobacco abuse Status: Chronic (8) MONA (obstructive sleep apnea) Status: Suspected Brief History of Present Illness: Patient is a 55-year-old Female who came into the hospital with chest discomfort. Pain was mainly in the sternal region. Patient has some shortness of breath associated with it. Patient was admitted to the hospital for further evaluation. Patient denies any Nausea, vomiting, or lightheadedness. She is scheduled to see a local application integration engineer. Patient will be admitted for further evaluation. Hospital Course: Patient has a done well during hospital stay. Cardiac workup was unremarkable. At this time patient is stable for discharge home. Patient will need outpatient follow with application integration engineer in 1-2 weeks. Vital Signs/Physical Exam: Temp Pulse Resp BP Pulse Ox 97.8 F 77 18 154/89 H 95 11/25/20 23:10 11/25/20 23:10 11/25/20 23:10 11/25/20 23:10 11/25/20 23:10 General: Alert, In no apparent distress, Oriented x3 Laboratory Data at Discharge: WBC 10.90 K/uL (4.3-10.9) D 11/19/20 06:00 Hgb 14.0 g/dL (12.0-15.0) 11/19/20 06:00 Hct 42.2 % (36.0-45.0) 11/19/20 06:00 Plt Count 315 K/uL (152-406) 11/19/20 06:00 PT 12.0 SECONDS (9.5-12.5) 11/18/20 14:20 INR 1.02 11/18/20 14:20 Sodium 139 mmol/L (136-145) 11/19/20 06:00 Potassium 4.7 mmol/L (3.5-5.1) 11/19/20 06:00 BUN 14 mg/dL (7-18) 11/19/20 06:00 Creatinine 0.58 mg/dL (0.55-1.3) 11/19/20 06:00 Glucose 154 mg/dL (74-106) H 11/19/20 06:00 Magnesium 2.1 mg/dL (1.8-2.4) 11/18/20 14:20 Total Bilirubin 0.2 mg/dL (0.2-1.0) 11/18/20 14:20 AST 18 U/L (15-37) 11/18/20 14:20 ALT 33 U/L (12-78) 11/18/20 14:20 Alkaline Phosphatase 158 U/L (45-117) H 11/18/20 14:20 Troponin I < 0.02 ng/mL (0.0-0.045) 11/19/20 06:00 Triglycerides 97 mg/dL (<150) 11/19/20 06:00 Cholesterol 255 mg/dL (<200) H 11/19/20 06:00 HDL Cholesterol 80 mg/dL (40-60) H 11/19/20 06:00 Cholesterol/HDL Ratio 3.19 11/19/20 06:00 Home Medications: PHENYTOIN ER Cap [Dilantin ER Cap*] 400 mg PO DAILY 09/02/17 Amlodipine [Norvasc*] 10 mg PO BEDTIME 10/21/17 Lovastatin 20 mg PO BEDTIME 10/21/17 Albuterol Sulfate [Proair Hfa] 1 puff IH SEECOM 09/29/18 Lisinopril [Zestril] 40 mg PO BEDTIME 09/29/18 Sitagliptin Phosphate [Januvia*] 100 mg PO DAILY 09/29/18 Aspirin [Aspirin EC 81 MG] 81 mg PO BEDTIME 12/25/18 Codeine/APAP [Tylenol #3*] 1 tab PO TID PRN #15 tab 12/25/18 Lidocaine 4% Patch [Lidoderm 5% Patch*] 1 patch TOP DAILY #30 patch 12/25/18 ALPRAZolam [Xanax*] 0.25 mg PO TID PRN #30 tab 11/19/20 Albuterol Neb [Proventil 0.083% Neb Soln] 2.5 mg NEB Q6HP PRN #60 amp 11/19/20 Methylprednisolone [Medrol dosepack] 4 mg PO DIRECTED #1 elias 11/19/20 Metoprolol Tartrate [Lopressor*] 25 mg PO BID #60 tab 11/19/20 New Medications: Metoprolol Tartrate [Lopressor*] 25 mg PO BID #60 tab Methylprednisolone [Medrol dosepack] 4 mg PO DIRECTED #1 elias Albuterol Neb [Proventil 0.083% Neb Soln] 2.5 mg NEB Q6HP PRN #60 amp PRN Reason: dyspnea ALPRAZolam [Xanax*] 0.25 mg PO TID PRN #30 tab PRN Reason: Anxiety Physician Discharge Instructions: Diet:AHA Activity:Fall precautions PHYSICIAN'S DISCHARGE INSTRUCTIONS OK TO DC IV AND DC HOME. FOLLOW-UP WITH PRIMARY CARE PROVIDER IN 1-2 WEEKS FOLLOW-UP WITH Product Communications Manager IN 1-2 WEEKS RETURN TO THE ER IF symptoms worsen CALL or TEXT DR. BEST AT [phone] IF ANY QUESTIONS REGARDING HOSPITAL STAY PLEASE CALL THE FLOOR AT [phone] IF ANY MEDICATION OR NURSING QUESTIONS. Diet: AHA Activity: Fall precautions Followup: Unknown,U [Primary Care Provider] - Time spent managing pt's care (in minutes): 30
== END 2020-11-19 12:30 | disposition home or self-care (01) ==
LOC: ER 12:26 → ERHOLD 17:25
PROVIDERS: ADMIT Hospitalist; ATTEND Hospitalist
DX: J90 Pleural effusion, not elsewhere classified (principal); R06.00 Dyspnea, unspecified; R07.9 Chest pain, unspecified; Z20.822 Contact with and (suspected) exposure to COVID-19; R94.31 Abnormal electrocardiogram [ECG] [EKG]; J44.9 Chronic obstructive pulmonary disease, unspecified; M19.90 Unspecified osteoarthritis, unspecified site; E11.9 Type 2 diabetes mellitus without complications; I10 Essential (primary) hypertension; E78.00 Pure hypercholesterolemia, unspecified; F17.210 Nicotine dependence, cigarettes, uncomplicated
CPT/HCPCS: 0240U; 36415; 71045; 71260; 74177; 80048; 80061; 80076; 83735; 83880; 84484; 85025; 85610; 93005; 93306; 96374; 96375; 99284; G0378; J1650; J1720; J2543; J2920; J2930; J3010; Q9967

== ENCOUNTER 2022-05-12 13:17 | Inpatient (IN) | payer OTHER ==
[2022-05-12] MEDS ORDERED: ONDANSETRON 4 MG/2 ML VIAL ONE (13:44)
[2022-05-12] MEDS ORDERED: MORPHINE 2 MG/ML SYR ONE (13:44)
[2022-05-12] MEDS ORDERED: NA CHLORIDE 0.9% 1,000 ML ONE ×2 (13:45→21:22)
[2022-05-12 13:48] LABS: Absolute Lymphocytes (CBC) 2.7 K/uL (0.7-4.9); Hematocrit 38.6 % (36.0-45.0); Lymphocytes % 12.7 % (15.3-44.8); MCV 91.1 fL (80-100); MPV 9.4 fL (7.6-11.3); RBC Red Blood Cell Count 4.24 M/uL (3.86-4.86)
[2022-05-12 14:02] LABS: Albumin 3.9 g/dL (3.4-5.0); Bilirubin Total 0.5 mg/dL (0.2-1.0); Potassium 3.8 mmol/L (3.5-5.1); Protein, Total 7.7 g/dL (6.4-8.2)
--- NOTE | 2022-05-12 14:47 | RAD REPORT ---
EXAM DESCRIPTION: CTAbdomen Pelvis Wo Contrast - 05/12/2022 2:28 pm CLINICAL HISTORY: abdominal pain, diarrhea COMPARISON: Abdomen Pelvis W Contrast dated 05/07/2019; Abdomen Pelvis W Contrast dated 02/22/2019; Abdomen Pelvis W Contrast dated 02/20/2019 TECHNIQUE: CT of the abdomen and pelvis was performed. All CT scans are performed using dose optimization technique as appropriate and may include automated exposure control or mA/KV adjustment according to patient size. FINDINGS: Lower chest: No acute abnormality. Liver: No acute abnormality or suspicious lesions. Biliary: No biliary ductal dilatation. Stomach: No significant focal abnormality. Duodenum: No significant focal abnormality. Pancreas: No significant abnormality. Spleen: No significant abnormality. Adrenal: No suspicious lesions. Kidney/ureter: No hydronephrosis. 6 mm stone in the lower pole the right kidney. 5 mm stone in the le ft lower pole kidney. Retroperitoneum: No retroperitoneal adenopathy. Vascular: No aneurysm. Atherosclerosis . Bowel: Mild distal ileal wall thickening and mesenteric edema.. No appendicitis. Peritoneum: No ascites or free air. Bladder: Grossly unremarkable. Reproductive: No adnexal masses. Bones: No acute fracture. Multilevel degenerative changes are present in the spine. Other: n/a IMPRESSION: Segmental small bowel wall thickening and mesenteric edema in the distal ileum concernin g for an enteritis. No other acute findings identified.
[2022-05-12 16:28] LABS: Anisocytosis 1+; Blood Morphology Comment NOTED (NOT SEEN); Platelet Estimate ADEQ; Poikilocytosis 1+
[2022-05-12] MEDS ORDERED: ONDANSETRON 4 MG/2 ML VIAL IV PRN (16:28)
[2022-05-12] MEDS: INSULIN -REGULAR HUMAN 50 UNIT/0.5 ML ML SQ SCH ×2 (16:30→21:00)
--- NOTE | 2022-05-12 16:41 | P.HP ---
Certification for Inpatient Patient admitted to: Inpatient With expected LOS: >2 Midnights Practitioner: I am a practitioner with admitting privileges, knowledge of patient current condition, hospital course, and medical plan of care. Services: Services provided to patient in accordance with Admission requirements found in Title 42 Section 412.3 of the Code of Federal Regulations Patient History Date of Service: 05/12/22 Reason for admission: YASMIN, diarrhea History of Present Illness: 57yo F, PMH: seizure disorder, HTN, NIDDM2, HLD Presents to ED due to sudden onset this morning of severe diarrhea and abdominal cramping. Diarrhea began ~2-3 am this morning, and has had ~10 episodes, "basically water". Denies any sick contacts, no recent antibiotics, didn't eat anything unusual, had pork/rice for dinner - others who ate the same are ok. She did restart most of her medications yesterday @5pm after not taking any for several months. She has been having L hip pain for several months and takes 600mg motrin once to twice daily for the last several months. Associated with +nausea, no vomiting, no fever/chills at home, no skin lesions / rash. In the ED, noted to have leukocytosis and CT concerning for enteritis. Allergies pseudoephedrine [From [employer]] Allergy (Verified 09/02/17 10:57) Unknown Home Medications: PHENYTOIN ER Cap [Dilantin ER Cap*] 400 mg PO DAILY 09/02/17 Amlodipine [Norvasc*] 10 mg PO BEDTIME 10/21/17 Lovastatin 20 mg PO BEDTIME 10/21/17 Albuterol Sulfate [Proair Hfa] 1 puff IH SEECOM 09/29/18 Lisinopril [Zestril] 40 mg PO BEDTIME 09/29/18 Sitagliptin Phosphate [Januvia*] 100 mg PO DAILY 09/29/18 Aspirin [Aspirin EC 81 MG] 81 mg PO BEDTIME 12/25/18 Lidocaine 4% Patch [Lidoderm 5% Patch*] 1 patch TOP DAILY #30 patch 12/25/18 ALPRAZolam [Xanax*] 0.25 mg PO TID PRN #30 tab 11/19/20 Albuterol Neb [Proventil 0.083% Neb Soln] 2.5 mg NEB Q6HP PRN #60 amp 11/19/20 Methylprednisolone [Medrol dosepack] 4 mg PO DIRECTED #1 elias 11/19/20 Metoprolol Tartrate [Lopressor*] 25 mg PO BID #60 tab 11/19/20 ALPRAZolam [Xanax] 0.5 mg PO BID PRN #30 tab 11/27/20 Codeine/APAP [Tylenol #3*] 1 tab PO TID PRN #15 tab 11/27/20 - Past Medical/Surgical History Diabetic: No -: arthritis -: COPD -: NIDDM -: HTN -: seizures -: hyperlipidemia -: tubal ligation -: tonsillectomy - Family History Mother -: Heart disease, Lung disease, GI disease, Kidney disease Father -: Other (see notes) Notes: anureseym - Social History Smoking Status: Current every day smoker Alcohol use: Yes CD- Drugs: No Caffeine use: Yes Place of Residence: Homeless Review of Systems 10-point ROS is otherwise unremarkable Physical Examination - Physical Exam General: Alert, Oriented x3, Mild distress HEENT: EOMI, Sclerae nonicteric Respiratory: Clear to auscultation bilaterally, Normal air movement Cardiovascular: No edema, Regular rate/rhythm, No murmurs Gastrointestinal: Hyperactive, Tenderness (right abdomen, no rebound) Musculoskeletal: No tenderness Integumentary: No rashes, No significant lesion Neurological: Normal speech, Normal strength at 5/5 x4 extr, Normal affect, Abnormal sensation (diminished sensation of LLE) - Studies Laboratory Data (last 24 hrs) 05/12/22 13:32: Sodium 139, Potassium 3.8, BUN 45 H, Creatinine 3.55 H, Glucose 149 H, Total Bilirubin 0.5, AST 37, ALT 26, Alkaline Phosphatase 130 H, Lipase 169 05/12/22 13:32: WBC 21.0 H*, Hgb 12.6, Hct 38.6, Plt Count 325 Assessment and Plan - Advance Directives Does patient have a Living Will: No Does patient have a Durable POA for Healthcare: No Physician Review Additional Text: Problem List Diarrhea secondary to enteritis YASMIN likely prerenal / secondary to hypovolemia HTN NIDDM2 Seizure disorder patient off her meds for several months, just restarted last night, then developed diarrhea this morning leukocytosis from enteritis patient appears dry on exam, sunburned, and states she has been homeless lately suspect patient is hyovolemic, worsened by diarrhea initially denied history of renal disease, then said she was sent to [facility] for "some tests" and was told it was "ok", unable to further elaborate urine studies renal consult ivf empiric antibiotics to cover abdominal pathogens stool studes, check c.diff Code: DNR Dispo: home, ~2-3 days Time Spent Managing Pts Care (In Minutes): 75
--- NOTE | 2022-05-12 16:57 | ER ---
Nurse's Notes [facility] Name: Smitha Ibarra Age: 57 yrs Sex: Female : 1965 Arrival Date: 05/12/2022 Time: 13:22 Bed 19 Private MD: Diagnosis: Acute kidney failure, unspecified;Diarrhea, unspecified-enteritis;Elevated white blood cell count Presentation: 05/12 13:22 Chief complaint: EMS states: "pt is reporting abdominal pain with having darker colored jd3 diarrhea this morning. she described the pain started last night and has gotten worse throughout today.". Coronavirus screen: At this time, the client does not indicate any symptoms associated with coronavirus-19. Ebola Screen: No symptoms or risks identified at this time. Initial Sepsis Screen: Does the patient meet any 2 criteria? No. Patient's initial sepsis screen is negative. Does the patient have a suspected source of infection? No. Patient's initial sepsis screen is negative. Risk Assessment: Do you want to hurt yourself or someone else? Patient reports no desire to harm self or others. Onset of symptoms was May 11, 2022. 13:22 Method Of Arrival: EMS: [facility] jd3 13:22 Acuity: PRECIOUS 3 jd3 13:25 Care prior to arrival: IV initiated. 20 GA, in the left antecubital area. jd3 Historical: - Allergies: 13:24 Sudafed; jd3 - PMHx: 13:24 COPD; Seizures; Hypertension; High Cholesterol; Diabetes - NIDDM; Arthritis; jd3 - Immunization history:: Adult Immunizations up to date, Client reports receiving the 2nd dose of the Covid vaccine, Pneumococcal vaccine status is unknown, Flu vaccine is up to date. - Social history:: Smoking status: Patient reports the use of cigarette tobacco products, smokes more than three packs cigarettes per day. Screenin:27 Abuse screen: Denies threats or abuse. Nutritional screening: No deficits noted. jd3 Tuberculosis screening: No symptoms or risk factors identified. Fall Risk Ambulatory Aid- None/Bed Rest/Nurse Assist (0 pts). Gait- Normal/Bed Rest/Wheelchair (0 pts) Mental Status- Oriented to own ability (0 pts). Total Blunt Fall Scale indicates No Risk (0-24 pts). Assessment: 13:26 General: Appears in no apparent distress. uncomfortable, Behavior is calm, cooperative, jd3 appropriate for age. Pain: Complains of pain in abdomen Quality of pain is described as sharp, tender. Neuro: Orellana Agitation-Sedation Scale (RASS): 0 - Alert and Calm Level of Consciousness is awake, alert, obeys commands, Oriented to person, place, time, situation. Cardiovascular: Capillary refill < 3 seconds Patient's skin is warm and dry. Respiratory: Airway is patent Respiratory effort is even, unlabored, Respiratory pattern is regular, symmetrical, Denies cough, shortness of breath. GI: Abdomen is round Abd is soft X 4 quads Abdomen is tender to palpation X 4 quads. Reports lower abdominal pain, upper abdominal pain, diarrhea, nausea. : No signs and/or symptoms were reported regarding the genitourinary system. EENT: No signs and/or symptoms were reported regarding the EENT system. Derm: Skin is intact, Skin is dry, Skin is normal, Skin temperature is warm. Musculoskeletal: Circulation, motion, and sensation intact. Range of motion: intact in all extremities. 14:41 Reassessment: Patient appears in no apparent distress at this time. No changes from jd3 previously documented assessment. Patient and/or family updated on plan of care and expected duration. Pain level reassessed. Patient is alert, oriented x 3, equal unlabored respirations, skin warm/dry/pink. 17:18 Reassessment: No changes from previously documented assessment. Patient and/or family jd3 updated on plan of care and expected duration. Pain level reassessed. Patient is alert, oriented x 3, equal unlabored respirations, skin warm/dry/pink. 18:00 Reassessment: Patient appears in no apparent distress at this time. No changes from jd3 previously documented assessment. Patient and/or family updated on plan of care and expected duration. Pain level reassessed. Patient is alert, oriented x 3, equal unlabored respirations, skin warm/dry/pink. 21:36 General: Appears in no apparent distress. Behavior is cooperative. Neuro: Level of sm5 Consciousness is awake, alert, obeys commands, Oriented to person, place, time, situation. Cardiovascular: Capillary refill < 3 seconds Patient's skin is warm and dry. Respiratory: Airway is patent Trachea midline Respiratory effort is even, unlabored. GI: Abdomen is obese, Reports lower abdominal pain, upper abdominal pain, diarrhea. Vital Signs: 13:24 BP 107 / 53; Pulse 85; Resp 18 S; Temp 98.5(O); Pulse Ox 95% on R/A; Weight 94.8 kg jd3 (R); Height 5 ft. 7 in. (170.18 cm) (R); Pain 9/10; 14:41 BP 108 / 52; Pulse 69; Resp 18; Pulse Ox 96% on R/A; jd3 17:18 BP 104 / 61; Pulse 75; Resp 16; Pulse Ox 97% on R/A; jd3 18:00 BP 118 / 57; Pulse 64; Resp 18; Pulse Ox 97% on R/A; jd3 13:24 Body Mass Index 32.73 (94.80 kg, 170.18 cm) jd3 ED Course: 13:22 Patient arrived in ED. jd3 13:22 Nate Westfall RN is Primary Nurse. jd3 13:22 Juanita Colin FNP-C is [facility]. kb 13:22 Hong Jones DO is Attending Physician. kb 13:23 Triage completed. jd3 13:24 Arm band placed on. jd3 13:25 Patient has correct armband on for positive identification. Bed in low position. Call j light in reach. Side rails up X2. Pulse ox on. NIBP on. 13:34 Maintain EMS IV. Dressing intact. Good blood return noted. Site clean \\T\\ dry. Gauge \\T\\ durga 3 site: 20 G left AC. 14:28 Abdomen In Process Unspecified. EDMS 16:56 Marcus Martin MD is Hospitalizing Provider. kb 19:10 Primary Nurse role handed off by Nate Westfall, TACOS mw2 20:11 Celeste Velasquez RN is Primary Nurse. sm5 21:37 No provider procedures requiring assistance completed. Patient admitted, IV remains in sm5 place. Administered Medications: 14:04 Drug: NS 0.9% 1000 ml Route: IV; Rate: 1 bolus; Site: left antecubital; jd3 18:00 Follow up: Response: No adverse reaction; IV Status: Completed infusion jd3 14:04 Drug: Zofran (Ondansetron) 4 mg Route: IVP; Site: left antecubital; jd3 15:00 Follow up: Response: No adverse reaction jd3 14:04 Drug: morphine 2 mg Route: IVP; Infused Over: 4 mins; Site: left antecubital; jd3 15:00 Follow up: Response: No adverse reaction; RASS: Alert and Calm (0) jd3 17:17 Drug: fentaNYL (PF) 25 mcg Route: IVP; Site: left antecubital; jd3 18:15 Follow up: Response: No adverse reaction; RASS: Alert and Calm (0) jd3 Medication: 13:27 VIS not applicable for this client. jd3 Outcome: 16:56 Decision to Hospitalize by Provider. kb 21:37 Admitted to Med/surg accompanied by tech, via wheelchair, with chart. [email or web address] 21:37 Condition: stable 21:37 Instructed on the need for admit. 21:37 Patient left the ED. sm5 Signatures: Dispatcher [employer] EDJuanita Montano, CANDIDA-C CANDIDA-Nate Neri RN RN jd3 [place], MyKena [facility] Celeste Velasquez RN RN [email or web address]
--- NOTE | 2022-05-12 16:57 | EDPHYS ---
Physician Documentation [facility] Name: Smitha Ibarra Age: 57 yrs Sex: Female : 1965 Arrival Date: 05/12/2022 Time: 13:22 Bed 19 Private MD: ED Physician Hong Jones HPI: 05/12 20:59 This 57 yrs old Female presents to ER via EMS with complaints of abd pain and diarrhea. kb 19:19 Patient reports diffuse abdominal pain that started yesterday. Severe diarrhea started kb last night with nausea.. 20:59 The patient presents to the emergency department with diarrhea, abdominal pain. Onset: kb The symptoms/episode began/occurred yesterday. Possible causes: unknown. The symptoms are aggravated by nothing. The symptoms are alleviated by nothing. Associated signs and symptoms: Pertinent positives: abdominal pain, diarrhea, nausea, Pertinent negatives: fever, vomiting. Severity of symptoms: At their worst the symptoms were moderate in the emergency department the symptoms are unchanged. The patient has not experienced similar symptoms in the past. The patient has not recently seen a physician. Historical: - Allergies: 13:24 Sudafed; jd3 - PMHx: 13:24 COPD; Seizures; Hypertension; High Cholesterol; Diabetes - NIDDM; Arthritis; jd3 - Immunization history:: Adult Immunizations up to date, Client reports receiving the 2nd dose of the Covid vaccine, Pneumococcal vaccine status is unknown, Flu vaccine is up to date. - Social history:: Smoking status: Patient reports the use of cigarette tobacco products, smokes more than three packs cigarettes per day. ROS: 20:59 Constitutional: Negative for fever, chills, and weight loss. kb 20:59 Abdomen/GI: Positive for abdominal pain, nausea, diarrhea, Negative for vomiting. 20:59 All other systems are negative. Exam: 20:59 Constitutional: This is a well developed, well nourished patient who is awake, alert, kb and in no acute distress. Head/Face: Normocephalic, atraumatic. ENT: Moist Mucous membranes Cardiovascular: Regular rate and rhythm with a normal S1 and S2. No gallops, murmurs, or rubs. No pulse deficits. Respiratory: Respirations even and unlabored. No increased work of breathing. Talking in full sentences Skin: Warm, dry with normal turgor. Normal color. MS/ Extremity: Pulses equal, no cyanosis. Neurovascular intact. Full, normal range of motion. Neuro: Awake and alert, GCS 15, oriented to person, place, time, and situation. Moves all extremities. Normal gait. Psych: Awake, alert, with orientation to person, place and time. Behavior, mood, and affect are within normal limits. 20:59 Abdomen/GI: Inspection: abdomen appears normal, Bowel sounds: normal, in all quadrants, Palpation: soft, in all quadrants, moderate abdominal tenderness, in the right upper quadrant and right lower quadrant. Vital Signs: 13:24 BP 107 / 53; Pulse 85; Resp 18 S; Temp 98.5(O); Pulse Ox 95% on R/A; Weight 94.8 kg jd3 (R); Height 5 ft. 7 in. (170.18 cm) (R); Pain 9/10; 14:41 BP 108 / 52; Pulse 69; Resp 18; Pulse Ox 96% on R/A; jd3 17:18 BP 104 / 61; Pulse 75; Resp 16; Pulse Ox 97% on R/A; jd3 18:00 BP 118 / 57; Pulse 64; Resp 18; Pulse Ox 97% on R/A; jd3 13:24 Body Mass Index 32.73 (94.80 kg, 170.18 cm) jd3 MDM: 13:22 Patient medically screened. kb 20:57 Data reviewed: vital signs, nurses notes. Data interpreted: Pulse oximetry: on room air kb is 97 %. Interpretation: normal. Counseling: I had a detailed discussion with the patient and/or guardian regarding: the historical points, exam findings, and any diagnostic results supporting the discharge/admit diagnosis, lab results, radiology results, the need for further work-up and treatment in the hospital. Physician consultation: Marcus Martin MD regarding admission, to the medical/surgical unit. patient's condition, and will see patient in ED. 05/12 13:26 Order name: CBC with Diff; Complete Time: 16:39 kb 05/12 13:26 Order name: CMP; Complete Time: 14:04 kb 05/12 13:26 Order name: Lipase; Complete Time: 14:04 kb 05/12 13:54 Order name: Manual Differential; Complete Time: 16:39 EDMS 05/12 15:36 Order name: COVID-19 SARS RT PCR (Document "Date of Onset" if Symptomatic); Complete kb Time: 17:41 05/12 16:03 Order name: Lactate; Complete Time: 17:15 kb 05/12 16:03 Order name: Blood Culture Adult (2) kb 05/12 16:30 Order name: Urinalysis EDMS 05/12 16:30 Order name: Urine Drug Screen EDMS 05/12 16:33 Order name: CBC with Automated Diff EDMS 05/12 16:33 Order name: CBC with Automated Diff; Complete Time: 09:46 EDMS 05/12 16:33 Order name: Comprehensive Metabolic Panel EDMS 05/12 16:33 Order name: Comprehensive Metabolic Panel; Complete Time: 09:46 EDMS 05/12 16:33 Order name: Magnesium EDMS 05/12 16:33 Order name: Magnesium; Complete Time: 09:46 EDMS 05/12 16:33 Order name: T4 Free EDMS 05/12 16:33 Order name: T4 Free; Complete Time: 09:46 EDMS 05/12 16:33 Order name: Thyroid Stimulating Hormone EDMS 05/12 16:33 Order name: Thyroid Stimulating Hormone; Complete Time: 09:46 EDMS 05/12 16:34 Order name: C.difficile GDH Ag EDMS 05/12 16:34 Order name: Lactoferrin, Stool EDMS 05/12 16:34 Order name: Fecal Leukocyte Stain EDMS 05/12 16:34 Order name: Ova and Parasites EDMS 05/12 16:34 Order name: Stool Culture EDPA 05/12 16:37 Order name: UR CREAT EDPA 05/12 16:37 Order name: UR POTASSIUM EDPA 05/12 16:37 Order name: UR PROTEIN EDMS 05/12 16:37 Order name: UR SODIUM EDMS 05/12 21:17 Order name: Glucose, Ancillary Testing; Complete Time: 21:22 EDMS 05/12 13:26 Order name: IV Saline Lock; Complete Time: 13:33 kb 05/12 13:26 Order name: Labs collected and sent; Complete Time: 13:33 kb 05/12 14:28 Order name: Abdomen ; Complete Time: 14:53 EDMS 05/12 15:47 Order name: Diet Renal; Complete Time: 15:47 kb 05/12 16:33 Order name: CONS Physician Consult EDMS Administered Medications: 14:04 Drug: NS 0.9% 1000 ml Route: IV; Rate: 1 bolus; Site: left antecubital; jd3 18:00 Follow up: Response: No adverse reaction; IV Status: Completed infusion jd3 14:04 Drug: Zofran (Ondansetron) 4 mg Route: IVP; Site: left antecubital; jd3 15:00 Follow up: Response: No adverse reaction jd3 14:04 Drug: morphine 2 mg Route: IVP; Infused Over: 4 mins; Site: left antecubital; jd3 15:00 Follow up: Response: No adverse reaction; RASS: Alert and Calm (0) jd3 17:17 Drug: fentaNYL (PF) 25 mcg Route: IVP; Site: left antecubital; jd3 18:15 Follow up: Response: No adverse reaction; RASS: Alert and Calm (0) jd3 Disposition: 05/13 09:47 Co-signature as Attending Physician, Hong MILLER was immediately available on-site ms3 in the Emergency Department for consultation in the care of the patient.. Disposition Summary: 05/12/22 16:56 Hospitalization Ordered Hospitalization Status: Inpatient Admission kb Provider: Marcus Martin [facility] kb Condition: Stable kb Problem: new kb Symptoms: are unchanged kb Bed/Room Type: [facility] Room Assignment: [facility](05/12/22 20:38) Diagnosis - Acute kidney failure, unspecified kb - Diarrhea, unspecified - enteritis kb - Elevated white blood cell count kb Forms: - Medication Reconciliation Form kb - SBAR form kb Signatures: Dispatcher [employer] EDPA Juanita Colin FNP-C FNP-Vera Rodriguez, RN RN Nate Flores RN RN jd3 Sims, Marcus, DO DO ms3 Corrections: (The following items were deleted from the chart) 05/12 14:28 13:30 Abdomen Pelvis W Con+CT.RAD.BRZ ordered. [facility] 20:38 16:56 kb
[2022-05-12] MEDS ORDERED: METRONIDAZOLE 500mg IVPB 500 MG/100 ML BAG IV SCH (17:00)
[2022-05-12] MEDS ORDERED: FENTANYL CITR 100 MCG/2 ML ONE (17:10)
[2022-05-12] MEDS ORDERED: METRONIDAZOLE 500mg IVPB 500 MG/100 ML BAG IV ONE (21:21)
[2022-05-12] MEDS ORDERED: PHENYTOIN ER 100 MG CAP PO ONE (21:21)
[2022-05-12] MEDS ORDERED: ENOXAPARIN 40 MG/0.4 ML SQ ONE (21:21)
[2022-05-12] MEDS: ENOXAPARIN 40 MG/0.4 ML SQ SCH (21:27)
[2022-05-12] MEDS: NA CHLORIDE 0.9% 1,000 ML IV SCH (21:27)
[2022-05-12] MEDS: PHENYTOIN ER 100 MG CAP PO SCH (21:27)
[2022-05-12 22:07] VITALS: BMI 31.2
[2022-05-12] MEDS: CIPROFLOXACIN 400mg IV 400 MG/200 ML BAG IV SCH (23:01)
[2022-05-13] MEDS: NA CHLORIDE 0.9% 1,000 ML IV SCH ×4 (01:00→21:19)
[2022-05-13 06:15] LABS: Absolute Lymphocytes (CBC) 2.4 K/uL (0.7-4.9); Hematocrit 34.2 % (36.0-45.0); Lymphocytes % 17.6 % (15.3-44.8); MCV 91.8 fL (80-100); MPV 9.2 fL (7.6-11.3); RBC Red Blood Cell Count 3.72 M/uL (3.86-4.86)
--- NOTE | 2022-05-13 06:37 | P.PN ---
Date of Service: 05/13/22 Subjective: no diarrhea since admission feels slightly better; still tired tolerating diet, no nausea/vomiting ROS: 10 point ROS as noted above, otherwise negative Physical Exam: Gen: AOx3, fatigued appearing, NAD HEENT: normal conjunctiva, sclera anicteric CV: Regular rate/rhythm, no edema Pulm: nonlabored on RA, clear to auscultation Abd: soft, minimal tenderness - right sided Ext: no edema, no rash Problem List Diarrhea secondary to enteritis YASMIN likely prerenal / secondary to hypovolemia HTN NIDDM2 Seizure disorder patient off her meds for several months, just restarted night before admission, then developed diarrhea morning of admission leukocytosis from enteritis, exaggerated by dehydration aggressive hydration overnight, renal function significantly improved sunburned, and states she has been homeless lately initially denied history of renal disease, then said she was sent to [facility] for "some tests" and was told it was "ok", unable to further elaborate renal consulted ivf empiric antibiotics to cover abdominal pathogens / gastroenteritis stool studies Code: DNR Dispo: home, ~1-2 days Time Spent Managing Pts Care (In Minutes): 35
[2022-05-13 06:47] LABS: Albumin 3.2 g/dL (3.4-5.0); Bilirubin Total 0.5 mg/dL (0.2-1.0); Magnesium 2.5 mg/dL (1.8-2.4); Potassium 3.7 mmol/L (3.5-5.1); Protein, Total 6.7 g/dL (6.4-8.2); Thyroid Stimulating Hormone 0.644 uIU/mL (0.360-3.740)
[2022-05-13] MEDS: INSULIN -REGULAR HUMAN 50 UNIT/0.5 ML ML SQ SCH ×4 (07:30→20:55)
[2022-05-13] MEDS: METRONIDAZOLE 500mg IVPB 500 MG/100 ML BAG IV SCH ×2 (08:17→15:49)
[2022-05-13] MEDS: CIPROFLOXACIN 400mg IV 400 MG/200 ML BAG IV SCH ×2 (08:17→20:55)
[2022-05-13] MEDS: ENOXAPARIN 40 MG/0.4 ML SQ SCH (08:18)
[2022-05-13] MEDS ORDERED: POTASSIUM CL SA 10 MEQ TAB PO ONE (09:00)
[2022-05-13 10:42] LABS: Specific Gravity 1.025 (1.005-1.030); Urine Bilirubin Negative (Negative); Urine Blood 1+ (Negative); Urine Clarity Clear (Clear); Urine Color Yellow (Yellow); Urine Glucose Trace (Negative); Urine Protein Trace (Negative); Urine Urobilinogen 0.2 mg/dL (0.2-1.0); Urine pH 5.5 (5.0-7.0)
[2022-05-13 11:13] LABS: Urine Bacteria <20 /HPF (<20); Urine RBC <5 /HPF (None Seen)
[2022-05-13 11:44] LABS: Barbiturates NEGATIVE (NEGATIVE); Benzodiazepines NEGATIVE (NEGATIVE); Cocaine NEGATIVE (NEGATIVE); METHAMPHETAM POSITIVE (NEGATIVE); Methadone NEGATIVE (NEGATIVE); Opiates NEGATIVE (NEGATIVE); Phencyclidine NEGATIVE (NEGATIVE); THC Cannibis NEGATIVE (NEGATIVE)
--- NOTE | 2022-05-13 11:44 | CON ---
Date of Consultation: 05/13/2022 Reason For Consultation: Elevated BUN and creatinine. History Of Present Illness: This is a pleasant 57-year-old female with significant past medical history of diabetes for the last 10 years complicated with neuropathy, hyperlipidemia, hypertension, COPD, arthritis, the patient was in her regular state of health. The patient came to the hospital complaining from diarrhea for the last few days, watery. The patient started feeling dizzy and weak, for that reason reported to the hospital. Upon arrival to the hospital, the patient found to have leukocytosis with severe elevation in BUN, creatinine 3.5 with GFR of 14. For that reason, the patient was admitted to the hospital and we have been consulted. Reviewing the record for the patient, the patient has apparently been on lisinopril as outpatient. No diuresis. The patient denied taking any nonsteroidal. The patient over the night started on aggressive hydration. Kidney function has been improved significantly. Creatinine down from 3.5 to 1.8. Reviewing the record for the patient, creatinine back in October 2020, 0.5 with normal GFR above 90. Past Medical History: Includes; 1. Diabetes complicated with neuropathy. 2. COPD. 3. Hypertension. 4. Arthritis. 5. Seizure. 6. Hyperlipidemia. Past Surgical History: Includes tubal ligation, tonsillectomy. Family History: Positive for CAD, GI bleed, kidney disease. Social History: Active smoker, active alcohol. Denied drugs abuse. Home Medications: Include Dilantin, amlodipine, lovastatin, lisinopril, Januvia, aspirin, methylprednisolone, alprazolam, codeine. Review of Systems: Head and Neck: No red eye. No ear pain. GI: Has diarrhea, nausea, vomiting. : No polyuria. No dysuria. No hematuria. 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 Respiratory: No shortness of breath. Cardiovascular: No chest pain. Endocrine: No polydipsia. Skin: No rash. Neuro: Has neuropathy. Musculoskeletal: No joint pain. Physical Examination: Vital Signs: When I saw the patient; blood pressure of 134/60, pulse of 66, afebrile. Chest: Clear to auscultation. Heart: S1, S2. Systolic murmur. Abdomen: Soft, nontender. Extremities: No edema. Neuro: Alert. No focality. Laboratory Data: CT abdomen and pelvis did not show any obstruction. Sodium 137, potassium 3.7, bicarb 25, BUN 38, creatinine 1.8, calcium 8.3. On admission; creatinine 3.5, GFR of 14, WBC 13.8, H and H 11.4/34.2. On admission; WBC 21, H and H 12.6/36.2. Current Medications: The patient on include IV fluid, ciprofloxacin, metronidazole, Lovenox. Assessment And Plan: 1. Acute kidney injury secondary to prerenal, superimposed with VELASQUEZ inhibitor, on the recovery phase, looked to me started being on normal volume. I am going to decrease IV fluid to 100 per hour and I am going to continue to monitor the patient. We will send for protein creatinine to evaluate the patient and we will follow up the patient. I am going to send for PTH to evaluate the chronicity of the disease. 2. Hypertension, currently controlled, optimal with the presence of acute kidney injury. Hold VELASQUEZ inhibitor. 3. Diabetes as by primary. 4. Gastroenteritis as by primary. Continue current antibiotic. The patient is on Flagyl and ciprofloxacin, dose appropriate. 5. Hypokalemia. I will supplement. Time spent examining the patient [id number], reviewing the data, placing order, discussing with by bedside, discussing with staff member including charge nurse and nursing and hospitalist 65 minutes. ZARA Voice ID: [id number] Report ID: [id number] MTDD
[2022-05-13] MEDS ORDERED: ACETAMINOPHEN 500 MG TAB PO PRN (11:58)
[2022-05-13 12:00] LABS: UR PROTEIN 41.9 mg/dL (<11.9); Urine Protein/Creatinine Ratio 0.51 ratio (<0.15)
[2022-05-13] MEDS ORDERED: KCL 20 MEQ/100 mL IVPB 20 MEQ/100 ML BAG IV SCH (12:00)
[2022-05-13] MEDS: PHENYTOIN ER 100 MG CAP PO SCH (20:55)
[2022-05-14] MEDS: METRONIDAZOLE 500mg IVPB 500 MG/100 ML BAG IV SCH ×2 (00:05→08:09)
--- NOTE | 2022-05-14 06:13 | P.PN ---
Date of Service: 05/14/22 Subjective: improving no diarrhea since admission labs normalized no new symptoms ROS: 10 point ROS as noted above, otherwise negative Physical Exam: Gen: AOx3, NAD HEENT: normal conjunctiva, sclera anicteric CV: Regular rate/rhythm, no edema Pulm: nonlabored on RA, clear to auscultation Abd: soft, nontender, nondistended Ext: no edema, no rash, no lesions, no lacerations Problem List Diarrhea secondary to enteritis YASMIN likely prerenal / secondary to hypovolemia HTN NIDDM2 Seizure disorder patient off her meds for several months, just restarted night before admission, then developed diarrhea morning of admission leukocytosis from enteritis, exaggerated by dehydration renal function improved with hydration, dc IVF; taking in PO sunburned, and states she has been homeless lately initially denied history of renal disease, then said she was sent to [facility] for "some tests" and was told it was "ok", unable to further elaborate renal consulted empiric antibiotics to cover abdominal pathogens / gastroenteritis blood cultures: 2/2 aerobic bottles growing CONS, no skin infection / source noted Code: DNR Dispo: home, tomorrow, pending negative repeat blood cultures Time Spent Managing Pts Care (In Minutes): 35
[2022-05-14 07:04] LABS: Absolute Lymphocytes (CBC) 1.5 K/uL (0.7-4.9); Lymphocytes % 15.6 % (15.3-44.8); MCV 90.7 fL (80-100); MPV 8.9 fL (7.6-11.3); RBC Red Blood Cell Count 3.75 M/uL (3.86-4.86)
[2022-05-14 07:17] LABS: Potassium 4.2 mmol/L (3.5-5.1)
[2022-05-14] MEDS: INSULIN -REGULAR HUMAN 50 UNIT/0.5 ML ML SQ SCH ×4 (07:30→20:21)
[2022-05-14] MEDS: NA CHLORIDE 0.9% 1,000 ML IV SCH (08:00)
[2022-05-14] MEDS: ENOXAPARIN 40 MG/0.4 ML SQ SCH (08:09)
[2022-05-14] MEDS: CIPROFLOXACIN 400mg IV 400 MG/200 ML BAG IV SCH (08:09)
--- NOTE | 2022-05-14 12:24 | P.CNS ---
Chief Complaint: YASMIN, diarrhea History of Present Illness: The patient is a 57-year-old female with past medical history of hypertension, diabetes, and hyperlipidemia who presented to the emergency department secondary to diarrhea and abdominal cramping. CT abdomen and pelvis demonstrated enteritis, diarrhea subsided once patient was hospitalized. Blood cultures obtained on 05/12 grew coagulase-negative staph in both aerobic bottles, repeat blood cultures obtained on 05/14 are pending. Patient was empirically placed on ciprofloxacin and Flagyl for her enteritis. We recommend continuing those antibiotics at this time. Patient afebrile, hemodynamically stable. Creatinine within normal range. She currently denies nausea/vomiting/diarrhea/shortness of breath/chest pain. She reports right lower quadrant abdominal pain and right flank pain. Allergies pseudoephedrine [From Sudafed] Allergy (Verified 05/12/22 22:04) Unknown Home Medications: Atorvastatin Calcium [Lipitor] 80 mg PO BEDTIME 05/12/22 Lisinopril [Zestril] 40 mg PO DAILY 05/12/22 Magnesium Oxide [Magnesium] 500 mg PO DAILY 05/12/22 Metoprolol Tartrate [Lopressor*] 25 mg PO BID 05/12/22 Omeprazole 20 mg PO DAILY 05/12/22 PHENYTOIN ER Cap [Dilantin ER Cap*] 400 mg PO DAILY 05/12/22 Sitagliptin Phosphate [Januvia] 100 mg PO DAILY 05/12/22 - Past Medical/Surgical History Diabetic: No -: arthritis -: COPD -: NIDDM -: HTN -: seizures -: hyperlipidemia -: tubal ligation -: tonsillectomy - Family History Mother Medical History: Heart disease, Lung disease, GI disease, Kidney disease Father Medical History: Other (see notes) Notes: aneurysm - Social History Smoking Status: Current every day smoker Alcohol use: No CD- Drugs: No Caffeine use: Yes Place of Residence: [facility] Review of Systems 10-point ROS is otherwise unremarkable Physical Examination Temp Pulse Resp BP Pulse Ox 98.3 F 80 18 125/60 95 05/14/22 08:00 05/14/22 08:00 05/14/22 08:00 05/14/22 08:00 05/14/22 08:00 General: Alert, Obese HEENT: Atraumatic Neck: Supple Respiratory: Clear to auscultation bilaterally, Normal air movement Cardiovascular: Regular rate/rhythm, Normal S1 S2 Gastrointestinal: Normal bowel sounds, Tenderness (Right lower quadrant) Musculoskeletal: No clubbing, No swelling, No contractures Conclusions/Impression: Assessment/plan Bacteremia Blood cultures obtained on 05/12 grew coagulase-negative staph in both aerobic bottles, repeat cultures pending. Recommend continuing current antibiotics at this time. Patient afebrile, hemodynamically stable. No clear source of bacteremia, initial positive blood cultures likely contamination. Recommend discontinuing antibiotics if repeat cultures are negative. Acute enteritis Continue ciprofloxacin and Flagyl at this time Patient symptoms are improving, diarrhea has subsided Anemia Continue to monitor H&H Plan of care discussed with Dr. Marsh Thank you for consultation.
[2022-05-14] MEDS: metroNIDAZOLE 500 MG TABLET PO SCH ×2 (13:52→20:23)
[2022-05-14] MEDS ORDERED: metroNIDAZOLE 500 MG TABLET PO SCH (14:00)
[2022-05-14 15:51] VITALS: O2SAT 97
--- NOTE | 2022-05-14 20:13 | P.PN ---
Subjective Date of Service: 05/14/22 Chief Complaint: YASMIN, diarrhea Subjective: No new changes Physical Examination - Vital Signs Temperature: 97.9 F Blood Pressure: 176/92 Pulse: 77 Respirations: 18 Pulse Ox (%): 95 - Physical Exam General: In no apparent distress HEENT: Atraumatic, Normocephalic Neck: Supple Respiratory: Other (Symmetric chest expansion) Cardiovascular: No rubs, No murmurs Gastrointestinal: Soft and benign, No rebound Musculoskeletal: No clubbing Integumentary: No warmth Neurological: Normal tone Urinary: Other (No bladder distention) External genitalia: Deferred Rectal: Deferred - Studies Microbiology Data (last 24 hrs): 05/12/22 16:37 Blood - Blood Blood Culture Gram Stain - Final 05/12/22 16:56 Blood - Blood Blood Culture Gram Stain - Final Assessment And Plan - Plan 1. Acute kidney injury secondary to prerenal, superimposed with VELASQUEZ inhibitor. Improved. iPTH wnl. [place] po fluid intake. Avoid ACEI, ARB, NSAID. Monitor renal panel. 2. Hypertension, currently controlled. Cont current med regimen. 3. DM2. Mngt per primary team. 4. Diarrhea, Gastroenteritis, CoNS bacteremia. Received abx. Per primary team & ID. F/u repeat BCx. 5. Hypokalemia. Replete K prn.
[2022-05-14] MEDS: CIPROFLOXACIN HCL 500 MG TAB PO SCH (20:23)
[2022-05-14] MEDS: PHENYTOIN ER 100 MG CAP PO SCH (20:24)
[2022-05-15 03:48] LABS: Albumin 2.8 g/dL (3.4-5.0); Potassium 3.8 mmol/L (3.5-5.1)
[2022-05-15] MEDS: INSULIN -REGULAR HUMAN 50 UNIT/0.5 ML ML SQ SCH (07:30)
[2022-05-15 08:24] VITALS: BP 131/61; TEMP 97.6
[2022-05-15] MEDS ORDERED: METOPROLOL TAR 25 MG TAB PO SCH (09:00)
[2022-05-15] MEDS: metroNIDAZOLE 500 MG TABLET PO SCH (09:03)
[2022-05-15] MEDS: CIPROFLOXACIN HCL 500 MG TAB PO SCH (09:03)
[2022-05-15] MEDS: ENOXAPARIN 40 MG/0.4 ML SQ SCH (09:03)
--- NOTE | 2022-05-15 21:44 | P.DS ---
Admission Date: 05/12/22 Discharge Date: 05/15/22 Disposition: ROUTINE DISCHARGE Discharge Condition: GOOD Reason for Admission: YASMIN, diarrhea Consultations: Infectious Disease - Dr. Marsh Nephrology - Dr. Pereyra Brief History of Present Illness: 57yo F, PMH: seizure disorder, HTN, NIDDM2, HLD Presents to ED due to sudden onset this morning of severe diarrhea and abdominal cramping. Diarrhea began ~2-3 am this morning, and has had ~10 episodes, "basically water". Denies any sick contacts, no recent antibiotics, didn't eat anything unusual, had pork/rice for dinner - others who ate the same are ok. She did restart most of her medications yesterday @5pm after not taking any for several months. She has been having L hip pain for several months and takes 600mg motrin once to twice daily for the last several months. Associated with +nausea, no vomiting, no fever/chills at home, no skin lesions / rash. In the ED, noted to have leukocytosis and CT concerning for enteritis. Hospital Course: Problem List Diarrhea secondary to enteritis YASMIN likely prerenal / secondary to hypovolemia HTN NIDDM2 Seizure disorder Patient was found to have gastroenteritis and significant dehydration. She had improvement of her symptoms and no longer had diarrhea. She was treated with IV fluids and antibiotics. Blood cultures grew CONS which was felt to be contaminant. ID was consulted. Repeat cultures were negative at 24hrs. Patient remained afebrile and leukocytosis resolved. Renal function returned back to normal. She was deemed stable for discharge home. 7 days of antibiotics prescribed. Continue home medications. Follow up with PCP in ~3-5 days. Hold off on lisinopril until you follow up with your doctor. Physical Exam: Gen: AOx3, NAD HEENT: normal conjunctiva, sclera anicteric CV: Regular rate/rhythm, no edema Pulm: nonlabored on RA, clear to auscultation Abd: soft, nontender, nondistended Ext: no edema, no rash, no lesions, no lacerations Vital Signs/Physical Exam: Temp Pulse Resp BP Pulse Ox 97.6 F 65 17 131/61 95 05/15/22 08:00 05/15/22 09:03 05/15/22 08:00 05/15/22 09:03 05/15/22 08:00 Laboratory Data at Discharge: WBC 9.8 K/uL (4.3-10.9) D 05/14/22 06:46 Hgb 11.5 g/dL (12.0-15.0) L 05/14/22 06:46 Hct 34.0 % (36.0-45.0) L 05/14/22 06:46 Plt Count 234 K/uL (152-406) 05/14/22 06:46 Sodium 139 mmol/L (136-145) 05/15/22 03:07 Potassium 3.8 mmol/L (3.5-5.1) 05/15/22 03:07 BUN 10 mg/dL (7-18) 05/15/22 03:07 Creatinine 0.79 mg/dL (0.55-1.3) 05/15/22 03:07 Glucose 182 mg/dL (74-106) H 05/15/22 03:07 Phosphorus 2.0 mg/dL (2.5-4.9) L 05/15/22 03:07 Magnesium 2.5 mg/dL (1.8-2.4) H 05/13/22 05:13 Total Bilirubin 0.5 mg/dL (0.2-1.0) 05/13/22 05:13 AST 31 U/L (15-37) 05/13/22 05:13 ALT 24 U/L (12-78) 05/13/22 05:13 Alkaline Phosphatase 123 U/L (45-117) H 05/13/22 05:13 Lipase 169 U/L (73-393) 05/12/22 13:32 Home Medications: Atorvastatin Calcium [Lipitor] 80 mg PO BEDTIME 05/12/22 Lisinopril [Zestril] 40 mg PO DAILY 05/12/22 Magnesium Oxide [Magnesium] 500 mg PO DAILY 05/12/22 Metoprolol Tartrate [Lopressor*] 25 mg PO BID 05/12/22 Omeprazole 20 mg PO DAILY 05/12/22 PHENYTOIN ER Cap [Dilantin ER Cap*] 400 mg PO DAILY 05/12/22 Sitagliptin Phosphate [Januvia] 100 mg PO DAILY 05/12/22 Ciprofloxacin HCl [Cipro 500 MG Tablet] 500 mg PO BID 7 Days #14 tab 07/23/22 metroNIDAZOLE [Flagyl*] 500 mg PO TID 7 Days #21 tablet 05/15/22 New Medications: Ciprofloxacin HCl [Cipro 500 MG Tablet] 500 mg PO BID 7 Days #14 tab metroNIDAZOLE [Flagyl*] 500 mg PO TID 7 Days #21 tablet Time spent managing pt's care (in minutes): 45
--- NOTE | 2022-05-15 21:48 | PN ---
Date of Progress Note: 05/15/2022 Chief Complaint: Acute kidney injury. Subjective: Patient denies complaints. Review of Systems: Denies fever, chills. Physical Examination: Lungs: Clear to auscultation bilaterally. Heart: S1, S2. Abdomen: Soft. Extremities: No edema. Impression And Plan: 1.Acute kidney injury secondary to prerenal, superimposed with VELASQUEZ inhibitor effect. Renal function has improved. Patient will continue p.o. hydration. Plan is to avoid VELASQUEZ inhibitor, angiotensin re ceptor cherelle, and nonsteroidal anti-inflammatory medication. Monitor renal panel and continue hydr ation by mouth. 2.Hypertension. Blood pressure is currently controlled. Continue current medicines. 3.Diarrhea, gastroenteritis. Patient received antibiotics. Continue to monitor blood culture. Aung lee repeat blood culture pending. 4.Diabetes mellitus per primary team. ASHOK/MODL Voice ID: [id number] Report ID: [id number]
--- NOTE | 2022-05-17 07:15 | ECHO ---
HEIGHT: 5 ft 7.5 in WEIGHT: 202 lb 4.8 oz DATE OF STUDY: 05/14/[address]: Marcus Martin MD 2-DIMENSIONAL: YES M.MODE: YES DOPPLER: YES COLOR FLOW: YES TDS: PORTABLE: YES DEFINITY: BUBBLE STUDY: DIAGNOSIS: RULE OUT ENDOCARDITIS CARDIAC HISTORY: CATHERIZATION: NO SURGERY: NO PROSTHETIC VALVE: NO PACEMAKER: NO MEASUREMENTS (cm) DIASTOLIC (NORMALS) SYSTOLIC (NORMALS) IVSd 1.2 (0.6-1.2) LA Diam 2.9 (1.9-4.0) LVEF 61% LVIDd 3.4 (3.5-5.7) LVIDs 2.3 (2.0-3.5) %FS 32% LVPWd 1.2 (0.6-1.2) Ao Diam 2.4 (2.0-3.7) 2 DIMENSIONAL ASSESSMENT: RIGHT ATRIUM: NORMAL LEFT ATRIUM: NORMAL RIGHT VENTRICLE: NORMAL LEFT VENTRICLE: NORMAL TRICUSPID VALVE: NORMAL MITRAL VALVE: NORMAL PULMONIC VALVE: NORMAL AORTIC VALVE: NORMAL PERICARDIAL EFFUSION: NONE AORTIC ROOT: NORMAL LEFT VENTRICULAR WALL MOTION: NORMAL DOPPLER/COLOR FLOW: NORMAL COMMENTS: NORMAL 2-DIMENSIONAL ECHOCARDIOGRAM. NO VEGETATION. NO EFFUSION. TECHNOLOGIST: TRISH PEREZ
[2022-05-18 14:57] LABS: Vitamin D 1,25-Dihydroxy Total 18 pg/mL (18-72); Vitamin D,1,25-OH2, D2 <8 pg/mL
== END 2022-05-15 11:00 | disposition home or self-care (01) | DRG 392 ==
LOC: ER 13:17 → ERHOLD 17:23 → 2ND 21:13
PROVIDERS: ADMIT Hospitalist; ATTEND Hospitalist
DX: K52.9 Noninfective gastroenteritis and colitis, unspecified (principal); N17.9 Acute kidney failure, unspecified; E86.1 Hypovolemia; G40.909 Epilepsy, unspecified, not intractable, without status epilepticus; E86.0 Dehydration; I10 Essential (primary) hypertension; E87.6 Hypokalemia; E78.5 Hyperlipidemia, unspecified; L55.9 Sunburn, unspecified; E11.40 Type 2 diabetes mellitus with diabetic neuropathy, unspecified; J44.9 Chronic obstructive pulmonary disease, unspecified; Z59.00 Homelessness unspecified; Z72.0 Tobacco use; Z20.822 Contact with and (suspected) exposure to COVID-19
CPT/HCPCS: 36415; 74176; 80048; 80053; 80069; 80307; 81001; 82570; 82652; 82947; 83605; 83690; 83735; 83970; 84132; 84156; 84300; 84439; 84443; 85025; 87040; 87205; 93306; 94760; 96361; 96374; 96375; 99285; J0744; J1650; J2270; J2405; J3010; J3480; J7030; U0003

== ENCOUNTER 2022-05-28 19:48 | Emergency (ER) | payer OTHER ==
[2022-05-28 20:17] LABS: Urine Blood Negative (Negative); Urine Glucose Negative (Negative); Urine Protein Negative (Negative); Urine Specific Gravity 1.025 (1.005-1.030); Urine pH 5.5 (5.0-7.0)
[2022-05-28 20:55] LABS: Absolute Lymphocytes (CBC) 2.5 K/uL (0.7-4.9); Hematocrit 36.1 % (36.0-45.0); Lymphocytes % 30.5 % (15.3-44.8); MCV 90.5 fL (80-100); MPV 8.8 fL (7.6-11.3); RBC Red Blood Cell Count 3.99 M/uL (3.86-4.86)
[2022-05-28] MEDS ORDERED: MORPHINE 4 MG/ML SYR ONE (21:02)
[2022-05-28] MEDS ORDERED: ONDANSETRON 4 MG/2 ML VIAL ONE (21:02)
[2022-05-28 21:09] LABS: Albumin 3.1 g/dL (3.4-5.0); Bilirubin Total 0.2 mg/dL (0.2-1.0); Potassium 4.1 mmol/L (3.5-5.1); Protein, Total 6.7 g/dL (6.4-8.2)
--- NOTE | 2022-05-28 21:47 | RAD REPORT ---
EXAM DESCRIPTION: US - Transvaginal Study Probe - 05/28/2022 9:23 pm CLINICAL HISTORY: Pelvic pain COMPARISON: 2019 FINDINGS: The uterus measures 6 x 3 x 4 cm. A fibroid is not seen. The endometrial stripe measures 6 millimeters Neither ovary seen secondary to overlying bowel gas. The right and left adnexa unremarkable No significant free fluid is seen. IMPRESSION: Unremarkable pelvic ultrasound
--- NOTE | 2022-05-28 21:53 | RAD REPORT ---
EXAM DESCRIPTION: CT - Abdomen Pelvis W Contrast - 05/28/2022 9:41 pm CLINICAL HISTORY: Abdominal pain COMPARISON: April 2022 TECHNIQUE: Computed axial tomography of the abdomen pelvis was obtained. 100 cc Isovue-300 was admin istered intravenously. Oral contrast was not requested which limits evaluation of bowel and appendix All CT scans are performed using dose optimization technique as appropriate and may include automated exposure control or mA/KV adjustment according to patient size. FINDINGS: The liver, spleen, pancreas, and adrenals appear unremarkable. Small calculus within each kidney. No hydronephrosis. There is no evidence of diverticulitis. An abnormal appendix is not seen. Right ovary normal size density. Left ovary not seen. No adnexal mass Tiny umbilical hernia IMPRESSION: No acute abnormality is displayed.
--- NOTE | 2022-05-28 22:56 | EDPHYS ---
Physician Documentation [facility] Name: Smitha Ibarra Age: 57 yrs Sex: Female : 1965 Arrival Date: 05/28/2022 Time: 19:51 Bed 6 Private MD: ED Physician Prasanna Sheth HPI: 05/28 20:17 This 57 yrs old Female presents to ER via EMS with complaints of Pelvic Pain. pm1 20:17 The patient presents with abdominal pain right lower quadrant, right side of pelvic pm1 area. Onset: The symptoms/episode began/occurred 5 day(s) ago. The symptoms radiate to the right flank. Associated signs and symptoms: Pertinent positives: pain radiating down her right leg, Pertinent negatives: chest pain, shortness of breath. The symptoms are described as crampy. Modifying factors: The symptoms are alleviated by nothing, the symptoms are aggravated by movement. Severity of pain: in the emergency department the pain is unchanged. The patient has experienced a previous episode, to her left sided pelvic pain that was a flipped ovary resulting in partial hysterectomy. The patient has not recently seen a physician. Historical: - Allergies: 19:58 No Known Allergies; lg3 - Home Meds: 19:58 Dilantin 100 mg Oral 4 cap daily [Active]; Januvia 50 mg Oral tab 1 tabs once daily lg3 [Active]; lisinopril 40 mg Oral tab 1 tab once daily [Active]; Magnesium Oxide Oral daily [Active]; ProAir HFA 90 mcg/actuation inhalation HFAA 1 puff every 4-6 hours [Active]; - PMHx: 19:58 Arthritis; COPD; Diabetes - NIDDM; High Cholesterol; Hypertension; Seizures; lg3 - PSHx: 19:58 partial hysterectomy; tubal ligation; lg3 - Immunization history:: Adult Immunizations up to date, Client reports receiving the 2nd dose of the Covid vaccine, moderna X3. - Social history:: Smoking status: Patient reports the use of cigarette tobacco products, smokes one pack cigarettes per day. Patient/guardian denies using alcohol, street drugs. ROS: 20:17 Constitutional: Negative for fever, chills, and weight loss, Cardiovascular: Negative pm1 for chest pain, palpitations, and edema, Respiratory: Negative for shortness of breath, cough, wheezing, and pleuritic chest pain. 20:17 : Negative for injury, bleeding, discharge, and swelling, MS/Extremity: Negative for injury and deformity, Skin: Negative for injury, rash, and discoloration, Neuro: Negative for headache, weakness, numbness, tingling, and seizure. 20:17 Abdomen/GI: Positive for abdominal pain, nausea and vomiting, Negative for diarrhea, constipation. 20:17 Back: Positive for flank pain, on the right. 20:17 All other systems are negative. Exam: 20:17 Constitutional: This is a well developed, well nourished patient who is awake, alert, pm1 and in no acute distress. Head/Face: Normocephalic, atraumatic. 20:17 Back: No spinal tenderness. No costovertebral tenderness. Full range of motion. Skin: Warm, dry with normal turgor. Normal color with no rashes, no lesions, and no evidence of cellulitis. MS/ Extremity: Pulses equal, no cyanosis. Neurovascular intact. Full, normal range of motion. 20:17 Cardiovascular: Exam negative for acute changes, Rate: normal, Rhythm: regular, Pulses: no pulse deficits are appreciated, Heart sounds: normal, normal S1and S2. 20:17 Respiratory: Exam negative for acute changes, respiratory distress, shortness of breath, Breath sounds: are clear throughout. 20:17 Abdomen/GI: Exam negative for acute changes, Inspection: abdomen appears normal, Palpation: soft, in all quadrants, mild abdominal tenderness, in the suprapubic area. 20:17 Neuro: Exam negative for acute changes, Orientation: is normal, Mentation: is normal, Motor: is normal, moves all fours. Vital Signs: 19:56 BP 160 / 69; Pulse 74; Resp 18 S; Temp 97.7(O); Pulse Ox 98% on R/A; Weight 92.53 kg lg3 (R); Height 5 ft. 7 in. (170.18 cm) (R); Pain 10/10; 21:48 BP 153 / 67; Pulse 80; Resp 18; Pulse Ox 95% on R/A; jb4 23:00 BP 142 / 64; Pulse 81; Resp 16; Pulse Ox 96% on R/A; jb4 19:56 Body Mass Index 31.95 (92.53 kg, 170.18 cm) lg3 MDM: 20:13 Patient medically screened. pm1 22:54 Data reviewed: vital signs. Data interpreted: Pulse oximetry: on room air is 95 %. pm1 Interpretation: normal. Counseling: I had a detailed discussion with the patient and/or guardian regarding: the historical points, exam findings, and any diagnostic results supporting the discharge/admit diagnosis, lab results, radiology results, the need for outpatient follow up, to return to the emergency department if symptoms worsen or persist or if there are any questions or concerns that arise at home. 22:57 ED course: Suspect that pain is sciatic. Patient with reports of pain that radiates pm1 down right leg. Will treat with Lidoderm, Tylenol 3, and Flexeril. 05/28 20:17 Order name: CBC with Diff; Complete Time: 21:10 pm1 05/28 20:17 Order name: CMP; Complete Time: 21:10 pm1 05/28 20:17 Order name: Lipase; Complete Time: 21:10 pm1 05/28 20:17 Order name: CT Abd/Pelvis - IV Contrast Only; Complete Time: 21:58 pm1 05/28 20:17 Order name: Urine Dipstick-Ancillary; Complete Time: 20:21 EDMS 05/28 20:17 Order name: Urine Dipstick-Ancillary (obtain specimen); Complete Time: 20:32 pm1 05/28 20:17 Order name: IV Saline Lock; Complete Time: 20:36 pm1 05/28 20:17 Order name: Labs collected and sent; Complete Time: 20:36 pm1 05/28 21:02 Order name: US Transvaginal Study (Probe); Complete Time: 21:48 pm1 Administered Medications: 21:00 Drug: Zofran (Ondansetron) 4 mg Route: IVP; Site: right wrist; vc1 23:21 Follow up: Response: No adverse reaction; Marked relief of symptoms jb4 21:00 Drug: morphine 4 mg Route: IVP; Infused Over: 4 mins; Site: right wrist; vc1 23:21 Follow up: Response: No adverse reaction; Marked relief of symptoms jb4 23:15 Drug: Lidoderm Patch 5 % (700 mg/patch) 1 patches Route: Topical; Site: affected area; jb4 23:22 Follow up: Response: Medication administered at discharge. jb4 Disposition: 05/29 07:08 Co-signature as Attending Physician, Prasanna Sheth MD. [email or web address] Disposition Summary: 05/28/22 22:55 Discharge Ordered Location: Home pm1 Problem: new pm1 Symptoms: have improved pm1 Condition: Stable pm1 Diagnosis - Abdominal pain, unspecified pm1 Followup: pm1 - With: Emergency Department - When: As needed - Reason: Worsening of condition Followup: pm1 - With: Private Physician - When: 2 - 3 days - Reason: Recheck today's complaints, Continuance of care, Re-evaluation by your physician Discharge Instructions: - Discharge Summary Sheet pm1 - Abdominal Pain, Adult pm1 Forms: - Medication Reconciliation Form pm1 - Thank You Letter pm1 - Antibiotic Education pm1 - Prescription Opioid Use pm1 Prescriptions: - Lidoderm 5 % Topical adhesive patch,medicated - apply 1 patch by TRANSDERMAL route once daily As needed 12 hours on and 12 pm1 hours off in a 24-hour period; 30 patch; Refills: 0, Product Selection Permitted - Cyclobenzaprine 10 mg Oral Tablet - take 1 tablet by ORAL route every 8 hours As needed; 30 tablet; Refills: 0, pm1 Product Selection Permitted - Tylenol-Codeine #3 300 mg-30 mg Oral - take 2 tablet by ORAL route every 6 hours As needed; 20 tablet; Refills: 0, pm1 Product Selection Permitted Signatures: Dispatcher [employer] EDMS Kemar Coy, JIM COMPENSATION EXPERT pm1 Jose Enrique Hughes RN RN jb4 Ester Fountain RN RN lg3 Prasanna Sheth MD MD mh7 Kaycee Rosas RN RN vc1 Corrections: (The following items were deleted from the chart) 05/28 20:00 19:58 Allergies: Sudafed; lg3 lg3 21:25 20:22 Pelvis Complete+US.RAD.BRZ ordered. EDMS EDMS
--- NOTE | 2022-05-28 22:56 | ER ---
Nurse's Notes [facility] Name: Smitha Ibarra Age: 57 yrs Sex: Female : 1965 Arrival Date: 05/28/2022 Time: 19:51 Bed 6 Private MD: Diagnosis: Abdominal pain, unspecified Presentation: 05/28 19:56 Chief complaint: Patient states: right sided pelvic pain that radiates to right lower lg3 back starting 5 days ago. states the last time she had this pain she had a flipped ovary and had to have a partial hysterectomy. Coronavirus screen: Client denies travel out of the [place] in the last 14 days. At this time, the client does not indicate any symptoms associated with coronavirus-19. Ebola Screen: No symptoms or risks identified at this time. Initial Sepsis Screen: Does the patient meet any 2 criteria? No. Patient's initial sepsis screen is negative. Does the patient have a suspected source of infection? No. Patient's initial sepsis screen is negative. Risk Assessment: Do you want to hurt yourself or someone else? Patient reports no desire to harm self or others. Onset of symptoms was May 24, 2022. 19:56 Method Of Arrival: EMS: [facility] 3 19:56 Acuity: PRECIOUS 3 lg3 Triage Assessment: 19:58 General: Appears in no apparent distress. uncomfortable, Behavior is calm, cooperative. lg3 Pain: Complains of pain in groin, right femoral area and right inguinal area Pain radiates to lumbar area and right flank Pain currently is 10 out of 10 on a pain scale. EENT: No deficits noted. No signs and/or symptoms were reported regarding the EENT system. Neuro: No deficits noted. Level of Consciousness is awake, alert, obeys commands, Oriented to person, place, time, situation. Cardiovascular: No deficits noted. Denies chest pain, shortness of breath, Respiratory: No deficits noted. Airway is patent Trachea midline Respiratory effort is even, unlabored, Respiratory pattern is regular, symmetrical. GI: Abdomen is round non-distended, Abd is soft X 4 quads Abdomen is tender to palpation in right upper quadrant and right lower quadrant Guarding noted in right lower quadrant. : No deficits noted. No signs and/or symptoms were reported regarding the genitourinary system. Derm: No deficits noted. No signs and/or symptoms reported regarding the dermatologic system. Skin is intact, is healthy with good turgor, Skin is dry, Skin temperature is warm. Musculoskeletal: No deficits noted. No signs and/or symptoms reported regarding the musculoskeletal system. Circulation, motion, and sensation intact. Range of motion: intact in all extremities. Historical: - Allergies: 19:58 No Known Allergies; lg3 - Home Meds: 19:58 Dilantin 100 mg Oral 4 cap daily [Active]; Januvia 50 mg Oral tab 1 tabs once daily lg3 [Active]; lisinopril 40 mg Oral tab 1 tab once daily [Active]; Magnesium Oxide Oral daily [Active]; ProAir HFA 90 mcg/actuation inhalation HFAA 1 puff every 4-6 hours [Active]; - PMHx: 19:58 Arthritis; COPD; Diabetes - NIDDM; High Cholesterol; Hypertension; Seizures; lg3 - PSHx: 19:58 partial hysterectomy; tubal ligation; lg3 - Immunization history:: Adult Immunizations up to date, Client reports receiving the 2nd dose of the Covid vaccine, moderna X3. - Social history:: Smoking status: Patient reports the use of cigarette tobacco products, smokes one pack cigarettes per day. Patient/guardian denies using alcohol, street drugs. Screenin:10 Abuse screen: Denies threats or abuse. Nutritional screening: No deficits noted. jb4 Tuberculosis screening: No symptoms or risk factors identified. Fall Risk None identified. Assessment: 20:10 General: see triage note. jb4 20:45 Reassessment: CT notified line in place, green top at bedside. Pt ready for scan. jb4 21:48 Reassessment: Patient appears in no apparent distress at this time. Patient and/or jb4 family updated on plan of care and expected duration. Pain level reassessed. Patient is alert, oriented x 3, equal unlabored respirations, skin warm/dry/pink. 23:22 Reassessment: Patient appears in no apparent distress at this time. Patient and/or jb4 family updated on plan of care and expected duration. Pain level reassessed. Patient is alert, oriented x 3, equal unlabored respirations, skin warm/dry/pink. Vital Signs: 19:56 BP 160 / 69; Pulse 74; Resp 18 S; Temp 97.7(O); Pulse Ox 98% on R/A; Weight 92.53 kg lg3 (R); Height 5 ft. 7 in. (170.18 cm) (R); Pain 10/10; 21:48 BP 153 / 67; Pulse 80; Resp 18; Pulse Ox 95% on R/A; jb4 23:00 BP 142 / 64; Pulse 81; Resp 16; Pulse Ox 96% on R/A; jb4 19:56 Body Mass Index 31.95 (92.53 kg, 170.18 cm) lg3 ED Course: 19:51 Patient arrived in ED. bp1 19:58 Triage completed. lg3 19:58 Arm band placed on left wrist. lg3 20:06 Kemar Coy NP is PHCP. pm1 20:06 Prasanna Sheth MD is Attending Physician. pm1 20:10 Patient has correct armband on for positive identification. Bed in low position. Call jb4 light in reach. Side rails up X 1. Client placed on continuous cardiac and pulse oximetry monitoring. NIBP monitoring applied. 20:29 Jose Enrique Hughes, RN is Primary Nurse. jb4 21:25 US Transvaginal Study (Probe) In Process Unspecified. EDMS 21:43 CT Abd/Pelvis - IV Contrast Only In Process Unspecified. EDMS 23:23 No provider procedures requiring assistance completed. IV discontinued, intact, jb4 bleeding controlled, No redness/swelling at site. Pressure dressing applied. Administered Medications: 21:00 Drug: Zofran (Ondansetron) 4 mg Route: IVP; Site: right wrist; vc1 23:21 Follow up: Response: No adverse reaction; Marked relief of symptoms jb4 21:00 Drug: morphine 4 mg Route: IVP; Infused Over: 4 mins; Site: right wrist; vc1 23:21 Follow up: Response: No adverse reaction; Marked relief of symptoms jb4 23:15 Drug: Lidoderm Patch 5 % (700 mg/patch) 1 patches Route: Topical; Site: affected area; jb4 23:22 Follow up: Response: Medication administered at discharge. jb4 Medication: 23:00 VIS not applicable for this client. jb4 Outcome: 22:55 Discharge ordered by . pm1 23:24 Discharged to home via wheelchair. jb4 23:24 Condition: stable 23:24 Discharge instructions given to patient, Instructed on discharge instructions, follow up and referral plans. medication usage, Demonstrated understanding of instructions, follow-up care, medications, Prescriptions given X 3. 23:24 Patient left the ED. jb4 Signatures: Dispatcher [employer] EDMS Kemar Coy, PARTS REMOVER PARTS REMOVER pm1 Jose Enrique Hughes RN RN jb4 Ester Fountain RN RN lg3 June Mojica Vanessa RN RN vc1 Corrections: (The following items were deleted from the chart) 20:00 19:58 Allergies: Sudafed; lg3 lg3
[2022-05-28] MEDS ORDERED: LIDOCAINE 4% PATCH ONE (23:18)
== END 2022-05-28 23:24 | disposition home or self-care (01) ==
LOC: ER 19:48
DX: R10.31 Right lower quadrant pain (principal); I10 Essential (primary) hypertension; E11.9 Type 2 diabetes mellitus without complications; J44.9 Chronic obstructive pulmonary disease, unspecified; F17.210 Nicotine dependence, cigarettes, uncomplicated
CPT/HCPCS: 85025; 36415; 81003; 83690; 80053; 74177; 76830; 96375; 96374; 99284; Q9967; J2001; J2405

== ENCOUNTER 2023-01-10 13:43 | Observation (INO) | payer OTHER ==
[2023-01-10] MEDS: INSULIN GLARGINE 100 UNIT/ML SQ SCH ×2 (10:00→21:00)
--- NOTE | 2023-01-10 14:38 | RAD REPORT ---
EXAM DESCRIPTION: [facility] Single View01/10/2023 2:22 pm CLINICAL HISTORY: sob COMPARISON: 2020 FINDINGS: The lungs appear clear of acute infiltrate. The heart is normal size IMPRESSION: No acute abnormalities displayed
[2023-01-10 15:32] LABS: Absolute Lymphocytes (CBC) 2.2 K/uL (0.7-4.9); Hematocrit 38.1 % (36.0-45.0); Lymphocytes % 13.8 % (15.3-44.8); MCV 89.5 fL (80-100); MPV 8.3 fL (7.6-11.3); RBC Red Blood Cell Count 4.25 M/uL (3.86-4.86)
[2023-01-10 15:36] LABS: Protime INR 1.09
[2023-01-10 15:57] LABS: ALT/SGPT 21 U/L (13-56); AST/SGOT 14 U/L (15-37); Albumin 3.3 g/dL (3.4-5.0); Alkaline Phosphatase 138 U/L (45-117); BUN Blood Urea Nitrogen 17 mg/dL (7-18); Bicarbonate 28 mEq/L (21-32); Bilirubin Total 0.3 mg/dL (0.2-1.0); Glomerular Filtration Rate 97 ml/min (=/>90); Glucose Level 145 mg/dL (74-106); Lipase 200 U/L (13-75); Magnesium 2.1 mg/dL (1.6-2.4); NT PRO-BNP 267 pg/mL (<125); Potassium 3.8 mEq/L (3.5-5.1); Protein, Total 7.3 g/dL (6.4-8.2); Sodium Level 137 mEq/L (136-145); Troponin High Sensitivity 44.9 pg/mL (<58.9)
--- NOTE | 2023-01-10 16:03 | EDPHYS ---
Physician Documentation [facility] Name: Smitha Ibarra Age: 58 yrs Sex: Female : 1965 Arrival Date: 01/10/2023 Time: 13:45 Bed 6 Private MD: ED Physician Neftali Crawford HPI: 01/10 15:54 This 58 yrs old Female presents to ER via Ambulatory with complaints of dinesh Breathing Difficulty. 15:54 The patient has shortness of breath at rest, with light activity. Onset: The dinesh symptoms/episode began/occurred 2 day(s) ago. Duration: The symptoms are continuous, and are steadily getting worse. The patient's shortness of breath is aggravated by coughing, supine position, walking. Associated signs and symptoms: Pertinent positives: non-productive cough. Severity of symptoms: At their worst the symptoms were moderate in the emergency department the symptoms are unchanged. The patient has experienced similar episodes in the past, a few times. Historical: - Allergies: 14:15 Sudafed; aa5 - PMHx: 14:15 Arthritis; COPD; Diabetes - NIDDM; High Cholesterol; Hypertension; Seizures; aa5 - PSHx: 14:15 partial hysterectomy; tubal ligation; aa5 - Immunization history:: Adult Immunizations unknown. - Social history:: Smoking status: Patient reports the use of cigarette tobacco products, smokes one pack cigarettes per day. ROS: 15:56 Constitutional: Negative for fever, chills, and weight loss, Eyes: Negative for injury, dinesh pain, redness, and discharge, ENT: Negative for injury, pain, and discharge, Neck: Negative for injury, pain, and swelling, Cardiovascular: Negative for chest pain, palpitations, and edema, Abdomen/GI: Negative for abdominal pain, nausea, vomiting, diarrhea, and constipation, Back: Negative for injury and pain, : Negative for injury, bleeding, discharge, and swelling, MS/Extremity: Negative for injury and deformity, Skin: Negative for injury, rash, and discoloration, Neuro: Negative for headache, weakness, numbness, tingling, and seizure, Psych: Negative for depression, anxiety, suicide ideation, homicidal ideation, and hallucinations, Allergy/Immunology: Negative for hives, rash, and allergies, Endocrine: Negative for neck swelling, polydipsia, polyuria, polyphagia, and marked weight changes, Hematologic/Lymphatic: Negative for swollen nodes, abnormal bleeding, and unusual bruising. 15:56 Respiratory: Positive for cough, with no reported sputum, shortness of breath, at rest. Exam: 15:56 Constitutional: This is a well developed, well nourished patient who is awake, alert, dinesh and in no acute distress. Head/Face: Normocephalic, atraumatic. Eyes: Pupils equal round and reactive to light, extra-ocular motions intact. Lids and lashes normal. Conjunctiva and sclera are non-icteric and not injected. Cornea within normal limits. Periorbital areas with no swelling, redness, or edema. ENT: Nares patent. No nasal discharge, no septal abnormalities noted. Tympanic membranes are normal and external auditory canals are clear. Oropharynx with no redness, swelling, or masses, exudates, or evidence of obstruction, uvula midline. Mucous membranes moist. Neck: Trachea midline, no thyromegaly or masses palpated, and no cervical lymphadenopathy. Supple, full range of motion without nuchal rigidity, or vertebral point tenderness. No Meningismus. Chest/axilla: Normal chest wall appearance and motion. Nontender with no deformity. No lesions are appreciated. Cardiovascular: Regular rate and rhythm with a normal S1 and S2. No gallops, murmurs, or rubs. Normal PMI, no JVD. No pulse deficits. Abdomen/GI: Soft, non-tender, with normal bowel sounds. No distension or tympany. No guarding or rebound. No evidence of tenderness throughout. Back: No spinal tenderness. No costovertebral tenderness. Full range of motion. Female : Normal external genitalia. Skin: Warm, dry with normal turgor. Normal color with no rashes, no lesions, and no evidence of cellulitis. MS/ Extremity: Pulses equal, no cyanosis. Neurovascular intact. Full, normal range of motion. Neuro: Awake and alert, GCS 15, oriented to person, place, time, and situation. Cranial nerves II-XII grossly intact. Motor strength 5/5 in all extremities. Sensory grossly intact. Cerebellar exam normal. Normal gait. Psych: Awake, alert, with orientation to person, place and time. Behavior, mood, and affect are within normal limits. 15:56 ECG was reviewed by the Attending Physician. 15:56 Respiratory: mild respiratory distress is noted, Respirations: labored breathing, that is moderate, Breath sounds: bronchial sounds, that are moderate, decreased breath sounds, that are mild, rhonchi, that are severe, are scattered, stridor, is not appreciated, wheezing: inspiratory expiratory Respiratory rate: 26 Vital Signs: 14:14 BP 139 / 69; Pulse 89; Resp 26 S; Temp 98(TE); Pulse Ox 92% ; Weight 99.79 kg (R); aa5 Height 5 ft. 7 in. (R); 16:15 BP 146 / 75; Pulse 79; Resp 26; Pulse Ox 97% on Nebulizer Mask; vg1 16:45 BP 139 / 68; Pulse 77; Resp 22; Pulse Ox 95% on R/A; vg1 17:30 BP 150 / 63; Pulse 87; Resp 22; Pulse Ox 93% on R/A; vg1 18:15 BP 148 / 69; Pulse 93; Resp 20; Pulse Ox 94% on R/A; vg1 14:14 Body Mass Index 34.46 (99.79 kg, 170.18 cm) aa5 MDM: 13:46 Patient medically screened. dinesh 15:59 Differential diagnosis: Anemia Bronchitis CHF exacerbation, Chronic Obstructive dinesh Pulmonary Disease obstructed airway, tracheal injury, bronchitis, flu, URI, Myocardial Infarction pneumonia, pulmonary edema, Unstable Angina. Antibiotic administration: Levaquin given. Immunization status: Influenza vaccine: within last 5 years. Data reviewed: vital signs, nurses notes, lab test result(s), EKG, radiologic studies, plain films. Consideration of Admission/Observation Escalation of care including admission/observation considered. Independent interpretation of the following test(s) in the Emergency Department EKG: See my EKG interpretation above. Counseling: I had a detailed discussion with the patient and/or guardian regarding: the historical points, exam findings, and any diagnostic results supporting the discharge/admit diagnosis, lab results, radiology results, the need for further work-up and treatment in the hospital. 01/10 13:47 Order name: Basic Metabolic Panel; Complete Time: 16:37 [facility] 01/10 13:47 Order name: CBC with Diff; Complete Time: 16:37 [facility] 01/10 13:47 Order name: LFT's; Complete Time: 16:37 [facility] 01/10 13:47 Order name: Magnesium; Complete Time: 16:37 [facility] 01/10 13:47 Order name: NT PRO-BNP; Complete Time: 16:37 [facility] 01/10 13:47 Order name: PT-INR; Complete Time: 16:37 [facility] 01/10 13:47 Order name: Troponin HS; Complete Time: 16:37 [facility] 01/10 13:47 Order name: Blood Culture Adult (2) [facility] 01/10 13:47 Order name: Lactate w/ 2H reflex if indic.; Complete Time: 16:37 [facility] 01/10 13:47 Order name: Lipase; Complete Time: 16:37 [facility] 01/10 13:47 Order name: COVID-19/FLU A+B; Complete Time: 16:37 [facility] 01/10 17:46 Order name: Magnesium EDMS 01/10 17:46 Order name: Phosphorus EDMS 01/10 17:46 Order name: Urinalysis EDMS 01/10 17:46 Order name: Basic Metabolic Panel EDMS 01/10 17:46 Order name: Basic Metabolic Panel EDMS 01/10 17:46 Order name: CBC with Automated Diff EDMS 01/10 17:46 Order name: CBC with Automated Diff EDMS 01/10 18:09 Order name: Urinalysis W/Microscopic iw 01/10 18:35 Order name: Urinalysis W/Microscopic EDMS 01/10 13:47 Order name: XRAY Chest (1 view); Complete Time: 15:26 [facility] 01/10 16:37 Interpretation: No acute disease. [facility] 01/10 13:47 Order name: EKG; Complete Time: 13:49 [facility] 01/10 17:46 Order name: 60g Consistent Carbohydrate (ADA 1800/2000) [facility] 01/10 13:47 Order name: Cardiac monitoring; Complete Time: 15:52 [facility] 01/10 13:47 Order name: EKG - Nurse/Tech; Complete Time: 15:24 [facility] 01/10 13:47 Order name: IV Saline Lock; Complete Time: 15:24 [facility] 01/10 13:47 Order name: Labs collected and sent; Complete Time: 15:24 [facility] 01/10 13:47 Order name: O2 Per Protocol; Complete Time: 15:52 [facility] 01/10 13:47 Order name: O2 Sat Monitoring; Complete Time: 15:52 [facility] 01/10 13:47 Order name: Urine Dipstick-Ancillary (obtain specimen); Complete Time: 18:13 dinesh EC:56 Rate is 82 beats/min. Rhythm is regular. QRS [place] is Normal. HI interval is normal. QRS dinesh interval is normal. QT interval is normal. No Q waves. T waves are Normal. No ST changes noted. Clinical impression: No evidence of ischemia. Interpreted by me. Reviewed by me. Administered Medications: 16:14 Drug: Levalbuterol Inhalation 3.75 mg Route: Inhalation; vg1 19:19 Follow up: Response: No adverse reaction; Marked relief of symptoms vg1 16:14 Drug: Ipratropium Inhalation Aerosol 0.5 mg Route: Inhalation; vg1 19:19 Follow up: Response: No adverse reaction; Marked relief of symptoms vg1 16:17 Drug: MethylPrednisoLONE IVP 125 mg Route: IVP; Site: left upper arm; vg1 19:19 Follow up: Response: No adverse reaction vg1 16:25 Drug: NS 0.9% IV 1000 ml Route: IV; Rate: 75 ml/hr; Site: left upper arm; vg1 19:19 Follow up: IV Status: Infusion continued upon admission vg1 16:26 Drug: levofloxacin IVPB 750 mg Volume: 150 ml; Route: IVPB; Infused Over: 90 mins; vg1 Site: left upper arm; 18:13 Follow up: IV Status: Completed infusion; IV Intake: 150ml vg1 Disposition Summary: 01/10/23 16:02 Hospitalization Ordered Hospitalization Status: Inpatient Admission dinesh [facility] d[facility]h Condition: Fair dinesh Problem: an acute exacerbation dinesh Symptoms: have worsened dinesh Bed/Room Type: Standard dinesh Provider: Marcus Martin(01/10/23 16:16) dniesh Room Assignment: 428(01/10/23 18:31) Diagnosis - Hypoxemia dinesh - Tobacco abuse counseling dinesh - Tobacco use dinesh - COPD/ Chronic obstructive pulmonary disease with (acute) exacerbation - dinesh choking/aspiration(01/10/23 16:38) - Elevated white blood cell count dinesh Forms: - Medication Reconciliation Form dinesh - SBAR form dinesh Signatures: Dispatcher [employer] Neftali Manjarrez MD MD cha Calderon, Audri RN RN aa5 Olivia Harry Victoria RN RN vg1 Corrections: (The following items were deleted from the chart) 16:16 16:02 Sarbjit Corley cha, cha 16:38 16:02 COPD/ Chronic obstructive pulmonary disease with (acute) exacerbation dinesh montiel 18:31 16:02 dinesh avery
--- NOTE | 2023-01-10 16:03 | ER ---
Nurse's Notes [facility] Name: Smitha Ibarra Age: 58 yrs Sex: Female : 1965 Arrival Date: 01/10/2023 Time: 13:45 Bed 6 Private MD: Diagnosis: COPD/ Chronic obstructive pulmonary disease with (acute) exacerbation-choking/aspiration;Hypoxemia;Tobacco abuse counseling;Tobacco use;Elevated white blood cell count Presentation: 01/10 14:14 Chief complaint: Patient states: "I was choking last night at midnight and ever since aa5 then I can't breathe". Pt c/o SOB. Coronavirus screen: At this time, the client does not indicate any symptoms associated with coronavirus-19. Ebola Screen: Patient denies travel to an Ebola-affected area in the 21 days before illness onset. Initial Sepsis Screen: Does the patient meet any 2 criteria? No. Patient's initial sepsis screen is negative. Does the patient have a suspected source of infection? No. Patient's initial sepsis screen is negative. Risk Assessment: Do you want to hurt yourself or someone else? Patient reports no desire to harm self or others. Onset of symptoms was January 10, 2023 at 00:00. 14:14 Acuity: PRECIOUS 2 aa5 14:14 Method Of Arrival: Ambulatory aa5 Historical: - Allergies: 14:15 Sudafed; aa5 - PMHx: 14:15 Arthritis; COPD; Diabetes - NIDDM; High Cholesterol; Hypertension; Seizures; aa5 - PSHx: 14:15 partial hysterectomy; tubal ligation; aa5 - Immunization history:: Adult Immunizations unknown. - Social history:: Smoking status: Patient reports the use of cigarette tobacco products, smokes one pack cigarettes per day. Screenin:15 [facility] ED Fall Risk Assessment (Adult) History of falling in the last 3 months, vg1 including since admission No falls in past 3 months (0 pts) Confusion or Disorientation No (0 pts) Intoxicated or Sedated No (0 pts) Impaired Gait No (0 pts) Mobility Assist Device Used No (0 pt) Altered Elimination No (0 pt) Score/Fall Risk Level 0 - 2 = Low Risk Oriented to surroundings, Maintained a safe environment, Educated pt \\T\\ family on fall prevention, incl call for assistance when getting out of bed, Assessed \\T\\ reinforced patient's understanding of fall precautions. Abuse screen: Denies threats or abuse. Denies injuries from another. Nutritional screening: No deficits noted. Tuberculosis screening: No symptoms or risk factors identified. Assessment: 16:15 General: Appears in no apparent distress. uncomfortable, Behavior is calm, cooperative. vg1 Pain: Complains of pain in throat. Neuro: Level of Consciousness is awake, alert, obeys commands, Oriented to person, place, time, situation. Cardiovascular: Patient's skin is warm and dry. Rhythm is regular. Respiratory: Airway is patent Respiratory effort is even, unlabored, Respiratory pattern is tachypnea Breath sounds with rhonchi bilaterally. GI: No signs and/or symptoms were reported involving the gastrointestinal system. : No signs and/or symptoms were reported regarding the genitourinary system. EENT: No signs and/or symptoms were reported regarding the EENT system. Derm: Skin is pink, warm \\T\\ dry. Musculoskeletal: Circulation, motion, and sensation intact. 17:15 Reassessment: Patient appears in no apparent distress at this time. No changes from vg1 previously documented assessment. Patient and/or family updated on plan of care and expected duration. Pain level reassessed. Patient is alert, oriented x 3, equal unlabored respirations, skin warm/dry/pink. 18:15 Reassessment: Patient appears in no apparent distress at this time. No changes from vg1 previously documented assessment. Patient is alert, oriented x 3, equal unlabored respirations, skin warm/dry/pink. Vital Signs: 14:14 BP 139 / 69; Pulse 89; Resp 26 S; Temp 98(TE); Pulse Ox 92% ; Weight 99.79 kg (R); aa5 Height 5 ft. 7 in. (R); 16:15 BP 146 / 75; Pulse 79; Resp 26; Pulse Ox 97% on Nebulizer Mask; vg1 16:45 BP 139 / 68; Pulse 77; Resp 22; Pulse Ox 95% on R/A; vg1 17:30 BP 150 / 63; Pulse 87; Resp 22; Pulse Ox 93% on R/A; vg1 18:15 BP 148 / 69; Pulse 93; Resp 20; Pulse Ox 94% on R/A; vg1 14:14 Body Mass Index 34.46 (99.79 kg, 170.18 cm) aa5 ED Course: 13:45 Patient arrived in ED. rg4 13:46 Neftali Crawford MD is Attending Physician. dinesh 14:10 Arm band placed on. aa5 14:15 Triage completed. aa5 14:24 XRAY Chest (1 view) In Process Unspecified. EDMS 15:23 COVID-19/FLU A+B Sent. ks8 15:35 Inserted saline lock: 20 gauge upper arm, using aseptic technique. ks8 15:51 Keyanna Branham, TACOS is Primary Nurse. vg1 16:02 Sarbjit Corley MD is Hospitalizing Provider. dinesh 16:15 Patient has correct armband on for positive identification. Bed in low position. Call vg1 light in reach. Side rails up X 1. Client placed on continuous cardiac and pulse oximetry monitoring. NIBP monitoring applied. 16:15 No provider procedures requiring assistance completed. vg1 16:16 Marcus Martin MD is Hospitalizing Provider. dinesh 20:13 Patient admitted, IV remains in place. ll3 Administered Medications: 16:14 Drug: Levalbuterol Inhalation 3.75 mg Route: Inhalation; vg1 19:19 Follow up: Response: No adverse reaction; Marked relief of symptoms vg1 16:14 Drug: Ipratropium Inhalation Aerosol 0.5 mg Route: Inhalation; vg1 19:19 Follow up: Response: No adverse reaction; Marked relief of symptoms vg1 16:17 Drug: MethylPrednisoLONE IVP 125 mg Route: IVP; Site: left upper arm; vg1 19:19 Follow up: Response: No adverse reaction vg1 16:25 Drug: NS 0.9% IV 1000 ml Route: IV; Rate: 75 ml/hr; Site: left upper arm; vg1 19:19 Follow up: IV Status: Infusion continued upon admission vg1 16:26 Drug: levofloxacin IVPB 750 mg Volume: 150 ml; Route: IVPB; Infused Over: 90 mins; vg1 Site: left upper arm; 18:13 Follow up: IV Status: Completed infusion; IV Intake: 150ml vg1 Medication: 16:15 VIS not applicable for this client. vg1 Intake: 18:13 IV: 150ml; Total: 150ml. vg1 Outcome: 16:02 Decision to Hospitalize by Provider. dinesh 20:13 Admitted to Tele accompanied by tech, via wheelchair, room 428, with chart, Report ll3 called to TACOS Mathews 20:13 Condition: stable 20:13 Discharge instructions given to patient, Instructed on the need for admit, Demonstrated understanding of instructions. 20:14 Patient left the ED. ll3 Signatures: Dispatcher [employer] Neftali Manjarrez MD MD cha Calderon, Audri, RN RN [id number] Farzana Branham Victoria RN RN vg1 Rox England RN RN ll3 Basil Jones ks8
[2023-01-10 16:06] LABS: SARS-COV-2 RT PCR NEGATIVE (NEGATIVE)
[2023-01-10 16:07] LABS: Bilirubin Direct < 0.1 mg/dL (0-0.2)
[2023-01-10] MEDS ORDERED: LEVALBUTEROL 1.25 MG/3 ML NEB ONE (16:11)
[2023-01-10] MEDS ORDERED: IPRATROPIUM BROM 0.5MG/2.5ML ONE ×2 (16:11→19:14)
[2023-01-10] MEDS ORDERED: METHYLPREDNISOLONE 125 MG INJ ONE (16:11)
[2023-01-10] MEDS ORDERED: Levofloxacin 750mg IV 750 MG/150 ML BAG IV ONE (16:12)
[2023-01-10] MEDS ORDERED: NA CHLORIDE 0.9% 1,000 ML ONE (16:12)
[2023-01-10] MEDS ORDERED: HYDROCODONE/APAP 5/325 MG TAB PO PRN (17:40)
[2023-01-10] MEDS ORDERED: ACETAMINOPHEN 325 MG TABLET PO PRN (17:40)
[2023-01-10] MEDS ORDERED: ONDANSETRON 4 MG/2 ML VIAL IV PRN (17:42)
--- NOTE | 2023-01-10 17:44 | P.HP ---
Certification for Inpatient Patient admitted to: Inpatient With expected LOS: >2 Midnights Patient will require the following post-hospital care: None Practitioner: I am a practitioner with admitting privileges, knowledge of patient current condition, hospital course, and medical plan of care. Services: Services provided to patient in accordance with Admission requirements found in Title 42 Section 412.3 of the Code of Federal Regulations Patient History Date of Service: 01/10/23 Reason for admission: SOB History of Present Illness: Patient is a 58-year-old female with a past medical history significant for osteoarthritis, COPD, DM 2, hyperlipidemia, seizures, nicotine dependence, hypertension who presents with complaint of shortness of breath onset last night. Patient reported that she has been using an inhaler but has not had any relief in symptoms. Patient reported associated signs and symptoms of cough, headache, fever and chills. Patient denies any other signs or symptoms. Symptoms are aggravated or relieved by nothing. Patient decided to present to the hospital due to worsening symptoms. Allergies pseudoephedrine [From xiao qu wu youafed] Allergy (Verified 05/12/22 22:04) Unknown Home Medications: Magnesium Oxide [Magnesium] 500 mg PO DAILY 05/12/22 Omeprazole 20 mg PO DAILY 05/12/22 PHENYTOIN ER Cap [Dilantin ER Cap*] 400 mg PO DAILY 05/12/22 - Past Medical/Surgical History Diabetic: No -: arthritis -: COPD -: NIDDM -: HTN -: seizures -: hyperlipidemia -: tubal ligation -: tonsillectomy - Family History Mother -: Heart disease, Lung disease, GI disease, Kidney disease Father -: Other (see notes) Notes: aneurysm - Social History Smoking Status: Heavy Tobacco smoker (>10 cigarettes/day) Counseled patient to stop smoking for: less than 10 minutes Smoking therapy provided: Yes Patient receptive to therapy: Yes Alcohol use: No CD- Drugs: No Caffeine use: Yes Place of Residence: Home Review of Systems General: Fever, Chills Eyes: Unremarkable ENT: Unremarkable Respiratory: Cough, Shortness of Breath Cardiovascular: Unremarkable Gastrointestinal: Unremarkable Genitourinary: Unremarkable Musculoskeletal: Unremarkable Integumentary: Unremarkable Neurological: Other (Headache) Lymphatics: Unremarkable Physical Examination - Physical Exam General: Alert, In no apparent distress, Oriented x3, Cooperative HEENT: Atraumatic, PERRLA, Mucous membr. moist/pink, EOMI, Sclerae nonicteric Neck: Supple, 2+ carotid pulse no bruit, No LAD, Without JVD or thyroid abnormality Respiratory: Diminished Cardiovascular: No edema, Regular rate/rhythm, Normal S1 S2 Capillary refill: <2 Seconds Gastrointestinal: Normal bowel sounds, Soft and benign, No tenderness Musculoskeletal: No clubbing, No swelling, No tenderness Integumentary: No rashes Neurological: Normal speech, Normal tone, Normal affect Lymphatics: No axilla or inguinal lymphadenopathy - Studies Laboratory Data (last 24 hrs) 01/10/23 15:20: PT 12.0, INR 1.09 01/10/23 15:20: WBC 16.30 H, Hgb 12.5, Hct 38.1, Plt Count 329 01/10/23 15:20: Sodium 137, Potassium 3.8, BUN 17, Creatinine 0.72, Glucose 145 H, Magnesium 2.1, Total Bilirubin 0.3, AST 14 L, ALT 21, Alkaline Phosphatase 138 H, Lipase 200 H Assessment and Plan - Plan --Acute on chronic COPD exacerbation. Chest x-ray indicates normal heart size and lungs which appears to be clear of acute infiltrate. Patient started on steroids, neb treatment with albuterol\Atrovent. Continue O2 therapy as needed. --Nicotine dependence. Patient placed on nicotine patch and counseled on tobacco cessation. --DM2 with hyperglycemia. BS monitoring with sliding scale insulin and Lantus. --Osteoarthritis. We will manage pain with current pain medication regimen. --History of seizures. Seizure precautions. Continue home medication. -- Hypertension. Poorly controlled. Continue home medication labetalol as needed. --Hyperlipidemia. Continue Statin . --GERD. Continue home medication. --[id number] Likely steroid-induced. Blood cultures pending. We will Continue to monitor WBC levels. --DVT prophylaxis with Lovenox subQ. Discharge Plan: Home Plan to discharge in: Greater than 2 days - Advance Directives Does patient have a Living Will: No Does patient have a Durable POA for Healthcare: No - Code Status/Comfort Care Code Status Assessed: Yes Physician Review: Patient Assessed, Agree with Above Assessment and Plan Critical Care: No
[2023-01-10 18:34] LABS: Specific Gravity 1.023 (1.005-1.030); Urine Bacteria None Seen /HPF (<20); Urine Bilirubin NEGATIVE (Negative); Urine Blood Negative (Negative); Urine Clarity Clear (Clear); Urine Color Light-Yellow (Yellow); Urine Glucose NEGATIVE (Negative); Urine Protein TRACE (Negative); Urine RBC <5 /HPF (None Seen); Urine Urobilinogen Normal (Normal); Urine pH 6.5 (5.0-7.0)
[2023-01-10 19:14] LABS: Magnesium 2.1 mg/dL (1.6-2.4); Phosphorus 2.9 mg/dL (2.5-4.9)
[2023-01-10] MEDS ORDERED: ALBUTEROL 2.5 MG/3 ML NEB SOL ONE (19:14)
[2023-01-10] MEDS: IPRATROPIUM BROM 0.5MG/2.5ML NEB SCH (20:00)
[2023-01-10] MEDS: ALBUTEROL 2.5 MG/3 ML NEB SOL NEB SCH (20:00)
[2023-01-10] MEDS ORDERED: INSULIN -REGULAR HUMAN 50 UNIT/0.5 ML ML SQ SCH ×2 (21:00→21:23)
[2023-01-10] MEDS: ENOXAPARIN 40 MG/0.4 ML SQ SCH (21:04)
[2023-01-10] MEDS ORDERED: LABETALOL 20 MG/4ML SYRINGE IV PRN (21:33)
[2023-01-11 00:52] VITALS: BMI 34.4
[2023-01-11] MEDS: NICOTINE 21 MG/PAT TD SCH ×2 (00:56→08:52)
[2023-01-11] MEDS: METHYLPREDNISOLONE 40 MG INJ IV SCH ×2 (00:58→08:52)
[2023-01-11] MEDS: ALBUTEROL 2.5 MG/3 ML NEB SOL NEB SCH ×2 (01:55→08:05)
[2023-01-11] MEDS: IPRATROPIUM BROM 0.5MG/2.5ML NEB SCH ×2 (01:55→08:05)
[2023-01-11 06:38] LABS: Absolute Lymphocytes (CBC) 0.9 K/uL (0.7-4.9); Lymphocytes % 7.1 % (15.3-44.8); MCV 89.6 fL (80-100); MPV 8.9 fL (7.6-11.3); RBC Red Blood Cell Count 4.13 M/uL (3.86-4.86)
[2023-01-11 08:06] VITALS: BP 162/71; TEMP 97.2
[2023-01-11] MEDS: ENOXAPARIN 40 MG/0.4 ML SQ SCH (08:52)
[2023-01-11] MEDS ORDERED: ASPIRIN 81 MG CHEWABLE TABLET PO SCH (09:00)
[2023-01-11 09:55] VITALS: O2SAT 94
--- NOTE | 2023-01-11 11:44 | P.DS ---
Admission Date: 01/10/23 Discharge Date: 01/11/23 Disposition: [place] HOME/HOME HEALTH CARE Discharge Condition: FAIR Reason for Admission: SOB - Problems (1) Choking due to food in larynx Status: Acute (2) Diabetes Status: Chronic Qualifiers: (3) Morbid (severe) obesity due to excess calories Status: Chronic (4) MONA (obstructive sleep apnea) Status: Suspected Brief History of Present Illness: Patient is a 58-year-old female with a past medical history significant for osteoarthritis, COPD, DM 2, hyperlipidemia, seizures, nicotine dependence, hypertension who presented with complaint of shortness of breath. Patient reported choking on a piece of meat. She was eventually able to get it out with her fingers but she developed shortness of breath and had difficulty breathing afterwards. She then presented to the ED for evaluation. She was diagnosed with COPD exacerbation in the ED and started on bronchodilators. Chest x-ray did not show any acute disease. Patient was hospitalized for further management. Hospital Course: She was treated with scheduled bronchodilators and IV steroid. She did not require oxygen. Her respiratory condition improved with treatment. Patient improved to baseline. She is ambulatory, tolerated her diet, lungs are clear. Patient is deemed clinically stable for discharge. She is prescribed a few days of oral prednisone. Vital Signs/Physical Exam: Temp Pulse Resp BP Pulse Ox 97.2 F 91 H 18 162/71 H 91 01/11/23 08:00 01/11/23 08:00 01/11/23 08:00 01/11/23 08:00 01/11/23 08:00 General: Alert, In no apparent distress, Oriented x3 HEENT: Mucous membr. moist/pink Neck: Supple, JVD not distended Respiratory: Clear to auscultation bilaterally, Normal air movement Cardiovascular: No edema, Regular rate/rhythm, Normal S1 S2 Gastrointestinal: Normal bowel sounds, Soft and benign, Non-distended Musculoskeletal: No swelling Integumentary: No rashes Neurological: Normal strength at 5/5 x4 extr Laboratory Data at Discharge: WBC 12.60 thou/uL (4.3-10.9) H 01/11/23 05:26 Hgb 12.2 g/dL (12.0-15.0) 01/11/23 05:26 Hct 37.0 % (36.0-45.0) 01/11/23 05:26 Plt Count 324 thou/uL (152-406) 01/11/23 05:26 PT 12.0 SECONDS (9.5-12.5) 01/10/23 15:20 INR 1.09 01/10/23 15:20 Sodium 135 mEq/L (136-145) L 01/11/23 05:26 Potassium 4.0 mEq/L (3.5-5.1) 01/11/23 05:26 BUN 16 mg/dL (7-18) 01/11/23 05:26 Creatinine 0.77 mg/dL (0.55-1.02) 01/11/23 05:26 Glucose 254 mg/dL (74-106) H 01/11/23 05:26 Phosphorus 2.9 mg/dL (2.5-4.9) 01/10/23 18:34 Magnesium 2.1 mg/dL (1.6-2.4) 01/10/23 18:34 Total Bilirubin 0.3 mg/dL (0.2-1.0) 01/10/23 15:20 AST 14 U/L (15-37) L 01/10/23 15:20 ALT 21 U/L (13-56) 01/10/23 15:20 Alkaline Phosphatase 138 U/L (45-117) H 01/10/23 15:20 Lipase 200 U/L (13-75) H 01/10/23 15:20 Home Medications: Magnesium Oxide [Magnesium] 500 mg PO DAILY 05/12/22 Omeprazole 20 mg PO DAILY 05/12/22 PHENYTOIN ER Cap [Dilantin ER Cap*] 400 mg PO DAILY 05/12/22 Albuterol Sulfate [Albuterol Sulfate Hfa] 8.5 gm IH Q4H PRN #1 inh 01/11/23 predniSONE [Deltasone] 20 mg PO DAILY #5 tab 01/11/23 New Medications: Albuterol Sulfate [Albuterol Sulfate Hfa] 8.5 gm IH Q4H PRN #1 inh PRN Reason: Shortness Of Breath predniSONE [Deltasone] 20 mg PO DAILY #5 tab Followup: NONE,NONE [Primary Care Provider] -
--- NOTE | 2023-01-11 13:00 | EKG ---
Test Date: 2023-01-10 Test Time: 15:31:58 Logistics Program Manager: MERRICK MEASUREMENT RESULTS: Intervals: Rate: 82 NH: 156 QRSD: 148 QT: 450 QTc: 525 [place]: P: 72 NH: 156 QRS: 15 T: 107 INTERPRETIVE STATEMENTS: Normal sinus rhythm Left bundle branch block Abnormal ECG Compared to ECG 01/10/2023 15:30:26 Left bundle-branch block now present Myocardial infarct finding no longer present Electronically Signed On 01-11-23 12:58:16 CDT by Humphrey Ramos
== END 2023-01-11 12:27 | disposition home or self-care (01) ==
LOC: ER 13:43 → ERHOLD 17:38 → 4TH 19:20
PROVIDERS: ADMIT Hospitalist; ATTEND Internal Medicine
DX: J44.1 Chronic obstructive pulmonary disease with (acute) exacerbation (principal); F17.210 Nicotine dependence, cigarettes, uncomplicated; E11.65 Type 2 diabetes mellitus with hyperglycemia; M19.90 Unspecified osteoarthritis, unspecified site; I10 Essential (primary) hypertension; E78.5 Hyperlipidemia, unspecified; G47.33 Obstructive sleep apnea (adult) (pediatric); K21.9 Gastro-esophageal reflux disease without esophagitis; E66.01 Morbid (severe) obesity due to excess calories; R56.9 Unspecified convulsions; T17.328A Food in larynx causing other injury, initial encounter; X58.XXXA Exposure to other specified factors, initial encounter; Z68.34 Body mass index [BMI] 34.0-34.9, adult; Z20.822 Contact with and (suspected) exposure to COVID-19; Z71.6 Tobacco abuse counseling
CPT/HCPCS: 96365; 96361; 93005; 87040 ×2; 85025 ×2; 81001; 80048 ×2; 36415; 83735 ×2; 84100; 85610; 82947 ×2; 80076; 83605; 84484; 83690; 83880; 0240U; 71045; 96375; 99285; 96366; J1815 ×2; J7614; J7613 ×2; J7644 ×3; J1650 ×2; J2930; J7030; J2920 ×2; G0378

== ENCOUNTER 2023-04-15 22:51 | Inpatient (IN) | payer OTHER ==
[2023-04-15 23:22] LABS: Arterial Blood Carboxyhemoglob 2.1 % (0-1.5); Blood Gas Oxyhemoglobin 95.8 % (94-97); Blood O2 Saturation 99.3 % (92-98.5)
[2023-04-15 23:39] LABS: Absolute Lymphocytes (CBC) 1.4 K/uL (0.7-4.9); Hematocrit 39.2 % (36.0-45.0); MCV 91.8 fL (80-100); MPV 9.9 fL (7.6-11.3); RBC Red Blood Cell Count 4.27 M/uL (3.86-4.86)
[2023-04-16] MEDS ORDERED: FUROSEMIDE 20 MG/ 2ML VIAL ONE (00:04)
[2023-04-16] MEDS ORDERED: HYDRALAZINE HCL 20 MG/ML VIAL ONE (00:04)
[2023-04-16] MEDS ORDERED: MAGNESIUM SULFATE 1 gm IVPB 2 GM/200 ML BAG IV ONE (00:05)
[2023-04-16] MEDS ORDERED: METHYLPREDNISOLONE 40 MG INJ ONE (00:05)
[2023-04-16] MEDS ORDERED: ONDANSETRON 4 MG/2 ML VIAL ONE (00:05)
[2023-04-16] MEDS ORDERED: IPRATROPIUM BROM 0.5MG/2.5ML ONE (00:07)
[2023-04-16] MEDS ORDERED: ALBUTEROL 2.5 MG/3 ML NEB SOL ONE (00:07)
[2023-04-16 00:21] LABS: Albumin 3.8 g/dL (3.4-5.0); Bilirubin Direct 0.1 mg/dL (0-0.2); Bilirubin Indirect, Calculated 0.3 mg/dL (0.2-0.8); Bilirubin Total 0.4 mg/dL (0.2-1.0); Protein, Total 8.2 g/dL (6.4-8.2)
[2023-04-16 00:24] LABS: Magnesium 1.7 mg/dL (1.6-2.4); Potassium 4.1 mEq/L (3.5-5.1); Troponin High Sensitivity 132.9 pg/mL (<58.9)
[2023-04-16 01:03] LABS: Specific Gravity 1.011 (1.005-1.030); Urine Bacteria None Seen /HPF (<20); Urine Bilirubin NEGATIVE (Negative); Urine Blood Trace (Negative); Urine Clarity Turbid (Clear); Urine Color Yellow (Yellow); Urine Glucose TRACE (Negative); Urine Protein 2+ (Negative); Urine Urobilinogen Normal (Normal)
[2023-04-16 01:09] LABS: Barbiturates NEGATIVE (NEGATIVE); Benzodiazepines NEGATIVE (NEGATIVE); Cocaine NEGATIVE (NEGATIVE); METHAMPHETAM POSITIVE (NEGATIVE); Methadone NEGATIVE (NEGATIVE); Opiates NEGATIVE (NEGATIVE); Phencyclidine NEGATIVE (NEGATIVE); THC Cannibis POSITIVE (NEGATIVE)
[2023-04-16] MEDS ORDERED: NA CHLORIDE 0.9% 1,000 ML ONE (01:44)
[2023-04-16] MEDS ORDERED: ACETAMINOPHEN 650MG/RECT SUPP PR ONE (03:49)
[2023-04-16] MEDS ORDERED: NA CHLORIDE 0.9% 100 ML ONE (03:50)
[2023-04-16] MEDS ORDERED: PIPERACIL/TAZO 3.375 GM VIAL IV ONE (03:51)
[2023-04-16] MEDS ORDERED: ACETAMINOPHEN 325 MG/SUPP PR ONE (03:51)
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
[2023-04-16 05:46] LABS: Troponin High Sensitivity 1844.5 pg/mL (<58.9)
[2023-04-16] MEDS ORDERED: ENOXAPARIN 100 MG/ML SYR SQ ONE (06:19)
[2023-04-16] MEDS ORDERED: GLUCAGON 1 MG/VIAL IM PRN (10:00)
[2023-04-16] MEDS: INSULIN -REGULAR HUMAN 50 UNIT/0.5 ML ML SQ SCH ×4 (10:00→23:28)
[2023-04-16] MEDS ORDERED: D50W 25 GM/50 ML SYRINGE IV PRN (10:00)
[2023-04-16] MEDS ORDERED: ALBUTEROL 2.5 MG/3 ML NEB SOL NEB PRN (10:00)
[2023-04-16] MEDS: CEFTRIAXONE 1,000 MG in NA CHLORIDE 0.9% 50 ML IVPB SCH (10:58)
[2023-04-16] MEDS: FUROSEMIDE 20 MG/ 2ML VIAL IV SCH (11:01)
[2023-04-16] MEDS: AZITHROMYCIN IV 500 MG in NA CHLORIDE 0.9% 250 ML IVPB SCH (11:01)
[2023-04-16] MEDS: METHYLPREDNISOLONE 40 MG INJ IV SCH ×2 (11:01→18:00)
[2023-04-16 11:32] LABS: Thyroid Stimulating Hormone 0.289 uIU/mL (0.358-3.740)
[2023-04-16 11:34] LABS: Troponin High Sensitivity 1298.4 pg/mL (<58.9)
[2023-04-16] MEDS ORDERED: PHENYTOIN ER 100 MG CAP PO SCH (18:58)
--- NOTE | 2023-04-16 20:57 | RAD REPORT ---
EXAM DESCRIPTION: CT - Head C Spine Mpr Wo Con - 04/16/2023 6:23 am CLINICAL HISTORY: DIZZINESS COMPARISON: None available TECHNIQUE: Axial CT of the head obtained from the skull apex to the skull base without contrast. Axi al CT images of the cervical spine obtained from the skull base through the thoracic inlet. Sagittal and coronal reformatted images available. This exam was performed according to our departmental dose- optimization program, which includes automated exposure control, adjustment of the mA and/or kV accor ding to patient size and/or use of iterative reconstruction technique. FINDINGS: CT head: No acute intracranial hemorrhage identified. No mass, mass effect, shift of the midline, abnormal ext ra-axial fluid collection or CT evidence of acute ischemic change identified. The ventricular system and sulcal spaces are age appropriate. Scattered areas of hypodensity throughout the supratentorial white matter are nonspecific and may be related to chronic small vessel ischemic change. The visualized paranasal sinuses and mastoid air cells are well aerated. No skull fracture identifi ed. Visualized orbits and globes are unremarkable. Atherosclerotic calcification of the intracranial internal carotid arteries. Cervical CT: Straightening of the cervical lordosis may be secondary to patient positioning. The atlantoaxial, a tlantodental, and occipitoatlantal intervals are preserved. No fracture identified. Vertebral body height preserved. Prevertebral soft tissues are unremarkable. Mild to moderate multilevel loss of intervertebral disc height with endplate spondylosis, facet arthr opathy, and uncovertebral spurring. Posterior disc osteophyte complex at multiple levels mildly encro ach on the anterior spinal canal as well as producing multilevel mild neural foraminal narrowing. Visualized skull base is intact. No fracture of the visualized facial bones. Visualized mastoid air c ells and paranasal sinuses are well aerated. Visualized thyroid is unremarkable. No cervical lymphadenopathy. No pneumothorax in the visualized lung apices. IMPRESSION: 1. No acute intracranial abnormality. 2. No acute fracture or subluxation of the cervical spine. 3. Moderate multilevel degenerative change of the cervical spine. Electronically signed by: Jt Ornelas 04/16/2023 3:28 AM CDT Due to temporary technical issues with the PACS/Fluency reporting system, reports are being signed by the in house radiologists without review as a courtesy to insure prompt reporting. The interpreting radiologist is fully responsible for the content of the report.
--- NOTE | 2023-04-16 21:00 | RAD REPORT ---
EXAM DESCRIPTION: CT - Chest For Pe Angio - 04/16/2023 6:22 am CLINICAL HISTORY: CHEST PAIN COMPARISON: None Available. TECHNIQUE: CTA of the chest obtained following the uncomplicated intravenous administration of iodin ated contrast. 3-D/MIP reformatted images of the chest available for evaluation. This exam was perfor med according to our departmental dose-optimization program, which includes automated exposure contro l, adjustment of the mA and/or kV according to patient size and/or use of iterative reconstruction te chnique. FINDINGS: Chest: Pulmonary arteries: Contrast bolus is adequate.No filling defects identified in the pulmonary arterie s to suggest pulmonary embolus. Thyroid: No abnormalities of the visualized thyroid. Great Vessels: Great vessels have normal anatomic configuration. Thoracic Aorta: Atherosclerotic calcification of thoracic aorta. Heart: Cardiomegaly. Coronary artery atherosclerosis. Lymph Nodes: No enlarged mediastinal lymph nodes identified. Esophagus: No abnormalities of the esophagus identified. Other: No additional findings. Lungs: Left lower lobe airspace consolidation. Respiratory motion artifact. Right lower lobe discoid atelectasis. Mild mosaic attenuation pattern with interlobular septal thickening. Pleura: No pleural effusion or pneumothorax. Trachea/Airways: No abnormalities of the visualized trachea or airways. Bones: Multilevel degenerative endplate spondylosis. Upper Abdomen: Limited images of the upper abdomen demonstrate no definite abnormalities of visualize d portions of the liver, gallbladder, pancreas, spleen, adrenal glands, or kidneys. IMPRESSION: 1. No pulmonary embolus. 2. Left lower lobe airspace consolidation concerning for pneumonia. 3. Cardiomegaly with coronary artery atherosclerosis. 4. Mosaic attenuation pattern of the lungs with interlobular septal thickening. These findings coul d be seen with pulmonary edema. Electronically signed by: Jt Ornelas 04/16/2023 3:25 AM CDT Due to temporary technical issues with the PACS/Fluency reporting system, reports are being signed by the in house radiologists without review as a courtesy to insure prompt reporting. The interpreting radiologist is fully responsible for the content of the report.
--- NOTE | 2023-04-16 21:02 | RAD REPORT ---
EXAM DESCRIPTION: RAD - Chest Single View - 04/16/2023 12:17 am CLINICAL HISTORY: 58 years Female COPD COMPARISON: None TECHNIQUE: AP view of the chest was obtained. FINDINGS: Cardiac silhouette is prominent in size. Central vessels are increased and indistinct. No effusions bilaterally. Interstitial and airspace opacities lung thompson bilaterally. No pneumothora x. IMPRESSION: Moderate central congestion. Extensive bilateral infiltrates. Possible underlying chroni c change. Electronically signed by: Oanh Aguilar MD 04/16/2023 12:48 AM CDT Due to temporary technical issues with the PACS/Fluency reporting system, reports are being signed by the in house radiologists without review as a courtesy to insure prompt reporting. The interpreting radiologist is fully responsible for the content of the report.
[2023-04-16] MEDS: ATORVASTATIN 40 MG TAB PO SCH (21:22)
[2023-04-16] MEDS: ENOXAPARIN 100 MG/ML SYR SQ SCH (21:22)
[2023-04-16] MEDS ORDERED: PHENYTOIN ER 100 MG CAP PO ONE (22:00)
[2023-04-17] MEDS: METHYLPREDNISOLONE 40 MG INJ IV SCH ×3 (01:59→16:56)
[2023-04-17 05:34] LABS: Absolute Lymphocytes (CBC) 0.8 K/uL (0.7-4.9); Hematocrit 37.6 % (36.0-45.0); Lymphocytes % 5.5 % (15.3-44.8); MPV 10.2 fL (7.6-11.3); RBC Red Blood Cell Count 4.18 M/uL (3.86-4.86)
[2023-04-17 05:41] LABS: Potassium 3.3 mEq/L (3.5-5.1)
[2023-04-17] MEDS: INSULIN -REGULAR HUMAN 50 UNIT/0.5 ML ML SQ SCH ×3 (06:00→16:58)
[2023-04-17 08:02] LABS: Blood Morphology Comment NOT SEEN (NOT SEEN); Platelet Estimate ADEQ; White Blood Cell Scan OK (OK)
[2023-04-17] MEDS: AZITHROMYCIN IV 500 MG in NA CHLORIDE 0.9% 250 ML IVPB SCH (08:16)
[2023-04-17] MEDS: CEFTRIAXONE 1,000 MG in NA CHLORIDE 0.9% 50 ML IVPB SCH (08:18)
[2023-04-17] MEDS: ENOXAPARIN 100 MG/ML SYR SQ SCH ×2 (08:18→20:24)
[2023-04-17] MEDS: ASPIRIN EC 81 MG TAB PO SCH (08:18)
[2023-04-17] MEDS: FUROSEMIDE 20 MG/ 2ML VIAL IV SCH (08:19)
[2023-04-17] MEDS: ONDANSETRON 4 MG/2 ML VIAL IV PRN (08:46)
[2023-04-17] MEDS ORDERED: POTASSIUM 25 MEQ EFFERV TAB PO ONE ×2 (08:49→17:54)
--- NOTE | 2023-04-17 11:51 | P.PN ---
Subjective Date of Service: 04/17/23 Chief Complaint: Pneumonia Since admission, she reports that her breathing is improving. She is currently on 2 L nasal cannula, with pulse oximetry readings in the mid 90s. Her blood pressure has been soft overnight, concerning for the possible development of septic shock. She reports that her cough has become more productive. Will request sputum sample. She denies any chest pain or palpitations. Review of Systems 10-point ROS is otherwise unremarkable General: Weakness (generalized) Respiratory: Cough, Shortness of Breath Physical Examination - Vital Signs Temperature: 97.6 F Blood Pressure: 117/73 Pulse: 76 Respirations: 19 Pulse Ox (%): 99 - Physical Exam General: Alert, In no apparent distress, Oriented x3 HEENT: Atraumatic, Sclerae nonicteric Neck: JVD not distended Respiratory: Crackles/rales (bibasilar), Rhonchi/gurgles (left-sided) Cardiovascular: Regular rate/rhythm, Normal S1 S2, No gallops, No rubs, No murmurs, Edema (trace-1+ BLE) Gastrointestinal: Normal bowel sounds, Soft and benign, Non-distended, No tenderness, No rebound, No guarding Musculoskeletal: No clubbing Integumentary: No rashes Neurological: Normal speech, Normal affect Assessment And Plan - Plan # Suspected Septic Shock likely secondary to Left Lower Lobe Community-Acquired Pneumonia # Suspect Confounding Steroid-Induced Leukocytosis She met SIRS criteria based on temperature > 100.9 F, HR > 90 bpm, RR > 20 breaths/min, and WBC > 12,000, and the suspected source is pulmonary. Severe sepsis is suspected due to concern for tissue hypoperfusion/organ dysfunction based on acute respiratory failure requiring BiPAP, hypotension (SBP < 90) and lactic acid > 2 mmol/L. Septic shock is suspected due to multiple SBP < 90 mmHg. - Radiology: - Chest x-ray = "moderate central congestion. Extensive bilateral infiltrates. Possible underlying chronic change." - CT chest angiogram = "1. No pulmonary embolus. 2. Left lower lobe airspace consolidation concerning for pneumonia. 3. Cardiomegaly with coronary artery atherosclerosis. 4. Mosaic attenuation pattern of the lungs with interlobular septal thickening. These findings could be seen with pulmonary edema." - Sepsis order set was initiated - Lactate trend: 2.3 -> 1.8 - Blood cultures drawn - Broad spectrum antibiotics started: ceftriaxone + azithromycin - In regards to fluids: - 30 mL/kg of IV fluids was not administered due to concern for volume overload (CHF) - Ordered sputum culture - Sepsis reassessment completed at 11:58 AM on 04/17/2023 # Acute Hypoxic Respiratory Failure - likely secondary to Pneumonia, COPD Exacerbation, and Pulmonary Edema Per EMS, her SpO2 was 60s-70s in the field prior to presentation. - Evaluation thus far: - Procalcitonin = pending - Ordered sputum culture - Presenting ABG = pH 7.41, PCO2 41.0, PO2 260.0 - on BiPAP - Chest x-ray = "moderate central congestion. Extensive bilateral infiltrates. Possible underlying chronic change." - CT chest angiogram = "1. No pulmonary embolus. 2. Left lower lobe airspace consolidation concerning for pneumonia. 3. Cardiomegaly with coronary artery atherosclerosis. 4. Mosaic attenuation pattern of the lungs with interlobular septal thickening. These findings could be seen with pulmonary edema." - Management plan: - Consulted Pulmonary Medicine - recommendations appreciated - Bronchodilators and steroids per Pulm - Consulted Respiratory Therapy - Supplemental oxygen to maintain SpO2 > 92% - Continue ceftriaxone + azithromycin - Hold furosemide for now given soft BPs - Encouraged incentive spirometry # Suspected Type II Non-ST Segment Elevation Myocardial Infarction (Demand Ischemia) due to above - Evaluation thus far: - EKG: without STEMI criteria, trend - Serial troponin: 132.9 -> 1844.5 -> 1298.5 -> 723.2 - Transthoracic echocardiogram (05/14/2022) = "normal 2-dimensional echocardiogram. no vegetation. no effusion." - Management plan: - Consult Cardiology - recommendations appreciated - Continue aspirin, atorvastatin, enoxaparin - Hold beta-cherelle, VELASQUEZ-inhibitor/ARB due to hypotension # Seizure Disorder - Phenyotin level - 3.1 - Continue home phenytoin # Type II Diabetes Mellitus - Hgb A1c = pending - Correction scale insulin # Substance Use Disorder - UDS positive for amphetamines, THC - Substance cessation counseling provided # Hypertension - Hold home anti-hypertensives given sepsis # Dyslipidemia - Continue home atorvastatin Anthony Smith M.D.
[2023-04-17] MEDS: PHENYTOIN ER 100 MG CAP PO SCH (13:30)
[2023-04-17] MEDS ORDERED: PHENYTOIN ER 100 MG CAP PO ONE (14:00)
--- NOTE | 2023-04-17 14:23 | EKG ---
Test Date: 2023-04-16 Test Time: 04:17:32 Broadcast Operations Director: RV MEASUREMENT RESULTS: Intervals: Rate: 97 AL: 150 QRSD: 154 QT: 392 QTc: 497 [place]: P: 79 AL: 150 QRS: -5 T: 114 INTERPRETIVE STATEMENTS: Normal sinus rhythm Left bundle branch block Abnormal ECG Compared to ECG 01/10/2023 15:31:58 No significant changes Electronically Signed On 04-17-23 14:21:59 CDT by Humphrey Ramos
[2023-04-17 15:21] VITALS: BMI 33.0
--- NOTE | 2023-04-17 19:42 | CON ---
Date of Consultation: 04/17/2023 Reason For Consultation: Elevated troponin. History Of Present Illness: A 58-year-old female with history of COPD, diabetes, dyslipidemia, hyper tension, seizure disorder, presented to the emergency room with significant shortness of breath and c ough. She was hypoxic in the low 60s. She was placed on BiPAP, started on wide spectrum antibiotics . Condition slowly improved, but troponin level was elevated. The patient denied having any chest p ain and denied having any cardiac history. At the present time, she is chest pain free. Past Medical History: As outlined above in the HPI. Medications: Refer to reconciliation sheet for detailed list. Allergies: PSEUDOEPHEDRINE. Family History: No premature coronary artery disease or cancer. Social History: She is an active smoker. Does not drink or use any drugs. Review of Systems: All systems reviewed and they were negative except what mentioned in HPI. Physical Examination: Vital Signs: Reviewed. Head and Neck: Pupils are equal, reactive to light. Intact eye movements. No JVD. No cervical lym phadenopathy. Neck is supple. Thyroid is not enlarged. Lungs: Clear to auscultation bilaterally. No accessory muscle use. She has rhonchi diffuse bilater ally. Heart: Regular rate and rhythm. No extra sounds. Abdomen: Soft, nontender. Bowel sounds positive. No organomegaly. No masses or hernia. No rigidi ty or rebound. Extremities: No edema, clubbing, or cyanosis. Intact pulses. Skin: No rash. Neurologic: Alert, awake, oriented x3. No acute focal deficits appreciated. Investigations: Her troponin peaked at 1844 and it is trending down. NT-proBNP is 252. EKG without acute specific abnormalities and CTA chest showed no pulmonary embolism, but pneumonia and there are coronary artery calcifications. Assessment And Recommendations: 1.Elevated troponin. This is likely demand ischemia. She has no chest pain, but she has multiple s ignificant risk factors and ischemic workup is warranted; however, we will await until the patient's respiratory failure and the pneumonia resolves, and then I will recommend a stress test. Obtain echo cardiogram as well sometimes next week. In terms of medications, I agree with baby aspirin, continue with the Lovenox pending the cardiac workup including echo and stress test as outlined above. 2.Hypertension. Blood pressure is controlled. Continue current management. 3.Acute hypoxic respiratory failure due to pneumonia and chronic obstructive pulmonary disease exace rbation. Condition is improving. SR/MODL Voice ID: [id number] Report ID: [id number]
[2023-04-17] MEDS: ATORVASTATIN 40 MG TAB PO SCH (20:23)
[2023-04-18] MEDS: INSULIN -REGULAR HUMAN 50 UNIT/0.5 ML ML SQ SCH ×5 (00:47→21:00)
[2023-04-18] MEDS: METHYLPREDNISOLONE 40 MG INJ IV SCH (00:47)
[2023-04-18 05:19] LABS: Absolute Lymphocytes (CBC) 0.6 K/uL (0.7-4.9); Hematocrit 37.7 % (36.0-45.0); Lymphocytes % 3.5 % (15.3-44.8); MCV 91.9 fL (80-100); MPV 10.4 fL (7.6-11.3)
[2023-04-18 05:44] LABS: Potassium 4.1 mEq/L (3.5-5.1)
[2023-04-18] MEDS: PHENYTOIN ER 100 MG CAP PO SCH (08:38)
[2023-04-18] MEDS: ASPIRIN EC 81 MG TAB PO SCH (08:38)
[2023-04-18] MEDS: ENOXAPARIN 100 MG/ML SYR SQ SCH ×2 (08:39→20:48)
[2023-04-18] MEDS: CEFTRIAXONE 1,000 MG in NA CHLORIDE 0.9% 50 ML IVPB SCH (08:39)
[2023-04-18] MEDS: FUROSEMIDE 20 MG/ 2ML VIAL IV SCH (08:39)
[2023-04-18] MEDS: DULERA 200/5 (MOMETASONE/FORMOTEROL) INHALER IH SCH ×2 (08:42→20:48)
[2023-04-18] MEDS: predniSONE 20 MG TAB PO SCH ×2 (08:42→20:48)
[2023-04-18] MEDS ORDERED: AZITHROMYCIN 250 MG TAB PO SCH (09:00)
[2023-04-18] MEDS ORDERED: PHENYTOIN ER 100 MG CAP PO SCH (09:00)
[2023-04-18] MEDS: NA CHLORIDE 0.9% 0 ML ONE ×2 (09:06)
[2023-04-18] MEDS: ENSURE HIGH PROTEIN 237 ML CAN PO SCH ×3 (11:30→16:30)
--- NOTE | 2023-04-18 11:42 | P.PN ---
Date of Service: 04/18/23 Subjective: ROS: 10 point ROS as noted above, otherwise negative Physical Exam: GEN: Alert, oriented, NAD HEENT: Normal conjunctiva, sclera anicteric CV: Regular rate & rhythm, trace-1+ edema BLE Pulm: Nonlabored respiraitons on 4L NC, Crackles/rales, L Rhonchi/gurgles ABD: Soft, nontender, nondistended MSK: No joint tenderness Integumentary: No rashes Neuro: Normal speech, normal affect vitals reviewed Problem List: Septic Shock likely secondary to Left Lower Lobe Community-Acquired Pneumonia Suspect Confounding Steroid-Induced Leukocytosis Acute Hypoxic Respiratory Failure - likely secondary to Pneumonia, COPD Exacerb ation, and Pulmonary Edema Suspected Type II NSTEMI (Demand Ischemia) due to above seizure Disorder DM2 Substance Use Disorder Hypertension Dyslipidemia Septic Shock likely secondary to Left Lower Lobe Community-Acquired Pneumonia Suspect Confounding Steroid-Induced Leukocytosis SIRS criteria: temperature > 100.9 F, HR > 90 bpm, RR > 20 breaths/min, and WBC > 12,000, hypotension (SBP < 90) and lactic acid > 2 mmol/L. Septic shock is suspected due to multiple SBP < 90 mmHg. CXR (04/15): "moderate central congestion. Extensive bilateral infiltrates. Possible underlying chronic change." CTA chest (04/16): No pulmonary embolus. Left lower lobe airspace consolidation concerning for pneumonia. Cardiomegaly with coronary artery atherosclerosis. Mosaic attenuation pattern of the lungs with interlobular septal thickening. Blood cultures: NGTD Sputum cultures: pending continue ceftriaxone / azithromycin(04/16-) PT consult Acute Hypoxic Respiratory Failure - likely secondary to Pneumonia, COPD Exacerbation, and Pulmonary Edema Pulmonology consulted Bronchodilators, steroids, nebs as needed incentive spirometry Procalcitonin: 2.36 (04/17) Continue ceftriaxone/azithromycin Suspected Type II NSTEMI (Demand Ischemia) due to above troponins elevated x4, monitor on telemetry Transthoracic echocardiogram (05/14/2022) = "normal 2-dimensional echocardiogram. no vegetation. no effusion." echo pending Cardiology consulted Continue aspirin, atorvastatin, enoxaparin Hold beta-cherelle, VELASQUEZ-inhibitor/ARB due to hypotension DM2 Hgb A1c = pending Accu-Chek, sliding scale insulin. seizure Disorder - Continue home phenytoin Substance Use Disorder - UDS positive for amphetamines, THC; Substance cessation counseling provided Hypertension -Hold home anti-hypertensives given sepsis; restart as appropriate Dyslipidemia - Continue home atorvastatin VTE: Lovenox Code: Full Dispo: Home
[2023-04-18] MEDS ORDERED: ALBUTEROL 2.5 MG/3 ML NEB SOL NEB PRN (12:00)
--- NOTE | 2023-04-18 12:17 | P.CNS ---
Date of Consult: 04/18/23 Reason for Consult: Possible pneumonia Chief Complaint: Pneumonia History of Present Illness: Patient is 58 years of age with a history of COPD metabolic syndrome admitted to the hospital was found unresponsive hypoxic placed on BiPAP transferred here to the ICU drug screen was positive and is an active smoker has underlying COPD opponent is elevated only doing better she cannot recall the events that led to admission to the hospital Allergies pseudoephedrine [From Sudafed] Allergy (Verified 05/12/22 22:04) Unknown Home Medications: Magnesium Oxide [Magnesium] 500 mg PO DAILY 05/12/22 PHENYTOIN ER Cap [Dilantin ER Cap*] 400 mg PO DAILY 05/12/22 Albuterol Sulfate [Albuterol Sulfate Hfa] 8.5 gm IH Q4H PRN #1 inh 01/11/23 - Past Medical/Surgical History Diabetic: No -: arthritis -: COPD -: NIDDM -: HTN -: seizures -: hyperlipidemia -: tubal ligation -: tonsillectomy Psychosocial/ Personal History: Unable to obtain - Family History Mother Medical History: Heart disease, Lung disease, GI disease, Kidney disease Father Medical History: Other (see notes) Notes: aneurysm - Social History Smoking Status: Current every day smoker Alcohol use: No CD- Drugs: No Caffeine use: No Place of Residence: Home Review of Systems 10-point ROS is otherwise unremarkable Physical Examination Temp Pulse Resp BP Pulse Ox 97.8 F 65 21 H 126/76 95 04/18/23 08:00 04/18/23 11:00 04/18/23 11:00 04/18/23 11:00 04/18/23 11:00 General: Alert, In no apparent distress, Oriented x3 Respiratory: Expiratory wheezes Cardiovascular: No edema, Regular rate/rhythm, Normal S1 S2 Gastrointestinal: Normal bowel sounds, Soft and benign, Non-distended Musculoskeletal: No clubbing, No swelling - Problems (1) COPD exacerbation Current Visit: No Status: Acute Plan: Patient is 58 years of age with a history of COPD drug abuse mated with unresponsiveness she is doing much better troponins elevated possibly underlying cardiac event and is an active smoker risk factors for coronary artery disease and has some changes in the left lower zone with diffuse bilateral groundglass changes new with diuretic antibiotics need an echo anticoagulation changed to p.o. prednisone count is elevated is probably from steroids
--- NOTE | 2023-04-18 14:50 | ECHO ---
HEIGHT: 5 ft 7 in WEIGHT: 211 lb 0 oz DATE OF STUDY: 04/18/[address]: Mohan Botello NP 2-DIMENSIONAL: YES M.MODE: YES DOPPLER: YES COLOR FLOW: YES TDS: PORTABLE: YES DEFINITY: BUBBLE STUDY: DIAGNOSIS: NON ST ELEVATION MYOCARDIAL INFARCTION CARDIAC HISTORY: CATHERIZATION: NO SURGERY: NO PROSTHETIC VALVE: NO PACEMAKER: NO MEASUREMENTS (cm) DIASTOLIC (NORMALS) SYSTOLIC (NORMALS) IVSd 1.1 (0.6-1.2) LA Diam 2.5 (1.9-4.0) LVEF 62% LVIDd 4.8 (3.5-5.7) LVIDs 3.2 (2.0-3.5) %FS 33% LVPWd 1.1 (0.6-1.2) Ao Diam 2.5 (2.0-3.7) 2 DIMENSIONAL ASSESSMENT: RIGHT ATRIUM: NORMAL LEFT ATRIUM: NORMAL RIGHT VENTRICLE: NORMAL LEFT VENTRICLE: NORMAL TRICUSPID VALVE: MILD TRICUSPID REGURGITATION MITRAL VALVE: MILD MITRAL REGURGITATION PULMONIC VALVE: NORMAL AORTIC VALVE: NORMAL PERICARDIAL EFFUSION: NONE AORTIC ROOT: NORMAL LEFT VENTRICULAR WALL MOTION: NORMAL DOPPLER/COLOR FLOW: SEE BELOW COMMENTS: 1. NORMAL LEFT VENTRICULAR EJECTION FRACTION 60-65% WITH NORMAL WALL MOTION 2. NORMAL DIASTOLIC FUNCTION 3. MILD MITRAL REGURGITATION 4. MILD TRICUSPID REGURGITATION TECHNOLOGIST: TRISH PEREZ
[2023-04-18] MEDS ORDERED: IPRATROPIUM BROM 0.5MG/2.5ML NEB PRN (15:01)
[2023-04-18] MEDS ORDERED: D10W 250 ML BAG IV PRN (16:00)
--- NOTE | 2023-04-18 17:16 | EKG ---
Test Date: 2023-04-15 Test Time: 23:51:02 Environmental Science Professor: OS MEASUREMENT RESULTS: Intervals: Rate: 134 FL: 134 QRSD: 144 QT: 352 QTc: 525 [place]: P: 69 FL: 134 QRS: -13 T: 122 INTERPRETIVE STATEMENTS: Sinus tachycardia Left bundle branch block Abnormal ECG Compared to ECG 01/10/2023 15:31:58 Sinus rhythm no longer present Electronically Signed On 04-18-23 17:12:00 CDT by Humphrey Ramos
[2023-04-18] MEDS ORDERED: D50W 25 GM/50 ML SYRINGE IV PRN (19:12)
--- NOTE | 2023-04-18 20:01 | PN ---
Date of Progress Note: 04/18/2023 Subjective: Seen by bedside. Doing clinically well. No chest pain. Has shortness of breath and co ugh. Review of Systems: No chest pain. No nausea, vomiting, diarrhea. All other systems reviewed and they were negative. Physical Examination: Vital Signs: Reviewed. Head and Neck: Pupils are equal, reactive to light. Intact eye movements. No JVD. No cervical lym phadenopathy. Neck is supple. Thyroid is not enlarged. Lungs: Clear to auscultation bilaterally. No rhonchi, wheezing, or crackles. No accessory muscle u se. Heart: Regular rate and rhythm. No extra sounds. Abdomen: Soft, nontender. Bowel sounds positive. No organomegaly. No masses or hernia. No rigidi ty or rebound. Extremities: No edema, clubbing, or cyanosis. Intact pulses. Skin: No rash. Neurologic: Alert, awake, oriented x3. No acute focal deficits appreciated. Lymph Nodes: No cervical or axillary lymphadenopathy. Investigations: On echo, her ejection fraction was normal at 60% to 65%. Assessment And Recommendations: 1.Elevated troponin, likely demand ischemia. Normal ejection fraction. No wall motion abnormalitie s. Recommend to obtain a Lexiscan nuclear stress test once her medical condition is stable and plan accordingly. 2.Diastolic heart failure. Agree with Lasix. 3.Dyslipidemia. Continue statin. SR/MODL Voice ID: [id number] Report ID: [id number]
[2023-04-18] MEDS: ATORVASTATIN 40 MG TAB PO SCH (20:48)
[2023-04-19 04:59] LABS: Absolute Lymphocytes (CBC) 0.6 K/uL (0.7-4.9); Lymphocytes % 4.7 % (15.3-44.8); MCV 91.3 fL (80-100); MPV 11.1 fL (7.6-11.3); RBC Red Blood Cell Count 3.94 M/uL (3.86-4.86)
[2023-04-19] MEDS: ENSURE HIGH PROTEIN 237 ML CAN PO SCH ×3 (07:30→15:59)
--- NOTE | 2023-04-19 08:31 | P.PN ---
Subjective Date of Service: 04/19/23 Chief Complaint: Pneumonia/non-STEMI Patient is doing well no new complaints no shortness of breath Review of Systems Unremarkable Physical Examination - Vital Signs Temperature: 97.1 F Blood Pressure: 121/58 Pulse: 57 Respirations: 17 Pulse Ox (%): 100 - Physical Exam General: Alert, In no apparent distress, Oriented x3 Neck: Supple Cardiovascular: No edema, Regular rate/rhythm, Normal S1 S2 Assessment And Plan - Current Problems (Diagnosis) (1) COPD exacerbation Current Visit: No Status: Acute Plan: Patient admitted with COPD exacerbation non-STEMI possible pneumonia doing well no new complaint car changer to p.o. levofloxacin white count is declining vital signs oxygenation satisfactory check room air pulse ox ambulate no ischemic changes on EKG echocardiogram is normal plan to do a stress test possible discharge Physician Review: Patient Assessed, Agree with Above Assessment and Plan
[2023-04-19] MEDS: predniSONE 20 MG TAB PO SCH ×2 (08:36→20:03)
[2023-04-19] MEDS: ASPIRIN EC 81 MG TAB PO SCH (08:37)
[2023-04-19] MEDS: INSULIN -REGULAR HUMAN 50 UNIT/0.5 ML ML SQ SCH ×4 (08:49→22:23)
[2023-04-19] MEDS: ENOXAPARIN 100 MG/ML SYR SQ SCH ×2 (08:52→20:03)
[2023-04-19] MEDS: PHENYTOIN ER 100 MG CAP PO SCH (08:52)
[2023-04-19] MEDS: levoFLOXacin 750 MG TAB PO SCH (09:18)
[2023-04-19] MEDS: DULERA 200/5 (MOMETASONE/FORMOTEROL) INHALER IH SCH ×2 (09:18→21:00)
[2023-04-19] MEDS: ATORVASTATIN 40 MG TAB PO SCH (20:03)
[2023-04-19] MEDS: ONDANSETRON 4 MG/2 ML VIAL IV PRN (20:09)
[2023-04-19] MEDS ORDERED: NA CHLORIDE 0.9% 250 ML ONE (23:07)
[2023-04-20 01:20] VITALS: O2SAT 97
[2023-04-20] MEDS ORDERED: NA CHLORIDE 0.9% 250 ML ONE (05:04)
[2023-04-20 05:39] VITALS: BP 178/79; TEMP 98.1
[2023-04-20] MEDS: predniSONE 20 MG TAB PO SCH (07:14)
[2023-04-20] MEDS: INSULIN -REGULAR HUMAN 50 UNIT/0.5 ML ML SQ SCH (07:14)
[2023-04-20] MEDS: ENSURE HIGH PROTEIN 237 ML CAN PO SCH (07:16)
[2023-04-20] MEDS: PHENYTOIN ER 100 MG CAP PO SCH (07:16)
[2023-04-20] MEDS: levoFLOXacin 750 MG TAB PO SCH (07:17)
--- NOTE | 2023-04-23 11:20 | P.DS ---
Admission Date: 04/16/23 Discharge Date: 04/23/23 Disposition: AMA-LEFT AGAINST MEDICAL ADVIC Reason for Admission: Pneumonia/non-STEMI - Problems (1) COPD exacerbation Status: Acute Brief History of Present Illness: Patient is 58 years of age with a history of COPD metabolic syndrome admitted to the hospital was found unresponsive hypoxic placed on BiPAP transferred here to the ICU drug screen was positive and is an active smoker has underlying COPD opponent is elevated only doing better she cannot recall the events that led to admission to the hospital Hospital Course: Patient is 58 years of age admitted with COPD exacerbation respiratory failure non-STEMI patient to positive drug screen and was admitted treated conservatively with BiPAP improved and is an active smoker dual for stress test but patient left AMA mildly elevated white count stable pneumonia treated with levofloxacin Vital Signs/Physical Exam: Temp Pulse Resp BP Pulse Ox 98.1 F 73 18 178/79 H 98 04/20/23 04:00 04/20/23 04:00 04/20/23 04:00 04/20/23 04:00 04/20/23 04:00 Laboratory Data at Discharge: WBC 13.50 thou/uL (4.3-10.9) H 04/19/23 04:27 Hgb 11.8 g/dL (12.0-15.0) L 04/19/23 04:27 Hct 36.0 % (36.0-45.0) 04/19/23 04:27 Plt Count 127 thou/uL (152-406) L 04/19/23 04:27 Sodium 135 mEq/L (136-145) L 04/19/23 04:27 Potassium 4.0 mEq/L (3.5-5.1) 04/19/23 04:27 BUN 21 mg/dL (7-18) H 04/19/23 04:27 Creatinine 0.64 mg/dL (0.55-1.02) 04/19/23 04:27 Glucose 234 mg/dL (74-106) H 04/19/23 04:27 Magnesium 1.7 mg/dL (1.6-2.4) 04/15/23 23:15 Total Bilirubin 0.4 mg/dL (0.2-1.0) 04/15/23 23:15 AST 35 U/L (15-37) 04/15/23 23:15 ALT 38 U/L (13-56) 04/15/23 23:15 Alkaline Phosphatase 133 U/L (45-117) H 04/15/23 23:15 Triglycerides 21 mg/dL (<150) 04/16/23 10:58 Cholesterol 173 mg/dL (<200) 04/16/23 10:58 HDL Cholesterol 55 mg/dL (40-60) 04/16/23 10:58 Cholesterol/HDL Ratio 3.15 04/16/23 10:58 Home Medications: Magnesium Oxide [Magnesium] 500 mg PO DAILY 05/12/22 PHENYTOIN ER Cap [Dilantin ER Cap*] 400 mg PO DAILY 05/12/22 Albuterol Sulfate [Albuterol Sulfate Hfa] 8.5 gm IH Q4H PRN #1 inh 01/11/23
== END 2023-04-20 07:30 | disposition left against medical advice (07) | DRG 871 ==
LOC: ER 22:51 → ERHOLD 04-16 05:15 → 3RD-ICU 04-16 09:12 → 4TH 04-19 13:21
PROVIDERS: ADMIT Internal Medicine; ATTEND Internal Medicine Sleep Medicine
PROC: 5A09457 Assistance with Respiratory Ventilation, 24-96 Consecutive Hours, Continuous Positive Airway Pressure (ICD-10-PCS; principal; 2023-04-16)
DX: A41.9 Sepsis, unspecified organism (principal); G92.9 Unspecified toxic encephalopathy; J18.9 Pneumonia, unspecified organism; J96.01 Acute respiratory failure with hypoxia; I21.A1 Myocardial infarction type 2; R65.21 Severe sepsis with septic shock; I50.32 Chronic diastolic (congestive) heart failure; J44.1 Chronic obstructive pulmonary disease with (acute) exacerbation; J44.0 Chronic obstructive pulmonary disease with (acute) lower respiratory infection; I11.0 Hypertensive heart disease with heart failure; E78.00 Pure hypercholesterolemia, unspecified; M19.90 Unspecified osteoarthritis, unspecified site; E11.65 Type 2 diabetes mellitus with hyperglycemia; F12.10 Cannabis abuse, uncomplicated; F15.10 Other stimulant abuse, uncomplicated; G40.909 Epilepsy, unspecified, not intractable, without status epilepticus; I25.10 Atherosclerotic heart disease of native coronary artery without angina pectoris; F17.200 Nicotine dependence, unspecified, uncomplicated; T38.0X5A Adverse effect of glucocorticoids and synthetic analogues, initial encounter; T43.625A Adverse effect of amphetamines, initial encounter; Z53.29 Procedure and treatment not carried out because of patient's decision for other reasons; Z98.51 Tubal ligation status; Z79.52 Long term (current) use of systemic steroids; Z90.711 Acquired absence of uterus with remaining cervical stump; Z79.899 Other long term (current) drug therapy
CPT/HCPCS: 36415; 51702; 70450; 71045; 71275; 72125; 80048; 80061; 80076; 80185; 80307; 81001; 82077; 82550; 82805; 82947; 83036; 83605; 83735; 83880; 84132; 84145; 84439; 84443; 84484; 85025; 87040; 87070; 87205; 93005; 93306; 94640; 94660; 94760; 96372; 97116; 97163; 97530; 99285; J0696; J1650; J1815; J1940; J2405; J2543; J2920; J3535; J7030; J7050; J7512; J7613; Q9967

== ENCOUNTER 2023-06-15 01:40 | Inpatient (IN) | payer OTHER ==
[2023-06-15] MEDS ORDERED: LORazepam 2 MG/ML VIAL ONE (01:57)
[2023-06-15] MEDS ORDERED: ACETAMINOPHEN 650MG/RECT SUPP PR ONE (02:13)
[2023-06-15] MEDS ORDERED: NA CHLORIDE 0.9% 2,000 ML ONE (02:13)
[2023-06-15] MEDS ORDERED: VANCOMYCIN 1 GM/VIAL ONE (02:31)
[2023-06-15] MEDS ORDERED: NA CHLORIDE 0.9% 100 ML ONE (02:31)
[2023-06-15] MEDS ORDERED: NA CHLORIDE 0.9% 250 ML ONE (02:31)
[2023-06-15] MEDS ORDERED: CEFEPIME 2 GM VIAL ONE (02:31)
--- NOTE | 2023-06-15 02:42 | P.HP ---
Certification for Inpatient Patient admitted to: Inpatient With expected LOS: <2 Midnights Patient will require the following post-hospital care: None Practitioner: I am a practitioner with admitting privileges, knowledge of patient current condition, hospital course, and medical plan of care. Services: Services provided to patient in accordance with Admission requirements found in Title 42 Section 412.3 of the Code of Federal Regulations Patient History Date of Service: 06/15/23 Reason for admission: Fever History of Present Illness: 58-year-old female with a past medical history of COPD, diabetes mellitus type 2, hyperlipidemia, hypertension,NSTEMI, COPD, methamphetamine use presented to the emergency room via EMS with fever, shortness of breath, altered mental status. HPI limited due to altered mental status. On arrival patient was tachycardic, febrile, confusion GCS ranging from 9-12. patient was agitated on arrival Ativan 2 mg IV given, laboratory evaluation ABG was ordered pH 7.39, 4074, She has Recent admission with pneumonia and sepsis. Vital signs on arrival 179/95, heart rate 133, respirations 31, temperature 103.3, 86% on room air, patient received 2 L of normal saline in the emergency room., Vital signs improved 124/67, heart rate 103, respirations 19, 96% on 4 L after being treated for probable pneumonia, vancomycin given prophylactically, Chest x-ray shows prominent interstitial markings may indicate chronic changes and/or mild interstitial edema, peribronchial thickening, no consolidation. Plan to admit for sepsis, methamphetamine use. Plan to admit for sepsis, methamphetamine use Allergies pseudoephedrine [From Sudafed] Allergy (Verified 05/12/22 22:04) Unknown Home Medications: Magnesium Oxide [Magnesium] 500 mg PO DAILY 05/12/22 PHENYTOIN ER Cap [Dilantin ER Cap*] 400 mg PO DAILY 05/12/22 Albuterol Sulfate [Albuterol Sulfate Hfa] 8.5 gm IH Q4H PRN #1 inh 01/11/23 - Past Medical/Surgical History Diabetic: No -: arthritis -: COPD -: NIDDM -: HTN -: seizures -: hyperlipidemia -: tubal ligation -: tonsillectomy Psychosocial/ Personal History: Unable to obtain - Family History Mother -: Heart disease, Lung disease, GI disease, Kidney disease Father -: Other (see notes) Notes: aneurysm - Social History Alcohol use: No CD- Drugs: No Caffeine use: No Review of Systems 10-point ROS is otherwise unremarkable Physical Examination - Physical Exam General: Alert, In no apparent distress, Other (responds to verbal) HEENT: Atraumatic, Normocephalic, PERRLA Neck: Supple, 2+ carotid pulse no bruit, JVD not distended Respiratory: Clear to auscultation bilaterally, Normal air movement Cardiovascular: No edema, Normal pulses Capillary refill: <2 Seconds Gastrointestinal: Normal bowel sounds, Soft and benign Musculoskeletal: No clubbing, No swelling Integumentary: No rashes, No breakdown Neurological: Normal speech, Normal strength at 5/5 x4 extr, Sensation intact, Other - Studies Laboratory Data (last 24 hrs) 06/15/23 01:53 NT-Pro-B Natriuret Pep Cancelled Assessment and Plan - Plan Assessment plan Sepsis unknown source, presented with fever, tachycardia, tachypnea, Acute hypoxic respiratory failure possibly secondary from pneumonia Methamphetamine, marijuana use Tobacco use Diabetes type 2 hyperglycemia Osteoarthritis Hyperlipidemia History of seizures COPD GERD DVT prophylaxis Lovenox Assessment plan Sepsis unknown source, presented with fever, tachycardia, tachypnea, Sepsis bolus, IV fluids, vancomycin, Zosyn, Blood cultures urine cultures ED laboratory evaluation leukocytosis 14.10, early left shift 88.7, elevated lactic 2.2, UA, glucosuria +1, 2+ blood, hyaline casts greater than 20, nitrite negative, ABG pH 7.39, CO2 39.3, O2 74.3, HCO3 23.2, Acute hypoxic respiratory failure possibly secondary from pneumonia O2 2 L keep sats greater than 92%, as needed nebs Methamphetamine, marijuana use Tobacco use Educated on tobacco, substance cessation Nicotine patch Urine drug screen positive for THC, amphetamines, Diabetes type 2 hyperglycemia Accu-Cheks, sliding scale insulin Urine positive for glucose urea Osteoarthritis Hyperlipidemia History of seizures COPD GERD Resume appropriate home meds DVT prophylaxis Lovenox Full code Diet cardiac Discharge Plan: Home Plan to discharge in: 48 Hours - Advance Directives Does patient have a Living Will: No Does patient have a Durable POA for Healthcare: No - Code Status/Comfort Care Code Status: Full Code Physician Review: Patient Assessed, Agree with Above Assessment and Plan Critical Care: No Time Spent Managing Pts Care (In Minutes): 50
--- NOTE | 2023-06-15 03:17 | EDPHYS ---
Physician Documentation [facility] Name: Smitha Ibarra Age: 58 yrs Sex: Female : 1965 Arrival Date: 06/15/2023 Time: 01:40 Bed 2 Private MD: ED Physician Timur Jerez HPI: 06/15 01:55 This 58 yrs old Female presents to ER via EMS with complaints of Fever, difficulty sp3 breathing, altered Mental Status. 01:55 58-year-old female with history of COPD, NSTEMI in the past, frequent methamphetamine sp3 use now presents to the ED via EMS for chief complaint of fever, difficulty breathing, altered mental status. Patient was tachycardic and febrile for EMS in route with varying levels of GCS ranging from 9-12. History, physical and review of systems are severely limited secondary to altered mental status and patient noncooperation. She has a prior recent admission here at this facility for pneumonia and sepsis. No further obtainable information available.. Historical: - Allergies: 01:45 No Known Allergies; kd3 - PMHx: 07:40 COPD; Seizure; Hypertensive disorder; Hypercholesterolemia; Diabetes mellitus; aa5 Arthritis; - PSHx: 07:40 Partial hysterectomy; Tubal ligation; aa5 - Immunization history:: Adult Immunizations up to date. - Social history:: Smoking status: unknown. ROS: 01:56 Eyes: Negative for injury, pain, redness, and discharge, Neck: Negative for injury, sp3 pain, and swelling, Back: Negative for injury and pain, Skin: Negative for injury, rash, and discoloration. 01:57 Unable to obtain ROS due to altered mental status. sp3 Exam: 01:57 Head/Face: Normocephalic, atraumatic. ENT: Nares patent. No nasal discharge, no sp3 septal abnormalities noted. External auditory canals are clear. Oropharynx with no redness, swelling, or masses, exudates, or evidence of obstruction, uvula midline. Mucous membranes moist. Neck: Trachea midline, no thyromegaly or masses palpated, and no cervical lymphadenopathy. Supple, full range of motion without nuchal rigidity, or vertebral point tenderness. No Meningismus. Chest/axilla: Normal chest wall appearance and motion. Nontender with no deformity. No lesions are appreciated. Abdomen/GI: Soft, non-tender, with normal bowel sounds. No distension or tympany. No guarding or rebound. No evidence of tenderness throughout. Skin: Warm, dry with normal turgor. Normal color with no rashes, no lesions, and no evidence of cellulitis. 01:57 Constitutional: The patient appears agitated, anxious. 01:57 Cardiovascular: Rate: tachycardic. 01:57 ECG was reviewed by the Attending Physician. EKG demonstrates sinus tachycardia at 130 bpm with left bundle branch block which is old. No discordance noted. 01:57 Respiratory: Coarse breath sounds bilaterally.. 01:57 Neuro: Patient conversing and moving all extremities. No focal deficit grossly noted. Patient extremely uncooperative for exam. Patient moving around similar to typical methamphetamine pattern patient.. Vital Signs: 01:42 BP 179 / 95; Pulse 133; Resp 31; Temp 103.3(O); Pulse Ox 86% on R/A; kd3 03:08 BP 124 / 67; Pulse 103; Resp 19; Pulse Ox 96% on 4 lpm NC; rv 03:16 Pulse Ox 94% on 2 lpm NC; rv 03:31 BP 123 / 68; Pulse 98; Resp 20; Pulse Ox 94% on 2 lpm NC; kd3 03:33 BP 123 / 68; Pulse 98; Resp 17; Temp 99.6; Pulse Ox 94% on 2 lpm NC; rv 04:55 BP 129 / 69; Pulse 88; Resp 18; Pulse Ox 96% on 2 lpm NC; rv 07:40 BP 136 / 69; Pulse 79; Resp 16 S; Temp 98.5(O); Pulse Ox 96% on 2 lpm NC; aa5 [place] Coma Score: 04:56 Eye Response: to voice(3). Motor Response: localizes pain(5). Verbal Response: rv confused(4). Total: 12. MDM: 01:50 Patient medically screened. sp3 01:59 Data reviewed: vital signs, nurses notes, EMS record, lab test result(s), EKG, sp3 radiologic studies. ED course: 58-year-old female with probable pneumonia related sepsis and likely methamphetamine usage. Patient will be admitted to the hospital under the hospitalist service. Antibiotics of prophylactically already been started along with 2 L normal saline IV bolus. 2 mg of Ativan also required to settle patient down. Full work-up pending including chest x-ray, laboratory values, urine analysis, ABG, lactate, among other sepsis labs. Further per inpatient team.. 03:15 ED course: ABG demonstrates pH of 7.3 . Patient is now resting comfortably. sp3 Antibiotics on board and we will admit to hospital service. Remainder of blood work is still pending.. 06/15 01:49 Order name: Blood Culture Adult (2) sp3 06/15 01:49 Order name: CBC with Diff sp3 06/15 01:49 Order name: CMP; Complete Time: 04:38 sp3 06/15 01:49 Order name: Lactate w/ 2H reflex if indic.; Complete Time: 04:38 sp3 06/15 01:49 Order name: Protime (+inr); Complete Time: 03:34 sp3 06/15 01:49 Order name: Ptt, Activated; Complete Time: 03:34 sp3 06/15 01:49 Order name: Urinalysis w/ reflexes; Complete Time: 03:34 sp3 06/15 01:49 Order name: ABG; Complete Time: 03:34 sp3 06/15 01:49 Order name: Troponin High Sensitivity; Complete Time: 04:38 sp3 06/15 01:49 Order name: SARS-COV-2 RT PCR; Complete Time: 03:07 sp3 06/15 01:49 Order name: Flu; Complete Time: 04:38 sp3 06/15 01:49 Order name: UDS; Complete Time: 04:38 sp3 06/15 01:53 Order name: Procalcitonin; Complete Time: 04:38 sp3 06/15 02:16 Order name: NT PRO-BNP; Complete Time: 04:38 EDMS 06/15 03:29 Order name: Manual Differential EDMS 06/15 04:42 Order name: Lactate w/ 2H reflex if indic. EDMS 06/15 04:43 Order name: Urinalysis w/ reflexes EDMS 06/15 04:43 Order name: Basic Metabolic Panel EDMS 06/15 04:43 Order name: Basic Metabolic Panel EDMS 06/15 04:43 Order name: Basic Metabolic Panel EDMS 06/15 04:43 Order name: Basic Metabolic Panel EDMS 06/15 04:43 Order name: CBC with Automated Diff EDMS 06/15 04:43 Order name: CBC with Automated Diff EDMS 06/15 04:43 Order name: CBC with Automated Diff EDMS 06/15 04:43 Order name: CBC with Automated Diff EDMS 06/15 04:43 Order name: Magnesium EDMS 06/15 04:43 Order name: Magnesium EDMS 06/15 04:43 Order name: Magnesium EDMS 06/15 04:43 Order name: Magnesium EDMS 06/15 01:49 Order name: Chest Single View XRAY sp3 06/15 01:49 Order name: EKG; Complete Time: 01:49 sp3 06/15 04:36 Order name: CONS Physician Consult EDMS 06/15 04:42 Order name: 60g Consistent Carbohydrate (ADA 1800/2000) EDMS 06/15 01:49 Order name: Accucheck; Complete Time: 02:46 sp3 06/15 01:49 Order name: Cardiac monitoring; Complete Time: 01:49 sp3 06/15 01:49 Order name: EKG - Nurse/Tech; Complete Time: 01:49 sp3 06/15 01:49 Order name: IV Saline Lock - Large Bore; Complete Time: 01:49 sp3 06/15 01:49 Order name: Labs collected and sent; Complete Time: 01:49 sp3 06/15 01:49 Order name: O2 Per Protocol; Complete Time: 01:49 sp3 06/15 01:49 Order name: O2 Sat Monitoring; Complete Time: 01:49 sp3 06/15 01:49 Order name: Vital Signs; Complete Time: 01:49 sp3 Administered Medications: 01:49 Drug: Ativan IVP 2 mg Route: IVP; Site: left antecubital; kd3 04:56 Follow up: Response: No adverse reaction rv 02:15 Drug: Acetaminophen GA Suppository 650 mg Route: GA; rv 04:56 Follow up: Response: No adverse reaction; Temperature is decreased rv 02:15 Drug: NS 0.9% IV (30 ml/kg) 2000 ml Route: IV; Rate: bolus; Site: right hand; rv 04:56 Follow up: IV Status: Completed infusion; IV Intake: 2000ml rv 02:15 Drug: Cefepime IVPB 2 grams Route: IVPB; Rate: 200 ml/hr; Infused Over: 30 mins; Site: rv right hand; 02:57 Follow up: Response: No adverse reaction; IV Status: Completed infusion; IV Intake: rv 100ml 02:57 Drug: vancoMYCIN IVPB 1 grams Route: IVPB; Infused Over: 2 hrs; Site: right hand; rv 04:56 Follow up: Response: No adverse reaction; IV Status: Completed infusion; IV Intake: rv 250ml Disposition Summary: 06/15/23 03:16 Hospitalization Ordered Hospitalization Status: Inpatient Admission sp3 Provider: Arnaldo Kline sp3 Condition: Stable sp3 Problem: an acute exacerbation sp3 Symptoms: have worsened sp3 Bed/Room Type: Standard sp3 Location: Telemetry/MedSurg (Inpatient)(06/15/23 06:53) cg Room Assignment: [facility](06/15/23 06:53) Diagnosis - Sepsis, methamphetamine use sp3 Forms: - Medication Reconciliation Form sp3 - SBAR form sp3 - Leadership Thank You Letter sp3 Signatures: Dispatcher [employer] EDShannon Darden RN RN aa5 Vera Branham RN RN cg Brayan Gaviria RN RN Timur Jerez MD MD sp3 Claudia Vinson RN RN kd3 Corrections: (The following items were deleted from the chart) 01:45 01:45 Allergies: Unable to obtain; kd3 kd3 01:57 01:56 All other systems are negative, sp3 sp3 02:15 01:53 PROBNP+C.LAB.BRZ ordered. EDMS EDMS 04:48 03:16 Telemetry/MedSurg (Inpatient) sp3 cg 04:48 03:16 sp3 cg 06:53 04:48 [facility] ER HOLD cg cg 06:53 04:48 ERHOLD- cg cg
--- NOTE | 2023-06-15 03:17 | ER ---
Nurse's Notes [facility] Name: Smitha Ibarra Age: 58 yrs Sex: Female : 1965 Arrival Date: 06/15/2023 Time: 01:40 Bed 2 Private MD: Diagnosis: Sepsis, methamphetamine use Presentation: 06/15 01:42 Chief complaint: EMS states: Pt was discharged from this facility two days ago and was kd3 found by her boyfriend alexandra and was altered. Pt has had a GCS of 9 and an O2 of 80 on scene. PT placed on high flow O2 and transported. PT had a temp of 103 in route and became more agitated. Coronavirus screen: unknown. Ebola Screen: No symptoms or risks identified at this time. Initial Sepsis Screen: Does the patient meet any 2 criteria? RR > 20 per min. Temp <36.0*C (96.8*F)) or > 38.3*C (100.9*F). Altered Mental Status. Yes Does the patient have a suspected source of infection? Yes: Productive cough/pneumonia. Risk Assessment: Do you want to hurt yourself or someone else? Patient reports no desire to harm self or others. Onset of symptoms was June 15, 2023. 01:42 Acuity: PRECIOUS 2 kd3 01:42 Method Of Arrival: EMS: [facility] kd3 Triage Assessment: 01:45 General: Appears uncomfortable, unkempt, Behavior is agitated, restless, uncooperative. kd3 Pain: Unable to use pain scale. Patient is disoriented. Neuro: Level of Consciousness is. Historical: - Allergies: 01:45 No Known Allergies; kd3 - PMHx: 07:40 COPD; Seizure; Hypertensive disorder; Hypercholesterolemia; Diabetes mellitus; aa5 Arthritis; - PSHx: 07:40 Partial hysterectomy; Tubal ligation; aa5 - Immunization history:: Adult Immunizations up to date. - Social history:: Smoking status: unknown. Screenin:50 [facility] ED Fall Risk Assessment (Adult) History of falling in the last 3 months, kd3 including since admission No falls in past 3 months (0 pts) Confusion or Disorientation Yes (5 pts) Intoxicated or Sedated Yes (3 pts) Impaired Gait Yes (1 pt) Mobility Assist Device Used No (0 pt) Altered Elimination No (0 pt) Score/Fall Risk Level 3 or more points = High Risk Maintained a safe environment, Educated pt \T\ family on fall prevention, incl call for assistance when getting out of bed. Abuse screen: Denies threats or abuse. Denies injuries from another. Nutritional screening: No deficits noted. Tuberculosis screening: No symptoms or risk factors identified. Assessment: 03:09 General: Appears in no apparent distress. Behavior is calm, drowsy, quiet. Neuro: kd3 Oriented to person. Cardiovascular: Patient's skin is warm and dry. Respiratory: Airway is patent Trachea midline Respiratory effort is even, unlabored, Respiratory pattern is regular, symmetrical. 07:30 General: Appears comfortable, Behavior is calm, cooperative. Neuro: Level of aa5 Consciousness is awake, alert, obeys commands, Oriented to person, place, time. Respiratory: Airway is patent Respiratory effort is even, unlabored, Respiratory pattern is regular, symmetrical. Derm: Skin is pink, warm \T\ dry. 07:30 Reassessment: Pt notified of wait time to be transferred to assigned room, 410. aa5 07:45 Reassessment: Attempted to call report to Zulma, admitting nurse. Nurse currently aa5 unavailable, will call back. . 07:50 Reassessment: Soiled brief noted, pt cleaned. . aa5 08:00 Reassessment: Pt also cleaned of diarrhea, clean brief applied, and socks applied aa5 before transfer to [facility]. . Vital Signs: 01:42 BP 179 / 95; Pulse 133; Resp 31; Temp 103.3(O); Pulse Ox 86% on R/A; kd3 03:08 BP 124 / 67; Pulse 103; Resp 19; Pulse Ox 96% on 4 lpm NC; rv 03:16 Pulse Ox 94% on 2 lpm NC; rv 03:31 BP 123 / 68; Pulse 98; Resp 20; Pulse Ox 94% on 2 lpm NC; kd3 03:33 BP 123 / 68; Pulse 98; Resp 17; Temp 99.6; Pulse Ox 94% on 2 lpm NC; rv 04:55 BP 129 / 69; Pulse 88; Resp 18; Pulse Ox 96% on 2 lpm NC; rv 07:40 BP 136 / 69; Pulse 79; Resp 16 S; Temp 98.5(O); Pulse Ox 96% on 2 lpm NC; aa5 [place] Coma Score: 04:56 Eye Response: to voice(3). Motor Response: localizes pain(5). Verbal Response: rv confused(4). Total: 12. ED Course: 01:30 Inserted saline lock: 20 gauge in left forearm, using aseptic technique. Blood rv collected. 01:41 Patient arrived in ED. kd3 01:43 Timur Jerez MD is Attending Physician. sp3 01:45 Triage completed. kd3 01:49 Claudia Vinson RN is Primary Nurse. kd3 01:50 Arm band placed on right wrist. kd3 01:50 Inserted saline lock: 20 gauge in left antecubital area, using aseptic technique. Blood kd3 collected. 01:50 Inserted saline lock: 20 gauge in right hand, using aseptic technique. Blood collected. rv 02:07 Chest Single View XRAY In Process Unspecified. EDMS 02:10 Inserted saline lock: 20 gauge in right antecubital area, using aseptic technique. rv 03:16 Arnaldo Kline is Hospitalizing Provider. sp3 04:54 No provider procedures requiring assistance completed. Patient admitted, IV remains in rv place. 04:55 Patient has correct armband on for positive identification. Provided Education on: DRUG rv ABUSE. 07:40 IV 20G R AC, 20G L FA, 20G R hand noted. . aa5 Administered Medications: 01:49 Drug: Ativan IVP 2 mg Route: IVP; Site: left antecubital; kd3 04:56 Follow up: Response: No adverse reaction rv 02:15 Drug: Acetaminophen CO Suppository 650 mg Route: CO; rv 04:56 Follow up: Response: No adverse reaction; Temperature is decreased rv 02:15 Drug: NS 0.9% IV (30 ml/kg) 2000 ml Route: IV; Rate: bolus; Site: right hand; rv 04:56 Follow up: IV Status: Completed infusion; IV Intake: 2000ml rv 02:15 Drug: Cefepime IVPB 2 grams Route: IVPB; Rate: 200 ml/hr; Infused Over: 30 mins; Site: rv right hand; 02:57 Follow up: Response: No adverse reaction; IV Status: Completed infusion; IV Intake: rv 100ml 02:57 Drug: vancoMYCIN IVPB 1 grams Route: IVPB; Infused Over: 2 hrs; Site: right hand; rv 04:56 Follow up: Response: No adverse reaction; IV Status: Completed infusion; IV Intake: rv 250ml Medication: 03:09 VIS not applicable for this client. kd3 Intake: 02:57 IV: 100ml; Total: 100ml. rv 04:56 IV: 250ml; Total: 350ml. rv 04:56 IV: 2000ml; Total: 2350ml. rv Outcome: 03:16 Decision to Hospitalize by Provider. sp3 04:55 Admitted to ER Hold. Please see [facility] for further documentation. rv 04:55 Condition: stable 04:55 Instructed on the need for admit. 07:50 Admitted to Tele accompanied by tech, via wheelchair, with oxygen, with chart, Report aa5 called to [facility] Maya 07:50 Condition: stable aa5 07:50 Instructed on the need for admit. 08:39 Patient left the ED. aa5 Signatures: Dispatcher [employer] EDSahnnon Darden RN RN aa5 Brayan Gaviria RN RN rv Timur Jerez MD MD sp3 Claudia Vinson RN RN kd3 Corrections: (The following items were deleted from the chart) 01:45 01:45 Allergies: Unable to obtain; kd3 kd3 03:16 03:08 BP 124 / 67; Pulse 103bpm; Resp 19bpm; Pulse Ox 96% RA; kd3 rv
[2023-06-15 03:19] LABS: Absolute Lymphocytes (CBC) 0.5 K/uL (0.7-4.9); Hematocrit 36.5 % (36.0-45.0); Lymphocytes % 3.8 % (15.3-44.8); MCV 93.4 fL (80-100); MPV 9.1 fL (7.6-11.3); Platelets 215 thou/uL (152-406); RBC Red Blood Cell Count 3.91 M/uL (3.86-4.86)
[2023-06-15 03:20] LABS: Protime INR 1.45
[2023-06-15 03:28] LABS: Arterial Blood Carboxyhemoglob 1.3 % (0-1.5); Blood Gas Oxyhemoglobin 89.3 % (94-97); Blood O2 Saturation 91.8 % (92-98.5)
[2023-06-15 03:34] LABS: Specific Gravity 1.015 (1.005-1.030); Urine Bacteria None Seen /HPF (<20); Urine Bilirubin NEGATIVE (Negative); Urine Blood 2+ (Negative); Urine Clarity Turbid (Clear); Urine Color Yellow (Yellow); Urine Glucose 1+ (Negative); Urine Mucus Slight /HPF (None Seen); Urine Protein 2+ (Negative); Urine RBC <5 /HPF (None Seen); Urine Urobilinogen Normal (Normal); Urine pH 5.5 (5.0-7.0)
[2023-06-15 03:35] LABS: Barbiturates NEGATIVE (NEGATIVE); Benzodiazepines NEGATIVE (NEGATIVE); Cocaine NEGATIVE (NEGATIVE); METHAMPHETAM POSITIVE (NEGATIVE); Methadone NEGATIVE (NEGATIVE); Opiates NEGATIVE (NEGATIVE); Phencyclidine NEGATIVE (NEGATIVE); THC Cannibis POSITIVE (NEGATIVE)
[2023-06-15 03:59] LABS: Albumin 3.3 g/dL (3.4-5.0); Bilirubin Total 0.6 mg/dL (0.2-1.0); Potassium 3.4 mEq/L (3.5-5.1); Protein, Total 6.9 g/dL (6.4-8.2)
[2023-06-15 04:20] LABS: Troponin High Sensitivity 175.7 pg/mL (<58.9)
[2023-06-15] MEDS ORDERED: ALBUTEROL 2.5 MG/3 ML NEB SOL NEB PRN ×2 (04:40→11:00)
[2023-06-15] MEDS ORDERED: LORazepam 2 MG/ML VIAL IV PRN (04:40)
[2023-06-15] MEDS ORDERED: ONDANSETRON 4 MG/2 ML VIAL IV PRN (04:40)
[2023-06-15] MEDS ORDERED: ZOLPIDEM TARTRATE 5 MG TABLET PO PRN (04:40)
[2023-06-15] MEDS ORDERED: ACETAMINOPHEN 500 MG TAB PO PRN (04:40)
[2023-06-15 04:47] LABS: Blood Morphology Comment NOT SEEN (NOT SEEN); Platelet Estimate ADEQ
[2023-06-15 05:18] VITALS: BMI 27.2
[2023-06-15] MEDS: INSULIN -REGULAR HUMAN 50 UNIT/0.5 ML ML SQ SCH ×4 (07:30→21:00)
[2023-06-15] MEDS: IPRATROPIUM BROM 0.5MG/2.5ML NEB SCH ×3 (08:00→21:20)
[2023-06-15] MEDS: KCL 20 MEQ/100 mL IVPB 20 MEQ/100 ML BAG IV SCH ×2 (09:46→11:36)
[2023-06-15] MEDS: PIPER TAZO 3.375 GM in NA CHLORIDE 0.9% 100 ML IV SCH ×2 (09:46→18:34)
[2023-06-15] MEDS: ENOXAPARIN 40 MG/0.4 ML SQ SCH (09:46)
--- NOTE | 2023-06-15 09:50 | P.CNS ---
Date of Consult: 06/15/23 Reason for Consult: sepsis Chief Complaint: Fever History of Present Illness: Patient is a 58 yo female with a past medical history of COPD, DM2, hyperlipidemia, hypertension and methamphetamine use who presented to the ED with complaints of fever, shortness of breath and altered mental status. Vital signs on arrival 179/95, heart rate 133, respirations 31, temperature 103.3, 86% on room air. Patient was admitted for sepsis. ID was consulted. Allergies pseudoephedrine [From [facility] [employer]] Allergy (Verified 05/12/22 22:04) Unknown Home medications list reviewed: Yes Home Medications: Magnesium Oxide [Magnesium] 500 mg PO DAILY 05/12/22 PHENYTOIN ER Cap [Dilantin ER Cap*] 400 mg PO DAILY 05/12/22 Albuterol Sulfate [Albuterol Sulfate Hfa] 8.5 gm IH Q4H PRN #1 inh 01/11/23 - Past Medical/Surgical History Diabetic: No -: arthritis -: COPD -: NIDDM -: HTN -: seizures -: hyperlipidemia -: tubal ligation -: tonsillectomy Psychosocial/ Personal History: Unable to obtain - Family History Mother Medical History: Heart disease, Lung disease, GI disease, Kidney disease Father Medical History: Other (see notes) Notes: aneurysm - Social History Smoking Status: Unknown if ever smoked Alcohol use: No CD- Drugs: No Caffeine use: No Place of Residence: Home Review of Systems Unremarkable Physical Examination Temp Pulse Resp BP Pulse Ox 98.5 F 79 16 136/69 06/15/23 09:02 06/15/23 09:02 06/15/23 09:02 06/15/23 09:02 General: In no apparent distress, Oriented x2, Other (lethargic) HEENT: Atraumatic, Normocephalic Neck: Supple, JVD not distended Respiratory: Normal air movement, Diminished, Other (nonlabored respirations on room air) Cardiovascular: No edema, Normal pulses Gastrointestinal: Normal bowel sounds, Soft and benign Musculoskeletal: No clubbing Integumentary: No rashes Neurological: Normal speech, Normal tone, Normal affect Laboratory Data (last 24 hrs) 06/15/23 06/15/23 06/15/23 02:36 02:36 02:36 WBC 14.10 H Hgb 12.4 Hct 36.5 Plt Count 215 PT 16.0 H INR 1.45 APTT 27.9 Sodium 133 L Potassium 3.4 L BUN 10 Creatinine 1.08 H Glucose 199 H Total Bilirubin 0.6 AST 42 H ALT 38 Alkaline Phosphatase 111 Microbiology Data - Reviewed Imagings Data: - Reviewed Conclusions/Impression: Problem List Sepsis Diabetes mellitus type II COPD Hypertension Hyperlipidemia Methamphetamine use Sepsis probable pneumonia - Urinalysis 06/15 not suggestive of UTI - Blood cultures 06/15: Pending - Leukocytosis (WBC 14.1) - Fever, temp 103.3 today (06/15) - Toxicology 06/15: + amphetamine and + THC - XR chest 06/15: "Prominent interstitial markings which may indicate chronic changes and/or mild interstitial edema. Peribronchial thickening. No consolidation." - Influenza A&B Negative - Covid negative Recommendations - Continue Zosyn for now (started 06/15) Follow up with blood culture results. - WBC and fever trends. PRN tylenol. case discussed with Kiana Mckenzie
[2023-06-15] MEDS ORDERED: NA CHLORIDE 0.9% 1,000 ML ONE (09:55)
--- NOTE | 2023-06-15 11:04 | RAD REPORT ---
EXAM DESCRIPTION: RAD - Chest Single View - 06/15/2023 2:05 am CLINICAL HISTORY: The patient is 58 years old and is Female; FEVER TECHNIQUE: Frontal view of the chest. COMPARISON: No relevant prior studies available. FINDINGS: Lungs: Prominent interstitial markings which may indicate chronic changes and/or mild in terstitial edema. Peribronchial thickening. No consolidation. Pleural space: Unremarkable. No pneumothorax. Heart: Unremarkable. Mediastinum: Unremarkable. Bones/joints: Disc space narrowing with degenerative endplate changes in the spine. IMPRESSION: Prominent interstitial markings which may indicate chronic changes and/or mild interstit ial edema. Peribronchial thickening. No consolidation. Electronically signed by: Tay Hilton MD 06/15/2023 2:24 AM CDT Due to temporary technical issues with the PACS/Fluency reporting system, reports are being signed by the in house radiologists without review as a courtesy to insure prompt reporting. The interpreting radiologist is fully responsible for the content of the report.
--- NOTE | 2023-06-15 12:57 | EKG ---
Test Date: 2023-06-15 Test Time: 01:39:24 [place] Automatic: RV MEASUREMENT RESULTS: Intervals: Rate: 130 MA: 134 QRSD: 142 QT: 334 QTc: 491 [place]: P: 63 MA: 134 QRS: 11 T: 108 INTERPRETIVE STATEMENTS: Sinus tachycardia Left bundle branch block Abnormal ECG Compared to ECG 04/16/2023 04:17:32 Sinus rhythm no longer present Electronically Signed On 06-15-23 12:55:33 CDT by Humphrey Ramos
--- NOTE | 2023-06-15 17:58 | P.PN ---
Date of Service: 06/15/23 Patient seen and examined. She is somnolent. She is maintained on 2 L of oxygen by nasal cannula. She had a single episode of fever today. Diagnosis: Pneumonia Methamphetamine abuse. Sepsis Plan: Continue antibiotics Infectious disease input appreciated. Ativan as needed for agitation
[2023-06-16] MEDS: PIPER TAZO 3.375 GM in NA CHLORIDE 0.9% 100 ML IV SCH ×2 (00:59→10:25)
[2023-06-16] MEDS: IPRATROPIUM BROM 0.5MG/2.5ML NEB SCH ×3 (02:00→14:00)
[2023-06-16 06:42] LABS: Absolute Lymphocytes (CBC) 1.8 K/uL (0.7-4.9); Hematocrit 37.3 % (36.0-45.0); Lymphocytes % 22.2 % (15.3-44.8); MCV 93.4 fL (80-100); MPV 9.4 fL (7.6-11.3); Platelets 179 thou/uL (152-406)
[2023-06-16 06:47] LABS: Magnesium 2.1 mg/dL (1.6-2.4); Phosphorus 2.9 mg/dL (2.5-4.9); Potassium 3.7 mEq/L (3.5-5.1)
[2023-06-16] MEDS: INSULIN -REGULAR HUMAN 50 UNIT/0.5 ML ML SQ SCH (07:30)
[2023-06-16] MEDS ORDERED: POTASSIUM CL SA 10 MEQ TAB PO ONE (09:00)
[2023-06-16] MEDS: ENOXAPARIN 40 MG/0.4 ML SQ SCH (10:25)
[2023-06-16] MEDS ORDERED: PIPERACIL/TAZO 3.375 GM VIAL IV ONE (10:32)
[2023-06-16] MEDS ORDERED: NA CHLORIDE 0.9% 100 ML ONE (10:34)
--- NOTE | 2023-06-16 12:57 | P.DS ---
Admission Date: 06/15/23 Discharge Date: 06/16/23 Disposition: ROUTINE DISCHARGE Discharge Condition: FAIR Reason for Admission: Fever - Problems (1) Acute respiratory failure with hypoxia Status: Acute (2) Methamphetamine abuse Status: Acute (3) Pneumonia Onset Date: 09/02/17 Status: Acute Qualifiers: Pneumonia type: due to unspecified organism Laterality: right Lung location: lower lobe of lung Brief History of Present Illness: 58-year-old female with a past medical history of COPD, diabetes mellitus type 2, hyperlipidemia, hypertension,NSTEMI, COPD, methamphetamine use presented to the emergency room via EMS with fever, shortness of breath, altered mental status. HPI limited due to altered mental status. On arrival patient was tachycardic, febrile, confusion GCS ranging from 9-12. patient was agitated on arrival Ativan 2 mg IV given, laboratory evaluation ABG was ordered pH 7.39, 4074, She has Recent admission with pneumonia and sepsis. Vital signs on arrival 179/95, heart rate 133, respirations 31, temperature 103.3, 86% on room air, patient received 2 L of normal saline in the emergency room., Vital signs improved 124/67, heart rate 103, respirations 19, 96% on 4 L after being treated for probable pneumonia, vancomycin given prophylactically, Chest x-ray shows prominent interstitial markings may indicate chronic changes and/or mild interstitial edema, peribronchial thickening, no consolidation. Patient was admitted for further management. Hospital Course: Patient admitted to the medical floor and treated for pneumonia with IV antibiotics. Patient met criteria for sepsis with fever and leukocytosis. She was initially requiring oxygen which was weaned down. Patient tolerated room air with good oxygen saturation. She was also managed with Ativan as needed for agitation. Sepsis resolved, blood cultures yielded no growth. Patient clinically improved with treatment. She is discharged with Levaquin to continue treatment for pneumonia. Vital Signs/Physical Exam: Temp Pulse Resp BP Pulse Ox 98.1 F 95 H 18 131/75 64 L 06/16/23 08:00 06/16/23 08:00 06/16/23 08:00 06/16/23 08:00 06/16/23 08:00 General: Alert, In no apparent distress, Oriented x3 HEENT: PERRLA, Mucous membr. moist/pink Neck: Supple, JVD not distended Respiratory: Clear to auscultation bilaterally, Normal air movement Cardiovascular: No edema, Regular rate/rhythm, Normal S1 S2 Gastrointestinal: Normal bowel sounds, Soft and benign, Non-distended, No tenderness Musculoskeletal: No swelling Integumentary: No rashes Neurological: Normal strength at 5/5 x4 extr Laboratory Data at Discharge: WBC 8.10 thou/uL (4.3-10.9) 06/16/23 05:52 Hgb 12.7 g/dL (12.0-15.0) 06/16/23 05:52 Hct 37.3 % (36.0-45.0) 06/16/23 05:52 Plt Count 179 thou/uL (152-406) 06/16/23 05:52 PT 16.0 SECONDS (9.5-12.5) H 06/15/23 02:36 INR 1.45 06/15/23 02:36 APTT 27.9 SECONDS (24.3-36.9) 06/15/23 02:36 Sodium 137 mEq/L (136-145) D 06/16/23 05:52 Potassium 3.7 mEq/L (3.5-5.1) 06/16/23 05:52 BUN 15 mg/dL (7-18) 06/16/23 05:52 Creatinine 0.67 mg/dL (0.55-1.02) 06/16/23 05:52 Glucose 144 mg/dL (74-106) H 06/16/23 05:52 Phosphorus 2.9 mg/dL (2.5-4.9) 06/16/23 05:52 Magnesium 2.1 mg/dL (1.6-2.4) 06/16/23 05:52 Total Bilirubin 0.6 mg/dL (0.2-1.0) 06/15/23 02:36 AST 42 U/L (15-37) H 06/15/23 02:36 ALT 38 U/L (13-56) 06/15/23 02:36 Alkaline Phosphatase 111 U/L (45-117) 06/15/23 02:36 Home Medications: Magnesium Oxide [Magnesium] 500 mg PO DAILY 05/12/22 PHENYTOIN ER Cap [Dilantin ER Cap*] 400 mg PO DAILY 05/12/22 Albuterol Sulfate [Albuterol Sulfate Hfa] 8.5 gm IH Q4H PRN #1 inh 01/11/23 Ipratropium/Albuterol Sulfate [Iprat-Albut 0.5-3(2.5) mg/3 ml] 3 ml IH Q6HR PRN #120 amp 06/16/23 Mometasone/Formoterol [Dulera 50 Mcg-5 Mcg Inhaler] 13 gm IH BID #1 inh 06/16/23 levoFLOXacin [Levaquin] 750 mg PO DAILY #6 tab 06/16/23 New Medications: Ipratropium/Albuterol Sulfate [Iprat-Albut 0.5-3(2.5) mg/3 ml] 3 ml IH Q6HR PRN #120 amp PRN Reason: Shortness Of Breath Mometasone/Formoterol [Dulera 50 Mcg-5 Mcg Inhaler] 13 gm IH BID #1 inh levoFLOXacin [Levaquin] 750 mg PO DAILY #6 tab Diet: AHA Activity: Ad geovanna Followup: Zechariah Oswald MD [ACTIVE - CAN ADMIT] - (Within 2 -4 weeks ) Time spent managing pt's care (in minutes): 37
[2023-06-16 13:05] VITALS: BP 128/67; TEMP 98.2
--- NOTE | 2023-06-16 13:50 | P.PN ---
Date of Service: 06/16/23 Chief Complaint: Fever Subjective: Patient denies any new or worsening complaints. Resting in bed. Breathing comfortably on room air. No acute events reported overnight. Patient reports feeling much better than yesterday. Physical Examination Temp Pulse Resp BP Pulse Ox 98.2 F 74 18 128/67 91 06/16/23 12:00 06/16/23 12:00 06/16/23 12:00 06/16/23 12:00 06/16/23 12:00 General: In no apparent distress, Oriented x3 HEENT: Atraumatic, Normocephalic Neck: Supple, JVD not distended Respiratory: Normal air movement, Diminished, Other (nonlabored respirations on room air) Cardiovascular: No edema, Normal pulses Gastrointestinal: Normal bowel sounds, Soft and benign Musculoskeletal: No clubbing Integumentary: No rashes Neurological: Normal speech, Normal tone, Normal affect Laboratory Data - Reviewed Microbiology Data - Reviewed Imagings Data: - Reviewed Medications List - Reviewed Assessment and Plan Problem List Sepsis Diabetes mellitus type II COPD Hypertension Hyperlipidemia Methamphetamine use Sepsis Pneumonia - Urinalysis 06/15 not suggestive of UTI - Blood cultures 06/15: No growth to date - Leukocytosis (WBC 14.1) - Fever, temp 103.3 today (06/15) - Toxicology 06/15: + amphetamine and + THC - XR chest 06/15: "Prominent interstitial markings which may indicate chronic changes and/or mild interstitial edema. Peribronchial thickening. No consolidation." - Influenza A&B Negative - Covid negative Recommendations -Patient is currently on Zosyn. Consider switch to Levofloxacin PO to complete 5 days of antibiotic therapy (06/15-03/20) - WBC and fever trends. PRN tylenol. - Follow up with PCP in 1-2 weeks case discussed with Kiana Mckenzie
[2023-06-16 14:00] VITALS: O2SAT 91
[2023-06-16] MEDS ORDERED: AMOX/K CLAV 875 MG TAB PO SCH (21:00)
== END 2023-06-16 16:05 | disposition home or self-care (01) | DRG 871 ==
LOC: ER 01:40 → ERHOLD 04:33 → 4TH 08:05
PROVIDERS: ADMIT Internal Medicine; ATTEND Internal Medicine
DX: A41.9 Sepsis, unspecified organism (principal); J18.9 Pneumonia, unspecified organism; J96.01 Acute respiratory failure with hypoxia; J44.0 Chronic obstructive pulmonary disease with (acute) lower respiratory infection; E11.65 Type 2 diabetes mellitus with hyperglycemia; E78.00 Pure hypercholesterolemia, unspecified; M19.90 Unspecified osteoarthritis, unspecified site; K21.9 Gastro-esophageal reflux disease without esophagitis; F15.10 Other stimulant abuse, uncomplicated; I10 Essential (primary) hypertension; T43.655A Adverse effect of methamphetamines, initial encounter; I25.2 Old myocardial infarction; Z88.8 Allergy status to other drugs, medicaments and biological substances; Z98.51 Tubal ligation status; Z79.899 Other long term (current) drug therapy; Z90.711 Acquired absence of uterus with remaining cervical stump
CPT/HCPCS: 36415; 36600; 71045; 80048; 80053; 80307; 81001; 82805; 82947; 83605; 83735; 83880; 84100; 84145; 84484; 85025; 85610; 85730; 87040; 87635; 87804; 93005; 94760; 96365; 96366; 96367; 96368; 96375; 99285; J0692; J1650; J2543; J3480; J7030; J7050; J7644

== ENCOUNTER 2023-08-15 15:54 | Emergency (ER) | payer OTHER ==
[2023-08-15 16:20] LABS: Absolute Lymphocytes (CBC) 2.8 K/uL (0.7-4.9); Hematocrit 37.2 % (36.0-45.0); Lymphocytes % 23.4 % (15.3-44.8); MCV 92.9 fL (80-100); MPV 8.8 fL (7.6-11.3); Platelets 217 thou/uL (152-406); RBC Red Blood Cell Count 4.01 M/uL (3.86-4.86)
[2023-08-15 16:23] LABS: Protime INR 1.07
[2023-08-15 16:34] LABS: Albumin 3.7 g/dL (3.4-5.0); Bilirubin Total 0.5 mg/dL (0.2-1.0); Potassium 3.7 mEq/L (3.5-5.1); Protein, Total 7.5 g/dL (6.4-8.2)
[2023-08-15] MEDS ORDERED: ONDANSETRON 4 MG/2 ML VIAL ONE (16:59)
[2023-08-15] MEDS ORDERED: MORPHINE 4 MG/ML SYR ONE (16:59)
[2023-08-15] MEDS ORDERED: METHYLPREDNISOLONE 125 MG INJ ONE (16:59)
[2023-08-15] MEDS ORDERED: LEVALBUTEROL 1.25 MG/3 ML NEB ONE (16:59)
[2023-08-15] MEDS ORDERED: MAGNESIUM SULFATE 1 gm IVPB 1 GM/100 ML BAG IV ONE (17:00)
[2023-08-15] MEDS ORDERED: NA CHLORIDE 0.9% 500 ML ONE (17:00)
--- NOTE | 2023-08-15 17:40 | RAD REPORT ---
EXAM DESCRIPTION: [place] Single View08/15/2023 5:16 pm CLINICAL HISTORY: Shortness breath COMPARISON: May 2023 FINDINGS: Mild bilateral pulmonary opacities Heart is normal size IMPRESSION: Mild bilateral pulmonary opacities represent pulmonary edema or pneumonia
--- NOTE | 2023-08-15 17:54 | RAD REPORT ---
EXAM DESCRIPTION: CT - Head Brain Wo Cont - 08/15/2023 5:45 pm CLINICAL HISTORY: Head injury status post fall COMPARISON: 2018 TECHNIQUE: Computed axial tomography of the head was obtained. IV contrast was not requested. All CT scans are performed using dose optimization technique as appropriate and may include automated exposure control or mA/KV adjustment according to patient size. FINDINGS: An intracranial bleed is not seen The ventricles are normal in caliber No significant hypodense areas within the brain visualized No extra-axial fluid collection is noted. Fluid within the sinuses/ mastoids is not seen IMPRESSION: No acute intracranial abnormality is seen If patient's symptoms persist MRI of the brain would be recommended
--- NOTE | 2023-08-15 19:22 | ER ---
Nurse's Notes [facility] Name: Smitha Ibarra Age: 58 yrs Sex: Female : 1965 Arrival Date: 08/15/2023 Time: 15:54 Bed 7 Private MD: Diagnosis: COPD/ Chronic obstructive pulmonary disease with acute lower respiratory infection;Hypoxemia;Pneumonia, unspecified organism Presentation: 08/15 15:50 Chief complaint: EMS states: PT FOUND IN HOTEL BY EMS DIAPHORETIC AND CYANOTIC. 61% RA. db GIVEN ALBUTEROL AND ATROVENT BY EMS. STARTED TODAY WITH SOB. ARRIVED ON BIPAP. HAS HEAD PAIN STATES HIT HEAD ON BACK OF HEAD BOARD. Coronavirus screen: Vaccine status: Client denies travel out of the [place] in the last 14 days. At this time, the client does not indicate any symptoms associated with coronavirus-19. Ebola Screen: Patient negative for fever greater than or equal to 101.5 degrees Fahrenheit, and additional compatible Ebola Virus Disease symptoms Patient denies exposure to infectious person. Patient denies travel to an Ebola-affected area in the 21 days before illness onset. No symptoms or risks identified at this time. Initial Sepsis Screen: Does the patient meet any 2 criteria? RR > 20 per min. HR > 90 bpm. Does the patient have a suspected source of infection? No. Patient's initial sepsis screen is negative. Risk Assessment: Do you want to hurt yourself or someone else? Patient reports no desire to harm self or others. Onset of symptoms was August 15, 2023. 15:50 Method Of Arrival: EMS: [facility] db 15:50 Acuity: PRECIOUS 2 db Triage Assessment: 15:59 General: Appears distressed, uncomfortable, Behavior is agitated, anxious. Pain: db Complains of pain in scalp. Neuro: Level of Consciousness is awake, alert, obeys commands, Oriented to person, place, time, situation, Speech is normal. Respiratory: Airway is patent Respiratory effort is even, labored, Respiratory pattern is tachypnea the patient has severe shortness of breath. Historical: - Allergies: 15:59 No Known Allergies; db - PMHx: 15:59 Arthritis; COPD; diabetes mellitus; Hypertensive disorder; Seizure; db Hypercholesterolemia; - PSHx: 15:59 partial hysterectomy; tubal ligation; db - Immunization history:: Client reports receiving the 2nd dose of the Covid vaccine. - Social history:: Smoking status: Patient reports the use of cigarette tobacco products, smokes one pack cigarettes per day. - Family history:: not pertinent. - Hospitalizations: : No recent hospitalization is reported. Screenin:00 [facility] ED Fall Risk Assessment (Adult) History of falling in the last 3 months, iw including since admission No falls in past 3 months (0 pts) Confusion or Disorientation No (0 pts) Intoxicated or Sedated No (0 pts) Impaired Gait No (0 pts) Mobility Assist Device Used No (0 pt) Altered Elimination No (0 pt) Score/Fall Risk Level 0 - 2 = Low Risk Oriented to surroundings, Maintained a safe environment, Educated pt \T\ family on fall prevention, incl call for assistance when getting out of bed, Assessed \T\ reinforced patient's understanding of fall precautions, Provided non-skid footwear, Hourly rounding (assess needs \T\ fall precautionary measures) done, Used ambulatory aids as needed (educated on \T\ assisted with), Used gait belt as appropriate. Abuse screen: Denies threats or abuse. Denies injuries from another. Nutritional screening: No deficits noted. Tuberculosis screening: No symptoms or risk factors identified. Assessment: 16:00 Neuro: Level of Consciousness is awake, alert, obeys commands. Cardiovascular: No iw deficits noted. Respiratory: Patient placed on BiPAP:. GI: No deficits noted. : No deficits noted. EENT: No deficits noted. Derm: No deficits noted. Musculoskeletal: No deficits noted. Vital Signs: 15:50 BP 140 / 91; Pulse 102; Resp 24; Pulse Ox 95% on BiPAP; Weight 90.72 kg; Height 5 ft. 7 db in. ; 17:00 BP 114 / 64; Pulse 81; Resp 22; Pulse Ox 99% ; iw 18:23 BP 118 / 69; Pulse 84; Resp 16; Pulse Ox 95% on 5 lpm NC; iw 19:20 BP 134 / 58; Pulse 83; Pulse Ox 87% on R/A; Pain 0/10; la4 21:05 BP 122 / 61; Pulse 96; Pulse Ox 90% ; nw1 15:50 Body Mass Index 31.32 (90.72 kg, 170.18 cm) db 19:20 Pain Scale: Adult la4 19:20 Pt took off oxygen and was standing at the door. Placed back on oxygen and back to bed. la4 [place] Coma Score: 19:20 Eye Response: spontaneous(4). Motor Response: obeys commands(6). Verbal Response: la4 oriented(5). Total: 15. ED Course: 15:56 Patient arrived in ED. rn 15:57 Rey Martin MD is Attending Physician. rn 15:57 Susana Purvis, TACOS is Primary Nurse. db 15:59 Triage completed. db 16:00 Patient has correct armband on for positive identification. Bed in low position. Call iw light in reach. Side rails up X2. Provided Education on: na. Client placed on continuous cardiac and pulse oximetry monitoring. NIBP monitoring applied. dairy powder mixer operator on. Door closed. Noise minimized. Lights dimmed. Warm blanket given. 16:01 Arm band placed on Patient placed in an exam room. db 16:01 pt .....[phone]. bd 16:05 Missed attempt(s): 22 gauge in left hand. iw 16:07 Inserted saline lock: 20 gauge in right forearm, using aseptic technique. Blood mb9 collected. 16:20 Blood Culture Adult (2) Sent. iw 16:20 CBC with Diff Sent. iw 16:20 CMP Sent. iw 16:20 Lactate w/ 2H reflex if indic. Sent. iw 16:20 Protime (+inr) Sent. iw 16:20 Ptt, Activated Sent. iw 17:18 Chest Single View XRAY In Process Unspecified. EDMS 17:46 CT Head Brain wo Cont In Process Unspecified. EDMS 19:21 Abraham Mendoza MD is Hospitalizing Provider. rn 19:21 BNP Sent. nw1 21:07 No provider procedures requiring assistance completed. IV discontinued, intact, nw1 bleeding controlled, No redness/swelling at site. Pressure dressing applied. Administered Medications: 16:57 Drug: Magnesium Sulfate IVPB 1 grams IVPB once over 1 hrs Route: IVPB; Infused Over: 1 iw hrs; Site: right wrist; 16:57 Drug: morphine IVP or IV 4 mg IVP once over 4 mins Route: IVP; Infused Over: 4 mins; iw Site: right wrist; 16:57 Drug: Ondansetron IVP 4 mg IVP once; over 2 minutes Route: IVP; Site: right wrist; iw 16:57 Drug: NS 0.9% IV 500 ml IV at bolus once Route: IV; Rate: bolus; Site: right wrist; iw 16:58 Drug: MethylPrednisoLONE IVP 125 mg IVP once Route: IVP; Site: right wrist; iw 16:58 Drug: Levalbuterol Inhalation 1.25 mg Inhalation once Route: Inhalation; iw 19:14 Drug: Rocephin IV 1 grams IV at calculated rate once; Given slow IV push per pharmacy ko1 instructions Route: IV; Rate: calculated rate; Site: right wrist; 19:32 Drug: Zithromax IVPB 500 mg IVPB once over 1 hrs; mix in 250 mL NS Route: IVPB; Infused la4 Over: 1 hrs; Site: right wrist; Medication: 21:07 VIS not applicable for this client. nw1 Outcome: 19:22 Decision to Hospitalize by Provider. rn 21:06 Discharged to home ambulatory, nw1 21:06 Condition: improved 21:06 Discharge instructions given to patient, Instructed on discharge instructions, follow up and referral plans. the need for admit, medication usage, AMA Demonstrated understanding of instructions, follow-up care, medications, AMA instructions Prescriptions given X 1, 21:07 Patient left the ED. nw1 Signatures: Dispatcher [employer] EDMS Margarita Singh Irene, TACOS BALDERRAMA iw Rey Martin MD MD rn Oliver, Kathy, RN RN ko1 Susana Purvis RN RN db Breneman, Mary Beth, RN TACOS [id number] Iveth Vasquez RN RN la4 Williams, Nicole, RN RN nw1
--- NOTE | 2023-08-15 19:22 | EDPHYS ---
Physician Documentation [facility] Name: Smitha Ibarra Age: 58 yrs Sex: Female : 1965 Arrival Date: 08/15/2023 Time: 15:54 Bed 7 Private MD: ED Physician Rey Martin HPI: 08/15 16:36 This 58 yrs old Female presents to ER via EMS with complaints of Shortness Of Breath. rn 16:36 The patient has shortness of breath at rest. Onset: The symptoms/episode began/occurred rn this morning. The patient's shortness of breath is aggravated by nothing, is alleviated by application of supplemental oxygen. Severity of symptoms: At their worst the symptoms were severe in the emergency department the symptoms have improved. The patient has experienced similar episodes in the past. EMS reports called out for shortness of breath. Patient states began this morning. Oxygen was in the 60s per EMS with cyanosis, put on BiPAP and given breathing treatments. Patient with COPD. Rib denies fever or recent illness. Has seizures. No seizures today. Does report fall and head injury today as well. EMS found patient in respiratory distress and diaphoretic.. Historical: - Allergies: 15:59 No Known Allergies; db - PMHx: 15:59 Arthritis; COPD; diabetes mellitus; Hypertensive disorder; Seizure; db Hypercholesterolemia; - PSHx: 15:59 partial hysterectomy; tubal ligation; db - Immunization history:: Client reports receiving the 2nd dose of the Covid vaccine. - Social history:: Smoking status: Patient reports the use of cigarette tobacco products, smokes one pack cigarettes per day. - Family history:: not pertinent. - Hospitalizations: : No recent hospitalization is reported. ROS: 16:39 Constitutional: Negative for fever, chills, and weight loss, Neck: Negative for injury, rn pain, and swelling, Cardiovascular: Negative for chest pain, palpitations, and edema, Respiratory: Positive for shortness of breath Abdomen/GI: Negative for abdominal pain, nausea, vomiting, diarrhea, and constipation, Back: Negative for injury and pain, MS/Extremity: Negative for injury and deformity, Skin: Negative for injury, rash, and discoloration, Neuro: Positive for headache and head injury Exam: 16:39 Constitutional: This is a well developed, well nourished patient who is awake, alert, rn and in no acute distress. Head/Face: Normocephalic, atraumatic. Cardiovascular: Regular rate and rhythm with a normal S1 and S2. No gallops, murmurs, or rubs. Normal PMI, no JVD. No pulse deficits. Respiratory: Moderate tachypnea with expiratory wheezing and diminished breath sounds at bases bilaterally Abdomen/GI: Soft, non-tender Skin: Cool, dry, mottled extremities MS/ Extremity: Pulses equal, no cyanosis. Neuro: Awake and alert, GCS 15 17:48 ECG was reviewed by the Attending Physician. rn Vital Signs: 15:50 BP 140 / 91; Pulse 102; Resp 24; Pulse Ox 95% on BiPAP; Weight 90.72 kg; Height 5 ft. 7 db in. ; 17:00 BP 114 / 64; Pulse 81; Resp 22; Pulse Ox 99% ; iw 18:23 BP 118 / 69; Pulse 84; Resp 16; Pulse Ox 95% on 5 lpm NC; iw 19:20 BP 134 / 58; Pulse 83; Pulse Ox 87% on R/A; Pain 0/10; la4 21:05 BP 122 / 61; Pulse 96; Pulse Ox 90% ; nw1 15:50 Body Mass Index 31.32 (90.72 kg, 170.18 cm) db 19:20 Pain Scale: Adult la4 19:20 Pt took off oxygen and was standing at the door. Placed back on oxygen and back to bed. la4 [place] Coma Score: 19:20 Eye Response: spontaneous(4). Motor Response: obeys commands(6). Verbal Response: la4 oriented(5). Total: 15. MDM: 15:57 Patient medically screened. rn 19:14 Differential diagnosis: Bronchitis CHF exacerbation, Chronic Obstructive Pulmonary rn Disease Myocardial Infarction pneumonia, Pneumothorax pulmonary edema. Data reviewed: vital signs, nurses notes, lab test result(s), EKG, radiologic studies, CT scan, plain films, and as a result, I will admit patient. Consideration of Admission/Observation Patient was admitted/placed on observation. Escalation of care including admission/observation considered. Independent interpretation of the following test(s) in the Emergency Department EKG: See my EKG interpretation above X-Ray: My interpretation is Chest x-ray shows bilateral pulmonary opacities per my interpretation. Counseling: I had a detailed discussion with the patient and/or guardian regarding the historical points, exam findings, and any diagnostic results supporting the discharge/admit diagnosis, lab results, radiology results, the need for further work-up and treatment in the hospital. Response to treatment: the patient's symptoms have mildly improved after treatment, and as a result, I will admit patient. 19:20 Antibiotic administration: Rocephin and Zithromax given. rn 19:20 ED course: I personally spent 35 minutes engaged in work directly related to the rn individual patient's care. This does not include any time spent performing procedures. The patient has been deemed critically ill because of dyspnea and hypoxemia into the 60s requiring BiPAP.. 20:55 ED course: Patient now refuses admission. Patient feels much better, he is off of rn oxygen, states no way we are admitting her. States her plan is to go home and follow-up with her doctor tomorrow. Explained to her that given her extreme presentation with cyanosis and BiPAP to turn her around she has a high likelihood of decompensation and worsening including return or . Patient understands this and states that she feels fine and she has done this several times. She says she has steroids at home. I spoke to her on multiple occasions on my own and with nurse in room and she continues to refuse admission. Patient is on the phone calling for a ride.. 08/15 15:57 Order name: Blood Culture Adult (2) rn 08/15 15:57 Order name: CBC with Diff; Complete Time: 16:38 08/15 15:57 Order name: CMP; Complete Time: 16:38 08/15 15:57 Order name: Lactate w/ 2H reflex if indic.; Complete Time: 16:38 08/15 15:57 Order name: Protime (+inr); Complete Time: 16:38 rn 08/15 15:57 Order name: Ptt, Activated; Complete Time: 16:38 rn 08/15 19:14 Order name: BNP; Complete Time: 19:47 rn 08/15 15:57 Order name: Chest Single View XRAY; Complete Time: 18:31 rn 08/15 16:24 Order name: CT Head Brain wo Cont; Complete Time: 18:31 rn 08/15 17:18 Order name: BiPap ([employer] Only) EDNC 08/15 15:57 Order name: EKG; Complete Time: 15:58 rn 08/15 15:57 Order name: Accucheck; Complete Time: 16:58 rn 08/15 15:57 Order name: Cardiac monitoring; Complete Time: 16:19 rn 08/15 15:57 Order name: EKG - Nurse/Tech; Complete Time: 17:08 rn 08/15 15:57 Order name: IV Saline Lock - Large Bore; Complete Time: 16:19 rn 08/15 15:57 Order name: Labs collected and sent; Complete Time: 16: rn 08/15 15:57 Order name: O2 Per Protocol; Complete Time: 16:19 rn 08/15 15:57 Order name: O2 Sat Monitoring; Complete Time: 16: rn 08/15 15:57 Order name: Vital Signs; Complete Time: 16:19 rn EC:48 Rate is 82 beats/min. Rhythm is regular. QRS [place] is Normal. VA interval is normal. QRS rn interval is prolonged at 154 msec. QT interval is normal. No Q waves. T waves are Normal. No ST changes noted. Clinical impression: NSR w/ Non-specific ST/T Changes. Interpreted by me. Reviewed by me. Administered Medications: 16:57 Drug: Magnesium Sulfate IVPB 1 grams IVPB once over 1 hrs Route: IVPB; Infused Over: 1 iw hrs; Site: right wrist; 16:57 Drug: morphine IVP or IV 4 mg IVP once over 4 mins Route: IVP; Infused Over: 4 mins; iw Site: right wrist; 16:57 Drug: Ondansetron IVP 4 mg IVP once; over 2 minutes Route: IVP; Site: right wrist; iw 16:57 Drug: NS 0.9% IV 500 ml IV at bolus once Route: IV; Rate: bolus; Site: right wrist; iw 16:58 Drug: MethylPrednisoLONE IVP 125 mg IVP once Route: IVP; Site: right wrist; iw 16:58 Drug: Levalbuterol Inhalation 1.25 mg Inhalation once Route: Inhalation; iw 19:14 Drug: Rocephin IV 1 grams IV at calculated rate once; Given slow IV push per pharmacy ko1 instructions Route: IV; Rate: calculated rate; Site: right wrist; 19:32 Drug: Zithromax IVPB 500 mg IVPB once over 1 hrs; mix in 250 mL NS Route: IVPB; Infused la4 Over: 1 hrs; Site: right wrist; Disposition: 19:20 Critical Care:. rn Disposition Summary: 08/15/23 20:57 Left Against Medical Advice Notes: Location: Home(08/15/23 20:57) rn Problem: new(08/15/23 20:57) rn Symptoms: have improved(08/15/23 20:57) rn Condition: Stable(08/15/23 20:57) rn Diagnosis - COPD/ Chronic obstructive pulmonary disease with acute lower respiratory infection rn - Hypoxemia(08/15/23 20:57) rn - Pneumonia, unspecified organism rn Followup: rn - With: Private Physician - When: As needed - Reason: Recheck today's complaints, Re-evaluation by your physician Discharge Instructions: - Discharge Summary Sheet rn - Chronic Obstructive Pulmonary Disease rn - Community-Acquired Pneumonia, Adult rn Prescriptions: - levofloxacin 750 mg Oral tablet - take 1 tablet ORAL route once daily for 7 days; 7 tablet; Refills: 0, Product rn Selection Permitted Critical care time excluding procedures: 19:20 Critical care time: Bedside Care: 35 minutes. Total time: 35 minutes rn Signatures: Dispatcher [employer] Jane Melchor, RN RN Rey Oneill MD MD rn Oliver, Kathy, RN RN koSusana Bone, RN RN Iveth Domingo RN RN la4 Corrections: (The following items were deleted from the chart) 20:56 19:22 Inpatient Admission rn rn 20:56 19:22 Abraham Mendoza rn rn 20:56 19:22 Telemetry/MedSurg (Inpatient) rn rn 20:56 19:22 Stable rn rn 20:56 19:22 new rn rn 20:56 19:22 have improved rn rn 20:56 19:22 Standard rn rn 20:56 19:22 rn rn 20:56 19:22 Hypoxemia rn rn 20:56 19:22 COPD/ Chronic obstructive pulmonary disease with (acute) exacerbation rn rn
[2023-08-15] MEDS ORDERED: AZITHROMYCIN 500 MG INJ IVPB ONE (19:27)
[2023-08-15] MEDS ORDERED: CEFTRIAXONE 1000 MG/VIAL ONE (19:27)
[2023-08-15] MEDS ORDERED: NA CHLORIDE 0.9% 250 ML ONE (19:27)
--- NOTE | 2023-08-16 11:56 | EKG ---
Test Date: 2023-08-15 Test Time: 17:05:36 Quality Assurance Director: Caden Almaguer MEASUREMENT RESULTS: Intervals: Rate: 82 MD: 154 QRSD: 154 QT: 456 QTc: 532 Eure: P: 40 MD: 154 QRS: 0 T: 140 INTERPRETIVE STATEMENTS: Sinus rhythm with premature atrial complexes Left bundle branch block Abnormal ECG Compared to ECG 06/15/2023 01:39:24 Atrial premature complex(es) now present Sinus tachycardia no longer present Electronically Signed On 08-16-23 11:53:59 CDT by Humphrey Ramos
== END 2023-08-15 21:07 | disposition left against medical advice (07) ==
LOC: ER 15:54
DX: J44.0 Chronic obstructive pulmonary disease with (acute) lower respiratory infection (principal); J18.9 Pneumonia, unspecified organism; R09.02 Hypoxemia; E11.9 Type 2 diabetes mellitus without complications; I10 Essential (primary) hypertension; F17.210 Nicotine dependence, cigarettes, uncomplicated
CPT/HCPCS: 93005; 87040 ×2; 85025; 36415; 85610; 83605; 85730; 80053; 83880; 70450; 71045; 96375; 96374; 99285; 94660; J3475; J7614; J2930; J2405; J7050; J7040; J0696

== ENCOUNTER 2023-08-17 22:32 | Observation (INO) | payer OTHER ==
[2023-08-17 22:56] LABS: Arterial Blood Carboxyhemoglob 3.3 % (0-1.5); Blood Gas Oxyhemoglobin 88.6 % (94-97); Blood O2 Saturation 93.2 % (92-98.5)
[2023-08-17] MEDS ORDERED: METHYLPREDNISOLONE 125 MG INJ ONE (23:03)
[2023-08-17] MEDS ORDERED: CEFTRIAXONE 1000 MG/VIAL ONE (23:03)
[2023-08-17] MEDS ORDERED: ALBUTEROL 2.5 MG/3 ML NEB SOL ONE (23:03)
[2023-08-17] MEDS ORDERED: ASPIRIN 325 MG TAB ONE (23:03)
[2023-08-17] MEDS ORDERED: NA CHLORIDE 0.9% 250 ML ONE (23:04)
[2023-08-17] MEDS ORDERED: AZITHROMYCIN 500 MG INJ IVPB ONE (23:04)
[2023-08-17 23:52] LABS: Absolute Lymphocytes (CBC) 0.9 K/uL (0.7-4.9); Hematocrit 35.3 % (36.0-45.0); Lymphocytes % 5.1 % (15.3-44.8); MCV 93.8 fL (80-100); MPV 9.2 fL (7.6-11.3); Platelets 213 thou/uL (152-406); RBC Red Blood Cell Count 3.77 M/uL (3.86-4.86)
[2023-08-17 23:54] LABS: Protime INR 1.17
[2023-08-18 00:12] LABS: Albumin 3.2 g/dL (3.4-5.0); Bilirubin Direct 0.1 mg/dL (0-0.2); Bilirubin Indirect, Calculated 0.3 mg/dL (0.2-0.8); Bilirubin Total 0.4 mg/dL (0.2-1.0); Magnesium 1.9 mg/dL (1.6-2.4); Potassium 3.6 mEq/L (3.5-5.1); Protein, Total 7.1 g/dL (6.4-8.2); Troponin High Sensitivity 51.1 pg/mL (<58.9)
[2023-08-18 01:04] LABS: Blood Morphology Comment NOT SEEN (NOT SEEN); Platelet Estimate ADEQ
--- NOTE | 2023-08-18 01:47 | EDPHYS ---
Physician Documentation [facility] Name: Smitha Ibarra Age: 58 yrs Sex: Female : 1965 Arrival Date: 08/17/2023 Time: 22:32 Bed 20 Private MD: ED Physician Michael Lake HPI: 08/17 22:37 This 58 yrs old Female presents to ER via EMS with complaints of Dyspnea, sp4 hypoxemia . 22:46 58-year-old female with history of arthritis, COPD, diabetes, hypercholesterolemia, sp4 hypertension and seizures presents with EMS for worsening shortness of breath starting this evening. EMS reported patient was hypoxic on the monitor 75% on room air improved to 96% with high flow oxygen. Patient states she is a smoker smokes half a pack a day. Patient was here from 08/15/2023 and was diagnosed with pneumonia and hypoxemia but left AGAINST MEDICAL ADVICE. . Historical: - Allergies: 22:41 Pseudoephedrine; bp - PMHx: 22:41 Arthritis; COPD; diabetes mellitus; Hypercholesterolemia; Hypertensive disorder; bp Seizure; - PSHx: 22:41 partial hysterectomy; tubal ligation; bp - Immunization history:: Adult Immunizations up to date. - Social history:: Smoking status: Patient reports the use of cigarette tobacco products, smokes one pack cigarettes per day. - Family history:: not pertinent. ROS: 22:46 Constitutional: Negative for fever, chills, and weight loss, Respiratory: Positive sp4 dyspnea, dyspnea on exertion, positive cough positive tobacco use 22:46 All other systems are negative, Exam: 22:46 Constitutional: This is a well developed, well nourished patient who is awake, alert, sp4 ill-appearing female, signs of physical deconditioning, nontoxic. Head/Face: Normocephalic, atraumatic. Eyes: Pupils equal round and reactive to light, extra-ocular motions intact. Lids and lashes normal. Conjunctiva and sclera are not injected. Cornea within normal limits. Periorbital areas with no swelling, redness, or edema. ENT: Nares patent. No nasal discharge, no septal abnormalities noted. Tympanic membranes are normal and external auditory canals are clear. Oropharynx with no redness, swelling, or masses, exudates, or evidence of obstruction, uvula midline. Mucous membranes moist. Neck: Trachea midline, no thyromegaly or masses palpated, and no cervical lymphadenopathy. Supple, full range of motion without nuchal rigidity, or vertebral point tenderness. Chest/axilla: Normal chest wall appearance and motion. Nontender with no deformity. No lesions are appreciated. Cardiovascular: Regular rate and rhythm with a normal S1 and S2. No gallops, murmurs, or rubs. Normal PMI, no JVD. No pulse deficits. Respiratory: Lungs have equal breath sounds bilaterally, bilateral crackles on auscultation bilateral expiratory wheezes on auscultation bilaterally mild retractions. Abdomen/GI: Soft, non-tender, with normal bowel sounds. No distension or tympany. No guarding or rebound. No evidence of tenderness throughout. Back: No spinal tenderness. No costovertebral tenderness. Skin: Warm, dry with normal turgor. Normal color with no rashes, no lesions, and no evidence of cellulitis. MS/ Extremity: Pulses equal, no cyanosis. Neurovascular intact. Full, normal range of motion. Neuro: Awake and alert, GCS 15, oriented to person, place, time, and situation. Cranial nerves II-XII grossly intact. Motor strength 5/5 in all extremities. Sensory grossly intact. Psych: Awake, alert, with orientation to person, place and time. Behavior, mood, and affect are within normal limits 08/18 01:46 ECG was reviewed by the Attending Physician. EKG 2338, there is normal sinus rhythm sp4 with left bundle branch block, no ectopy, negative OH based on Sgarbossa criteria Vital Signs: 08/17 22:33 BP 134 / 81; Pulse 105; Resp 20; Temp 98; Pulse Ox 96% on 15 lpm Non-rebreather mask; bp 23:32 BP 150 / 69; Pulse 88; Resp 20; Pulse Ox 95% on 3 lpm NC; bp 08/18 00:53 BP 143 / 71; Pulse 83; Resp 20; Pulse Ox 97% on 2 lpm NC; bp MDM: 08/17 22:40 Patient medically screened. sp4 08/18 01:42 ED course: Chest X ray - COMPARISON: 06/15/2023 FINDINGS: Single portable AP upright sp4 view the chest. Trachea is midline. Normal size of the cardiac silhouette. There is some pulmonary vascular congestion. Bilateral interstitial and hazy opacities appear progressed from prior. No definite pleural effusion or pneumothorax. No acute osseous abnormality. IMPRESSION: Progression in bilateral interstitial and hazy opacities, suspicious for edema. . 01:44 Differential Diagnosis altered mental status, sepsis, flu. Data reviewed: vital signs, sp4 nurses notes, EMS record, old medical records, lab test result(s), EKG, radiologic studies, plain films. Consideration of Admission/Observation Patient was admitted/placed on observation. Escalation of care including admission/observation considered. Management of patient was discussed with the following: Hospitalist: Kelly PISANO . ED course: Patient's warrant admission at this time secondary to COPD exacerbation and hypoxemia. Also signs of volume overload and possible pulmonary edema also basically underlying pneumonia. . 08/17 22:34 Order name: BMP; Complete Time: 01:39 sp4 08/17 22:34 Order name: Blood Culture Adult (2) 4 08/17 22:34 Order name: CBC with Diff; Complete Time: 01:39 sp4 08/17 22:34 Order name: CPK; Complete Time: 01:39 sp4 08/17 22:34 Order name: Hepatic Function; Complete Time: 01:39 sp4 08/17 22:34 Order name: Lipase; Complete Time: :39 sp4 08/17 22:34 Order name: Magnesium; Complete Time: :39 sp4 08/17 22:34 Order name: NT PRO-BNP; Complete Time: 01:39 sp4 08/17 22:34 Order name: PT-INR; Complete Time: 01:39 sp4 08/17 22:34 Order name: Ptt, Activated; Complete Time: 01:39 sp4 08/17 22:34 Order name: Troponin HS; Complete Time: 01:39 sp4 08/17 22:34 Order name: ABG; Complete Time: 23:35 sp4 08/17 23:56 Order name: Manual Differential; Complete Time: 01:39 EDWA 08/18 08:07 Order name: Glucose, Ancillary Testing EDWA 08/18 11:41 Order name: Glucose, Ancillary Testing EDWA 08/18 13:39 Order name: Gram Stain--Aerobic Bottle EDWA 08/17 22:34 Order name: XRAY CXR (1 view) [facility] 08/17 22:34 Order name: Call RT; Complete Time: 22:38 sp4 08/17 22:34 Order name: EKG; Complete Time: 22:35 sp4 08/17 22:34 Order name: Cardiac monitoring; Complete Time: 22:41 sp4 08/17 22:34 Order name: EKG - Nurse/Tech; Complete Time: 23:32 sp4 08/17 22:34 Order name: IV Saline Lock; Complete Time: 23:13 sp4 08/17 22:34 Order name: Labs collected and sent; Complete Time: 23:13 sp4 08/17 22:34 Order name: O2 Per Protocol; Complete Time: 22:41 sp4 08/17 22:34 Order name: O2 Sat Monitoring; Complete Time: 22:41 sp4 EC:46 Rate is 88 beats/min. Rhythm is regular, Sinus Rhythm. QRS [place] is Normal. VA interval sp4 is normal. QRS interval is prolonged at 154 msec. QT interval is normal. No ST changes noted. Clinical impression: No evidence of ischemia. Interpreted by me. Administered Medications: 08/17 22:45 Drug: Albuterol Inhalation 2.5 mg Inhalation every 20 minutes x3 Route: Inhalation; bp 23:00 Drug: Albuterol Inhalation 2.5 mg Inhalation every 20 minutes x3 Route: Inhalation; bp 23:00 Drug: Aspirin PO 325 mg PO once Route: PO; bp 08/18 02:37 Follow up: Response: No adverse reaction bp 08/17 23:10 Drug: MethylPrednisoLONE IVP 125 mg IVP once Route: IVP; Site: right wrist; bp 08/18 02:37 Follow up: Response: No adverse reaction bp 08/17 23:13 Drug: Rocephin - Rocephin (cefTRIAXone) IVPB 1 grams IVPB once over 30 mins; (mix in 50 bp mL NS) Route: IVPB; Infused Over: 30 mins; Site: right wrist; 08/18 02:37 Follow up: IV Status: Completed infusion; IV Intake: 100ml bp 08/17 23:13 Drug: Zithromax IVPB 500 mg IVPB once over 1 hrs; mix in 250 mL NS Route: IVPB; Infused bp Over: 1 hrs; Site: right wrist; 08/18 02:37 Follow up: IV Status: Completed infusion; IV Intake: 250ml bp 08/17 23:30 Drug: Albuterol Inhalation 2.5 mg Inhalation every 20 minutes x3 Route: Inhalation; bp 08/18 01:47 Drug: Furosemide IVP 20 mg IVP once; give over 2 minutes Route: IVP; Site: right wrist; bp 02:37 Follow up: Response: No adverse reaction bp Disposition Summary: 08/18/23 01:46 Hospitalization Ordered Notes: Hospitalization Status: Inpatient Admission sp4 Provider: Abraham Mendoza sp4 Condition: Fair sp4 Problem: new sp4 Symptoms: have improved sp4 Bed/Room Type: Standard sp4 Location: Telemetry/MedSurg (Inpatient)(08/18/23 14:58) [facility] Room Assignment: [facility](08/18/23 14:58) [facility] Diagnosis - COPD/ Chronic obstructive pulmonary disease with (acute) exacerbation sp4 - Acute pulmonary edema sp4 - Other pneumonia, unspecified organism sp4 Forms: - Medication Reconciliation Form sp4 - SBAR form sp4 - Leadership Thank You Letter sp4 Signatures: Dispatcher [employer] Vera Ruiz RN TACOS Clifton Burrows RN RN [facility] Reji Marquez RN RN Joycelyn Nelson 1 Michael Lake MD MD sp4 Corrections: (The following items were deleted from the chart) 01:43 01:42 ED course: Chest X ray - COMPARISON: None FINDINGS: Cardiac: Heart size top sp4 normal. Mediastinum: Trachea midline Lungs/Pleura: Small bilateral pleural effusions. Mild central vascular prominence. No consolidation. No pneumothorax Skeletal System: Status post sternotomy IMPRESSION: Mild central vascular prominence with small effusions. Appearance compatible with mild congestive failure. sp4 02:06 01:46 Telemetry/MedSurg (Inpatient) sp4 cg 02:06 01:46 sp4 cg 14:58 02:06 [facility] ER HOLD cg ja1 14:58 02:06 ERHOLD- cg [facility]
--- NOTE | 2023-08-18 01:47 | ER ---
Nurse's Notes [facility] Name: Smitha Ibarra Age: 58 yrs Sex: Female : 1965 Arrival Date: 08/17/2023 Time: 22:32 Bed 20 Private MD: Diagnosis: COPD/ Chronic obstructive pulmonary disease with (acute) exacerbation;Acute pulmonary edema;Other pneumonia, unspecified organism Presentation: 08/17 22:33 Chief complaint: EMS states: PICKED UP FROM [facility], SEEN FOR SAME S/S 2 DAYS bp AGO AND REFUSED ADMIT. C/O SOB. Coronavirus screen: At this time, the client does not indicate any symptoms associated with coronavirus-19. Ebola Screen: No symptoms or risks identified at this time. Initial Sepsis Screen: Does the patient meet any 2 criteria? HR > 90 bpm. No. Patient's initial sepsis screen is negative. Does the patient have a suspected source of infection? No. Patient's initial sepsis screen is negative. Risk Assessment: Do you want to hurt yourself or someone else? Patient reports no desire to harm self or others. Onset of symptoms was August 17, 2023. 22:33 Method Of Arrival: EMS: [facility] bp 22:33 Acuity: PRECIOUS 3 bp Triage Assessment: 22:41 General: Appears distressed, Behavior is cooperative, appropriate for age, anxious. bp Pain: Denies pain. EENT: No deficits noted. Respiratory: Reports shortness of breath at rest Airway is patent Respiratory effort is labored. Historical: - Allergies: 22:41 Pseudoephedrine; bp - PMHx: 22:41 Arthritis; COPD; diabetes mellitus; Hypercholesterolemia; Hypertensive disorder; bp Seizure; - PSHx: 22:41 partial hysterectomy; tubal ligation; bp - Immunization history:: Adult Immunizations up to date. - Social history:: Smoking status: Patient reports the use of cigarette tobacco products, smokes one pack cigarettes per day. - Family history:: not pertinent. Screenin:32 [facility] ED Fall Risk Assessment (Adult) History of falling in the last 3 months, bp including since admission No falls in past 3 months (0 pts). Abuse screen: Denies threats or abuse. Denies injuries from another. Nutritional screening: No deficits noted. Tuberculosis screening: No symptoms or risk factors identified. Assessment: 22:41 General: SEE TRIAGE NOTE. bp 23:32 Reassessment: No changes from previously documented assessment. Patient is alert, bp oriented x 3, equal unlabored respirations, skin warm/dry/pink. 08/18 00:53 Reassessment: Patient appears in no apparent distress at this time. Patient is alert, bp oriented x 3, equal unlabored respirations, skin warm/dry/pink. 08:00 Reassessment: SEE [facility] FOR PATIENT DOCUMENTATION. db Vital Signs: 08/17 22:33 BP 134 / 81; Pulse 105; Resp 20; Temp 98; Pulse Ox 96% on 15 lpm Non-rebreather mask; bp 23:32 BP 150 / 69; Pulse 88; Resp 20; Pulse Ox 95% on 3 lpm NC; bp 08/18 00:53 BP 143 / 71; Pulse 83; Resp 20; Pulse Ox 97% on 2 lpm NC; bp ED Course: 08/17 22:32 Patient arrived in ED. bp 22:32 Reji Marquez, TACOS is Primary Nurse. bp 22:33 Michael Lake MD is Attending Physician. sp4 22:34 Triage completed. bp 22:43 Arm band placed on. bp 22:51 XRAY CXR (1 view) In Process Unspecified. EDMS 23:10 Inserted saline lock: 22 gauge in right wrist, using aseptic technique. Blood collected.bp 23:32 Patient has correct armband on for positive identification. Bed in low position. Call bp light in reach. Side rails up X2. 08/18 01:45 Abraham Mendoza MD is Hospitalizing Provider. sp4 03:37 No provider procedures requiring assistance completed. IV discontinued, intact, bp bleeding controlled, No redness/swelling at site. Pressure dressing applied. 12:00 Provided Education on: admission. db Administered Medications: 08/17 22:45 Drug: Albuterol Inhalation 2.5 mg Inhalation every 20 minutes x3 Route: Inhalation; bp 23:00 Drug: Albuterol Inhalation 2.5 mg Inhalation every 20 minutes x3 Route: Inhalation; bp 23:00 Drug: Aspirin PO 325 mg PO once Route: PO; bp 08/18 02:37 Follow up: Response: No adverse reaction bp 08/17 23:10 Drug: MethylPrednisoLONE IVP 125 mg IVP once Route: IVP; Site: right wrist; bp 08/18 02:37 Follow up: Response: No adverse reaction bp 08/17 23:13 Drug: Rocephin - Rocephin (cefTRIAXone) IVPB 1 grams IVPB once over 30 mins; (mix in 50 bp mL NS) Route: IVPB; Infused Over: 30 mins; Site: right wrist; 08/18 02:37 Follow up: IV Status: Completed infusion; IV Intake: 100ml bp 08/17 23:13 Drug: Zithromax IVPB 500 mg IVPB once over 1 hrs; mix in 250 mL NS Route: IVPB; Infused bp Over: 1 hrs; Site: right wrist; 08/18 02:37 Follow up: IV Status: Completed infusion; IV Intake: 250ml bp 08/17 23:30 Drug: Albuterol Inhalation 2.5 mg Inhalation every 20 minutes x3 Route: Inhalation; bp 08/18 01:47 Drug: Furosemide IVP 20 mg IVP once; give over 2 minutes Route: IVP; Site: right wrist; bp 02:37 Follow up: Response: No adverse reaction bp Medication: 12:00 VIS not applicable for this client. db Intake: 02:37 IV: 100ml; Total: 100ml. bp 02:37 IV: 250ml; Total: 350ml. bp Outcome: 01:46 Decision to Hospitalize by Provider. sp4 12:00 Admitted to ER Hold. Please see [facility] for further documentation. db 12:00 Instructed on the need for admit, 16:06 Condition: stable db 16:14 Patient left the ED. ll1 Signatures: Dispatcher [employer] EDReji Ahumada RN RN bp Lewis, Lynsay, RN RN 1 Susana Purvis RN RN db Potepalov, Sergey, MD MD sp4
[2023-08-18] MEDS ORDERED: ONDANSETRON 4 MG/2 ML VIAL IV PRN (01:48)
[2023-08-18] MEDS ORDERED: ACETAMINOPHEN 325 MG TABLET PO PRN (01:48)
--- NOTE | 2023-08-18 01:54 | P.HP ---
Certification for Inpatient Patient admitted to: Observation With expected LOS: <2 Midnights Practitioner: I am a practitioner with admitting privileges, knowledge of patient current condition, hospital course, and medical plan of care. Services: Services provided to patient in accordance with Admission requirements found in Title 42 Section 412.3 of the Code of Federal Regulations Patient History Date of Service: 08/18/23 Reason for admission: COPD exacerbation. History of Present Illness: 58 y o female pt with hx of HTN, DM 2, COPD, Hyperlipidemia admitted for episode of sob and cough. she reported feeling of sob and cough forthe past few days. she also has night sweats and feeling of chills. no chest pain, n/v/d. no dizziness. her cxr was not overtly concerning. she was asked to be evaluated for observation due to her copd exacerbation. she is an active smoker with 1/2 to 1 pack per day habit. Allergies pseudoephedrine [From Sudafed] Allergy (Verified 05/12/22 22:04) Unknown Home Medications: Magnesium Oxide [Magnesium] 500 mg PO DAILY 05/12/22 PHENYTOIN ER Cap [Dilantin ER Cap*] 400 mg PO DAILY 05/12/22 Albuterol Sulfate [Albuterol Sulfate Hfa] 8.5 gm IH Q4H PRN #1 inh 01/11/23 Ipratropium/Albuterol Sulfate [Iprat-Albut 0.5-3(2.5) mg/3 ml] 3 ml IH Q6HR PRN #120 amp 06/16/23 Mometasone/Formoterol [Dulera 50 Mcg-5 Mcg Inhaler] 13 gm IH BID #1 inh 06/16/23 levoFLOXacin [Levaquin] 750 mg PO DAILY #6 tab 06/16/23 - Past Medical/Surgical History Diabetic: No -: arthritis -: COPD -: NIDDM -: HTN -: seizures -: hyperlipidemia -: tubal ligation -: tonsillectomy Psychosocial/ Personal History: Unable to obtain - Family History Mother -: Heart disease, Lung disease, GI disease, Kidney disease Father -: Other (see notes) Notes: aneurysm - Social History Alcohol use: No CD- Drugs: No Caffeine use: No Review of Systems General: Chills, Malaise Eyes: Unremarkable ENT: Unremarkable Respiratory: Cough, Shortness of Breath, Hemoptysis Cardiovascular: Unremarkable Gastrointestinal: Unremarkable Genitourinary: Unremarkable Musculoskeletal: Unremarkable Integumentary: Unremarkable Neurological: Unremarkable Physical Examination - Physical Exam General: Alert, Oriented x3 HEENT: Atraumatic, Normocephalic Respiratory: Diminished, Expiratory wheezes Cardiovascular: Regular rate/rhythm, Normal S1 S2 Gastrointestinal: Soft and benign Musculoskeletal: No swelling Neurological: Normal speech, Normal strength at 5/5 x4 extr - Studies Laboratory Data (last 24 hrs) 08/17/23 08/17/23 08/17/23 23:10 23:10 23:10 WBC 17.30 H Hgb 11.9 L Hct 35.3 L Plt Count 213 PT 12.9 H INR 1.17 APTT 27.0 Sodium 134 L Potassium 3.6 BUN 14 Creatinine 0.70 Glucose 200 H Magnesium 1.9 Total Bilirubin 0.4 AST 31 ALT 35 Alkaline Phosphatase 134 H Lipase 23 Assessment and Plan - Plan COPD exacerbation: deemed due to infectious process. she does have some hemoptysis. we will start duonebs, solumedrol and empiric antibiotics. we will follow clinical symptomatology. nicotine patch to be started for tobacco use issues. Hypertension: we will follow vitals per unit protocol and continue home antihypertensive meds. Tobacco use: we will discourage tobacco use and have her on nicotine patch for nicotine dependence. Prophylaxis: Lovenox for DVT prophylaxis. Code status: Full code. Disposition: we will discharge once her copd exacerbation is resolved. Discharge Plan: Home - Advance Directives Does patient have a Living Will: No Does patient have a Durable POA for Healthcare: No
[2023-08-18] MEDS: ALBUTEROL 2.5 MG/3 ML NEB SOL NEB SCH ×4 (02:40→19:00)
[2023-08-18] MEDS: IPRATROPIUM BROM 0.5MG/2.5ML NEB SCH ×4 (02:40→19:00)
[2023-08-18] MEDS ORDERED: IPRATROPIUM BROM 0.5MG/2.5ML ONE ×3 (02:51→13:49)
[2023-08-18] MEDS ORDERED: ALBUTEROL 2.5 MG/3 ML NEB SOL ONE ×3 (02:51→13:49)
[2023-08-18] MEDS: INSULIN REGULAR (HUMAN) 100 UNIT/ML SQ SCH ×4 (07:30→20:39)
--- NOTE | 2023-08-18 07:57 | EKG ---
Test Date: 2023-08-17 Test Time: 23:37:16 Teaching Dietitian: EUNICE MEASUREMENT RESULTS: Intervals: Rate: 86 NC: 168 QRSD: 152 QT: 460 QTc: 550 [place]: P: 63 NC: 168 QRS: -2 T: 136 INTERPRETIVE STATEMENTS: Normal sinus rhythm Left bundle branch block Abnormal ECG Compared to ECG 08/15/2023 17:05:36 Atrial premature complex(es) no longer present Electronically Signed On 08-18-23 07:56:43 CDT by Humphrey Ramos
[2023-08-18] MEDS ORDERED: INSULIN REGULAR (HUMAN) 100 UNIT/ML ONE (08:13)
[2023-08-18] MEDS: METHYLPREDNISOLONE 40 MG INJ IV SCH ×2 (09:00→20:39)
[2023-08-18] MEDS ORDERED: VANCOMYCIN 1.5 GM in NA CHLORIDE 0.9% 500 ML IVPB SCH (09:00)
[2023-08-18] MEDS: ENOXAPARIN 40 MG/0.4 ML SQ SCH (09:00)
[2023-08-18] MEDS ORDERED: METHYLPREDNISOLONE 40 MG INJ ONE (10:36)
[2023-08-18] MEDS ORDERED: ENOXAPARIN 40 MG/0.4 ML SQ ONE (10:36)
[2023-08-18] MEDS: FUROSEMIDE 40 MG TABLET PO SCH (12:00)
[2023-08-18] MEDS: ROFLUMILAST 500 MCG TABLET PO SCH (12:00)
[2023-08-18] MEDS: SPIRONOLACTONE 25 MG TABLET PO SCH ×2 (12:00→20:39)
--- NOTE | 2023-08-18 12:02 | P.CNS ---
Date of Consult: 08/18/23 Reason for Consult: COPD exacerbation Chief Complaint: COPD exacerbation. History of Present Illness: Patient is 58 years of age heavy smoker history of recurrent exacerbations became upset and short of breath and it appeared in the emergency room patient does use an inhaler at home which only the albuterol ending of a slight cough no fever or chills no swelling Allergies pseudoephedrine [From Sudafed] Allergy (Verified 05/12/22 22:04) Unknown Home Medications: Magnesium Oxide [Magnesium] 500 mg PO DAILY 05/12/22 PHENYTOIN ER Cap [Dilantin ER Cap*] 400 mg PO DAILY 05/12/22 Albuterol Sulfate [Albuterol Sulfate Hfa] 8.5 gm IH Q4H PRN #1 inh 01/11/23 Ipratropium/Albuterol Sulfate [Iprat-Albut 0.5-3(2.5) mg/3 ml] 3 ml IH Q6HR PRN #120 amp 06/16/23 Mometasone/Formoterol [Dulera 50 Mcg-5 Mcg Inhaler] 13 gm IH BID #1 inh 06/16/23 levoFLOXacin [Levaquin] 750 mg PO DAILY #6 tab 06/16/23 - Past Medical/Surgical History Diabetic: No -: arthritis -: COPD -: NIDDM -: HTN -: seizures -: hyperlipidemia -: tubal ligation -: tonsillectomy Psychosocial/ Personal History: Unable to obtain - Family History Mother Medical History: Heart disease, Lung disease, GI disease, Kidney disease Father Medical History: Other (see notes) Notes: aneurysm - Social History Smoking Status: Unknown if ever smoked Alcohol use: No CD- Drugs: No Caffeine use: No Place of Residence: Home Review of Systems 10-point ROS is otherwise unremarkable Physical Examination Temp Pulse Resp BP Pulse Ox 98.2 F 79 18 141/65 H 95 08/18/23 08:00 08/18/23 08:00 08/18/23 08:00 08/18/23 08:00 08/18/23 08:00 General: Alert, In no apparent distress, Oriented x3 Neck: Supple Respiratory: Diminished, Expiratory wheezes Cardiovascular: No edema, Regular rate/rhythm, Normal S1 S2 Gastrointestinal: Normal bowel sounds, Soft and benign, Non-distended Laboratory Data (last 24 hrs) 08/17/23 08/17/23 08/17/23 23:10 23:10 23:10 WBC 17.30 H Hgb 11.9 L Hct 35.3 L Plt Count 213 PT 12.9 H INR 1.17 APTT 27.0 Sodium 134 L Potassium 3.6 BUN 14 Creatinine 0.70 Glucose 200 H Magnesium 1.9 Total Bilirubin 0.4 AST 31 ALT 35 Alkaline Phosphatase 134 H Lipase 23 - Problems (1) COPD exacerbation Current Visit: Yes Status: Acute Plan: Patient is 58 years of age heavy smoker admitted with COPD exacerbation she is currently doing well chest x-ray shows diffuse interstitial changes possibility of diastolic heart failure even though she has had a normal echo and normal BNP may be smoking induced interstitial lung disease previous CT shows some contrast changes vital signs oxygenation stable with change patient to p.o. levofloxacin patient is mildly hypercapnic White count is mildly elevated add Daliresp continue with steroids bronchodilators have also added Lasix and spironolactone possible discharge tomorrow patient will need an outpatient work-up including pulmonary function testing patient has been counseled to stop smoking
--- NOTE | 2023-08-18 12:41 | RAD REPORT ---
EXAM DESCRIPTION: Chest Single View RadLex: XR CHEST 1 VIEW CLINICAL HISTORY: 58 years Female, CHEST PAIN COMPARISON: 06/15/2023 FINDINGS: Single portable AP upright view the chest. Trachea is midline. Normal size of the cardiac silhouette. There is some pulmonary vascular congestion. Bilateral interstitial and hazy opacities ap pear progressed from prior. No definite pleural effusion or pneumothorax. No acute osseous abnormalit y. IMPRESSION: Progression in bilateral interstitial and hazy opacities, suspicious for edema. Electronically signed by: Marilyn Chow MD 08/17/2023 11:04 PM CDT Due to temporary technical issues with the PACS/Fluency reporting system, reports are being signed by the in house radiologists without review as a courtesy to insure prompt reporting. The interpreting radiologist is fully responsible for the content of the report.
[2023-08-18] MEDS: NICOTINE 14 MG/PAT TD SCH (14:00)
[2023-08-18] MEDS ORDERED: NICOTINE 21 MG/PAT TD ONE (14:23)
[2023-08-18] MEDS ORDERED: FUROSEMIDE 40 MG TABLET ONE (14:23)
[2023-08-18] MEDS ORDERED: SPIRONOLACTONE 25 MG TABLET ONE (14:33)
[2023-08-18 16:19] VITALS: BMI 33.5
[2023-08-18] MEDS ORDERED: AZITHROMYCIN IV 500 MG in NA CHLORIDE 0.9% 250 ML IVPB SCH (20:00)
[2023-08-18] MEDS ORDERED: CEFTRIAXONE 1,000 MG in NA CHLORIDE 0.9% 50 ML IVPB SCH (21:00)
[2023-08-19] MEDS: IPRATROPIUM BROM 0.5MG/2.5ML NEB SCH ×2 (01:15→07:30)
[2023-08-19] MEDS: ALBUTEROL 2.5 MG/3 ML NEB SOL NEB SCH ×2 (01:15→07:30)
[2023-08-19 03:35] LABS: Absolute Lymphocytes (CBC) 1.6 K/uL (0.7-4.9); Hematocrit 32.7 % (36.0-45.0); Lymphocytes % 16.6 % (15.3-44.8); MCV 93.4 fL (80-100); MPV 9.4 fL (7.6-11.3); Platelets 219 thou/uL (152-406)
[2023-08-19] MEDS: INSULIN REGULAR (HUMAN) 100 UNIT/ML SQ SCH (07:30)
[2023-08-19] MEDS: NICOTINE 14 MG/PAT TD SCH (08:27)
[2023-08-19] MEDS: SPIRONOLACTONE 25 MG TABLET PO SCH (08:28)
[2023-08-19] MEDS: ROFLUMILAST 500 MCG TABLET PO SCH (08:28)
[2023-08-19] MEDS: ENOXAPARIN 40 MG/0.4 ML SQ SCH (08:28)
[2023-08-19] MEDS: FUROSEMIDE 40 MG TABLET PO SCH (08:28)
[2023-08-19] MEDS: METHYLPREDNISOLONE 40 MG INJ IV SCH (08:29)
--- NOTE | 2023-08-19 08:58 | P.DS ---
Admission Date: 08/18/23 Discharge Date: 08/19/23 Reason for Admission: COPD exacerbation. Consultations: Pulmonology Procedures: Chest x-ray 08/17/2023 FINDINGS: Single portable AP upright view the chest. Trachea is midline. Normal size of the cardiac silhouette. There is some pulmonary vascular congestion. Bilateral interstitial and hazy opacities appear progressed from prior. No definite pleural effusion or pneumothorax. No acute osseous abnormality. IMPRESSION: Progression in bilateral interstitial and hazy opacities, suspicious for edema. Brief History of Present Illness: 58 y o female pt with hx of HTN, DM 2, COPD, Hyperlipidemia admitted for episode of sob and cough. she reported feeling of sob and cough forthe past few days. she also has night sweats and feeling of chills. no chest pain, n/v/d. no dizziness. her cxr was not overtly concerning. she was asked to be evaluated for observation due to her copd exacerbation. she is an active smoker with 1/2 to 1 pack per day habit. Hospital Course: You were admitted to the hospital for an exacerbation of your COPD, you are found to have an elevated white blood cell count and were treated with antibiotics, steroids, breathing treatments. At time of discharge you are tolerating breathing on room air well and her labs had improved significantly. You will be discharged to follow-up with your primary care doctor in 1 to 2 weeks as well as a telesales consultant in 1 to 2 weeks. On your chest x-ray there were some opacities in both lung thompson concerning for edema versus pneumonia, you did not appear to be clinically volume overloaded, symptoms improved with antibiotics, steroids and nebulizer treatments. Please follow-up closely with your PCP and pulmonology. <Mohan Botello - Last Filed: 08/19/23 08:57> Admission Date: 08/18/23 Discharge Date: 08/19/23 Hospital Course: She appeared clincally well this morning and eager for discharge. Following discharge, it was noted that 1/4 of her blood culture Gram stains returned positive for gram-positive rods. Although this is possibly a contaminant, cannot exclude a true bacteremia. It is important that she return to the hospital for repeat blood cultures and empiric antibiotics. JIM Botello, TACOS [place], and myself have tried multiple times today to contact her without success. TACOS [place] was able to speak with her sister, who stated that she will try to contact Ms. Ibarra. We will continue to attempt to reach her. Once she calls back, will arrange for direct admission back to the hospital. <Anthony Smith - Last Filed: 08/19/23 19:10> Disposition: ROUTINE DISCHARGE Discharge Condition: GOOD Vital Signs/Physical Exam: Temp Pulse Resp BP Pulse Ox 97.8 F 90 16 120/54 L 97 08/19/23 04:00 08/19/23 04:00 08/19/23 04:00 08/19/23 04:00 08/19/23 04:00 General: Alert, In no apparent distress, Oriented x3 HEENT: Atraumatic, PERRLA, EOMI Neck: Supple, JVD not distended Respiratory: Clear to auscultation bilaterally, Normal air movement Cardiovascular: Regular rate/rhythm, Normal S1 S2 Gastrointestinal: Normal bowel sounds, No tenderness Musculoskeletal: No tenderness Integumentary: No rashes Neurological: Normal speech, Normal tone, Normal affect Laboratory Data at Discharge: WBC 9.40 thou/uL (4.3-10.9) 08/19/23 03:07 Hgb 11.3 g/dL (12.0-15.0) L 08/19/23 03:07 Hct 32.7 % (36.0-45.0) L 08/19/23 03:07 Plt Count 219 thou/uL (152-406) 08/19/23 03:07 PT 12.9 SECONDS (9.5-12.5) H 08/17/23 23:10 INR 1.17 08/17/23 23:10 APTT 27.0 SECONDS (24.3-36.9) 08/17/23 23:10 Sodium 134 mEq/L (136-145) L 08/17/23 23:10 Potassium 3.6 mEq/L (3.5-5.1) 08/17/23 23:10 BUN 14 mg/dL (7-18) 08/17/23 23:10 Creatinine 0.70 mg/dL (0.55-1.02) 08/17/23 23:10 Glucose 200 mg/dL (74-106) H 08/17/23 23:10 Magnesium 1.9 mg/dL (1.6-2.4) 08/17/23 23:10 Total Bilirubin 0.4 mg/dL (0.2-1.0) 08/17/23 23:10 AST 31 U/L (15-37) 08/17/23 23:10 ALT 35 U/L (13-56) 08/17/23 23:10 Alkaline Phosphatase 134 U/L (45-117) H 08/17/23 23:10 Lipase 23 U/L (13-75) 08/17/23 23:10 <Mohan Botello - Last Filed: 08/19/23 08:57> Vital Signs/Physical Exam: Temp Pulse Resp BP Pulse Ox 97.4 F 81 16 183/86 H 95 08/19/23 12:00 08/19/23 12:00 08/19/23 12:00 08/19/23 12:00 08/19/23 12:00 Laboratory Data at Discharge: WBC 9.40 thou/uL (4.3-10.9) 08/19/23 03:07 Hgb 11.3 g/dL (12.0-15.0) L 08/19/23 03:07 Hct 32.7 % (36.0-45.0) L 08/19/23 03:07 Plt Count 219 thou/uL (152-406) 08/19/23 03:07 PT 12.9 SECONDS (9.5-12.5) H 08/17/23 23:10 INR 1.17 08/17/23 23:10 APTT 27.0 SECONDS (24.3-36.9) 08/17/23 23:10 Sodium 134 mEq/L (136-145) L 08/17/23 23:10 Potassium 3.6 mEq/L (3.5-5.1) 08/17/23 23:10 BUN 14 mg/dL (7-18) 08/17/23 23:10 Creatinine 0.70 mg/dL (0.55-1.02) 08/17/23 23:10 Glucose 200 mg/dL (74-106) H 08/17/23 23:10 Magnesium 1.9 mg/dL (1.6-2.4) 08/17/23 23:10 Total Bilirubin 0.4 mg/dL (0.2-1.0) 08/17/23 23:10 AST 31 U/L (15-37) 08/17/23 23:10 ALT 35 U/L (13-56) 08/17/23 23:10 Alkaline Phosphatase 134 U/L (45-117) H 08/17/23 23:10 Lipase 23 U/L (13-75) 08/17/23 23:10 <Anthony Smith - Last Filed: 08/19/23 19:10> Diet: AHA Activity: Ad geovanna Time spent managing pt's care (in minutes): 30 <Mohan Botello - Last Filed: 08/19/23 08:57> <Anthony Smith - Last Filed: 08/19/23 19:10> Home Medications: RX: Magnesium Oxide [Magnesium] 500 mg PO DAILY 05/12/22 RX: PHENYTOIN ER Cap [Dilantin ER Cap*] 400 mg PO DAILY 05/12/22 RX: Albuterol Sulfate [Albuterol Sulfate Hfa] 8.5 gm IH Q4H PRN #1 inh 01/11/23 RX: Ipratropium/Albuterol Sulfate [Iprat-Albut 0.5-3(2.5) mg/3 ml] 3 ml IH Q6HR PRN #120 amp 06/16/23 RX: Mometasone/Formoterol [Dulera 50 Mcg-5 Mcg Inhaler] 13 gm IH BID #1 inh 06/16/23 Benzonatate [Tessalon Perle] 100 mg PO TID #30 cap 08/19/23 RX: Roflumilast [Daliresp*] 500 mcg PO DAILY 30 Days #30 tab 08/19/23 RX: Spironolactone [Aldactone*] 25 mg PO DAILY 30 Days #30 tab 08/19/23 levoFLOXacin [Levofloxacin] 750 mg PO DAILY 5 Days #5 tab 08/19/23 predniSONE [Prednisone] 20 mg PO BID 5 Days #10 tab 08/19/23 New Medications: RX: Spironolactone [Aldactone*] 25 mg PO DAILY 30 Days #30 tab RX: Roflumilast [Daliresp*] 500 mcg PO DAILY 30 Days #30 tab levoFLOXacin [Levofloxacin] 750 mg PO DAILY 5 Days #5 tab predniSONE [Prednisone] 20 mg PO BID 5 Days #10 tab Benzonatate [Tessalon Perle] 100 mg PO TID #30 cap Physician Discharge Instructions: You were admitted to the hospital for an exacerbation of your COPD, you are found to have an elevated white blood cell count and were treated with antibiotics, steroids, breathing treatments. At time of discharge you are tolerating breathing on room air well and her labs had improved significantly. You will be discharged to follow-up with your primary care doctor in 1 to 2 weeks as well as a telesales consultant in 1 to 2 weeks. On your chest x-ray there were some opacities in both lung thompson concerning for edema versus pneumonia, you did not appear to be clinically volume overloaded, symptoms improved with antibiotics, steroids and nebulizer treatments. Please follow-up closely with your PCP and pulmonology. Followup: Zechariah Oswald MD [ACTIVE - CAN ADMIT] - 1-2 Weeks
[2023-08-19] MEDS ORDERED: levoFLOXacin 750 MG TAB PO SCH (09:00)
[2023-08-19] MEDS ORDERED: PHENYTOIN ER 100 MG CAP PO SCH (09:00)
[2023-08-19 09:26] VITALS: O2SAT 97
--- NOTE | 2023-08-19 09:59 | P.PN ---
Subjective Date of Service: 08/19/23 Chief Complaint: COPD exacerbation. Subjective: Improving (Patient is improving still complaining of some weakness dizziness shortness of breath) Review of Systems General: Weakness Respiratory: Shortness of Breath Physical Examination - Vital Signs Temperature: 97.6 F Blood Pressure: 126/61 Pulse: 71 Respirations: 16 Pulse Ox (%): 96 - Physical Exam General: Alert, In no apparent distress, Oriented x3 Respiratory: Clear to auscultation bilaterally Cardiovascular: No edema, Normal pulses, Regular rate/rhythm - Studies Microbiology Data (last 24 hrs): 08/17/23 23:10 Blood - Blood Blood Culture Gram Stain - Final Assessment And Plan - Current Problems (Diagnosis) (1) COPD exacerbation Current Visit: Yes Status: Acute Plan: Patient is 58 years of age admitted with worsening shortness of breath doing much better feeling a little dizzy may have underlying diastolic dysfunction patient is oxygenation is satisfactory will be discharged home on low-dose prednisone antibiotics also added spironolactone count is now normal to follow- up with me in 2-week I also added Daliresp will need outpatient work-up for COPD
[2023-08-19 12:37] VITALS: BP 183/86; TEMP 97.4
--- NOTE | 2023-08-19 15:49 | EKG ---
Test Date: 2023-08-17 Test Time: 23:38:31 State Archivist: EUNICE MEASUREMENT RESULTS: Intervals: Rate: 88 OR: 170 QRSD: 154 QT: 462 QTc: 559 Raymond: P: 65 OR: 170 QRS: 11 T: 117 INTERPRETIVE STATEMENTS: Normal sinus rhythm Left bundle branch block Abnormal ECG Compared to ECG 08/17/2023 23:37:16 No significant changes Electronically Signed On 08-19-23 15:43:49 CDT by Humphrey Ramos
== END 2023-08-19 12:30 | disposition home or self-care (01) ==
LOC: ER 22:32 → ERHOLD 08-18 01:48 → 2ND 08-18 15:07
PROVIDERS: ADMIT Internal Medicine Nephrology; ATTEND Internal Medicine
DX: J44.1 Chronic obstructive pulmonary disease with (acute) exacerbation (principal); D72.829 Elevated white blood cell count, unspecified; I10 Essential (primary) hypertension; E11.9 Type 2 diabetes mellitus without complications; E78.5 Hyperlipidemia, unspecified; R05.9 Cough, unspecified; F17.210 Nicotine dependence, cigarettes, uncomplicated; R04.2 Hemoptysis; Z71.6 Tobacco abuse counseling; Z88.8 Allergy status to other drugs, medicaments and biological substances
CPT/HCPCS: 36415; 36600; 71045; 80048; 80076; 82550; 82805; 82947; 83690; 83735; 83880; 84484; 85025; 85610; 85730; 87040; 87205; 93005; 94640; 96365; 96366; 96368; 96375; 99285; G0378; J0696; J1650; J1815; J2920; J2930; J7050; J7613; J7644

== ENCOUNTER 2023-08-20 09:35 | Inpatient (IN) | payer OTHER ==
[2023-08-20] MEDS ORDERED: IPRATROPIUM BROM 0.5MG/2.5ML NEB PRN (09:51)
[2023-08-20] MEDS ORDERED: ONDANSETRON 4 MG/2 ML VIAL IV PRN (09:51)
[2023-08-20] MEDS ORDERED: ALBUTEROL 2.5 MG/3 ML NEB SOL NEB PRN (09:51)
[2023-08-20] MEDS ORDERED: VANCOMYCIN 1.75 GM in NA CHLORIDE 0.9% 500 ML IVPB SCH (11:00)
[2023-08-20 11:05] LABS: Absolute Lymphocytes (CBC) 1.3 K/uL (0.7-4.9); Hematocrit 37.1 % (36.0-45.0); Lymphocytes % 10.6 % (15.3-44.8); MCV 93.8 fL (80-100); MPV 8.9 fL (7.6-11.3); Platelets 258 thou/uL (152-406); RBC Red Blood Cell Count 3.96 M/uL (3.86-4.86)
[2023-08-20 11:16] LABS: Potassium 3.5 mEq/L (3.5-5.1)
[2023-08-20] MEDS ORDERED: BENZONATATE 100 MG CAP PO SCH (14:00)
--- NOTE | 2023-08-20 17:08 | P.SSS ---
Patient History Date of Service: 08/20/23 Reason for admission: Possible bacteremia History of Present Illness: Patient was admitted on 08/18/2023 and subsequently discharged on 08/19/2023 for a COPD exacerbation, during her stay she had blood cultures drawn, 1 out of 4 bottles came back with gram-positive rods, lab, bacillus species not) possibly a collection associated skin organism. Of note she did have elevated white blood cell count on admission during that admission. Given the positive blood culture she was instructed to come back to the hospital for repeat blood cultures, IV antibiotics. - Past Medical/Surgical History Diabetic: No -: arthritis -: COPD -: NIDDM -: HTN -: seizures -: hyperlipidemia -: tubal ligation -: tonsillectomy Psychosocial/ Personal History: Unable to obtain - Family History Mother -: Heart disease, Lung disease, GI disease, Kidney disease Father -: Other (see notes) Notes: aneurysm - Social History Smoking Status: Current some day smoker Alcohol use: No CD- Drugs: No Caffeine use: No Place of Residence: Home <Mohan Botello - Last Filed: 08/20/23 17:05> Date of Service: 08/20/23 <Anthony Smith - Last Filed: 08/20/23 19:32> [facility] Allergy (Verified 05/12/22 22:04) Unknown Home Medications: Magnesium Oxide [Magnesium] 500 mg PO DAILY 05/12/22 PHENYTOIN ER Cap [Dilantin ER Cap*] 400 mg PO DAILY 05/12/22 Albuterol Sulfate [Albuterol Sulfate Hfa] 8.5 gm IH Q4H PRN #1 inh 01/11/23 Ipratropium/Albuterol Sulfate [Iprat-Albut 0.5-3(2.5) mg/3 ml] 3 ml IH Q6HR PRN #120 amp 06/16/23 Mometasone/Formoterol [Dulera 50 Mcg-5 Mcg Inhaler] 13 gm IH BID #1 inh 06/16/23 Benzonatate [Tessalon Perle] 100 mg PO TID #30 cap 08/19/23 Roflumilast [Daliresp*] 500 mcg PO DAILY 30 Days #30 tab 08/19/23 Spironolactone [Aldactone*] 25 mg PO DAILY 30 Days #30 tab 08/19/23 levoFLOXacin [Levofloxacin] 750 mg PO DAILY 5 Days #5 tab 08/19/23 predniSONE [Prednisone] 20 mg PO BID 5 Days #10 tab 08/19/23 Review of Systems Unremarkable <Mohan Botello - Last Filed: 08/20/23 17:05> Physical Examination - Physical Exam General: Alert, In no apparent distress, Oriented x3 HEENT: Atraumatic, PERRLA, Mucous membr. moist/pink, EOMI, Sclerae nonicteric Neck: Supple, 2+ carotid pulse no bruit, No LAD, Without JVD or thyroid abnormality Respiratory: Clear to auscultation bilaterally, Normal air movement Cardiovascular: Regular rate/rhythm, Normal S1 S2 Gastrointestinal: Normal bowel sounds, No tenderness Musculoskeletal: No tenderness Integumentary: No rashes Neurological: Normal gait, Normal speech, Normal strength at 5/5 x4 extr, Normal tone, Normal affect - Studies Laboratory Data (last 24 hrs) 08/20/23 08/20/23 10:39 10:39 WBC 12.30 H Hgb 12.5 Hct 37.1 Plt Count 258 Sodium 135 L Potassium 3.5 BUN 14 Creatinine 0.82 Glucose 254 H <Mohan Botello - Last Filed: 08/20/23 17:05> - Studies Laboratory Data (last 24 hrs) 08/20/23 08/20/23 10:39 10:39 WBC 12.30 H Hgb 12.5 Hct 37.1 Plt Count 258 Sodium 135 L Potassium 3.5 BUN 14 Creatinine 0.82 Glucose 254 H <Anthony Smith - Last Filed: 08/20/23 19:32> Treatment Summary: Patient was admitted on 08/18/2023 and subsequently discharged on 08/19/2023 for a COPD exacerbation, during her stay she had blood cultures drawn, 1 out of 4 bottles came back with gram-positive rods, lab, bacillus species not) possibly a collection associated skin organism. Of note she did have elevated white blood cell count on admission during that admission. Given the positive blood culture she was instructed to come back to the hospital for repeat blood cultures, IV antibiotics. She came to the hospital and allowed us to draw blood cultures but after that insisted on going home stating she did not want to stay in the hospital and wait for results/get antibiotics. She was explained the risk of leaving the hospital including the risk of bacteremia, sepsis ultimately leading to the possibility of . She verbalized understanding of this she is alert, oriented and capable of medical decision making. She signed the AMA form and will be going home. - Disposition Discharge Date: 08/20/23 Time Spent Managing Pts Care (In Minutes): 35 <Mohan Botello - Last Filed: 08/20/23 17:05> Physician Review Additional Text: Ms. Ibarra left AMA before I had the chance to see her. Please refer to above H&P by Mohan Botello NP. <Anthony Smith - Last Filed: 08/20/23 19:32> - Disposition Disposition: AMA-LEFT AGAINST MEDICAL ADVIC
[2023-08-20] MEDS ORDERED: predniSONE 20 MG TAB PO SCH (21:00)
[2023-08-21] MEDS ORDERED: ENOXAPARIN 40 MG/0.4 ML SQ SCH (09:00)
== END 2023-08-20 11:48 | disposition left against medical advice (07) | DRG 872 ==
LOC: 4TH 09:35
PROVIDERS: ADMIT Internal Medicine; ATTEND Internal Medicine
DX: R78.81 Bacteremia (principal); J44.9 Chronic obstructive pulmonary disease, unspecified; E11.9 Type 2 diabetes mellitus without complications; I10 Essential (primary) hypertension; E78.5 Hyperlipidemia, unspecified; D72.829 Elevated white blood cell count, unspecified; F17.200 Nicotine dependence, unspecified, uncomplicated; Z88.8 Allergy status to other drugs, medicaments and biological substances; Z53.29 Procedure and treatment not carried out because of patient's decision for other reasons; Z98.51 Tubal ligation status; Z79.52 Long term (current) use of systemic steroids; Z79.899 Other long term (current) drug therapy
CPT/HCPCS: 36415; 36600; 71045; 80048; 80076; 82550; 82805; 82947; 83605; 83690; 83735; 83880; 84484; 85025; 85610; 85730; 87040; 87205; 93005; 94640; 96365; 96366; 96368; 96375; 99285; G0378; J0696; J1650; J1815; J2920; J2930; J7040; J7050; J7613; J7644

== ENCOUNTER 2023-11-15 23:06 | Emergency (ER) | payer OTHER ==
[2023-11-15 23:22] LABS: Blood Gas Oxyhemoglobin 92.1 % (94-97); Blood O2 Saturation 95.7 % (92-98.5)
[2023-11-16] MEDS ORDERED: NA CHLORIDE 0.9% 50 ML ONE (00:24)
[2023-11-16] MEDS ORDERED: FENTANYL CITR 100 MCG/2 ML ONE (00:24)
[2023-11-16 00:34] LABS: Absolute Lymphocytes (CBC) 0.7 K/uL (0.7-4.9); Hematocrit 39.9 % (36.0-45.0); Lymphocytes % 3.7 % (15.3-44.8); MPV 9.4 fL (7.6-11.3); Platelets 197 thou/uL (152-406); RBC Red Blood Cell Count 4.43 M/uL (3.86-4.86)
[2023-11-16 00:43] LABS: Protime INR 1.18
[2023-11-16 00:51] LABS: Albumin 3.6 g/dL (3.4-5.0); Bilirubin Direct 0.3 mg/dL (0-0.2); Bilirubin Indirect, Calculated 0.6 mg/dL (0.2-0.8); Bilirubin Total 0.9 mg/dL (0.2-1.0); Magnesium 2.1 mg/dL (1.6-2.4); Potassium 3.2 mEq/L (3.5-5.1); Protein, Total 7.3 g/dL (6.4-8.2); Troponin High Sensitivity 38.5 pg/mL (<58.9)
[2023-11-16 00:56] LABS: Blood Morphology Comment NOT SEEN (NOT SEEN); Platelet Estimate ADEQ
[2023-11-16] MEDS ORDERED: AZITHROMYCIN 500 MG INJ IVPB ONE (00:58)
[2023-11-16] MEDS ORDERED: CEFTRIAXONE 1000 MG/VIAL ONE (00:58)
[2023-11-16] MEDS ORDERED: NA CHLORIDE 0.9% 2,000 ML ONE (00:59)
[2023-11-16] MEDS ORDERED: NA CHLORIDE 0.9% 250 ML ONE (00:59)
[2023-11-16 01:02] LABS: Urine Bacteria None Seen /HPF (<20); Urine Bilirubin NEGATIVE (Negative); Urine Blood 3+ (Negative); Urine Clarity Extremely Turbid (Clear); Urine Color Yellow (Yellow); Urine Glucose TRACE (Negative); Urine Mucus Slight /HPF (None Seen); Urine Protein 1+ (Negative); Urine RBC <5 /HPF (None Seen); Urine Urobilinogen Normal (Normal); Urine pH 5.5 (5.0-7.0)
[2023-11-16 01:13] LABS: Barbiturates NEGATIVE (NEGATIVE); Benzodiazepines NEGATIVE (NEGATIVE); Cocaine NEGATIVE (NEGATIVE); METHAMPHETAM POSITIVE (NEGATIVE); Methadone NEGATIVE (NEGATIVE); Opiates NEGATIVE (NEGATIVE); Phencyclidine NEGATIVE (NEGATIVE); THC Cannibis POSITIVE (NEGATIVE)
[2023-11-16] MEDS ORDERED: IPRATROPIUM BROM 0.5MG/2.5ML ONE ×3 (01:57→02:49)
[2023-11-16] MEDS ORDERED: ALBUTEROL 2.5 MG/3 ML NEB SOL ONE ×3 (01:57→02:49)
[2023-11-16] MEDS ORDERED: METHYLPREDNISOLONE 125 MG INJ ONE (01:58)
[2023-11-16] MEDS ORDERED: NA CHLORIDE 0.9% 500 ML ONE (02:57)
[2023-11-16] MEDS ORDERED: VANCOMYCIN 1 GM/VIAL ONE (02:57)
[2023-11-16 03:49] LABS: Arterial Blood Carboxyhemoglob 1.2 % (0-1.5); Blood Gas Oxyhemoglobin 96.2 % (94-97)
[2023-11-16 04:13] LABS: SARS-CoV-2 Antigen Rapid Res Negative (Negative)
--- NOTE | 2023-11-16 04:35 | ER ---
Nurse's Notes [facility] Name: Smitha Ibarra Age: 58 yrs Sex: Female : 1965 Arrival Date: 11/15/2023 Time: 23:06 Bed 4 Private MD: Diagnosis: Acute respiratory failure;COPD exacerbation, acute hypoxemic hypercarbic respiratory failure, bilateral pneumonia, Tobacco use disorder Presentation: 11/15 23:19 Chief complaint: EMS states: called out for respiratory distress by family. pt has had as6 difficulty breathing all day and got progressively worse. when EMS got to pt home she was hypoxic and agitated. EMS administered Solu Medrol and A\T\A breathing tx. at time of arrival to ER pt is altered, restless, O2 28%. Coronavirus screen: At this time, the client does not indicate any symptoms associated with coronavirus-19. Ebola Screen: No symptoms or risks identified at this time. Risk Assessment: Do you want to hurt yourself or someone else? Unable to obtain. Onset of symptoms was November 15, 2023. 23:19 Acuity: PRECIOUS 1 as6 23:19 Method Of Arrival: EMS: [facility] as6 23:30 Initial Sepsis Screen: Does the patient meet any 2 criteria? RR > 20 per min. Temp vc1 <36.0*C (96.8*F)) or > 38.3*C (100.9*F). Yes Does the patient have a suspected source of infection? No. Patient's initial sepsis screen is negative. Historical: - Allergies: 23:23 Pseudoephedrine; as6 - PMHx: 23:23 Arthritis; COPD; diabetes mellitus; Hypercholesterolemia; Hypertensive disorder; as6 Seizure; - PSHx: 23:23 partial hysterectomy; tubal ligation; as6 - Immunization history:: Adult Immunizations unknown. - Social history:: Smoking status: unknown. - Family history:: not pertinent. Screenin:00 [facility] ED Fall Risk Assessment (Adult) History of falling in the last 3 months, vc1 including since admission No falls in past 3 months (0 pts) Confusion or Disorientation No (0 pts) Intoxicated or Sedated No (0 pts) Impaired Gait No (0 pts) Mobility Assist Device Used No (0 pt) Altered Elimination No (0 pt) Score/Fall Risk Level 0 - 2 = Low Risk Oriented to surroundings, Maintained a safe environment, Educated pt \T\ family on fall prevention, incl call for assistance when getting out of bed. Abuse screen: Denies threats or abuse. Nutritional screening: No deficits noted. Tuberculosis screening: No symptoms or risk factors identified. Assessment: 23:00 General: Appears distressed, Behavior is anxious, restless. Pain: Noted to be restless, vc1 Unable to use pain scale. Patient is unresponsive. Neuro: [place] Agitation-Sedation Scale (RASS): +3 Very Agitated Level of Consciousness is awake, alert, confused. Cardiovascular:. Cardiovascular: Rhythm is sinus rhythm. Respiratory: Reports shortness of breath at rest labored breathing Airway Respiratory effort is labored, asymmetrical, pursed lip, Respiratory pattern is tachypnea Breath sounds are diminished bilaterally. the patient has severe shortness of breath. GI: No deficits noted. No signs and/or symptoms were reported involving the gastrointestinal system. : No deficits noted. No signs and/or symptoms were reported regarding the genitourinary system. EENT: No deficits noted. No signs and/or symptoms were reported regarding the EENT system. Derm: Skin is diaphoretic, Skin temperature is warm. Musculoskeletal: No deficits noted. No signs and/or symptoms reported regarding the musculoskeletal system. 11/16 00:00 Respiratory: Ventilator assessment: ET Tube: 8.0 23 cm at lip. 25cm HOB > 30 degrees. vc1 : 3-way catheter in place to gravity drainage Urine is clear. 01:00 Reassessment: No changes from previously documented assessment. Neuro: Orellana vc1 Agitation-Sedation Scale (RASS): -4 Deep sedation. 02:00 Reassessment: No changes from previously documented assessment. Neuro: Orellana vc1 Agitation-Sedation Scale (RASS): -4 Deep sedation. 02:00 Reassessment: No changes from previously documented assessment. Neuro: Orellana vc1 Agitation-Sedation Scale (RASS): -4 Deep sedation. Vital Signs: 11/15 23:00 Pulse Ox 28% ; as6 23:00 BP 157 / 132; Pulse 50; Resp 32; Temp 97.1; Pulse Ox 27% on R/A; vc1 23:28 Weight 90 kg; as6 23:30 BP 150 / 61; Pulse 111; Resp 19; Temp 98.1; Pulse Ox 99% on ETT vent; vc1 11/16 00:00 BP 107 / 58; Pulse 97; Resp 19; Pulse Ox 100% on ETT vent; vc1 00:30 BP 110 / 53; Pulse 96; Resp 22; Pulse Ox 99% on ETT vent; vc1 01:00 BP 82 / 40; Pulse 93; Resp 19; Pulse Ox 99% on ETT vent; vc1 01:15 BP 95 / 49; Pulse 92; Resp 19; Pulse Ox 100% ; vc1 01:30 BP 107 / 57; Pulse 92; Resp 19; Pulse Ox 100% ; vc1 02:00 BP 125 / 67; Pulse 87; Resp 19; Temp 96.4; Pulse Ox 100% ; vc1 02:30 BP 114 / 60; Pulse 84; Resp 19; Temp 96.5(Ca); Pulse Ox 100% on ETT vent; vc1 03:00 BP 112 / 58; Pulse 86; Resp 19; Temp 96.5(Ca); Pulse Ox 100% ; vc1 11/15 23:00 RT at bedside, pt fighting non rebreather, preparing to intubate vc1 23:30 RT at bedside vc1 ED Course: 23:00 Patient has correct armband on for positive identification. Placed in gown. Bed in low vc1 position. Call light in reach. Side rails up X2. Client placed on continuous cardiac and pulse oximetry monitoring. NIBP monitoring applied. 23:07 Assisted provider with intubation using 8.0 mm ETT via oral route. ET tube secured at as6 23cm at the gums. Set up intubation tray. Intubated by Michael Lake MD Placement verified by CO2 detector w/ + color change, auscultating bilateral breath sounds, CXR, Patient tolerated well. 23:17 Patient arrived in ED. as6 23:18 Michael Lake MD is Attending Physician. sp4 23:19 Arm band placed on. as6 23:23 Triage completed. as6 23:24 Inserted saline lock: 18 gauge in right EJ, using aseptic technique. Maintain EMS IV. as6 Dressing intact. Good blood return noted. Site clean \T\ dry. Gauge \T\ site: 18g LAC. 23:40 NGT: inserted 16 Fr. via left nare. verified placement of air over stomach, verified vc1 return of gastric contents, to intermittent suction. Returned gastric contents. Patient tolerated well. 23:48 XRAY CXR (1 view) In Process Unspecified. EDMS 11/16 00:00 Zayas cath inserted, using sterile technique, 16 Fr., by ia, balloon inflated, to vc1 gravity drainage, clamped. urine specimen collected. other critcore zayas used. 01:07 initiated transfer with Zulma Ceja. pm6 01:[address] Avery. pm6 02:08 accepted by [facility] ICU 213. pm6 02:43 Initiated transfer with [facility] accepted. pm6 03:41 Patient transferred, IV remains in place. vc1 04:[address] Report to ICU [facility]. pm6 05:18 CT Chest For PE Angio In Process Unspecified. EDMS 17:55 pts denture (one) given to security to lock up. bd Administered Medications: 11/15 23:06 Drug: Etomidate IVP 40 mg IVP once Route: IVP; Site: left antecubital; as6 23:07 Follow up: Response: No adverse reaction; RASS: Unarousable (-5) vc1 23:06 Drug: Rocuronium IVP 100 mg IVP once Route: IVP; Site: left antecubital; as6 23:07 Follow up: Response: Marked relief of symptoms; RASS: Unarousable (-5) vc1 23:17 Drug: Midazolam IVP or IV 0.01 mg/kg/h IV at calculated rate See Administration as6 Instructions; (Standard concentration: 100 mg / 100 mL NS); Recommended max rate 0.1 mg/kg/hr; Titrate 0.01 mg/kg/hr as often as every 30 minutes to achieve goal (see titration policy); Goal parameter RASS 0 to -2 Route: IV; Rate: calculated rate; Site: left antecubital; 11/16 03:13 Follow up: IV Status: Infusion continued upon transfer vc1 11/15 23:24 CANCELLED (Duplicate Order): [id number] mg IVP once as6 11/16 00:18 Not Given (Physician Discretion): mg PO once vc1 00:28 Drug: fentaNYL (PF) IV 25 mcg/kg/h IV at calculated rate See Administration vc1 Instructions; (Standard concentration 500 mcg / 50 mL NS [10 mcg / 1 mL); Recommended max rate 4 mcg/kg/hr; Titrate 0.25 mcg/kg/hr as often as every 3 minutes to achieve goal (see titration policy); Goal parameter RASS score 0 to -2 Route: IV; Rate: calculated rate; Site: right jugular; 03:13 Follow up: IV Status: Infusion continued upon transfer vc1 01:00 Drug: Albuterol Inhalation 2.5 mg Inhalation every 20 minutes x3 Route: Inhalation; vc1 01:10 Drug: NS 0.9% IV 1000 ml IV at 125 ml/hr continuous Route: IV; Rate: 125 ml/hr; Site: vc1 left jugular; 03:13 Follow up: IV Status: Infusion continued upon transfer vc1 01:10 Drug: Sodium Bicarbonate IVP 1 amp IVP once; (50 mL); equals 50 mEq Route: IVP; Site: vc1 right jugular; 03:12 Follow up: Response: No adverse reaction vc1 01:10 Drug: NS 0.9% IV 1000 ml IV at 1 bolus Per protocol; 1000 mL bolus Route: IV; Rate: 1 vc1 bolus; Site: left jugular; 03:10 Follow up: IV Status: Completed infusion; IV Intake: 100ml vc1 01:20 Drug: Albuterol Inhalation 2.5 mg Inhalation every 20 minutes x3 Route: Inhalation; vc1 01:21 Drug: Rocephin IV 1 grams IV at bolus once; Given slow IV push per pharmacy vc1 instructions Route: IV; Rate: bolus; Site: left antecubital; 01:30 Follow up: IV Status: Completed infusion; IV Intake: 10ml vc1 01:21 Drug: Zithromax IVPB 500 mg IVPB once over 1 hrs; mix in 250 mL NS Route: IVPB; Infused vc1 Over: 1 hrs; Site: left jugular; 02:21 Follow up: IV Status: Completed infusion; IV Intake: 250ml vc1 01:40 Drug: Albuterol Inhalation 2.5 mg Inhalation every 20 minutes x3 Route: Inhalation; vc1 02:00 Drug: MethylPrednisoLONE IVP 125 mg IVP once Route: IVP; Site: left antecubital; vc1 03:10 Follow up: Response: No adverse reaction vc1 02:32 Drug: Ipratropium Inhalation Aerosol 0.5 mg Inhalation once; Every 20 min for a total vc1 of 3 treatments x3 Route: Inhalation; 02:33 Drug: Albuterol Inhalation 2.5 mg Inhalation every 20 minutes x3 Route: Inhalation; vc1 02:53 Drug: Ipratropium Inhalation Aerosol 0.5 mg Inhalation once; Every 20 min for a total vc1 of 3 treatments x3 Route: Inhalation; 02:53 Drug: Albuterol Inhalation 2.5 mg Inhalation every 20 minutes x3 Route: Inhalation; vc1 03:09 Drug: vancoMYCIN IVPB 2 grams IVPB at calculated rate once Route: IVPB; Rate: vc1 calculated rate; Site: left jugular; 03:10 Follow up: IV Status: Infusion continued upon transfer vc1 03:10 Drug: Ipratropium Inhalation Aerosol 0.5 mg Inhalation once; Every 20 min for a total vc1 of 3 treatments x3 Route: Inhalation; 03:10 Drug: Albuterol Inhalation 2.5 mg Inhalation every 20 minutes x3 Route: Inhalation; vc1 Medication: 01:41 VIS not applicable for this client. vc1 Intake: 01:30 IV: 10ml; Total: 10ml. vc1 02:21 IV: 250ml; Total: 260ml. vc1 03:10 IV: 100ml; Total: 360ml. vc1 Outcome: 01:51 ER care complete, transfer ordered by . sp4 03:39 Transferred by ground EMS to other acute care facility: [facility] vc1 given to TACOS Rubio. Transfer form completed. X-rays sent w/ patient. 03:39 Condition: stable 03:39 Instructed on the need for transfer, informed and daughter (over phone) need for transfer 03:41 Patient left the ED. vc1 Signatures: Dispatcher [employer] EDMS Margarita Singh Ashby, RN RN as6 Kaycee Rosas RN RN vc1 Michael Lake MD MD sp4 Kristin Anderson pm6 Corrections: (The following items were deleted from the chart) 01:20 01:10 NS 0.9% IV 1000 ml IV at 125 ml/hr in right jugular vc1 vc1 01:26 11/15 23:30 BP 150 / 61; Pulse 111bpm; Resp 19bpm; Pulse Ox 25% RA; Temp 98.1F; RT at 1 bedside, pt fighting non rebreather, preparing to intubate; vc1 11/16 01:33 11/15 23:00 BP 150 / 61; Pulse 111bpm; Resp 19bpm; Pulse Ox 25% RA; Temp 98.1F; RT at 1 bedside, pt fighting non rebreather, preparing to intubate; vc1 11/16 01:45 00:00 Respiratory: Ventilator assessment: ET Tube: 8.0 at lip. 25cm HOB > 30 degrees. 1 1 02:46 01:07 initiated transfer with pm6 pm6 03:15 11/15 23:10 Response: No adverse reaction; RASS: Unarousable (-5) [email or web address]
--- NOTE | 2023-11-16 04:35 | EDPHYS ---
Physician Documentation [facility] Name: Smitha Ibarra Age: 58 yrs Sex: Female : 1965 Arrival Date: 11/15/2023 Time: 23:06 Bed 4 Private MD: ED Physician Michael Lake HPI: 11/15 23:18 This 58 yrs old Female presents to ER via Unassigned with complaints of sp4 Respiratory Distress. 23:21 PMH - Allergies: Pseudoephedrine; bp PMHx: Arthritis; COPD; diabetes mellitus; sp4 Hypercholesterolemia; Hypertensive disorder; Seizure PSHx: partial hysterectomy; tubal ligation;. 11/16 01:28 Patient's significant other, states that the patient has been feeling short of breath sp4 all day and approximately 2 hours prior to EMS she became really short of breath. EMS on arrival discovered the patient was hypoxemic, agitated, uncooperative, EMS managed to administer Solu-Medrol 125 mg IV and 1 breathing treatment. . :29 On arrival patient is agitated hypoxemic not able to provide any history as she is sp4 thrashing about on the stretcher, she is diaphoretic. Patient not able to speak or cooperate. HPI and ROS are limited. Historical: - Allergies: 11/15 23:23 Pseudoephedrine; as6 - PMHx: 23:23 Arthritis; COPD; diabetes mellitus; Hypercholesterolemia; Hypertensive disorder; as6 Seizure; - PSHx: 23:23 partial hysterectomy; tubal ligation; as6 - Immunization history:: Adult Immunizations unknown. - Social history:: Smoking status: unknown. - Family history:: not pertinent. ROS: 11/16 01:29 Constitutional: Positive for respiratory distress otherwise ROS is not obtainable sp4 All other systems are negative, Unable to obtain ROS due to patient distress, patient being uncooperative, Exam: :29 Constitutional: This is a well developed, well nourished patient , patient is sp4 cyanotic, patient is agitated, thrashing about the bed, patient is diaphoretic and in acute respiratory distress Head/Face: Normocephalic, atraumatic. Eyes: Pupils equal round and reactive to light, ENT: Nares patent. No nasal discharge, no septal abnormalities noted. Tympanic membranes are normal and external auditory canals are clear. Oropharynx with no redness, swelling, or masses, exudates, or evidence of obstruction, uvula midline. Mucous membranes moist. Upper denture was removed Neck: Trachea midline, no thyromegaly or masses palpated, and no cervical lymphadenopathy. Chest/axilla: Normal chest wall appearance and motion. Nontender with no deformity. No lesions are appreciated. Cardiovascular: Patient is tachycardic, no gallops, murmurs, or rubs. Normal PMI, no JVD. No pulse deficits. Respiratory: Lungs have equal breath sounds , bilateral moderate to severe wheezing, respiratory distress, tachypnea, bilateral retractions, moderate to severe accessory muscle use Abdomen/GI: Soft, non-tender, with normal bowel sounds. No distension or tympany. Back: No spinal tenderness. No deformities Female : Normal external genitalia. Skin: Warm, dry with normal turgor. Normal color with no rashes, no lesions, and no evidence of cellulitis. MS/ Extremity: Pulses equal, no cyanosis. Neurovascular intact. Full, normal range of motion. Neuro: Awake , moderate to severe agitation, secondary to hypoxemia, perioral cyanosis, uncooperative behavior, grossly no lateralizing neurologic deficits, patient is moving all extremities 01:29 ECG was reviewed by the Attending Physician. EKG reveals normal sinus rhythm at the rate of 90, no ST elevation or depression, left bundle branch block negative IL based on Sgarbossa criteria Vital Signs: 11/15 23:00 Pulse Ox 28% ; as6 23:00 BP 157 / 132; Pulse 50; Resp 32; Temp 97.1; Pulse Ox 27% on R/A; vc1 23:28 Weight 90 kg; as6 23:30 BP 150 / 61; Pulse 111; Resp 19; Temp 98.1; Pulse Ox 99% on ETT vent; vc1 11/16 00:00 BP 107 / 58; Pulse 97; Resp 19; Pulse Ox 100% on ETT vent; vc1 00:30 BP 110 / 53; Pulse 96; Resp 22; Pulse Ox 99% on ETT vent; vc1 01:00 BP 82 / 40; Pulse 93; Resp 19; Pulse Ox 99% on ETT vent; vc1 01:15 BP 95 / 49; Pulse 92; Resp 19; Pulse Ox 100% ; vc1 01:30 BP 107 / 57; Pulse 92; Resp 19; Pulse Ox 100% ; vc1 02:00 BP 125 / 67; Pulse 87; Resp 19; Temp 96.4; Pulse Ox 100% ; vc1 02:30 BP 114 / 60; Pulse 84; Resp 19; Temp 96.5(Ca); Pulse Ox 100% on ETT vent; vc1 03:00 BP 112 / 58; Pulse 86; Resp 19; Temp 96.5(Ca); Pulse Ox 100% ; vc1 11/15 23:00 RT at bedside, pt fighting non rebreather, preparing to intubate vc1 23:30 RT at bedside vc1 Procedures: 11/16 01:16 Intubation: Intubated Sterling scope assisted intubation using S4 blade with 8.0 mm ETT. sp4 was successful on first attempt. Ventilated with Ambu bag. Tube secured with ETT green at center of mouth measured 23 cm at lip. Placement verified by CXR, CO2 detector with (+) color change, auscultating bilateral breath sounds, O2 saturation after procedure was 100 %. Patient tolerated well, Prior to intubation patient was agitated and hypoxic. Central Line: the site was prepped with in sterile fashion, Chlorhexidine, a triple lumen catheter was inserted, in the left internal jugular vein, in 1 attempts. placement was verified, by CXR, by blood return, Ultrasound assisted central line, the site was dressed with Tegaderm, using sterile technique, the patient tolerated the procedure, well, Ultrasound assisted triple-lumen left internal jugular CVL placed without complications. MDM: 11/15 23:21 Patient medically screened. sp4 11/16 01:16 Differential Diagnosis altered mental status, sepsis, flu. Data reviewed: vital signs, sp4 nurses notes, EMS record, old medical records, lab test result(s), EKG, radiologic studies, plain films. Consideration of Admission/Observation Patient was admitted/placed on observation. Escalation of care including admission/observation considered. 01:48 ED course: Chest - EXAM: XR Chest, 1 View CLINICAL HISTORY: Respiratory failure sp4 TECHNIQUE: Frontal view of the chest. COMPARISON: XR Chest dated 08/17/2023 FINDINGS: Lungs: Central pulmonary vascular and interstitial prominence and left greater than right perihilar and basilar opacities. Pleural space: Blunting of the left costophrenic angle. Heart: Unremarkable. No cardiomegaly. Mediastinum: Unremarkable. Normal mediastinal contour. Bones/joints: Multilevel spondylosis. No acute fracture. Vasculature: Thoracic aortic atherosclerosis. Tubes, lines and devices: Endotracheal tube tip projects 3.6 cm proximal to the ata. Nasogastric tube tip projects over the left upper quadrant in the expected region of the stomach. IMPRESSION: Constellation of findings which may be related to pulmonary congestion including small left pleural effusion. Superimposed infection not excluded. . 03:56 ED course: COMPARISON: No relevant prior studies available. FINDINGS: Artifacts: Motion sp4 artifact degrades image quality and limits evaluation of segmental and subsegmental vessels. Limitations: Image degradation secondary to patient arm positioning. Pulmonary arteries: No central or proximal segmental pulmonary arterial filling defects. Aorta: Mild atherosclerotic disease. No thoracic aortic aneurysm. Lungs: Interstitial thickening and multifocal groundglass opacities bilaterally, left greater than right. Mild to moderate left and moderate to severe right lower lobe consolidation. Right lower lobe air bronchograms. Pleural space: Unremarkable. No significant effusion. No pneumothorax. Heart: Unremarkable. No cardiomegaly. No significant pericardial effusion. No evidence of RV dysfunction. Thyroid: The thyroid is enlarged and heterogeneous with multiple nodules. An index nodule on the left measures 2 cm. Bones/joints: Multilevel spondylosis. No acute fracture. No dislocation. Soft tissues: Unremarkable. Lymph nodes: Unremarkable. No enlarged lymph nodes. Tubes, lines and devices: Left internal jugular central venous catheter tip terminates at the proximal superior vena cava. Endotracheal tube tip terminates 4 cm proximal to the ata. Nasogastric tube terminates in the stomach. IMPRESSION: 1. Motion artifact degrades image quality and limits evaluation of segmental and subsegmental vessels. No central or proximal segmental pulmonary embolic disease. 2. Multifocal infiltrates bilaterally. Component of pulmonary congestion is not excluded. Moderate to severe right and mild to moderate left lower lobe consolidation (atelectasis and/or infiltrate). 3. Enlarged nodular thyroid. Recommend non-emergent thyroid ultrasound. Reference: J Am Laura Radiol. 2015 b;12(2): 143-50 4. Other findings as above. . 11/15 23:18 Order name: BMP; Complete Time: : sp4 11/15 23:18 Order name: Blood Culture Adult (2) sp4 11/15 23:18 Order name: CBC with Diff; Complete Time: :43 11/15 23:18 Order name: CPK; Complete Time: :11/15 23:18 Order name: D-Dimer; Complete Time: :11/15 23:18 Order name: Hepatic Function; Complete Time: :11/15 23:18 Order name: Lipase; Complete Time: :11/15 23:18 Order name: Magnesium; Complete Time: :11/15 23:18 Order name: NT PRO-BNP; Complete Time: :11/15 23:18 Order name: PT-INR; Complete Time: :11/15 23:18 Order name: Ptt, Activated; Complete Time: :11/15 23:18 Order name: Troponin HS; Complete Time: :11/15 23:18 Order name: ABG; Complete Time: :11/15 23:21 Order name: Urinalysis W/Microscopic; Complete Time: :11/15 23:21 Order name: Urine Drug Screen 11/15 23:21 Order name: Alcohol Level; Complete Time: :11/15 23:21 Order name: CRP; Complete Time: :11/15 23:44 Order name: Lactate w/ 2H reflex if indic.; Complete Time: :11/16 00:39 Order name: Manual Differential; Complete Time: :43 EDMS 11/16 01:51 Order name: SARS RAPID 11/15 23:18 Order name: XRAY CXR (1 view) 11/16 01:52 Order name: CT Chest For PE Angio 11/15 23:18 Order name: Call RT 11/15 23:18 Order name: EKG; Complete Time: 23:19 11/15 23:18 Order name: Cardiac monitoring; Complete Time: 23:19 11/15 23:18 Order name: EKG - Nurse/Tech; Complete Time: 01:25 11/15 23:18 Order name: Nicole; Complete Time: 02:34 11/15 23:18 Order name: IV Saline Lock; Complete Time: 23:19 11/15 23:18 Order name: Labs collected and sent; Complete Time: 02:34 sp4 11/15 23:18 Order name: O2 Per Protocol; Complete Time: 23:19 sp4 11/15 23:18 Order name: O2 Sat Monitoring; Complete Time: 23:19 sp4 11/15 23:19 Order name: NG Tube; Complete Time: 03:19 sp4 11/15 23:19 Order name: Central Line Kit; Complete Time: 03:19 sp4 EC: Rate is 90 beats/min. Rhythm is regular, Sinus Rhythm. QRS [place] is Normal. DE interval sp4 is normal. QRS interval is prolonged. QT interval is normal. No ST changes noted. Clinical impression: No evidence of ischemia. Interpreted by me. Reviewed by me. Administered Medications: 11/15 23:06 Drug: Etomidate IVP 40 mg IVP once Route: IVP; Site: left antecubital; as6 23:07 Follow up: Response: No adverse reaction; RASS: Unarousable (-5) vc1 23:06 Drug: Rocuronium IVP 100 mg IVP once Route: IVP; Site: left antecubital; as6 23:07 Follow up: Response: Marked relief of symptoms; RASS: Unarousable (-5) vc1 23:17 Drug: Midazolam IVP or IV 0.01 mg/kg/h IV at calculated rate See Administration as6 Instructions; (Standard concentration: 100 mg / 100 mL NS); Recommended max rate 0.1 mg/kg/hr; Titrate 0.01 mg/kg/hr as often as every 30 minutes to achieve goal (see titration policy); Goal parameter RASS 0 to -2 Route: IV; Rate: calculated rate; Site: left antecubital; 11/16 03:13 Follow up: IV Status: Infusion continued upon transfer vc1 11/15 23:24 CANCELLED (Duplicate Order): [id number] mg IVP once as6 11/16 00:18 Not Given (Physician Discretion): [id number] mg PO once vc1 00:28 Drug: fentaNYL (PF) IV 25 mcg/kg/h IV at calculated rate See Administration vc1 Instructions; (Standard concentration 500 mcg / 50 mL NS [10 mcg / 1 mL); Recommended max rate 4 mcg/kg/hr; Titrate 0.25 mcg/kg/hr as often as every 3 minutes to achieve goal (see titration policy); Goal parameter RASS score 0 to -2 Route: IV; Rate: calculated rate; Site: right jugular; 03:13 Follow up: IV Status: Infusion continued upon transfer vc1 01:00 Drug: Albuterol Inhalation 2.5 mg Inhalation every 20 minutes x3 Route: Inhalation; vc1 01:10 Drug: NS 0.9% IV 1000 ml IV at 125 ml/hr continuous Route: IV; Rate: 125 ml/hr; Site: vc1 left jugular; 03:13 Follow up: IV Status: Infusion continued upon transfer vc1 01:10 Drug: Sodium Bicarbonate IVP 1 amp IVP once; (50 mL); equals 50 mEq Route: IVP; Site: vc1 right jugular; 03:12 Follow up: Response: No adverse reaction vc1 01:10 Drug: NS 0.9% IV 1000 ml IV at 1 bolus Per protocol; 1000 mL bolus Route: IV; Rate: 1 vc1 bolus; Site: left jugular; 03:10 Follow up: IV Status: Completed infusion; IV Intake: 100ml vc1 01:20 Drug: Albuterol Inhalation 2.5 mg Inhalation every 20 minutes x3 Route: Inhalation; vc1 01:21 Drug: Rocephin IV 1 grams IV at bolus once; Given slow IV push per pharmacy vc1 instructions Route: IV; Rate: bolus; Site: left antecubital; 01:30 Follow up: IV Status: Completed infusion; IV Intake: 10ml vc1 01:21 Drug: Zithromax IVPB 500 mg IVPB once over 1 hrs; mix in 250 mL NS Route: IVPB; Infused vc1 Over: 1 hrs; Site: left jugular; 02:21 Follow up: IV Status: Completed infusion; IV Intake: 250ml vc1 01:40 Drug: Albuterol Inhalation 2.5 mg Inhalation every 20 minutes x3 Route: Inhalation; vc1 02:00 Drug: MethylPrednisoLONE IVP 125 mg IVP once Route: IVP; Site: left antecubital; vc1 03:10 Follow up: Response: No adverse reaction vc1 02:32 Drug: Ipratropium Inhalation Aerosol 0.5 mg Inhalation once; Every 20 min for a total vc1 of 3 treatments x3 Route: Inhalation; 02:33 Drug: Albuterol Inhalation 2.5 mg Inhalation every 20 minutes x3 Route: Inhalation; vc1 02:53 Drug: Ipratropium Inhalation Aerosol 0.5 mg Inhalation once; Every 20 min for a total vc1 of 3 treatments x3 Route: Inhalation; 02:53 Drug: Albuterol Inhalation 2.5 mg Inhalation every 20 minutes x3 Route: Inhalation; vc1 03:09 Drug: vancoMYCIN IVPB 2 grams IVPB at calculated rate once Route: IVPB; Rate: vc1 calculated rate; Site: left jugular; 03:10 Follow up: IV Status: Infusion continued upon transfer vc1 03:10 Drug: Ipratropium Inhalation Aerosol 0.5 mg Inhalation once; Every 20 min for a total vc1 of 3 treatments x3 Route: Inhalation; 03:10 Drug: Albuterol Inhalation 2.5 mg Inhalation every 20 minutes x3 Route: Inhalation; vc1 Disposition Summary: 11/16/23 01:51 Transfer Ordered Notes: Transfer Location: Other Acute Care Facility sp4 Reason: Higher level of care sp4 Condition: Serious sp4 Problem: new sp4 Symptoms: have improved sp4 Accepting Physician: [facility](11/16/23 03:41) vc1 Diagnosis - Acute respiratory failure sp4 - COPD exacerbation, acute hypoxemic hypercarbic respiratory failure, bilateral sp4 pneumonia, Tobacco use disorder Forms: - Medication Reconciliation Form sp4 - SBAR form sp4 Signatures: Dispatcher [employer] Mendez Gates RN RN as6 Kaycee Rosas RN RN vc1 Michael Lake MD MD sp4 Corrections: (The following items were deleted from the chart) 11/15 23:24 23:19 Rocuronium IVP 40 mg IVP once ordered. sp4 as6 11/16 03:41 01:51 [facility] sp4 vc1
[2023-11-16 07:41] VITALS: O2SAT 100
[2023-11-16 07:54] VITALS: BP 112/58; TEMP 96.5
--- NOTE | 2023-11-16 12:28 | RAD REPORT ---
EXAM DESCRIPTION: CT - Chest For Pe Angio - 11/16/2023 6:25 am CLINICAL HISTORY: CHEST PAIN, TO RULE OUT PE TECHNIQUE: Axial computed tomographic angiography images of the chest with intravenous contrast. S agittal and coronal reformatted images were created and reviewed. This CT exam was performed using one or more of the following dose reduction techniques: automated exposure control, adjustment of t he mA and/or kV according to patient size, and/or use of iterative reconstruction technique. MIP reconstructed images were created and reviewed. COMPARISON: No relevant prior studies available. FINDINGS: Artifacts: Motion artifact degrades image quality and limits evaluation of segmental and subsegmental vessels. Limitations: Image degradation secondary to patient arm positioning. Pulmonary arteries: No central or proximal segmental pulmonary arterial filling defects. Aorta: Mild atherosclerotic disease. No thoracic aortic aneurysm. Lungs: Interstitial thickening and multifocal groundglass opacities bilaterally, left greater than right. Mild to moderate left and moderate to severe right lower lobe consolidation. Right lower lobe air bronchograms. Pleural space: Unremarkable. No significant effusion. No pneumothorax. Heart: Unremarkable. No cardiomegaly. No significant pericardial effusion. No evidence of RV dysfunction. Thyroid: The thyroid is enlarged and heterogeneous with multiple nodules. An index nodule on the le ft measures 2 cm. Bones/joints: Multilevel spondylosis. No acute fracture. No dislocation. Soft tissues: Unremarkable. Lymph nodes: Unremarkable. No enlarged lymph nodes. Tubes, lines and devices: Left internal jugular central venous catheter tip terminates at the proxi mal superior vena cava. Endotracheal tube tip terminates 4 cm proximal to the ata. Nasogastric tube terminates in the stomach. IMPRESSION: 1. Motion artifact degrades image quality and limits evaluation of segmental and subse gmental vessels. No central or proximal segmental pulmonary embolic disease. 2. Multifocal infiltrates bilaterally. Component of pulmonary congestion is not excluded. Moderate to severe right and mild to moderate left lower lobe consolidation (atelectasis and/or infiltrate). 3. Enlarged nodular thyroid. Recommend non-emergent thyroid ultrasound. Reference: J Am Laura Radiol . 2015 Nov;12(2): 143-50 4. Other findings as above. Electronically signed by: Paul Johnson MD 11/16/2023 03:18 AM ELECTRICAL WORKER Due to temporary technical issues with the PACS/Fluency reporting system, reports are being signed by the in house radiologist without review as a courtesy to ensure prompt reporting. The interpreting r adiologist is fully responsible for the content of the report.
--- NOTE | 2023-11-16 14:30 | RAD REPORT ---
EXAM DESCRIPTION: RAD - Chest Single View - 11/15/2023 11:46 pm CLINICAL HISTORY: Respiratory failure TECHNIQUE: Frontal view of the chest. COMPARISON: XR Chest dated 08/17/2023 FINDINGS: Lungs: Central pulmonary vascular and interstitial prominence and left greater than righ t perihilar and basilar opacities. Pleural space: Blunting of the left costophrenic angle. Heart: Unremarkable. No cardiomegaly. Mediastinum: Unremarkable. Normal mediastinal contour. Bones/joints: Multilevel spondylosis. No acute fracture. Vasculature: Thoracic aortic atherosclerosis. Tubes, lines and devices: Endotracheal tube tip projects 3.6 cm proximal to the ata. Nasogastr ic tube tip projects over the left upper quadrant in the expected region of the stomach. IMPRESSION: Constellation of findings which may be related to pulmonary congestion including small l eft pleural effusion. Superimposed infection not excluded. Electronically signed by: Paul Johnson MD 11/15/2023 11:59 PM RESTAURANT CREW Due to temporary technical issues with the PACS/Fluency reporting system, reports are being signed by the in house radiologist without review as a courtesy to ensure prompt reporting. The interpreting r adiologist is fully responsible for the content of the report.
--- NOTE | 2023-11-17 16:31 | EKG ---
Test Date: 2023-11-16 Test Time: 01:22:23 Animal Nursery Worker: HARRISON MEASUREMENT RESULTS: Intervals: Rate: 90 KS: 158 QRSD: 162 QT: 474 QTc: 579 Lutz: P: 75 KS: 158 QRS: 40 T: 185 INTERPRETIVE STATEMENTS: Normal sinus rhythm Left bundle branch block Abnormal ECG Compared to ECG 08/17/2023 23:38:31 No significant changes Electronically Signed On 11-17-23 16:26:37 ENVIRONMENTAL FIELD TECHNICIAN by Humphrey Ramos
== END 2023-11-16 03:41 | disposition home or self-care (01) ==
LOC: ER 23:06
DX: J44.1 Chronic obstructive pulmonary disease with (acute) exacerbation (principal); J96.02 Acute respiratory failure with hypercapnia; J96.01 Acute respiratory failure with hypoxia; J18.9 Pneumonia, unspecified organism; I10 Essential (primary) hypertension; E11.9 Type 2 diabetes mellitus without complications; E78.00 Pure hypercholesterolemia, unspecified; M19.90 Unspecified osteoarthritis, unspecified site; Z72.0 Tobacco use; Z88.8 Allergy status to other drugs, medicaments and biological substances; Z11.52 Encounter for screening for COVID-19
CPT/HCPCS: 93005; 87040; 36415; 71275; 71045; 82805; 31500; 51702; 99291; 99292; 36600 ×2; 94002; Q9967